=== PATIENT | female | born 1970 | race Two or more races ===

== ENCOUNTER 2019-01-16 17:25 | Emergency (ER) | payer MEDICAID ==
[~2019-01-16] VITALS: Ht 170.2 cm; Wt 108.9 kg
[2019-01-16 18:26] VITALS: BP 136/93
[2019-01-16 18:32] LABS: Basophils # (auto) 0 uL; Basophils % (auto) 0.5 % (0.0-2.0); Eosinophils # (auto) 0.1 uL; Eosinophils % (auto) 1.3 % (0.0-7.0); Hematocrit 36.7 % (36.0-46.0); Hemoglobin 12.2 g/dL (12.2-16.2); Lymphocytes # (auto) 1.7 uL; Lymphocytes % (auto) 19.8 % (10.0-50.0); Mean Corpuscular Hemoglobin 28.3 pg (28.0-32.0); Mean Corpuscular Hgb Conc. 33.3 g/dL (32.0-36.0); Mean Corpuscular Volume 85.1 fL (80.0-100.0); Monocytes # (auto) 0.5 uL; Monocytes % (auto) 5.9 % (0.0-12.0); Neutrophils # (auto) 6.2 uL; Neutrophils % (auto) 72.5 % (37.0-80.0); Platelet Count (auto) 271 10^3/uL (140-450); Red Blood Cells 4.32 10^6/uL (4.0-5.20); Red Cell Distribution Width 16.1 % (11.8-14.3); White Blood Cell 8.5 10^3/uL (4.4-10.8)
[2019-01-16 18:42] LABS: Albumin 2.9 g/dL (3.4-5.0); Calcium 8.4 mg/dL (8.5-10.1); Magnesium 1.7 mg/dL (1.6-2.6); Potassium 3.8 mmol/L (3.5-5.1)
[2019-01-16 18:44] LABS: BUN/Creatinine Ratio 17.4; INR 0.97 (0.9-1.15); Partial Thromboplastin Time 23.8 sec (23.78-33.04); Prothrombin Time 10.4 sec (9.27-12.13)
[2019-01-16 18:50] LABS: Bilirubin, Total 0.4 mg/dL (0.2-1.0); Total Protein 6.7 g/dL (6.4-8.2)
== END 2019-01-16 19:16 | disposition left against medical advice (07) ==
LOC: EDBD 17:25 → ER 17:32
DX: I11.0 Hypertensive heart disease with heart failure (principal); E11.65 Type 2 diabetes mellitus with hyperglycemia; I50.33 Acute on chronic diastolic (congestive) heart failure; I25.2 Old myocardial infarction; F17.210 Nicotine dependence, cigarettes, uncomplicated; J45.909 Unspecified asthma, uncomplicated; Z90.49 Acquired absence of other specified parts of digestive tract; Z88.6 Allergy status to analgesic agent
CPT/HCPCS: 36415; 71045; 80053; 83735; 83880; 84443; 84484; 85025; 85610; 85730; 93005; 94761

== ENCOUNTER 2025-03-26 10:04 | Inpatient (IN) | payer MEDICAID ==
[2025-03-26] VITALS (39 sets, daily range): BP systolic 71–119; BP diastolic 35–75; PULSE 93–113; RESP 11–31; TEMP 98–98.2; O2SAT 92–100
[~2025-03-26] VITALS: Ht 167.6 cm; Wt 143.0 kg
[2025-03-26] MEDS ORDERED: VANCOMYCIN PER PHARMACY 0 MG IV SCH ×2 (10:45→15:00)
--- NOTE | 2025-03-26 10:58 | ED.PDOC ---
History of Present Illness(SKN HPI Comments 54-year-old female brought in by family from [facility] in [place], for evaluation of wounds to her right lower leg x 1 month. Patient states she had been on antibiotics 3 weeks ago, but is not on any antibiotics currently. She notes malodorous yellow discharge from the wounds. Patient st ates that the leg has been like this for "a month now". Patient is supposed to be taken care of at [facility] in [place]. Patient denies fever or recent injury. She states the leg is painful, and has been for about the last 3 weeks. Chief Complaint: Wound Check Time Seen by MD: 10:39 Primary Care Provider: DENIES History of Present Illness: Medications, Allergies Allergies: Coded Allergies: Codeine (Verified Allergy, Unknown, 01/16/19) Penicillins (Verified Allergy, Unknown, 03/26/25) Information Source: Patient Mode of Arrival: Wheelchair Severity: Moderate Timing: Months Duration: Since onset Prehospital treatment: None Location: Leg (RIGHT LOWER LEG) Mechanism: Preceding Wound Developed: Generalized erythema Wound Type: Unknown Immunization Status of Animal: NA Tetanus: Unknown Past Medical History PAST MEDICAL HISTORY: Asthma, CHF, COPD, DM, ESRD, HTN, DE Surgical History: Cholecystectomy, 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 Family History Family History: Unknown Social History Smoker: Cigarettes, Less Than 1 Pack/Day Alcohol: Denies ETOH Use Drugs: Denies Drug Use Lives In: Assisted Care Constitutional: denies: chills, diaphoresis, fatigue, fever, malaise, sweats, weakness, others EENTM: denies: blurred vision, double vision, ear bleeding, ear discharge, ear drainage, ear pain, ear ringing, eye pain, eye redness, hearing loss, mouth pain, mouth swelling, nasal discharge, nose bleeding, nose congestion, nose pain, photophobia, tearing, throat pain, throat swelling, voice changes, others Respiratory: denies: cough, hemoptysis, orthopnea, SOB at rest, shortness of breath, SOB with excertion, stridor, wheezing, others Cardiovascular: denies: chest pain, dizzy spells, diaphoresis, Dyspnea on exertion, edema, irregular heart beat, left arm pain, lightheadedness, palpitations, PND, syncope, others Gastrointestinal: denies: abdomen distended, abdominal pain, blood streaked bowels, constipated, diarrhea, dysphagia, difficulty swallowing, hematemesis, melena, nausea, poor appetite, poor fluid intake, rectal bleeding, rectal pain, vomiting, others Genitourinary: denies: abnormal vagina bleeding, burning, dyspareunia, dysuria, flank pain, frequency, hematuria, incontinence, pain, , vagina discharge, urgency, others Neurological: denies: dizziness, fainting, headache, left sided numbness, left sided weakness, numbness, paresthesia, pre-existing deficit, right sided numbness, right sided weakness, seizure, speech problems, tingling, tremors, weakness, others Musculoskeletal: denies: back pain, gout, joint pain, joint swelling, muscle pain, muscle stiffness, neck pain, others Integumetry: reports: wounds; denies: bruises, change in color, change in hair/nails, dryness, laceration, lesions, lumps, rash, others Allergic/Immunocompromised: denies: Difficulty Healing, Frequent Infections, Hives, Itching, others Hematologic/Lymphatic: denies: anemia, blood clots, easy bleeding, easy bruising, swollen glands, others Endocrine: denies: excessive hunger, excessive sweating, excessive thirst, excessive urination, flushing, intolerance to cold, intolerance to heat, unexplained weight gain, unexplained weight loss, others Psychiatric: denies: anxiety, bipolar disorder, depression, hopeless, panic disorder, schizophrenia, sleepless, suicidal, others All Other Systems: Reviewed and Negative Physical Exam General Appearance: Obese HEENT: Other (Pupils and face symmetric. Moist mucous membranes.) Neck: Full Range of Motion, Normal Inspection Respiratory: Decreased Breath Sounds, No Accessory Muscle Use, No Respiratory Distress Cardiovascular: No JVD, Regular Rate/Rhythm Breast Exam: Deferred Gastrointestinal: Non Tender, Soft Genitalia: Deferred Pelvic: Deferred Rectal: Deferred Extremities: Leg edema, Pedal edema, Other (Right greater than left lower extremity edema. Right leg confidential/ confluent macerated ulcerative wounds involving the leg, ankle and foot. Malodorous purulent discharge. Maggots noted on the wounds) Musculoskeletal : Apperance: Normal Neurologic: Alert (Oriented x4), Normal Affect, Normal Mood, Other (Moves all extremities. ) Cerebellar Function: NOT DONE Reflexes: NOT DONE Skin: Dry, Warm, Wounds (Right lower extremity please see extremity exam for details) Lymphatic: NOT DONE Was a procedure done? 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 Local anesthesia was applied using 1% lidocaine. The left femoral vein was very dif ficult to localized using ultrasound due to the patient's large pannus and large amount of soft tissue in the proximal thigh and inguinal area, which required a 2nd person to hold aside in order for me to visualize the femoral vein. Two attempts were made to access the vein under ultrasound guidance, however these were unsuccessful and the patient expressed discomfort and asked me to discontinue the procedure. Direct pressure was applied to the attempted insertion site with achievement of hemostasis after a few sec. Differential Diagnosis (INTG) Differential Diagnosis: Cellulitis, Other (Sepsis, among others) Differential Diagnosis: Abscess, Gangrene, Osteomyelitis X-Ray, Labs, Meds, VS Vital Signs Date Time Temp Pulse Resp B/P (MAP) Pulse Ox O2 Delivery O2 Flow Rate FiO2 03/26/25 14:15 111 21 91/61 (71) 97 03/26/25 14:15 91/61 03/26/25 14:00 111 19 87/50 (62) 97 03/26/25 13:45 112 20 98/53 (68) 97 03/26/25 13:30 112 20 98/53 (68) 97 03/26/25 13:25 97/57 03/26/25 13:15 112 20 100/55 (70) 96 03/26/25 13:15 92/53 03/26/25 12:27 96 21 96/54 (68) 97 03/26/25 12:15 73/42 03/26/25 11:58 90 03/26/25 11:30 75/45 03/26/25 11:15 98.8 113 20 81/51 (61) 97 98.8 03/26/25 11:15 113 20 97 Nasal Cannula* 3 32 03/26/25 10:15 98.1 115 20 82/50 (61) 88 98.1 80/39 (53) Lab Test 03/26/25 14:27 03/26/25 13:34 03/26/25 10:25 Range/Units Troponin I High Sensitivity Pending 11 </=34 ng/L White Blood Count 10.7 4.4-10.8 10^3/uL Red Blood Count 2.87 L 4.0-5.20 10^6/uL Hemoglobin 9.7 L 12.2-16.2 g/dL Hematocrit 29.3 L 36.0-46.0 % Mean Corpuscular Volume 101.8 H 80.0-100.0 fL Mean Corpuscular Hemoglobin 33.7 H 28.0-32.0 pg Mean Corpuscular Hemoglobin Concent 33.1 32.0-36.0 g/dL Red Cell Distribution Width 16.8 H 11.8-14.3 % Platelet Count 283 140-450 10^3/uL Mean Platelet Volume 6.8 L 6.9-10.8 fL Neutrophils (%) (Auto) 75.0 37.0-80.0 % Lymphocytes (%) (Auto) 10.6 10.0-50.0 % Monocytes (%) (Auto) 10.4 0.0-12.0 % Eosinophils (%) (Auto) 3.0 0.0-7.0 % Basophils (%) (Auto) 1.0 0.0-2.0 % Neutrophils # (Auto) 8.0 1.6-8.6 10 ^3/uL Lymphocytes # (Auto) 1.1 0.4-5.4 10 ^3/uL Monocytes # (Auto) 1.1 0-1.3 10 ^3/uL Eosinophils # (Auto) 0.3 0-0.8 10 ^3/uL Basophils # (Auto) 0.1 0-0.2 10 ^3/uL Nucleated Red Blood Cells 0.0 % Prothrombin Time 11.7 9.3-11.8 sec Prothrombin Time INR 1.12 0.9-1.15 Activated Partial Thromboplast Time 36.5 H 24.5-34.5 SEC Sodium Level 136 136-145 mmol/L Potassium Level 5.2 H 3.5-5.1 mmol/L Chloride Level 102 98-107 mmol/L Carbon Dioxide Level 24 20-31 mmol/L Anion Gap 10 5-15 Blood Urea Nitrogen 36 H 9-23 mg/dL Creatinine 3.99 H 0.550-1.02 mg/dL Glomerular Filtration Rate Calc 13 >90 mL/min BUN/Creatinine Ratio 9.0 L 10.0-20.0 Serum Glucose 166 H 74-106 mg/dL Calcium Level 8.5 L 8.7-10.4 mg/dL B-Type Natriuretic Peptide 138.10 0-100 pg/mL POC Glucose 251 H 70-106 mg/dl Current Medications Medications (Trade) Dose Ordered Sig/Kiana Route Start Time Stop Time Status Last Admin Acetaminophen/ Hydrocodone Bitart ([place] 10/325MG Tab) 1 tab ONCE ONCE PO 03/26/25 10:45 03/26/25 10:46 DC 03/26/25 11:50 Cefepime HCl 50 ml @ 12.5 mls/hr ONCE ONCE IV 03/26/25 10:45 03/26/25 14:44 DC 03/26/25 11:20 Sodium Chloride 1,000 ml @ 1,000 mls/hr Q1H ONCE IV 03/26/25 11:00 03/26/25 11:59 DC 03/26/25 11:14 Norepinephrine Bitartrate 250 ml @ 3.75 mls/hr Q24H IV 03/26/25 11:30 03/26/25 11:30 PROCEDURE(s): CXRP - CHEST PORTABLE REASON: lower extremity edema ORDER NUMBER(s): [id number], ACCESSION NUMBER(s): [id number] EXAM: XY CHEST PORTABLE Indication: lower extremity edema Technique: Single frontal view of the chest was obtained Comparison: None FINDINGS: Lines and Tubes: None Lungs: Pulmonary edema. Pleura: Trace bilateral pleural effusions. No pneumothorax. Cardiomediastinal contours: Cardiomegaly. Bones: No acute osseous abnormality. IMPRESSION: Cardiomegaly with pulmonary edema. Trace bilateral pleural effusions. EDURE(s): RTBFB - R TIB FIB XRAY REASON: wound infection r/o osteo ORDER NUMBER(s): [id number], ACCESSION NUMBER(s): [id number] CLINICAL INDICATION: Pain wound infection r/o osteo TECHNIQUE: 2 radiographic views of the right tibia/ fibula were obtained. Comparison: None FINDINGS/IMPRESSION: There is no evidence of acute fracture or dislocation. Partially visualized osteoarthrosis right knee joint. No radiographic evidence of cortical destruction. EDURE(s): RANK2 - R ANKLE 2 VIEW XRAY REASON: wound infection r/o osteo ORDER NUMBER(s): [id number], ACCESSION NUMBER(s): [id number] CLINICAL INDICATION: Pain; wound infection r/o osteo TECHNIQUE: 2 radiographic views of the right ankle were obtained. Comparison: None FINDINGS/IMPRESSION: There is no evidence of acute fracture or dislocation. The visualized joint space is well maintained. The alignment is anatomical. There is no radiopaque foreign body. EDURE(s): RFOOT - R FOOT 3 VIEW XRAY REASON: wound infection r/o osteo ORDER NUMBER(s): [id number], ACCESSION NUMBER(s): [id number] CLINICAL INDICATION: wound infection r/o osteo TECHNIQUE: 3 radiographic views of the right foot were obtained. Comparison: None FINDINGS/IMPRESSION: There is no evidence of acute fracture or dislocation. Small plantar calcaneal enthesophyte. The visualized joint space is well maintained. Atherosclerotic vascular right foot. Diffuse soft tissue swelling about the right foot. No radiographic evidence destruction. The alignment is anatomical. There is no radiopaque foreign body. X-Ray, Labs, Meds, VS Comment 54-year-old female with a history of diabetes, hypertension, COPD on home O2, CHF, end-stage renal disease on dialysis presenting with right lower extremity painful wounds with purulent discharge and maggots noted on the wounds Vitals remarkable for heart rate 111, BP 87/50 Exam remarkable for right lower extremity wounds extending from the leg to the foot which are open and draining pus with maggots noted on the wounds Rhythm strip independently interpreted by me: Sinus tach, rate 111, no ectopy. Chest x-ray IMPRESSION: Cardiomegaly with pulmonary edema. Trace bilateral pleural effusions. Right tib-fib, ankle and foot x-rays unremarkable for acute fracture or dislocation. Per my preliminary interpretation, no periosteal elevation to suggest osteomyelitis. CBC unremarkable, metabolic panel remarkable for potassium 5.2, BUN 36, creatinine 3.99, BNP 138.1, troponin negative x2 Patient treated with the following in the ED: Cefepime 2 g IV, vancomycin 1 g IV, 1 L 0.9 normal saline IV bolus, Levophed infusion, [place] 10/325 mg p.o. On re-evaluation, pain has improved. Vitals were stable. Sepsis fluid bolus was not administered due to the patient's history of CHF and end-stage renal disease and the fact that she is due for dialysis tomorrow. Aggressive fluid administration could cause harm. I did attempt to place a central venous catheter. The left IJ was not well visualized on ultrasound and the patient appeared to have had a previous line inserted in that area due to a residual scar. I attempted to insert a left femoral central venous catheter, but due to the patient's body habitus, it was unsuccessful. Please see procedure note for details. Orders were placed for PICC insertion. Plan is to admit the patient for IV antibiotics and Nephrology/surgery evaluation. Time of 1ST Reevaluation: 11:09 Reevaluation 1ST: Unchanged Patient Education/Counseling: Diagnosis, Treatment Family Education/Counseling: No Family Present SEPSIS Sepsis Screen Physician Orders Urinalysis (03/26/25 10:41) Lactic Acid W/ Reflex Order (03/26/25 10:41) Blood Culture (03/26/25 10:41) Wound Culture W/ Gs (03/26/25 10:41) Vancomycin Per Pharmacy (03/26/25 10:45) Troponin-I Hs (03/26/25 11:41) Troponin-I Hs (03/26/25 13:41) R Tib Fib Xray (03/26/25 10:41) R Ankle 2 View Xray (03/26/25 10:41) R Foot 3 View Xray (03/26/25 10:41) Chest Portable (03/26/25 10:44) Accucheck (03/26/25 10:44) Notify Md If Map <65 Or Bp<90 (03/26/25 10:44) If Map<65 Start Vasopressor (03/26/25 10:44) Norepinephrine 8 Mg/250ml Kit (Levophed) (03/26/25 11:30) Complete Blood Count (03/27/25 04:00) Creatinine (03/27/25 04:00) Vancomycin,Random (03/27/25 04:00) * Picc Line Consult (03/26/25 13:45) PICC (03/26/25 13:45) Vital Signs Date Time Temp Pulse Resp B/P (MAP) Pulse Ox O2 Delivery O2 Flow Rate FiO2 03/26/25 14:15 111 21 91/61 (71) 97 03/26/25 14:15 91/61 03/26/25 14:00 111 19 87/50 (62) 97 03/26/25 13:45 112 20 98/53 (68) 97 03/26/25 13:30 112 20 98/53 (68) 97 03/26/25 13:25 97/57 03/26/25 13:15 112 20 100/55 (70) 96 03/26/25 13:15 92/53 03/26/25 12:27 96 21 96/54 (68) 97 03/26/25 12:15 73/42 03/26/25 11:58 90 03/26/25 11:30 75/45 03/26/25 11:15 98.8 113 20 81/51 (61) 97 98.8 03/26/25 11:15 113 20 97 Nasal Cannula* 3 32 03/26/25 10:15 98.1 115 20 82/50 (61) 88 98.1 80/39 (53) Laboratory Tests Test 03/26/25 13:34 White Blood Count 10.7 10^3/uL (4.4-10.8) Medications Medications Dose Ordered Sig/Kiana Route Start Time Stop Time Status Last Admin Dose Admin Acetaminophen/ Hydrocodone Bitart 1 tab ONCE ONCE PO 03/26/25 10:45 03/26/25 10:46 DC 03/26/25 11:50 Cefepime HCl 50 ml @ 12.5 mls/hr ONCE ONCE IV 03/26/25 10:45 03/26/25 14:44 DC 03/26/25 11:20 Norepinephrine Bitartrate 250 ml @ 3.75 mls/hr Q24H IV 03/26/25 11:30 03/26/25 11:30 Sodium Chloride 1,000 ml @ 1,000 mls/hr Q1H ONCE IV 03/26/25 11:00 03/26/25 11:59 DC 03/26/25 11:14 Departure 1 Departure Time of Disposition: 13:30 Impression: Primary Impression: Cellulitis of right lower extremity Additional Impressions: Sepsis Qualified Codes: A41.9 - Sepsis, unspecified organism Hyperkalemia Disposition: ADMITTED INPATIENT Admit to: ICU Condition: Serious Critical Care Note Critical Care Time?: Yes (55 min-critical care time only) Critical care comment: Critical care time including multiple bedside re-evaluations, review of lab and imaging studies, and discussion of the case with the admitting provider. Patient is high risk for metabolic and/or hemodynamic decompensation. Stability Stability form required: No Heart Score Heart Score: Heart Score Response (Comments) Value History N/A 0 EKG N/A 0 Age N/A 0 Risk Factors N/A 0 Troponin N/A 0 Total 0 I personally scribed for HUAN MURRAY MD ([email or web address]) on 03/26/25 at 10:58. Electronically submitted by Barrington Jones ([email or web address]). HUAN MURRAY MD Mar 26, 2025 10:58
[2025-03-26] MEDS: SODIUM CHLORIDE 0.9% 1,000 ML IV ONE (11:14)
[2025-03-26] MEDS: CEFEPIME 2GM/50ML NS 50 ML IV ONE (11:20)
[2025-03-26] MEDS: NOREPINEPHRINE 8 MG/250ML KIT 250 ML IV SCH (11:30)
[2025-03-26] MEDS: NOREPINEPHRINE 8 MG/250ML KIT 250 ML IV ONE (11:42)
[2025-03-26] MEDS: HYDROcodone-ACET 10/325MG TAB PO ONE (11:50)
[2025-03-26] MEDS: VANCOMYCIN 1GM/200ML PM 250 ML IV SCH (13:15)
--- NOTE | 2025-03-26 13:41 | DVH ---
EXAM: XY CHEST PORTABLE Indication: lower extremity edema Technique: Single frontal view of the chest was obtained Comparison: None FINDINGS: Lines and Tubes: None Lungs: Pulmonary edema. Pleura: Trace bilateral pleural effusions. No pneumothorax. Cardiomediastinal contours: Cardiomegaly. Bones: No acute osseous abnormality. IMPRESSION: Cardiomegaly with pulmonary edema. Trace bilateral pleural effusions.
--- NOTE | 2025-03-26 13:42 | DVH ---
CLINICAL INDICATION: Pain wound infection r/o osteo TECHNIQUE: 2 radiographic views of the right tibia/ fibula were obtained. Comparison: None FINDINGS/IMPRESSION: There is no evidence of acute fracture or dislocation. Partially visualized osteoarthrosis right knee joint. No radiographic evidence of cortical destructi on.
--- NOTE | 2025-03-26 13:43 | DVH ---
CLINICAL INDICATION: Pain; wound infection r/o osteo TECHNIQUE: 2 radiographic views of the right ankle were obtained. Comparison: None FINDINGS/IMPRESSION: There is no evidence of acute fracture or dislocation. The visualized joint space is well maintained. The alignment is anatomical. There is no radiopaque foreign body.
--- NOTE | 2025-03-26 13:43 | DVH ---
CLINICAL INDICATION: wound infection r/o osteo TECHNIQUE: 3 radiographic views of the right foot were obtained. Comparison: None FINDINGS/IMPRESSION: There is no evidence of acute fracture or dislocation. Small plantar calcaneal enthesophyte. The visualized joint space is well maintained. Atherosclerotic vascular right foot. Diffuse soft tis golden swelling about the right foot. No radiographic evidence destruction. The alignment is anatomical. There is no radiopaque foreign body.
[2025-03-26 13:47] LABS: Hematocrit 29.3 % (36.0-46.0); Hemoglobin 9.7 g/dL (12.2-16.2); Mean Corpuscular Hemoglobin 33.7 pg (28.0-32.0); Mean Corpuscular Volume 101.8 fL (80.0-100.0); Nucleated Red Blood Cells % 0.0 %
[2025-03-26 13:57] LABS: Chloride 102 mmol/L (98-107)
[2025-03-26 13:58] LABS: Anion Gap 10 (5-15); Carbon Dioxide 24 mmol/L (20-31)
[2025-03-26 14:00] LABS: Calcium 8.5 mg/dL (8.7-10.4); Potassium 5.2 mmol/L (3.5-5.1); Sodium 136 mmol/L (136-145)
[2025-03-26 14:02] LABS: INR 1.12 (0.9-1.15); Partial Thromboplastin Time 36.5 SEC (24.5-34.5); Prothrombin Time 11.7 sec (9.3-11.8)
[2025-03-26 14:03] LABS: BUN/Creatinine Ratio 9.0 (10.0-20.0)
[2025-03-26 14:05] LABS: Blood Urea Nitrogen 36 mg/dL (9-23); Glucose 166 mg/dL (74-106)
[2025-03-26] MEDS ORDERED: NITROGLYCERIN 0.4 MG SL TAB SL PRN (15:00)
[2025-03-26] MEDS ORDERED: ONDANSETRON HCL 4 MG/2 ML VIAL IV PRN (15:00)
[2025-03-26] MEDS ORDERED: DOCUSATE SOD 100 MG CAP PO PRN (15:00)
[2025-03-26] MEDS ORDERED: DEXTROSE (50%) 50ML SYRG IV PRN (15:00)
[2025-03-26] MEDS: SODIUM ZIRCONIUM CYCL 10 GM PAK PO ONE (17:02)
--- NOTE | 2025-03-26 17:59 | DVHHP2 ---
History of Present Illness Reason for Visit: Wound to right lower extremity History of Present Illness 54-year-old female past medical history asthma CHF diabetes hypertension [place] end- stage renal disease on dialysis state she goes to Dr. Whitney gallbladder surgery chief medical director complaint patient is here for evaluation for right foot/leg with a wound that she had been dealing with for a month. She has not been on antibiotics recently for this infection she states she lives at [facility] and [place] and usually they do wound care for her there unable to give much information from patient she has a poor historian when it comes to her wound care in her treatment but according to the ED nurse it appears she came in with some maggots to the wound was told to me and report but I reviewed ED records and does not mention any maggots but the wound is with severe odor and drainage. Patient currently has a dressing in his place declines take down on my exam. When evaluating patient's labs and imaging from ED vanco was given patient was hypertensive 71/34 shows she is currently on Levophed drip cefepime was provided [place] hemoglobin was 9.7 29.3 potassium was slightly elevated at 5.2 calcium 8.5 chest x-ray shows cardiomegaly with some edema but no shortness of the breath x-ray tib-fib shows a osteoarthrosis in the right knee joint with no infection no fracture no dislocation x-ray of the foot without fracture but it does show soft tissue swelling of the foot and x-ray of the ankle was unremarkable. With these findings patient will be admitted IV antibiotics we will also ask Podiatry for evaluation along with renal for pending HD. Since patient in his septic and on Levophed drip we will admit to ICU Past Medical History See HPI above Past Surgical History See HPI above Family History Reviewed, non-contributory to the management of this case. Past Social History The patient lives at home, denies smoking, alcohol or illicit drugs abuse. Review of Systems Constitutional: No: Fever, Chills, Sweats, Weakness, Malaise, Other Eyes: No: Pain, Vision change, Conjunctivae inflammation, Eyelid inflammation, Other, Redness ENT: No: Ear pain, Ear discharge, Nose pain, Nose discharge, Nose congestion, Mouth pain, Mouth swelling, Throat pain, Throat swelling, Other Respiratory: No: Cough, Dry, Shortness of breath, SOB with excertion, Wheezing, Hemoptysis, Pleuritic Pain, Sputum, Wheezing, Other Cardiovascular: No: Chest Pain, Palpitations, Orthopnea, Paroxysmal Noc. Dyspnea, Edema, Lt Headedness, Other Gastrointestinal: No: Nausea, Vomiting, Abdominal Pain, Diarrhea, Constipation, Melena, Hematochezia, Other Genitourinary: No Dysuria, No Frequency, No Incontinence, No Hematuria, No Retention, No Other Musculoskeletal: foot pain; No: other, neck pain, shoulder pain, arm pain, back pain, hand pain, leg pain Skin: No: Rash, Lesions, Jaundice, Bruising, Other Neurological: Weakness; No: Numbness, Incoordination, Change in speech, Confusion, Seizures, Other Allergies: Coded Allergies: Codeine (Verified Allergy, Unknown, 01/16/19) Penicillins (Verified Allergy, Unknown, 03/26/25) Medications Current Medications Medications Dose Ordered Sig/Kiana Route Start Time Stop Time Status Last Admin Dose Admin Vancomycin HCl 0 ml @ 0 mls/hr UD IV 03/26/25 10:45 Norepinephrine Bitartrate 250 ml @ 3.75 mls/hr Q24H IV 03/26/25 11:30 03/26/25 11:30 3.75 MLS/HR Acetaminophen 650 mg Q6HP PRN PO 03/26/25 15:00 Cefepime/Dextrose 50 ml @ 12.5 mls/hr Q8HR IV 03/26/25 22:00 UNV Ondansetron HCl 4 mg Q4HP PRN IV 03/26/25 15:00 Docusate Sodium 100 mg BIDPRN PRN PO 03/26/25 15:00 Enoxaparin Sodium 30 mg DAILY SC 03/27/25 10:00 Morphine Sulfate 2 mg Q4HPRN PRN IV 03/26/25 15:00 Diagnostic Test (Pha) 1 strip Q6HR 03/26/25 18:00 Insulin Human Regular Q6HR SC 03/26/25 18:00 Dextrose 50 ml UD PRN IV 03/26/25 15:00 Nitroglycerin 0.4 mg Q5MINP PRN SL 03/26/25 15:00 Cefepime HCl 50 ml @ 12.5 mls/hr DAILY IV 03/27/25 10:00 Exam Vital Signs Vital Signs Date Time Temp Pulse Resp B/P (MAP) Pulse Ox O2 Delivery O2 Flow Rate FiO2 03/26/25 15:25 110 22 97 Nasal Cannula* 3 32 03/26/25 15:25 98.0 93/39 (57) 98.0 General Appearance: Alert, Oriented X3, Cooperative, No acute distress HEENT: Atraumatic, PERRLA, EOMI, Mucous membr. moist/pink Respiratory: Clear to auscultation, Normal air movement Cardiovascular: Regular rate, Normal S1, Normal S2, No murmurs Abdominal: Normal bowel sounds, Soft, No tenderness, No hepatospenomegaly, Other (Obese abdomen) Extremities: Other (Right foot lower extremity dorsal and plantar surface limited exam due to dressing in place excoriated skin with odor and drainage toes is exposed decrease wiggle unable to assess pulse d/t wound will order us ) Neuro: Other (Neuro nonfocal) Psych/Mental Status: Mental status NL, Mood NL Labs/Xrays Chest x-ray shows cardiomegaly with edema trace pleural effusion X-ray tib-fib shows arthritis of the knee no dislocation, x-ray of the foot shows soft tissue swelling of the foot, x-ray of the foot unremarkable I reviewed labs, imaging CT scan abdomen pelvis, EKG and all diagnostic studies on this patient from ED records and the medical chart Labs Test 03/26/25 15:32 03/26/25 13:34 03/26/25 10:25 Range/Units Lactic Acid Level 1.2 0.4-2.0 mmol/L Troponin I High Sensitivity 8 </=34 ng/L White Blood Count 10.7 4.4-10.8 10^3/uL Red Blood Count 2.87 L 4.0-5.20 10^6/uL Hemoglobin 9.7 L 12.2-16.2 g/dL Hematocrit 29.3 L 36.0-46.0 % Mean Corpuscular Volume 101.8 H 80.0-100.0 fL Mean Corpuscular Hemoglobin 33.7 H 28.0-32.0 pg Mean Corpuscular Hemoglobin Concent 33.1 32.0-36.0 g/dL Red Cell Distribution Width 16.8 H 11.8-14.3 % Platelet Count 283 140-450 10^3/uL Mean Platelet Volume 6.8 L 6.9-10.8 fL Neutrophils (%) (Auto) 75.0 37.0-80.0 % Lymphocytes (%) (Auto) 10.6 10.0-50.0 % Monocytes (%) (Auto) 10.4 0.0-12.0 % Eosinophils (%) (Auto) 3.0 0.0-7.0 % Basophils (%) (Auto) 1.0 0.0-2.0 % Neutrophils # (Auto) 8.0 1.6-8.6 10 ^3/uL Lymphocytes # (Auto) 1.1 0.4-5.4 10 ^3/uL Monocytes # (Auto) 1.1 0-1.3 10 ^3/uL Eosinophils # (Auto) 0.3 0-0.8 10 ^3/uL Basophils # (Auto) 0.1 0-0.2 10 ^3/uL Nucleated Red Blood Cells 0.0 % Prothrombin Time 11.7 9.3-11.8 sec Prothrombin Time INR 1.12 0.9-1.15 Activated Partial Thromboplast Time 36.5 H 24.5-34.5 SEC Sodium Level 136 136-145 mmol/L Potassium Level 5.2 H 3.5-5.1 mmol/L Chloride Level 102 98-107 mmol/L Carbon Dioxide Level 24 20-31 mmol/L Anion Gap 10 5-15 Blood Urea Nitrogen 36 H 9-23 mg/dL Creatinine 3.99 H 0.550-1.02 mg/dL Glomerular Filtration Rate Calc 13 >90 mL/min BUN/Creatinine Ratio 9.0 L 10.0-20.0 Serum Glucose 166 H 74-106 mg/dL Calcium Level 8.5 L 8.7-10.4 mg/dL B-Type Natriuretic Peptide 138.10 0-100 pg/mL POC Glucose 251 H 70-106 mg/dl SEPSIS Sepsis Screen Date sepsis recognized/suspect: Mar 26, 2025 Time Sepsis recognized/suspect: 1133 Recent Procedure: No On Antibiotic Therapy: No Respiratory Rate >20: No Heart Rate >90: Yes Temp<36 C (96.8 F) or >38.3 C: No SBP <90 or MAP <65 mmHG: Yes New Acute Mental Status Change: No Is the patient on CPAP, BIPAP,: No Physician Orders Urinalysis (03/26/25 10:41) Blood Culture (03/26/25 10:41) Wound Culture W/ Gs (03/26/25 10:41) Vancomycin Per Pharmacy (03/26/25 10:45) R Tib Fib Xray (03/26/25 10:41) R Ankle 2 View Xray (03/26/25 10:41) R Foot 3 View Xray (03/26/25 10:41) Chest Portable (03/26/25 10:44) Accucheck (03/26/25 10:44) Notify Md If Map <65 Or Bp<90 (03/26/25 10:44) If Map<65 Start Vasopressor (03/26/25 10:44) Norepinephrine 8 Mg/250ml Kit (Levophed) (03/26/25 11:30) Complete Blood Count (03/27/25 04:00) Creatinine (03/27/25 04:00) Vancomycin,Random (03/27/25 04:00) * Picc Line Consult (03/26/25 13:45) PICC (03/26/25 13:45) Admit (03/26/25 14:29) *[facility] (03/26/25 14:29) Admit (03/26/25 14:52) Hourly Caregiver (03/26/25 14:52) Acetaminophen Tablet (Tylenol Tablet) (03/26/25 15:00) Diagnosis (03/26/25 14:52) Code Status (03/26/25 14:52) Sepsis (03/26/25 14:52) Notify If: (03/26/25 14:52) Goal: (03/26/25 14:52) Goal: (03/26/25 14:52) Goal: (03/26/25 14:52) Goal: (03/26/25 14:52) Goal: (03/26/25 14:52) Maintain Hob >30 QSHIFT (03/26/25 14:52) Sepsis Initial Assessment ONCE (03/26/25 14:52) Sepsis Reassessment After Flui (03/26/25 14:52) Lactic Acid W/ Reflex Order (04/01/25 14:52) Lactic Acid W/ Reflex Order (04/07/25 14:52) Lactic Acid W/ Reflex Order (04/13/25 14:52) Hourly Caregiver (03/26/25 14:52) Bedrest With Bathroom Privileg (03/26/25 14:52) Consistent Carb(Ccho)Diabetes (03/26/25 Dinner) Vs Q1hr And Prn (03/26/25 14:52) Oxygen Per Standardized Proced (03/26/25 14:52) Emergency Dysrhythmia Protocol (03/26/25 14:52) Admit (03/26/25 14:52) Allergies (03/26/25:52) Ondansetron Hcl (Zofran) (03/26/25 15:00) Docusate Sodium Capsule (Colace Capsule) (03/26/25 15:00) Comprehensive Metabolic Panel (03/27/25 04:00) Enoxaparin Sodium (Lovenox) (03/27/25 10:00) Morphine Sulfate Injection (03/26/25 15:00) Glucose Blood (Accu-Chek Comfort Curve T (03/26/25 18:00) Insulin R (Human) (Insulin R) (03/26/25 18:00) Dextrose 50% Syringe (03/26/25 15:00) Nitroglycerin Sublingual (Ntrostat Subli (03/26/25 15:00) Stat Ekg For Chest Pain (03/26/25 14:52) Notify Md Of Changes From Base (03/26/25 14:52) Smart Grid Engineer For 24 Hours (03/26/25 14:52) Emergency Dysrhythmia Protocol (03/26/25 14:52) Rhythm Strips Once Every Shift (03/26/25 14:52) Oxygen By Nasal Cannula (03/26/25 14:52) * Wound Consult (03/26/25 ) Rt Lower Dvt (03/26/25 14:52) *Podiatry Consult Musson(Dvmg) (03/26/25 14:52) Rt Low Ext Art Duplex (03/26/25 14:52) Cefepime 1gm/ 50ml (Maxipime 1gm/50ml) (03/27/25 10:00) Mrsa Screen (03/26/25 16:08) Vital Signs Date Time Temp Pulse Resp B/P (MAP) Pulse Ox O2 Delivery O2 Flow Rate FiO2 7/15/25 15:25 110 22 97 Nasal Cannula* 3 32 03/26/25 15:25 98.0 110 22 93/39 (57) 97 98.0 03/26/25 15:15 85/62 03/26/25 15:00 110 2 85/52 (63) 98 03/26/25 14:45 110 20 83/45 (58) 98 03/26/25 14:30 109 20 88/38 (55) 98 03/26/25 14:15 111 21 91/61 (71) 97 03/26/25 14:15 91/61 03/26/25 14:00 111 19 87/50 (62) 97 03/26/25 13:45 112 20 98/53 (68) 97 03/26/25 13:30 112 20 98/53 (68) 97 03/26/25 13:25 97/57 03/26/25 13:15 112 20 100/55 (70) 96 03/26/25 13:15 92/53 03/26/25 12:27 96 21 96/54 (68) 97 03/26/25 12:15 73/42 03/26/25 11:58 90 03/26/25 11:30 75/45 03/26/25 11:15 98.8 113 20 81/51 (61) 97 98.8 03/26/25 11:15 113 20 97 Nasal Cannula* 3 32 03/26/25 10:15 98.1 115 20 82/50 (61) 88 98.1 80/39 (53) Laboratory Tests Test 03/26/25 13:34 03/26/25 15:32 White Blood Count 10.7 10^3/uL (4.4-10.8) Lactic Acid Level 1.2 mmol/L (0.4-2.0) Medications Medications Dose Ordered Sig/Kiana Route Start Time Stop Time Status Last Admin Dose Admin Acetaminophen/ Hydrocodone Bitart 1 tab ONCE ONCE PO 03/26/25 10:45 03/26/25 10:46 DC 03/26/25 11:50 1 TAB Cefepime HCl 50 ml @ 12.5 mls/hr ONCE ONCE IV 03/26/25 10:45 03/26/25 14:44 DC 03/26/25 11:20 12.5 MLS/HR Norepinephrine Bitartrate 250 ml @ 3.75 mls/hr Q24H IV 03/26/25 11:30 03/26/25 11:30 3.75 MLS/HR Sodium Chloride 1,000 ml @ 1,000 mls/hr Q1H ONCE IV 03/26/25 11:00 03/26/25 11:59 DC 03/26/25 11:14 1,000 MLS/HR Vancomycin HCl 250 ml @ 250 mls/hr Q1H IV 03/26/25 13:15 03/26/25 15:15 DC 03/26/25 17:02 250 MLS/HR Zirconium Oxide 10 gm ONCE ONCE PO 03/26/25 15:15 03/26/25 15:16 DC 03/26/25 17:02 10 GM Assessment/Plan Assessment/Plan Acute sepsis source foot wound on right gentle bolus since pt has hx dialysis cont vanco and cefepime fu blood culture cont levophed keep SBP greater than 90 mmHg Map >65 ABG if with hypoxia ordered lactic sepsis protocol for now started in er Hold antidiabetic meds Initiate regular SS before meals and at bedtime acute on chronic diabetic foot wound right foot xray no fx or om seen ordered podiatry consult fu recs ordered vanco and cefepmie for now wound culture fu results ordered arterial study fu results ordered us to check for dvt fu results monitor for circulation compromise ordered morphine as needed for pain ordered esr and crp fu results Acute hypotension bp 74/46 Hold home blood pressure meds for now gentle hydration pt hx of ESRD on hd monitor for downtrend cont levophed acute on chronic anemia monitor acute hyperkalemia [facility] renal for HD acute cardiomegaly and pulmonary edema found on cxr will consult renal likely will need additional session of dialysis monitor for resp distress morbid obesity enc diet change chronic problems asthma chf dm ISS htn mi. ESRD on HS with [place] per pt consulted team fen/ppx diet hl lovenox for now plan admit to icu since pt with sepsis and hypotensive on levophed drip Plan discussed with: Patient, Other (ed records) My Orders Orders - SCOTT LEMUS DNP Procedure Category Date Status Time Admit ADMIT 03/26/25 Transmitted 14:29 Admit ADMIT 03/26/25 Transmitted 14:52 Hourly Caregiver JONATHAN 03/26/25 In Process 14:52 Acetaminophen Tablet PHA 03/26/25 In Process (Tylenol Tablet) 15:00 Diagnosis DIAGNOSIS 03/26/25 Transmitted 14:52 Code Status CODE 03/26/25 Transmitted 14:52 Sepsis ORDERS 03/26/25 Transmitted 14:52 Notify Md If: [facility] 03/26/25 In Process 14:52 Goal: JONATHAN 03/26/25 Transmitted 14:52 Goal: JONATHAN 03/26/25 Transmitted 14:52 Goal: JONATHAN 03/26/25 Transmitted 14:52 Goal: JONATHAN 03/26/25 Transmitted 14:52 Goal: JONATHAN 03/26/25 Transmitted 14:52 Maintain Hob >30 JONATHAN 03/26/25 In Process 14:52 Sepsis Initial JONATHAN 03/26/25 In Process Assessment 14:52 Sepsis Reassessment [facility] 03/26/25 In Process After Flui 14:52 Lactic Acid W/ Reflex LAB 04/01/25 Verified Order 14:52 Lactic Acid W/ Reflex LAB 04/07/25 Verified Order 14:52 Lactic Acid W/ Reflex LAB 04/13/25 Verified Order 14:52 Hourly Caregiver [facility] 03/26/25 In Process 14:52 Bedrest With Bathroom [facility] 03/26/25 In Process Privileg 14:52 Consistent DIET 03/26/25 Transmitted Carb(Ccho)Diabetes Dinner Vs Q1hr And Prn JONATHAN 03/26/25 In Process 14:52 Oxygen Per [facility] 03/26/25 In Process Standardized Proced 14:52 Emergency Dysrhythmia [facility] 03/26/25 In Process Protocol 14:52 Admit ADMIT 03/26/25 Transmitted 14:52 Allergies JONATHAN 03/26/25 In Process 14:52 Ondansetron Hcl PHA 03/26/25 In Process (Zofran) 15:00 Docusate Sodium PHA 03/26/25 In Process Capsule (Colace 15:00 Comprehensive LAB 03/27/25 Verified Metabolic Panel 04:00 Enoxaparin Sodium PHA 03/27/25 In Process (Lovenox) 10:00 Morphine Sulfate PHA 03/26/25 In Process Injection 15:00 Glucose Blood PHA 03/26/25 In Process (Accu-Chek Comfort 18:00 Insulin R (Human) PHA 03/26/25 In Process (Insulin R) 18:00 Dextrose 50% Syringe PHA 03/26/25 In Process 15:00 Nitroglycerin PHA 03/26/25 In Process Sublingual (Ntrostat 15:00 Stat Ekg For Chest [facility] 03/26/25 In Process Pain 14:52 Notify Md Of Changes [facility] 03/26/25 In Process From Base 14:52 Smart Grid Engineer For [facility] 03/26/25 In Process 24 Hours 14:52 Emergency Dysrhythmia [facility] 03/26/25 In Process Protocol 14:52 Rhythm Strips Once [facility] 03/26/25 In Process Every Shift 14:52 Oxygen By Nasal RT 03/26/25 Transmitted Cannula 14:52 * Wound Consult CONS 03/26/25 Transmitted Rt Lower Dvt US 03/26/25 Taken 14:52 *Podiatry Consult CONS 03/26/25 Transmitted [facility](Dvmg) 14:52 Rt Low Ext Art Duplex US 03/26/25 Taken 14:52 Cefepime 1gm/ 50ml PHA 03/27/25 In Process (Maxipime 1gm/50ml) 10:00 Mrsa Screen GUS 03/26/25 Logged 16:08 Date of Service: Mar 26, 2025 Billing Provider: SCOTT LEMUS DNP Common Visit Codes: [id number] INP/OBS CARE (HIGH), [id number] CARE 30- 74 MIN (Total critical care time: Approximately 45 minutes This critical care time included obtaining a history; examining the patient; pulse oximetry; ordering and review of studies; arranging urgent treatment with development of a management plan; evaluation of patient's response to treatment; frequent reassessment; and, discussions with other providers.) SCOTT LEMUS DNP Mar 26, 2025 17:59
[2025-03-26] MEDS: ACCU-CHEK COMFORT CURVE STRIP VI SCH (18:52)
[2025-03-26] MEDS: InsuLIN REG 1unit/0.01ml Soln (100units/ml) SC SCH (18:54)
[2025-03-26] MEDS: VANCOMYCIN 1GM/200ML PM 200 ML IV ONE (18:55)
--- NOTE | 2025-03-26 19:02 | DVH ---
RIGHT LOWER EXTREMITY VENOUS DUPLEX REASON FOR EXAMINATION: Right lower extremity pain and edema. COMPARISON: None TECHNIQUE: Using real-time freeze-frame technique with a high-frequency transducer, multiple longitu dinal and transverse sections were obtained. Simultaneous color flow and spectral Doppler imaging wa s performed. FINDINGS: There is no intraluminal filling defect identified in the visualized deep veins of the rig ht lower extremity. Normal venous compressibility is seen and there is flow augmentation. Color flow Doppler imaging is unremarkable. The posterior tibial vein in the right calf is not visualized due to overlying bandages. IMPRESSION: No evidence of DVT in the visualized deep veins of the right lower extremity. The posterior tibial ve in was not visualized due to overlying bandages.
--- NOTE | 2025-03-26 19:09 | DVH ---
RIGHT LOWER EXTREMITY ARTERIAL DUPLEX ULTRASOUND STUDY: REASON FOR EXAM: eval for vascular occlusion TECHNIQUE: The full lengths of the arterial segments were evaluated with color-flow Doppler ultrasoun d. Suspected abnormalities were evaluated with bonilla scale ultrasound. Trading Specialist spectral Doppler waveforms, with velocity measurements were obtained. Spectral waveforms with velocity measurements w ere obtained 2 to 4 cm central to any areas of significant stenosis. Common femoral, superficial femo ral, popliteal, posterior tibial and dorsal pedal arteries are evaluated. FINDINGS: There is diffuse atherosclerotic plaque throughout the right lower extremity. The common femoral emmanuel ry waveform is multiphasic with a brisk upstroke and low resistance. The superficial femoral and popl iteal arteries are patent with multiphasic low resistance waveforms. The posterior tibial and dorsali s pedis arteries are not evaluated due to overlying bandaging. IMPRESSION: No sonographic evidence of arterial occlusion. Multiphasic low resistance waveforms are seen throughout the visualized arteries. Low resistance in t he distal capillary bed can be caused by local infection. Correlate clinically.
[2025-03-26] MEDS ORDERED: CEFEPIME 2GM/50ML 50 ML IV SCH (22:00)
[2025-03-26] MEDS: ALBUTEROL SULF 2.5 MG/0.5ML(0.5%) NEB SOLN NEB PRN (22:13)
[2025-03-26] MEDS: NICOTINE 14 MG/24HR TOPICAL PATCH TD SCH (22:34)
[2025-03-26] MEDS: MORPHINE SULFATE INJ 2 MG/ml SYRG IV PRN (22:43)
[2025-03-27] VITALS (97 sets, daily range): BP systolic 81–153; BP diastolic 29–92; PULSE 93–121; RESP 11–31; TEMP 98.1–98.6; O2SAT 87–100
[2025-03-27] MEDS ORDERED: IPRATROPIUM BROM 0.5 MG/2.5ML INH SOL NEB PRN (00:15)
[2025-03-27] MEDS: FUROSEMIDE 40 MG/4 ML VIAL IV ONE (00:53)
[2025-03-27 04:06] LABS: Hematocrit 30.8 % (36.0-46.0); Hemoglobin 9.6 g/dL (12.2-16.2); Mean Corpuscular Hemoglobin 32.2 pg (28.0-32.0); Mean Corpuscular Volume 102.8 fL (80.0-100.0); Nucleated Red Blood Cells % 0.0 %
[2025-03-27 04:25] LABS: Alanine Aminotransferase 22 U/L (7-40); Albumin 3.8 g/dL (3.2-4.8); Anion Gap 13 (5-15); BUN/Creatinine Ratio 8.5 (10.0-20.0); Carbon Dioxide 20 mmol/L (20-31); Chloride 102 mmol/L (98-107); Total Protein 6.8 g/dL (5.7-8.2)
[2025-03-27 04:28] LABS: Alkaline Phosphatase 208 U/L (46-116); Bilirubin, Total 0.2 mg/dL (0.2-1.0); Blood Urea Nitrogen 42 mg/dL (9-23); Calcium 8.5 mg/dL (8.7-10.4); Glucose 168 mg/dL (74-106); Potassium 5.1 mmol/L (3.5-5.1); Sodium 135 mmol/L (136-145)
--- NOTE | 2025-03-27 05:11 | DVH ---
CHEST RADIOGRAPH Indication: sob Technique: Single frontal view of the chest was obtained Comparison: XY CHEST PORTABLE on DOS: 03/26/25 FINDINGS: Lines and Tubes: Right central venous catheter terminates in the right atrium. Lungs: Bilateral opacities similar to prior study. Pleura: Bilateral pleural effusions. No pneumothorax. Cardiomediastinal contours: Stable cardiomegaly. Bones: No acute osseous abnormality. IMPRESSION: 1. Pulmonary edema and bilateral pleural effusions. 2. Stable cardiomegaly. 3. No significant change in position of the right central venous catheter.
[2025-03-27] MEDS: FUROSEMIDE INJECTION 0 ML ONE (06:45)
[2025-03-27] MEDS ORDERED: HEPARIN 1,000 UNITS/ml 1ML VIAL IV ONE ×2 (08:15)
[2025-03-27] MEDS: ENOXAPARIN SOD 30 MG/0.3 ML SYRINGE SC SCH (09:46)
--- NOTE | 2025-03-27 10:10 | DVHPNRES ---
Progress Note Date Seen: Mar 27, 2025 Resident Creating Document: CANDIDA FRANCE RESIDENT Medical Necessity Reason Pt with a Central, PICC or Fol: Yes The following are medically ne: PICC Line Subjective Review of Systems Patient is a 52-year-old female with past medical history of CHF, ESRD on hemodialysis Tuesday, Tuesday, Tuesday, asthma, COPD, sleep apnea, type 2 diabetes, chronic respiratory failure on home oxygen 2 L, comes in due to right lower extremity pain a discharge. According to the patient, for the last 1 month she has been experiencing right lower extremity pain along with redness and a foul-smelling discharge, denies any trauma to the right lower extremity. Patient is a poor historian. On review of systems patient is denying chest pain, dyspnea, orthopnea, nausea, vomiting, palpitations. At baseline patient produces minimal urine every other day. Upon further probing, patient also disclosed she has history of atrial flutter Past surgical history: Cholecystectomy, section, appendectomy Social & Personal history: Patient resides at [facility] in [place]. Patient seen and examined at bedside. Patient is alert and oriented to time, place person and responding to some questions but not all. On review of systems, patient is denying any complaints, however, is complaining of severe pain to the right lower extremity. Objective vital signs Vital Sign Date Time Temp Pulse Resp B/P (MAP) Pulse Ox O2 Delivery O2 Flow Rate FiO2 03/27/25 09:00 100 Nasal Cannula 4.0 03/27/25 09:00 36 03/27/25 06:45 111 19 101/57 (72) 03/27/25 04:45 98.3 98.3 Total Intake and Output 03/26/25 03/26/25 03/27/25 15:00 23:00 07:00 Intake Total 1051.25 ml 780.00 ml 338.75 ml Output Total 0 ml Balance 1051.25 ml 780.00 ml 338.75 ml medications Current Medications Medications Dose Ordered Sig/Kiana Route Start Time Stop Time Status Last Admin Dose Admin Vancomycin HCl 0 ml @ 0 mls/hr UD IV 03/26/25 10:45 Norepinephrine Bitartrate 250 ml @ 3.75 mls/hr Q24H IV 03/26/25 11:30 03/26/25 22:40 18.75 MLS/HR Acetaminophen 650 mg Q6HP PRN PO 03/26/25 15:00 Cefepime/Dextrose 50 ml @ 12.5 mls/hr Q8HR IV 03/26/25 22:00 UNV Ondansetron HCl 4 mg Q4HP PRN IV 03/26/25 15:00 Docusate Sodium 100 mg BIDPRN PRN PO 03/26/25 15:00 Enoxaparin Sodium 30 mg DAILY SC 03/27/25 10:00 03/27/25 09:46 30 MG Morphine Sulfate 2 mg Q4HPRN PRN IV 03/26/25 15:00 03/27/25 04:32 2 MG Diagnostic Test (Pha) 1 strip Q6HR 03/26/25 18:00 03/27/25 05:58 1 STRIP Insulin Human Regular Q6HR SC 03/26/25 18:00 03/27/25 06:01 2 UNITS Dextrose 50 ml UD PRN IV 03/26/25 15:00 Nitroglycerin 0.4 mg Q5MINP PRN SL 03/26/25 15:00 Cefepime HCl 50 ml @ 12.5 mls/hr DAILY IV 03/27/25 10:00 Nicotine 1 patch DAILY TD 03/26/25 22:15 03/26/25 22:34 1 PATCH Albuterol 2.5 mg Q6HPRN PRN NEB 03/26/25 22:15 03/26/25 22:13 2.5 MG Ipratropium [place] 0.5 mg Q4HPRN PRN NEB 03/27/25 00:15 Examination General Appearance: Cooperative. Head Exam: Constricted, equal and reactive pupils Neck Exam: Normal inspection. Non-tender. Normal alignment Pulmonary/Respiratory: Chest non-tender. Inspiratory crackles, expiratory wheezes Cardiovascular/Chest: Tachycardic, in atrial flutter No murmurs. No JVD. Abdominal Exam: Normal bowel sounds. Soft. normal abdomen, no visible veins, Nontender. No hepatospenomegaly. No masses Lower extremities: Negative lower extremity edema, stasis dermatitis with pigmentation noted on bilateral lower extremities. Right lower extremity severe cellulitis, with thick cottage cheese like foul-smelling discharge laboratory and microbiology Laboratory Tests 03/27/25 03:29 Test 03/27/25 03:29 Range/Units Serum Glucose 168 H 74-106 mg/dL Microbiology Date/Time Source Procedure Growth Status 03/26/25 11:08 Leg Right Gram Stain Pending Resulted 03/26/25 11:08 Leg Right Wound Culture - Preliminary Resulted Labs and/or images reviewed: Labs reviewed by me, Image(s) reviewed by me Problem List/Assessment/Plan Problem List/Assessment/Plan Neurology # chronic pain syndrome - resumed home medication [place] 10q8 as needed Cardiovascular # congestive heart failure, acute systolic versus diastolic # Septic shock due to right lower extremity cellulitis # history of atrial flutter - on norepinephrine at 6 micrograms/minute - IV metronidazole IV cefepime - echocardiogram - Holding anticoagulation as patient anemic with elevated PTT Respiratory # acute on chronic hypoxic respiratory failure, on home oxygen 2 L, currently on O2 via NC 4 L with FiO2 36% # pulmonary edema # COPD exacerbation # sleep apnea, noncompliant with CPAP - ipratropium med neb, currently holding albuterol - CXR: Pulmonary edema and bilateral pleural effusions, stable cardiomegaly. GI # Peptic ulcer prophylaxis -Pantoprazole 40 mg IV daily Nephrology # ESRD on hemodialysis M, W, F # hyperkalemia - s/p hemodialysis today with 2 L removed - nephrology on board - [facility] once - retacrit 4000 units subcutaneous - sevelamer 1600 mg p.o. t.i.d. Infectious disease # right lower extremity cellulitis, preliminary cultures growing Gram-negative rods more than 2 colonies -podiatry on board - ordered right lower extremity MRI - IV metronidazole cefepime - right ankle x-ray: No evidence of acute fracture or dislocation, unremarkable - right foot x-ray: No evidence of acute fracture or dislocation, small plantar calcaneal enthesophyte. - right tibia fibula x-ray: No evidence of acute fracture or dislocation. - right lower extremity arterial Doppler: No sonographic evidence of arterial occlusion. Low resistance and distal capillary bed can be caused by local infection, correlate clinically. - right lower extremity venous Doppler: No evidence of DVT. Hem/onc # Macrocytic anemia - . Vitamin B12, folic acid - ordered serum TSH Endocrine # type 2 diabetes, uncontrolled and insulin dependent - sliding scale insulin Psychiatry # nicotine dependence - nicotine patch 14 g DVT prophylaxis Lovenox 30 mg subcutaneous Nutrition Consistent carb diet Lines Left PICC line placed on 03/27/2025 Right 20 gauge placed on 03/26/2025 Right 22 gauge placed on 03/26/2025 Right chest wall hemodialysis catheter approximately 7-month-old Critical care time 82 minutes excluding procedure. Code status discussed greater than 20 minutes: Full CODE STATUS. Plan discussed with Dr. Talavera Plan discussed with: Patient, Other (RN) My Orders My Orders Orders - CANDIDA FRANCE RESIDENT Procedure Category Date Status Time Vitamin B12 LAB 03/27/25 Logged 09:59 Folate (Folic Acid) LAB 03/27/25 Logged 09:59 Phosphorus LAB 03/27/25 In Process 09:59 Dietary Evaluation Review Comments: 1. Well-controlled DM is the most improtant factor in enhancing wound-healing 2. Encoauge PO feeding to meet 75% of her needs. 3. To avoid castabolism, offer Glucerna PO BID if pt eat <50% of her meals 4. F/U visit in 3-5 days Expected Outcomes/Goals: improved DM control, improved nurition status and grdual wt loss. Date of Service: Mar 27, 2025 Billing Provider: CHAN TALAVERA MD Common Visit Codes: 39903-BRJYUDFI CARE 30-74 MIN, 43852-CTIFATPG CARE-EACH +30MIN CANDIDA FRANCE Mar 27, 2025 10:10 CHAN TALAVERA MD Mar 28, 2025 11:21
[2025-03-27] MEDS: CEFEPIME 1GM/ 50ML 50 ML IV SCH (10:55)
[2025-03-27] MEDS: SODIUM CHL 0.9% 1000 ML BAG XX ONE (11:00)
[2025-03-27] MEDS ORDERED: BUSP15TA60 PO (11:08)
[2025-03-27] MEDS ORDERED: BUSP7.5T8 PO (11:08)
[2025-03-27] MEDS ORDERED: CARV25TA55 PO (11:09)
[2025-03-27] MEDS ORDERED: ATOR40TA52 PO (11:12)
[2025-03-27] MEDS ORDERED: APIX5TAB PO (11:12)
[2025-03-27] MEDS ORDERED: IPRIH IN (11:14)
[2025-03-27] MEDS ORDERED: DIPH25CA66 PO (11:15)
[2025-03-27] MEDS ORDERED: CALC750C98 PO (11:17)
[2025-03-27] MEDS ORDERED: FERR325T24 PO (11:18)
[2025-03-27] MEDS: HYDROcodone-ACET 10/325MG TAB PO PRN (11:20)
[2025-03-27] MEDS ORDERED: HYDR-4609 PO (11:29)
[2025-03-27] MEDS ORDERED: INSLISPI SC ×2 (11:29→11:44)
[2025-03-27] MEDS ORDERED: FURO1TAB32 PO (11:33)
[2025-03-27] MEDS ORDERED: IPRAAER6 IN (11:33)
[2025-03-27] MEDS ORDERED: ESCI20TA PO (11:35)
[2025-03-27] MEDS ORDERED: GUAI600T78 PO (11:36)
[2025-03-27] MEDS ORDERED: [UNRECOGNIZED DRUG - CODE] OR (11:38)
[2025-03-27] MEDS ORDERED: B-CO-5 OR (11:39)
[2025-03-27] MEDS ORDERED: SEVE800T20 PO (11:40)
[2025-03-27] MEDS ORDERED: IPRA0.00 IN (11:42)
[2025-03-27] MEDS ORDERED: POLY335015 PO (11:45)
[2025-03-27] MEDS ORDERED: ACET-6 PO (11:48)
[2025-03-27] MEDS: OPTISON 3ml Vial for INJ IV ONE (13:23)
--- NOTE | 2025-03-27 13:39 | DVHINCON2 ---
Date Seen: Mar 27, 2025 Reason for Consultation Right lower extremity wound and cellulitis History of Present Illness 54-year-old female past medical history asthma CHF diabetes hypertension [place] end- stage renal disease on dialysis state she goes to Dr. Whitney gallbladder surgery section hand helper complaint patient is here for evaluation for right foot/leg with a wound that she had been dealing with for a month. She has not been on antibiotics recently for this infection she states she lives at [facility] [place] and usually they do wound care for her there unable to give much information from patient she has a poor historian when it comes to her wound care in her treatment but according to the ED nurse it appears she came in with some maggots to the wound was told to me and report but I reviewed ED records and does not mention any maggots but the wound is with severe odor and drainage. Patient currently has a dressing in his place declines take down on my exam. When evaluating patient's labs and imaging from ED vanco was given patient was hypertensive 71/34 shows she is currently on Levophed drip cefepime was provided [place] hemoglobin was 9.7 29.3 potassium was slightly elevated at 5.2 calcium 8.5 chest x-ray shows cardiomegaly with some edema but no shortness of the breath x-ray tib-fib shows a osteoarthrosis in the right knee joint with no infection no fracture no dislocation x-ray of the foot without fracture but it does show soft tissue swelling of the foot and x-ray of the ankle was unremarkable. With these findings patient will be admitted IV antibiotics we will also ask Podiatry for evaluation along with renal for pending HD. Since patient in his septic and on Levophed drip we will admit to ICU Past Medical History See H&P Past Surgical History See H&P Family History: Cardiovascular disease G8 MOTHER, Onset:60 years & older Allergies: Coded Allergies: Codeine (Verified Allergy, Unknown, 01/16/19) Penicillins (Verified Allergy, Unknown, 03/26/25) Home Meds Reported Medications Acetaminophen (Acetaminophen Extra Stren) 500 Mg Tab, 500 MG PO 2 tabs Q6H for mild pain (1-4), TAB 03/27/25 Polyethylene Glycol 3350 (Miralax) 17 Gm Pow, 17 GM PO DAILY for constipation, POW 03/27/25 Insulin Lispro (Human) (Humalog) 100 Unit/Ml Inj, 100 UNIT SC, INJ 03/27/25 Ipratropium-Albuterol (Ipratropium [place]/Albut) 1 Marylou Marylou, 1 MARYLOU IN Q6HP PRN for SHORTNESS OF BREATH, ML 03/27/25 Sevelamer Hydrochloride (Sevelamer Hydrochloride) 800 Mg Tab, 800 MG PO 2 tab TID for hyperphospetemia r/t ESRD, TAB 03/27/25 B-Complex W/ C & Folic Acid (Maddie-Lalo) Tab, 1 OR DAILY for supplement, TAB 03/27/25 Nutritional Supplements (Nepro) Liq, 1 OR for ESRD, LIQ 03/27/25 Guaifenesin (Mucinex) 600 Mg Tab, 600 MG PO Q12HP PRN for FOR COUGH, TAB 03/27/25 Escitalopram Oxalate (Lexapro) 20 Mg Tab, 1 TAB PO DAILY for depression, #30 TAB 03/27/25 Furosemide (Lasix) 80 Mg Tab, 1 TAB PO DAILY, #30 TAB 5 Refills 03/27/25 Hydrocodone-Acetaminophen (Hydrocodone Bitartrate/AC 7.5-300 mg) 1 Tab Tab, 1 TAB PO Q8HP PRN for moderate-sevare pain (6-10), TAB 03/27/25 Ferrous Sulfate (Ferrous Sulfate) 325 Mg Tab, 325 MG PO DAILY for 30 Days, MG 03/27/25 Calcium Carbonate (Antacid) (Antacid) 750 Mg Chw, 750 MG PO Q8HP PRN for indigestion, TAB.CHEW 03/27/25 Diphenhydramine Hcl (Benadryl Allergy) 25 Mg Cap, 25 MG PO Q6HP PRN for FOR ITCHING, CAP 03/27/25 Ipratropium [place] Hfa (Atrovent Hfa) 17 Mcg Aer, 17 MCG IN 2 puffs Q4H PRN PRN for wheezing, AER 03/27/25 Atorvastatin Calcium (ATORVASTATIN CALCIUM) 40 Mg Tab, 1 TAB PO DAILY for hyperlipidemia, #30 TAB 5 Refills 03/27/25 Apixaban Base (ELIQUIS) 5 Mg Tab, 5 MG PO BID for DVT prophylaxis, TAB 03/27/25 Carvedilol (Carvedilol) 25 Mg Tab, 1 TAB PO BID for Hypertension, #180 TAB 1 Refill 03/27/25 Buspirone Hcl (Buspirone Hcl) 7.5 Mg Tab, 1 TAB PO BID PRN for ANXIETY, #60 TAB 3 Refills 03/27/25 Current Medications Current Medications Medications (Trade) Dose Ordered Sig/Kiana Route PRN Reason Start Time Stop Time Status Last Admin Acetaminophen (Tylenol Tablet) 650 mg Q6HP PRN PO MILD PAIN (1-3 PAIN SCALE) 03/26/25 15:00 Vancomycin HCl 0 ml @ 0 mls/hr UD IV 03/26/25 15:00 03/26/25 15:09 DC Cefepime/Dextrose 50 ml @ 12.5 mls/hr Q8HR IV 03/26/25 22:00 UNV Ondansetron HCl (Zofran) 4 mg Q4HP PRN IV NAUSEA / VOMITING 03/26/25 15:00 Docusate Sodium (Colace Capsule) 100 mg BIDPRN PRN PO FOR CONSTIPATION 03/26/25 15:00 Enoxaparin Sodium (Lovenox) 30 mg DAILY SC 03/27/25 10:00 03/27/25 09:46 Morphine Sulfate 2 mg Q4HPRN PRN IV SEVERE PAIN (7-10 PAIN SCALE) 03/26/25 15:00 03/27/25 13:10 DC 03/27/25 04:32 Diagnostic Test (Pha) (Accu-Chek Comfort Curve T) 1 strip Q6HR 03/26/25 18:00 03/27/25 05:58 Insulin Human Regular (InsuLIN R) Q6HR SC 03/26/25 18:00 03/27/25 06:01 Dextrose 50 ml UD PRN IV Blood Sugar LESS THAN 60 03/26/25 15:00 Nitroglycerin (Ntrostat Sublingual) 0.4 mg Q5MINP PRN SL FOR CHEST PAIN 03/26/25 15:00 Cefepime HCl 50 ml @ 12.5 mls/hr DAILY IV 03/27/25 10:00 03/27/25 10:55 Nicotine (Nicoderm 14MG/ 24HR) 1 patch DAILY TD 03/26/25 22:15 03/27/25 10:46 DC 03/26/25 22:34 Albuterol (Ventolin Medneb) 2.5 mg Q6HPRN PRN NEB SHORTNESS OF BREATH 03/26/25 22:15 03/26/25 22:13 Ipratropium [place] (Atrovent Medneb) 0.5 mg Q4HPRN PRN NEB SHORTNESS OF BREATH 03/27/25 00:15 Nicotine (Nicoderm 14MG/ 24HR) 1 patch HS TD 03/27/25 22:00 Acetaminophen/ Hydrocodone Bitart ([place] 10/325MG Tab) 1 tab Q8HP PRN PO MODERATE PAIN (4-6 PAIN SCALE) 03/27/25 11:00 03/27/25 11:20 Pantoprazole Sodium (Protonix) 40 mg DAILY IV 03/28/25 10:00 Metronidazole 100 ml @ 100 mls/hr Q8HR IV 03/27/25 14:00 Vital Signs Vital Signs Date Time Temp Pulse Resp B/P (MAP) Pulse Ox O2 Delivery O2 Flow Rate FiO2 03/27/25 09:00 100 Nasal Cannula 4.0 03/27/25 09:00 36 03/27/25 08:00 112 20 03/27/25 06:45 101/57 (72) 03/27/25 04:45 98.3 98.3 Physical Exam Dermatological: Skin is dry with mild erythema and some maceration around the wound site No gross deformities noted Mild non-pitting edema present bilaterally Multiple superficial ulcerations with significant erythema and malodor present Vascular: Dorsalis pedis and posterior tibial pulses are 1+ bilaterally Capillary refill is under 2 seconds Skin temperature is warm bilaterally Neurologic: Protective sensation is absent on the plantar forefoot bilaterally Monofilament testing reveals decreased sensation in multiple plantar sites Musculoskeletal: Range of motion at the ankle and MTP joints is within normal limits. Strength is 5/5 in all tested muscle groups. Gait is antalgic due to offloading of the affected limb. Labs/Diagnostic Data Labs Test 03/27/25 11:23 03/27/25 03:29 03/26/25 15:32 03/26/25 13:34 Range/Units POC Glucose 103 70-106 mg/dl White Blood Count 12.0 H 4.4-10.8 10^3/uL Red Blood Count 3.00 L 4.0-5.20 10^6/uL Hemoglobin 9.6 L 12.2-16.2 g/dL Hematocrit 30.8 L 36.0-46.0 % Mean Corpuscular Volume 102.8 H 80.0-100.0 fL Mean Corpuscular Hemoglobin 32.2 H 28.0-32.0 pg Mean Corpuscular Hemoglobin Concent 31.3 L 32.0-36.0 g/dL Red Cell Distribution Width 16.6 H 11.8-14.3 % Platelet Count 310 140-450 10^3/uL Mean Platelet Volume 7.0 6.9-10.8 fL Neutrophils (%) (Auto) 78.7 37.0-80.0 % Lymphocytes (%) (Auto) 8.4 L 10.0-50.0 % Monocytes (%) (Auto) 9.7 0.0-12.0 % Eosinophils (%) (Auto) 2.4 0.0-7.0 % Basophils (%) (Auto) 0.8 0.0-2.0 % Neutrophils # (Auto) 9.5 H 1.6-8.6 10 ^3/uL Lymphocytes # (Auto) 1.0 0.4-5.4 10 ^3/uL Monocytes # (Auto) 1.2 0-1.3 10 ^3/uL Eosinophils # (Auto) 0.3 0-0.8 10 ^3/uL Basophils # (Auto) 0.1 0-0.2 10 ^3/uL Nucleated Red Blood Cells 0.0 % Sodium Level 135 L 136-145 mmol/L Potassium Level 5.1 3.5-5.1 mmol/L Chloride Level 102 98-107 mmol/L Carbon Dioxide Level 20 20-31 mmol/L Anion Gap 13 5-15 Blood Urea Nitrogen 42 H 9-23 mg/dL Creatinine 4.97 H 0.550-1.02 mg/dL Glomerular Filtration Rate Calc 10 >90 mL/min BUN/Creatinine Ratio 8.5 L 10.0-20.0 Serum Glucose 168 H 74-106 mg/dL Calcium Level 8.5 L 8.7-10.4 mg/dL Phosphorus Level 7.7 H 2.4-5.1 mg/dL Total Bilirubin 0.2 0.2-1.0 mg/dL Aspartate Amino Transferase (AST) 20 13-40 U/L Alanine Aminotransferase (ALT) 22 7-40 U/L Alkaline Phosphatase 208 H 46-116 U/L Total Protein 6.8 5.7-8.2 g/dL Albumin 3.8 3.2-4.8 g/dL Random Vancomycin Level 30.8 H 5-10 ug/mL Lactic Acid Level 1.2 0.4-2.0 mmol/L Troponin I High Sensitivity 8 </=34 ng/L Prothrombin Time 11.7 9.3-11.8 sec Prothrombin Time INR 1.12 0.9-1.15 Activated Partial Thromboplast Time 36.5 H 24.5-34.5 SEC B-Type Natriuretic Peptide 138.10 0-100 pg/mL Microbiology Date/Time Source Procedure Growth Status 03/26/25 11:08 Leg Right Gram Stain Pending Resulted 03/26/25 11:08 Leg Right Wound Culture - Preliminary Resulted Problems(with codes): (1) Hyperkalemia (2) Sepsis (3) Cellulitis of right lower extremity Plan/Recommendation ASSESSMENT: Patient is a 54 year old seen on the floor for a worsening ulcer PLAN: - The patients chart was reviewed, clinical findings were discussed with the patient, the etiologies of the conditions were discussed in detail, and a treatment plan was agreed to at this time, with both oral and written instructions provided. - recommend that we get an MRI of the right lower extremity - less inclined for a deeper abscess or osteomyelitis - treat for cellulitis - non adherent dressing over the wounds to prevent any tearing of the skin - change dressings every other day - we will review MRI if surgical intervention indicated All questions were answered and concerns addressed to the patient's satisfaction. The patient was given the phone number to the clinic and was told how to make contact with the clinic should any concerns or questions arise. Pat ient understands that if any questions or concerns arise prior to the next appointment, we should be contacted immediately. FOLLOW-UP: Continue to follow while inpatient Plan discussed with: Patient Date of Service: Mar 27, 2025 Billing Provider: CARLA MONTEIRO DPM Common Visit Codes: CONSULT ONLY Consultation Codes: [id number] CONSULT <80MIN CARLA MONTEIRO DPM Mar 27, 2025 13:39
[2025-03-27] MEDS: LIDOCAINE 1% (LOCAL ANESTH.) PF 5ml SDV ID ONE (14:30)
--- NOTE | 2025-03-27 15:32 | DVHINCON2 ---
Date of service: Mar 27, 2025 Reason for Consultation End-stage renal disease History of Present Illness 54-year-old morbidly obese female past medical history of diabetes, end-stage renal disease, hypertension, recent lower extremity wound on antibiotics. The patient presents to the hospital complaining of weakness in the setting of worsening lower extremity wound. At presentation should into hypotensive and tachycardic. She was transferred to the ICU due to septic shock. Nephrology consulted due to hyperkalemia and end-stage renal disease. Allergies: Coded Allergies: Codeine (Verified Allergy, Unknown, 01/16/19) Penicillins (Verified Allergy, Unknown, 03/26/25) Home Meds Reported Medications Acetaminophen (Acetaminophen Extra Stren) 500 Mg Tab, 500 MG PO 2 tabs Q6H for mild pain (1-4), TAB 03/27/25 Polyethylene Glycol 3350 (Miralax) 17 Gm Pow, 17 GM PO DAILY for constipation, POW 03/27/25 Insulin Lispro (Human) (Humalog) 100 Unit/Ml Inj, 100 UNIT SC, INJ 03/27/25 Ipratropium-Albuterol (Ipratropium Adel/Albut) 1 Marylou Marylou, 1 MARYLOU IN Q6HP PRN for SHORTNESS OF BREATH, ML 03/27/25 Sevelamer Hydrochloride (Sevelamer Hydrochloride) 800 Mg Tab, 800 MG PO 2 tab TID for hyperphospetemia r/t ESRD, TAB 03/27/25 B-Complex W/ C & Folic Acid (Maddie-Lalo) Tab, 1 OR DAILY for supplement, TAB 03/27/25 Nutritional Supplements (Nepro) Liq, 1 OR for ESRD, LIQ 03/27/25 Guaifenesin (Mucinex) 600 Mg Tab, 600 MG PO Q12HP PRN for FOR COUGH, TAB 03/27/25 Escitalopram Oxalate (Lexapro) 20 Mg Tab, 1 TAB PO DAILY for depression, #30 TAB 03/27/25 Furosemide (Lasix) 80 Mg Tab, 1 TAB PO DAILY, #30 TAB 5 Refills 03/27/25 Hydrocodone-Acetaminophen (Hydrocodone Bitartrate/AC 7.5-300 mg) 1 Tab Tab, 1 TAB PO Q8HP PRN for moderate-sevare pain (6-10), TAB 03/27/25 Ferrous Sulfate (Ferrous Sulfate) 325 Mg Tab, 325 MG PO DAILY for 30 Days, MG 03/27/25 Calcium Carbonate (Antacid) (Antacid) 750 Mg Chw, 750 MG PO Q8HP PRN for indiges tion, TAB.CHEW 03/27/25 Diphenhydramine Hcl (Benadryl Allergy) 25 Mg Cap, 25 MG PO Q6HP PRN for FOR ITCHING, CAP 03/27/25 Ipratropium Adel Hfa (Atrovent Hfa) 17 Mcg Aer, 17 MCG IN 2 puffs Q4H PRN PRN for wheezing, AER 03/27/25 Atorvastatin Calcium (ATORVASTATIN CALCIUM) 40 Mg Tab, 1 TAB PO DAILY for hyperlipidemia, #30 TAB 5 Refills 03/27/25 Apixaban Base (ELIQUIS) 5 Mg Tab, 5 MG PO BID for DVT prophylaxis, TAB 03/27/25 Carvedilol (Carvedilol) 25 Mg Tab, 1 TAB PO BID for Hypertension, #180 TAB 1 Refill 03/27/25 Buspirone Hcl (Buspirone Hcl) 7.5 Mg Tab, 1 TAB PO BID PRN for ANXIETY, #60 TAB 3 Refills 03/27/25 Current Medications Current Medications Medications (Trade) Dose Ordered Sig/Kiana Route PRN Reason Start Time Stop Time Status Last Admin Cefepime/Dextrose 50 ml @ 12.5 mls/hr Q8HR IV 03/26/25 22:00 UNV Enoxaparin Sodium (Lovenox) 30 mg DAILY SC 03/27/25 10:00 03/27/25 09:46 Diagnostic Test (Pha) (Accu-Chek Comfort Curve T) 1 strip Q6HR 03/26/25 18:00 03/27/25 05:58 Insulin Human Regular (InsuLIN R) Q6HR SC 03/26/25 18:00 03/27/25 06:01 Cefepime HCl 50 ml @ 12.5 mls/hr DAILY IV 03/27/25 10:00 03/27/25 10:55 Nicotine (Nicoderm 14MG/ 24HR) 1 patch DAILY TD 03/26/25 22:15 03/27/25 10:46 DC 03/26/25 22:34 Albuterol (Ventolin Medneb) 2.5 mg Q6HPRN PRN NEB SHORTNESS OF BREATH 03/26/25 22:15 03/27/25 15:13 DC 03/26/25 22:13 Ipratropium Adel (Atrovent Medneb) 0.5 mg Q4HPRN PRN NEB SHORTNESS OF BREATH 03/27/25 00:15 Nicotine (Nicoderm 14MG/ 24HR) 1 patch HS TD 03/27/25 22:00 Acetaminophen/ Hydrocodone Bitart (Elizabeth 10/325MG Tab) 1 tab Q8HP PRN PO MODERATE PAIN (4-6 PAIN SCALE) 03/27/25 11:00 03/27/25 11:20 Pantoprazole Sodium (Protonix) 40 mg DAILY IV 03/28/25 10:00 Metronidazole 100 ml @ 100 mls/hr Q8HR IV 03/27/25 14:00 Family History: Cardiovascular disease G8 MOTHER, Onset:60 years & older Review of Systems Weakness H&P Exam Vital Signs/I&O Vital Sign Date Time Temp Pulse Resp B/P (MAP) Pulse Ox O2 Delivery O2 Flow Rate FiO2 03/27/25 10:45 96 15 98/55 (69) 99 03/27/25 10:00 Nasal Cannula 4.0 03/27/25 10:00 36 03/27/25 04:45 98.3 98.3 Intake and Output 03/26/25 03/27/25 19:00 07:00 Intake Total 1636.25 ml 533.75 ml Output Total 0 ml Balance 1636.25 ml 533.75 ml Intake Oral 240 ml 320 ml IV Total 1396.25 ml 213.75 ml Output Urine Total 0 ml Urine/Stool Mix 0 ml Physical Exam Morbidly obese female Tachycardic sinus tachycardia Abdomen is soft 1 to 2+ ankle edema Tunneled HD catheter Labs/Diagnostic Data Labs/Diagnostic Data Laboratory Tests Test 03/27/25 11:23 03/27/25 05:56 03/27/25 03:29 03/27/25 00:03 Range/Units POC Glucose 103 131 H 153 H 70-106 mg/dl White Blood Count 12.0 H 4.4-10.8 10^3/uL Red Blood Count 3.00 L 4.0-5.20 10^6/uL Hemoglobin 9.6 L 12.2-16.2 g/dL Hematocrit 30.8 L 36.0-46.0 % Mean Corpuscular Volume 102.8 H 80.0-100.0 fL Mean Corpuscular Hemoglobin 32.2 H 28.0-32.0 pg Mean Corpuscular Hemoglobin Concent 31.3 L 32.0-36.0 g/dL Red Cell Distribution Width 16.6 H 11.8-14.3 % Platelet Count 310 140-450 10^3/uL Mean Platelet Volume 7.0 6.9-10.8 fL Neutrophils (%) (Auto) 78.7 37.0-80.0 % Lymphocytes (%) (Auto) 8.4 L 10.0-50.0 % Monocytes (%) (Auto) 9.7 0.0-12.0 % Eosinophils (%) (Auto) 2.4 0.0-7.0 % Basophils (%) (Auto) 0.8 0.0-2.0 % Neutrophils # (Auto) 9.5 H 1.6-8.6 10 ^3/uL Lymphocytes # (Auto) 1.0 0.4-5.4 10 ^3/uL Monocytes # (Auto) 1.2 0-1.3 10 ^3/uL Eosinophils # (Auto) 0.3 0-0.8 10 ^3/uL Basophils # (Auto) 0.1 0-0.2 10 ^3/uL Nucleated Red Blood Cells 0.0 % Sodium Level 135 L 136-145 mmol/L Potassium Level 5.1 3.5-5.1 mmol/L Chloride Level 102 98-107 mmol/L Carbon Dioxide Level 20 20-31 mmol/L Anion Gap 13 5-15 Blood Urea Nitrogen 42 H 9-23 mg/dL Creatinine 4.97 H 0.550-1.02 mg/dL Glomerular Filtration Rate Calc 10 >90 mL/min BUN/Creatinine Ratio 8.5 L 10.0-20.0 Serum Glucose 168 H 74-106 mg/dL Calcium Level 8.5 L 8.7-10.4 mg/dL Phosphorus Level 7.7 H 2.4-5.1 mg/dL Total Bilirubin 0.2 0.2-1.0 mg/dL Aspartate Amino Transferase (AST) 20 13-40 U/L Alanine Aminotransferase (ALT) 22 7-40 U/L Alkaline Phosphatase 208 H 46-116 U/L Total Protein 6.8 5.7-8.2 g/dL Albumin 3.8 3.2-4.8 g/dL Random Vancomycin Level 30.8 H 5-10 ug/mL Test 03/26/25 18:50 03/26/25 15:32 03/26/25 14:27 03/26/25 13:34 Range/Units POC Glucose 164 H 70-106 mg/dl Lactic Acid Level 1.2 0.4-2.0 mmol/L Troponin I High Sensitivity 8 10 11 </=34 ng/L White Blood Count 10.7 4.4-10.8 10^3/uL Red Blood Count 2.87 L 4.0-5.20 10^6/uL Hemoglobin 9.7 L 12.2-16.2 g/dL Hematocrit 29.3 L 36.0-46.0 % Mean Corpuscular Volume 101.8 H 80.0-100.0 fL Mean Corpuscular Hemoglobin 33.7 H 28.0-32.0 pg Mean Corpuscular Hemoglobin Concent 33.1 32.0-36.0 g/dL Red Cell Distribution Width 16.8 H 11.8-14.3 % Platelet Count 283 140-450 10^3/uL Mean Platelet Volume 6.8 L 6.9-10.8 fL Neutrophils (%) (Auto) 75.0 37.0-80.0 % Lymphocytes (%) (Auto) 10.6 10.0-50.0 % Monocytes (%) (Auto) 10.4 0.0-12.0 % Eosinophils (%) (Auto) 3.0 0.0-7.0 % Basophils (%) (Auto) 1.0 0.0-2.0 % Neutrophils # (Auto) 8.0 1.6-8.6 10 ^3/uL Lymphocytes # (Auto) 1.1 0.4-5.4 10 ^3/uL Monocytes # (Auto) 1.1 0-1.3 10 ^3/uL Eosinophils # (Auto) 0.3 0-0.8 10 ^3/uL Basophils # (Auto) 0.1 0-0.2 10 ^3/uL Nucleated Red Blood Cells 0.0 % Prothrombin Time 11.7 9.3-11.8 sec Prothrombin Time INR 1.12 0.9-1.15 Activated Partial Thromboplast Time 36.5 H 24.5-34.5 SEC Sodium Level 136 136-145 mmol/L Potassium Level 5.2 H 3.5-5.1 mmol/L Chloride Level 102 98-107 mmol/L Carbon Dioxide Level 24 20-31 mmol/L Anion Gap 10 5-15 Blood Urea Nitrogen 36 H 9-23 mg/dL Creatinine 3.99 H 0.550-1.02 mg/dL Glomerular Filtration Rate Calc 13 >90 mL/min BUN/Creatinine Ratio 9.0 L 10.0-20.0 Serum Glucose 166 H 74-106 mg/dL Calcium Level 8.5 L 8.7-10.4 mg/dL B-Type Natriuretic Peptide 138.10 0-100 pg/mL Test 03/26/25 10:25 Range/Units POC Glucose 251 H 70-106 mg/dl Microbiology Date/Time Source Procedure Growth Status 03/27/25 06:20 Nose MRSA Screen - Final Complete Assessment End-stage renal disease on hemodialysis Shock likely septic shock Morbid obesity Fluid overload Hyperkalemia Diabetes Right lower extremity foot wound Anemia due to chronic kidney disease Hemodialysis treatments today for metabolic and volume control Pressors support to avoid hypotension Sepsis broad-spectrum antibiotics We will continue scheduled hemodialysis treatments subsequent ultrafiltration goals we based on clinical status and volume status. Epogen 3 times a week Renal diet when tolerating p.o. Glycemic control as per primary medical team critical care time 33mins Plan discussed with: Patient YANIQUE ROBLES MD Mar 27, 2025 15:32
--- NOTE | 2025-03-27 16:08 | ECG ---
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
--- NOTE | 2025-03-27 16:11 | DVH ---
CHEST RADIOGRAPH Indication: PICC LINE PLACEMENT Technique: Single frontal view of the chest was obtained COMPARISON: XY CHEST XRAY 1 VIEW on DOS: 03/27/25, XY CHEST PORTABLE on DOS: 03/26/25 FINDINGS: Lines and Tubes: Tunneled right central venous catheter and left PICC in satisfactory position Lungs: Congestion Pleura: No effusion. No pneumothorax. Cardiomediastinal contours: Cardiomegaly Bones: Unremarkable IMPRESSION: Left PICC in satisfactory position
[2025-03-27] MEDS: ACETAMINOPHEN 325 MG TAB PO PRN (16:34)
[2025-03-27] MEDS: SEVELAMER 800 MG TAB PO SCH (19:26)
[2025-03-27 20:56] LABS: Chloride 101 mmol/L (98-107); Potassium 4.2 mmol/L (3.5-5.1); Sodium 137 mmol/L (136-145)
[2025-03-27 20:57] LABS: Anion Gap 10 (5-15); Carbon Dioxide 26 mmol/L (20-31)
[2025-03-27 20:58] LABS: Calcium 9.0 mg/dL (8.7-10.4)
[2025-03-27 21:02] LABS: BUN/Creatinine Ratio 8.7 (10.0-20.0)
[2025-03-27 21:08] LABS: Blood Urea Nitrogen 35 mg/dL (9-23); Glucose 219 mg/dL (74-106)
[2025-03-27] MEDS: NICOTINE 14 MG/24HR TOPICAL PATCH TD SCH (21:43)
[2025-03-27] MEDS: SODIUM CHLOR 0.9% PF (SALINE LOCK) 10ML VIAL/SYR IV SCH (21:44)
[2025-03-28] VITALS (89 sets, daily range): BP systolic 57–136; BP diastolic 29–81; PULSE 99–119; RESP 13–34; TEMP 96–98.2; O2SAT 84–100
[2025-03-28 04:02] LABS: Hematocrit 28.4 % (36.0-46.0); Hemoglobin 9.0 g/dL (12.2-16.2); Mean Corpuscular Hemoglobin 32.0 pg (28.0-32.0); Mean Corpuscular Volume 100.8 fL (80.0-100.0); Nucleated Red Blood Cells % 0.1 %
[2025-03-28 04:17] LABS: Alanine Aminotransferase 19 U/L (7-40); Albumin 3.6 g/dL (3.2-4.8); Anion Gap 10 (5-15); BUN/Creatinine Ratio 8.4 (10.0-20.0); Calcium 9.1 mg/dL (8.7-10.4); Carbon Dioxide 25 mmol/L (20-31); Chloride 102 mmol/L (98-107); Magnesium 2.2 mg/dL (1.6-2.6); Potassium 4.2 mmol/L (3.5-5.1); Sodium 137 mmol/L (136-145); Total Protein 6.5 g/dL (5.7-8.2)
[2025-03-28 04:22] LABS: Iron 23.0 ug/dL (50-170); Total Iron Binding Capacity 224.0 ug/dL (250-425)
[2025-03-28 04:24] LABS: Alkaline Phosphatase 187 U/L (46-116); Bilirubin, Total 0.2 mg/dL (0.2-1.0); Blood Urea Nitrogen 37 mg/dL (9-23); Glucose 134 mg/dL (74-106)
[2025-03-28] MEDS: PANTOPRAZOLE 40 MG/10 ML VIAL INJ IV SCH (09:08)
[2025-03-28] MEDS: SODIUM CHL 0.9% 1000 ML BAG XX ONE (11:15)
--- NOTE | 2025-03-28 13:59 | DVHPNRES ---
Progress Note Date Seen: Mar 28, 2025 Resident Creating Document: CANDIDA FRANCE RESIDENT Medical Necessity Reason Pt with a Central, PICC or Fol: Yes The following are medically ne: PICC Line Subjective Review of Systems Patient is a 52-year-old female with past medical history of CHF, ESRD on hemodialysis Tuesday, Tuesday, Tuesday, asthma, COPD, sleep apnea, type 2 diabetes, chronic respiratory failure on home oxygen 2 L, comes in due to right lower extremity pain a discharge. According to the patient, for the last 1 month she has been experiencing right lower extremity pain along with redness and a foul-smelling discharge, denies any trauma to the right lower extremity. Patient is a poor historian. On review of systems patient is denying chest pain, dyspnea, orthopnea, nausea, vomiting, palpitations. At baseline patient produces minimal urine every other day. Upon further probing, patient also disclosed she has history of atrial flutter Past surgical history: Cholecystectomy, section, appendectomy Social & Personal history: Patient resides at [facility] in [place]. Patient seen and examined at bedside. Patient is alert and oriented to time, place person and responding to some questions but not all. On review of systems, patient is denying any complaints, however, is complaining of severe pain to the right lower extremity. 03/28/2025: Patient improved from yesterday, on minimal Levophed at 2 micrograms/hour. Complaining of itching all over, denying skin checks as well as bed baths. Objective vital signs Vital Sign Date Time Temp Pulse Resp B/P (MAP) Pulse Ox O2 Delivery O2 Flow Rate FiO2 03/28/25 12:00 96 Nasal Cannula* 2 28 03/28/25 12:00 111 03/28/25 11:15 19 112/65 (81) 03/28/25 04:00 97.9 97.9 Total Intake and Output 03/27/25 03/27/25 03/28/25 15:00 23:00 07:00 Intake Total 140.00 ml 760.00 ml 263.75 ml Output Total 0 ml 0 ml Balance 140.00 ml 760.00 ml 263.75 ml medications Current Medications Medications Dose Ordered Sig/Kiana Route Start Time Stop Time Status Last Admin Dose Admin Vancomycin HCl 0 ml @ 0 mls/hr UD IV 03/26/25 10:45 Norepinephrine Bitartrate 250 ml @ 3.75 mls/hr Q24H IV 03/26/25 11:30 03/27/25 19:49 11.25 MLS/HR Acetaminophen 650 mg Q6HP PRN PO 03/26/25 15:00 03/27/25 16:34 650 MG Cefepime/Dextrose 50 ml @ 12.5 mls/hr Q8HR IV 03/26/25 22:00 UNV Ondansetron HCl 4 mg Q4HP PRN IV 03/26/25 15:00 Docusate Sodium 100 mg BIDPRN PRN PO 03/26/25 15:00 Diagnostic Test (Pha) 1 strip Q6HR 03/26/25 18:00 03/28/25 12:00 1 STRIP Insulin Human Regular Q6HR SC 03/26/25 18:00 03/28/25 13:38 2 UNITS Dextrose 50 ml UD PRN IV 03/26/25 15:00 Nitroglycerin 0.4 mg Q5MINP PRN SL 03/26/25 15:00 Cefepime HCl 50 ml @ 12.5 mls/hr DAILY IV 03/27/25 10:00 03/28/25 09:09 12.5 MLS/HR Ipratropium [place] 0.5 mg Q4HPRN PRN NEB 03/27/25 00:15 Nicotine 1 patch HS TD 03/27/25 22:00 03/27/25 21:43 1 PATCH Acetaminophen/ Hydrocodone Bitart 1 tab Q8HP PRN PO 03/27/25 11:00 03/28/25 13:28 1 TAB Pantoprazole Sodium 40 mg DAILY IV 03/28/25 10:00 03/28/25 09:08 40 MG Metronidazole 100 ml @ 100 mls/hr Q8HR IV 03/27/25 14:00 03/28/25 13:13 100 MLS/HR Sevelamer HCl 1,600 mg TIDWM PO 03/27/25 18:00 03/28/25 13:11 1,600 MG Epoetin Dante-epbx 4,000 unit MWF SC 03/29/25 10:00 Sodium Chloride 10 ml QSHIFT@10,22 IV 03/27/25 22:00 03/28/25 09:09 10 ML Enoxaparin Sodium 140 mg DAILY SC 03/29/25 10:00 Patient Own Medication 1 tab BID PRN PO 03/28/25 13:15 Citalopram Hydrobromide 40 mg DAILY PO 03/29/25 10:00 Examination General Appearance: Cooperative. Head Exam: Constricted, equal and reactive pupils Neck Exam: Normal inspection. Non-tender. Normal alignment Pulmonary/Respiratory: Chest non-tender. Inspiratory crackles, expiratory wheezes Cardiovascular/Chest: Tachycardic, in atrial flutter No murmurs. No JVD. Abdominal Exam: Normal bowel sounds. Soft. normal abdomen, no visible veins, Nontender. No hepatospenomegaly. No masses Lower extremities: Negative lower extremity edema, stasis dermatitis with pigmentation noted on bilateral lower extremities. Right lower extremity severe cellulitis, with thick cottage cheese like foul-smelling discharge laboratory and microbiology Laboratory Tests 03/28/25 03:35 Test 03/28/25 03:35 Range/Units Serum Glucose 134 H 74-106 mg/dL Microbiology Date/Time Source Procedure Growth Status 03/27/25 06:20 Nose MRSA Screen - Final Complete 03/26/25 13:34 Blood Blood Culture - Preliminary NO GROWTH AFTER 48 HOURS OF INCUBATION. Resulted Labs and/or images reviewed: Labs reviewed by me, Image(s) reviewed by me Problem List/Assessment/Plan Problem List/Assessment/Plan Neurology # chronic pain syndrome - resumed home medication [place] 10q8 as needed Cardiovascular # congestive heart failure, systolic versus diastolic # Septic shock due to right lower extremity cellulitis # history of atrial flutter - on norepinephrine at 6 micrograms/minute - IV metronidazole IV cefepime - echocardiogram - therapeutic Lovenox Respiratory # acute on chronic hypoxic respiratory failure, on home oxygen 2 L, currently on O2 via NC 4 L with FiO2 36% # pulmonary edema # COPD exacerbation # sleep apnea, noncompliant with CPAP - ipratropium med neb, currently holding albuterol - CXR: Pulmonary edema and bilateral pleural effusions, stable cardiomegaly. GI # Peptic ulcer prophylaxis -Pantoprazole 40 mg IV daily Nephrology # ESRD on hemodialysis M, W, F # hyperkalemia - s/p hemodialysis today with 2 L removed - nephrology on board - [facility] - retacrit 4000 units subcutaneous - sevelamer 1600 mg p.o. t.i.d. Infectious disease # right lower extremity cellulitis, preliminary cultures growing Gram-negative rods more than 2 colonies -podiatry on board - ordered right lower extremity MRI - IV metronidazole cefepime - right ankle x-ray: No evidence of acute fracture or dislocation, unremarkable - right foot x-ray: No evidence of acute fracture or dislocation, small plantar calcaneal enthesophyte. - right tibia fibula x-ray: No evidence of acute fracture or dislocation. - right lower extremity arterial Doppler: No sonographic evidence of arterial occlusion. Low resistance and distal capillary bed can be caused by local infection, correlate clinically. - right lower extremity venous Doppler: No evidence of DVT. Hem/onc # Macrocytic anemia - . Vitamin B12, folic acid - ordered serum TSH Endocrine # type 2 diabetes, uncontrolled and insulin dependent - sliding scale insulin Psychiatry # nicotine dependence # depression, possibly MDD? - nicotine patch 14 g - resumed home medication buspirone, citalopram DVT prophylaxis Lovenox 30 mg subcutaneous Nutrition Consistent carb diet Lines Left PICC line placed on 03/27/2025 Right 20 gauge placed on 03/26/2025 Right 22 gauge placed on 03/26/2025 Right chest wall hemodialysis catheter approximately 7-month-old Critical care time 62 minutes excluding procedure. Code status discussed greater than 20 minutes: Full CODE STATUS. Plan discussed with Dr. Talavera Plan discussed with: Patient, Other (RN) My Orders My Orders Orders - CANDIDA FRANCE RESIDENT Procedure Category Date Status Time Mri R Foot Wo Contrast MRI 03/27/25 Logged 14:05 (Nf) Buspirone Hcl PHA 03/28/25 In Process 13:15 Citalopram Tablet PHA 03/29/25 In Process (Celexa Tablet) 10:00 Dietary Evaluation Review Comments: 1. Well-controlled DM is the most improtant factor in enhancing wound-healing 2. Encoauge PO feeding to meet 75% of her needs. 3. To avoid castabolism, offer Glucerna PO BID if pt eat <50% of her meals 4. F/U visit in 3-5 days Expected Outcomes/Goals: improved DM control, improved nurition status and grdual wt loss. Date of Service: Mar 28, 2025 Billing Provider: CHAN TALAVERA MD Common Visit Codes: 27805-[id number] CARE 30-74 MIN CANDIDA FRANCE RESIDENT Mar 28, 2025 13:59 CHAN TALAVERA MD Mar 30, 2025 10:57
[2025-03-28] MEDS: ENOXAPARIN SOD 120 MG/0.8 ML SYRINGE SC ONE (16:04)
--- NOTE | 2025-03-28 16:09 | DVHPN2 ---
Progress Note Date Seen: Mar 28, 2025 Medical Necessity Reason Pt with a Central, PICC or Fol: Yes The following are medically ne: PICC Line Subjective Patient reports: No new complaints Objective vital signs Vital Sign Date Time Temp Pulse Resp B/P (MAP) Pulse Ox O2 Delivery O2 Flow Rate FiO2 03/28/25 14:00 107 03/28/25 14:00 21 111/63 (79) 91 03/28/25 14:00 Nasal Cannula* 2 28 03/28/25 11:30 96.0 96.0 Total Intake and Output 03/27/25 03/27/25 03/28/25 15:00 23:00 07:00 Intake Total 140.00 ml 760.00 ml 271.25 ml Output Total 0 ml 0 ml Balance 140.00 ml 760.00 ml 271.25 ml medications Current Medications Medications Dose Ordered Sig/Kiana Route Start Time Stop Time Status Last Admin Dose Admin Vancomycin HCl 0 ml @ 0 mls/hr UD IV 03/26/25 10:45 Norepinephrine Bitartrate 250 ml @ 3.75 mls/hr Q24H IV 03/26/25 11:30 03/27/25 19:49 11.25 MLS/HR Acetaminophen 650 mg Q6HP PRN PO 03/26/25 15:00 03/27/25 16:34 650 MG Cefepime/Dextrose 50 ml @ 12.5 mls/hr Q8HR IV 03/26/25 22:00 UNV Ondansetron HCl 4 mg Q4HP PRN IV 03/26/25 15:00 Docusate Sodium 100 mg BIDPRN PRN PO 03/26/25 15:00 Diagnostic Test (Pha) 1 strip Q6HR 03/26/25 18:00 03/28/25 12:00 1 STRIP Insulin Human Regular Q6HR SC 03/26/25 18:00 03/28/25 13:38 2 UNITS Dextrose 50 ml UD PRN IV 03/26/25 15:00 Nitroglycerin 0.4 mg Q5MINP PRN SL 03/26/25 15:00 Cefepime HCl 50 ml @ 12.5 mls/hr DAILY IV 03/27/25 10:00 03/28/25 09:09 12.5 MLS/HR Ipratropium [place] 0.5 mg Q4HPRN PRN NEB 03/27/25 00:15 Nicotine 1 patch HS TD 03/27/25 22:00 03/27/25 21:43 1 PATCH Acetaminophen/ Hydrocodone Bitart 1 tab Q8HP PRN PO 03/27/25 11:00 03/28/25 13:28 1 TAB Pantoprazole Sodium 40 mg DAILY IV 03/28/25 10:00 03/28/25 09:08 40 MG Metronidazole 100 ml @ 100 mls/hr Q8HR IV 03/27/25 14:00 03/28/25 13:13 100 MLS/HR Sevelamer HCl 1,600 mg TIDWM PO 03/27/25 18:00 03/28/25 13:11 1,600 MG Epoetin Dante-epbx 4,000 unit MWF SC 03/29/25 10:00 Sodium Chloride 10 ml QSHIFT@10,22 IV 03/27/25 22:00 03/28/25 09:09 10 ML Enoxaparin Sodium 140 mg DAILY SC 03/29/25 10:00 Patient Own Medication 1 tab BID PRN PO 03/28/25 13:15 Citalopram Hydrobromide 40 mg DAILY PO 03/29/25 10:00 Examination: GENERAL:Abnormal, LUNGS:Abnormal, CVS:Abnormal laboratory and microbiology Laboratory Tests 03/28/25 03:35 Test 03/28/25 03:35 Range/Units Serum Glucose 134 H 74-106 mg/dL Microbiology Date/Time Source Procedure Growth Status 03/27/25 06:20 Nose MRSA Screen - Final Complete 03/26/25 13:34 Blood Blood Culture - Preliminary NO GROWTH AFTER 48 HOURS OF INCUBATION. Resulted Problem List/Assessment/Plan Problem List/Assessment/Plan End-stage renal disease on hemodialysis Shock likely septic shock Morbid obesity Fluid overload Hyperkalemia Diabetes Right lower extremity foot wound gram negative wound infection Anemia due to chronic kidney disease Hemodialysis treatments today for metabolic and volume control no HD tomorrow unless condition change Pressors support to avoid hypotension Sepsis IV antibiotics Epogen 3 times a week Renal diet when tolerating p.o. Glycemic control as per primary medical team Plan discussed with: Patient My Orders My Orders Orders - YANIQUE ROBLES MD Procedure Category Date Status Time Hepatitis B Surface LAB 03/28/25 In Process Antigen 08:47 Hemodialysis Orders ORDERS 7/17/25 Transmitted 11:14 Dialysis Nursing JONATHAN 03/28/25 In Process Message 11:14 Document Fluid Input [facility] 03/28/25 In Process And Outpu 11:14 Dietary Evaluation Review Comments: 1. Well-controlled DM is the most improtant factor in enhancing wound-healing 2. Encoauge PO feeding to meet 75% of her needs. 3. To avoid castabolism, offer Glucerna PO BID if pt eat <50% of her meals 4. F/U visit in 3-5 days Expected Outcomes/Goals: improved DM control, improved nurition status and grdual wt loss. Critical Care Time (mins): 33 YANIQUE ROBLES MD Mar 28, 2025 16:09
--- NOTE | 2025-03-28 18:10 | DVHSR ---
APPROVED REPORT EXAM: LIMITED Two-dimensional and M-mode echocardiogram with Doppler, color Doppler and contrast. and bubble study Blood Pressure: 101/57 mmHg INDICATION Dyspnea pulm edema Contrast Details Indication: Endocardial border delineation Amount Used: 1mL RISK FACTORS Obesity: Height: 5'3, Weight: 313 DIMENSIONS EF (%) 55.0 (55-70%)Rt. Atrium (1.9-4.0cm)Asc. Aorta cm Mitral Valve MitralMitral Stenosis E/A ratio0.02D MVAcm2 Other Information Quality : Technically LimitedRhythm : Technically limited study due to body habitus.patient position. PT unable to turn or lay Conclusion Technically difficult study with very poor cardiac visualization LV and RV not well visualized, likely grossly normal. LVEF>50% Valves not well visualized
--- NOTE | 2025-03-28 19:07 | DVH ---
EXAM: MRI MRI R FOOT WO CONTRAST INDICATION: RLE cellulitis TECHNIQUE: Multiplanar and multisequence MR imaging of the right ankle was performed in the absence o f gadolinium contrast. COMPARISON: None FINDINGS: Motion artifact limits fine detail evaluation. There is no evidence of marrow edema. There is no fracture or subluxation. No significant joint effus ion. The flexor and extensor tendons are within normal limits. There is subcutaneous edema scattered throughout the foot. No abscess or fluid collection. Mild interphalangeal joint and metatarsophalangeal joint degenerative changes. IMPRESSION: 1. No evidence of osteomyelitis 2. No joint effusion or abscess 3. Mild subcutaneous edema within the foot
[2025-03-28] MEDS: CARVEDILOL 3.125 MG TAB PO SCH (21:55)
[2025-03-28] MEDS: IPRATROPIUM BROM 0.5 MG/2.5ML INH SOL NEB SCH (22:00)
[2025-03-29] VITALS (106 sets, daily range): BP systolic 81–127; BP diastolic 39–87; PULSE 93–119; RESP 5–27; TEMP 97.8–98.4; O2SAT 84–100
[2025-03-29 03:31] LABS: Hematocrit 28.6 % (36.0-46.0); Hemoglobin 9.0 g/dL (12.2-16.2); Mean Corpuscular Hemoglobin 32.0 pg (28.0-32.0); Mean Corpuscular Volume 101.3 fL (80.0-100.0); Nucleated Red Blood Cells % 0.0 %
[2025-03-29 03:38] LABS: Alanine Aminotransferase 16 U/L (7-40); Albumin 3.7 g/dL (3.2-4.8); Anion Gap 10 (5-15); BUN/Creatinine Ratio 6.7 (10.0-20.0); Calcium 8.7 mg/dL (8.7-10.4); Carbon Dioxide 27 mmol/L (20-31); Chloride 100 mmol/L (98-107); Glucose 105 mg/dL (74-106); Potassium 4.1 mmol/L (3.5-5.1); Sodium 137 mmol/L (136-145); Total Protein 6.8 g/dL (5.7-8.2)
[2025-03-29 04:10] LABS: Alkaline Phosphatase 176 U/L (46-116); Bilirubin, Total 0.2 mg/dL (0.2-1.0); Blood Urea Nitrogen 25 mg/dL (9-23)
[2025-03-29] MEDS: CITALOPRAM HYDROBR 20 MG TAB PO SCH (08:31)
[2025-03-29] MEDS: ENOXAPARIN SOD 150 MG/1 ML SYRINGE SC SCH (08:35)
[2025-03-29] MEDS: EPOETIN ALFA-EPBX 4,000 UNIT/ML VIAL SC SCH (08:37)
--- NOTE | 2025-03-29 11:36 | DVHPNRES ---
Progress Note Date Seen: Mar 29, 2025 Resident Creating Document: CANDIDA FRANCE RESIDENT Medical Necessity Reason Pt with a Central, PICC or Fol: Yes The following are medically ne: PICC Line Subjective Review of Systems Patient is a 52-year-old female with past medical history of CHF, ESRD on hemodialysis Tuesday, Tuesday, Tuesday, asthma, COPD, sleep apnea, type 2 diabetes, chronic respiratory failure on home oxygen 2 L, comes in due to right lower extremity pain a discharge. According to the patient, for the last 1 month she has been experiencing right lower extremity pain along with redness and a foul-smelling discharge, denies any trauma to the right lower extremity. Patient is a poor historian. On review of systems patient is denying chest pain, dyspnea, orthopnea, nausea, vomiting, palpitations. At baseline patient produces minimal urine every other day. Upon further probing, patient also disclosed she has history of atrial flutter Past surgical history: Cholecystectomy, section, appendectomy Social & Personal history: Patient resides at [facility] in [place]. Patient seen and examined at bedside. Patient is alert and oriented to time, place person and responding to some questions but not all. On review of systems, patient is denying any complaints, however, is complaining of severe pain to the right lower extremity. 03/28/2025: Patient improved from yesterday, on minimal Levophed at 2 micrograms/hour. Complaining of itching all over, denying skin checks as well as bed baths. 03/29/2025: Patient on Levophed 2 micrograms/minute, wound culture growing Pseudomonas, Serratia, GBS, Serratia and Pseudomonas sensitive to cefepime, we will continue. MRI showed no osteomyelitis, however, noted to have cyanotic toes on the right lower extremity, ordered bilateral arterial Doppler which showed [id number] peripheral arterial disease, consulted vascular surgery. Objective vital signs Vital Sign Date Time Temp Pulse Resp B/P (MAP) Pulse Ox O2 Delivery O2 Flow Rate FiO2 03/29/25 10:30 109 16 105/68 (80) 95 03/29/25 10:00 Nasal Cannula* 3 32 03/29/25 08:00 98.4 98.4 Total Intake and Output 03/28/25 03/28/25 03/29/25 14:59 22:59 06:59 Intake Total 342.50 ml 1070 ml 556 ml Output Total 0 ml 0 ml Balance 342.50 ml 1070 ml 556 ml medications Current Medications Medications Dose Ordered Sig/Kiana Route Start Time Stop Time Status Last Admin Dose Admin Vancomycin HCl 0 ml @ 0 mls/hr UD IV 03/26/25 10:45 Norepinephrine Bitartrate 250 ml @ 3.75 mls/hr Q24H IV 03/26/25 11:30 03/27/25 19:49 11.25 MLS/HR Acetaminophen 650 mg Q6HP PRN PO 03/26/25 15:00 03/29/25 10:18 650 MG Cefepime/Dextrose 50 ml @ 12.5 mls/hr Q8HR IV 03/26/25 22:00 UNV Ondansetron HCl 4 mg Q4HP PRN IV 03/26/25 15:00 Docusate Sodium 100 mg BIDPRN PRN PO 03/26/25 15:00 Diagnostic Test (Pha) 1 strip Q6HR 03/26/25 18:00 03/29/25 05:59 1 STRIP Insulin Human Regular Q6HR SC 03/26/25 18:00 03/29/25 00:09 2 UNITS Dextrose 50 ml UD PRN IV 03/26/25 15:00 Nitroglycerin 0.4 mg Q5MINP PRN SL 03/26/25 15:00 Cefepime HCl 50 ml @ 12.5 mls/hr DAILY IV 03/27/25 10:00 03/29/25 08:35 12.5 MLS/HR Nicotine 1 patch HS TD 03/27/25 22:00 03/28/25 21:56 1 PATCH Acetaminophen/ Hydrocodone Bitart 1 tab Q8HP PRN PO 03/27/25 11:00 03/29/25 04:10 1 TAB Pantoprazole Sodium 40 mg DAILY IV 03/28/25 10:00 03/29/25 08:37 40 MG Metronidazole 100 ml @ 100 mls/hr Q8HR IV 03/27/25 14:00 03/29/25 05:55 100 MLS/HR Sevelamer HCl 1,600 mg TIDWM PO 03/27/25 18:00 03/29/25 08:30 1,600 MG Epoetin Dante-epbx 4,000 unit MWF SC 03/29/25 10:00 03/29/25 08:37 4,000 UNIT Sodium Chloride 10 ml QSHIFT@10,22 IV 03/27/25 22:00 03/29/25 08:38 10 ML Enoxaparin Sodium 140 mg DAILY SC 03/29/25 10:00 03/29/25 08:35 140 MG Patient Own Medication 1 tab BID PRN PO 03/28/25 13:15 Citalopram Hydrobromide 40 mg DAILY PO 03/29/25 10:00 03/29/25 08:31 40 MG Ipratropium [place] 0.5 mg Q4HR NEB 03/28/25 18:00 03/29/25 09:45 0.5 MG Carvedilol 3.125 mg Q12HR PO 03/28/25 22:00 Hold 03/28/25 21:55 3.125 MG Examination General Appearance: Cooperative. Head Exam: Constricted, equal and reactive pupils Neck Exam: Normal inspection. Non-tender. Normal alignment Pulmonary/Respiratory: Chest non-tender. Inspiratory crackles, expiratory wheezes Cardiovascular/Chest: Tachycardic, in atrial flutter No murmurs. No JVD. Abdominal Exam: Normal bowel sounds. Soft. normal abdomen, no visible veins, Nontender. No hepatospenomegaly. No masses Lower extremities: Negative lower extremity edema, stasis dermatitis with pigmentation noted on bilateral lower extremities. Right lower extremity severe cellulitis, with thick cottage cheese like foul-smelling discharge laboratory and microbiology Laboratory Tests 03/29/25 02:52 Test 03/29/25 02:52 Range/Units Serum Glucose 105 74-106 mg/dL Microbiology Date/Time Source Procedure Growth Status 03/27/25 06:20 Nose MRSA Screen - Final Complete 03/26/25 13:34 Blood Blood Culture - Preliminary NO GROWTH AFTER 48 HOURS OF INCUBATION. Resulted Labs and/or images reviewed: Labs reviewed by me, Image(s) reviewed by me Problem List/Assessment/Plan Problem List/Assessment/Plan Neurology # chronic pain syndrome - resumed home medication [place] 10q8 as needed Cardiovascular # congestive heart failure, systolic versus diastolic # Septic shock due to right lower extremity cellulitis; cultures growing Pseudomonas, Serratia marcescens, GBS # history of atrial flutter # [id number] peripheral arterial disease - on norepinephrine at 6 micrograms/minute - IV metronidazole IV cefepime - echocardiogram: Technically difficult study due to body habitus, patient position and patient unable to terminally flight. LV and RV not well visualized, likely grossly normal. LVEF greater than 50%. Valves are well visualized. - Lovenox 140 mg subcutaneous daily, modified dosing due to elevated PTT and low hemoglobin. - cardiology consulted - vascular surgery consulted Respiratory # acute on chronic hypoxic respiratory failure, on home oxygen 2 L, currently on O2 via NC 4 L with FiO2 36% # pulmonary edema # COPD exacerbation # sleep apnea, noncompliant with CPAP - ipratropium med neb, currently holding albuterol - CXR: Pulmonary edema and bilateral pleural effusions, stable cardiomegaly. GI # Peptic ulcer prophylaxis -Pantoprazole 40 mg IV daily Nephrology # ESRD on hemodialysis M, W, F # hyperkalemia - s/p hemodialysis today with 2 L removed - nephrology on board - [facility] once - retacrit 4000 units subcutaneous - sevelamer 1600 mg p.o. t.i.d. Infectious disease # right lower extremity cellulitis, cultures growing Pseudomonas, Serratia marcescens, GBS -podiatry on board - ordered right lower extremity MRI - IV metronidazole cefepime - right ankle x-ray: No evidence of acute fracture or dislocation, unremarkable - right foot x-ray: No evidence of acute fracture or dislocation, small plantar calcaneal enthesophyte. - right tibia fibula x-ray: No evidence of acute fracture or dislocation. - right lower extremity arterial Doppler: No sonographic evidence of arterial occlusion. Low resistance and distal capillary bed can be caused by local infection, correlate clinically. - right lower extremity venous Doppler: No evidence of DVT. - repeat bilateral lower extremity arterial Doppler 03/29/2025: Findings consistent with [id number] peripheral arterial disease with diffuse monophasic waveforms which could suggest aortoiliac inflow disease. Hem/onc # Macrocytic anemia - . Vitamin B12, folic acid - ordered serum TSH Endocrine # type 2 diabetes, uncontrolled and insulin dependent - sliding scale insulin Psychiatry # nicotine dependence # depression, possibly MDD? - nicotine patch 14 g - resumed home medication buspirone, citalopram DVT prophylaxis Patient already on Lovenox 140 mg subcutaneous daily, modified dosing due to elevated PTT and low hemoglobin. Nutrition Consistent carb diet Lines Left PICC line placed on 03/27/2025 Right 20 gauge placed on 03/26/2025 Right 22 gauge placed on 03/26/2025 Right chest wall hemodialysis catheter approximately 7-month-old Critical care time 85 minutes excluding procedure. Code status discussed greater than 20 minutes: Full CODE STATUS. Plan discussed with Dr. Edwards; cardiology taken on board for the management of atrial flutter, encouraged patient to comply with CPAP. Plan discussed with: Patient, Other (RN) My Orders My Orders Orders - CANDIDA FRANCE RESIDENT Procedure Category Date Status Time (Nf) Buspirone Hcl PHA 03/28/25 In Process 13:15 Citalopram Tablet PHA 03/29/25 In Process (Celexa Tablet) 10:00 Ipratropium Medneb PHA 03/28/25 In Process (Atrovent Medneb) 18:00 Carvedilol Tablet PHA 03/28/25 In Process (Coreg Tablet) 22:00 Bilat Low Ext Art US 03/29/25 Logged Duplex 11:10 Dietary Evaluation Review Comments: 1. Well-controlled DM is the most improtant factor in enhancing wound-healing 2. Encoauge PO feeding to meet 75% of her needs. 3. To avoid castabolism, offer Glucerna PO BID if pt eat <50% of her meals 4. F/U visit in 3-5 days Expected Outcomes/Goals: improved DM control, improved nurition status and grdual wt loss. CANDIDA FRANCE RESIDENT Mar 29, 2025 11:36
--- NOTE | 2025-03-29 11:36 | DVHPN2 ---
Progress Note Date Seen: Mar 29, 2025 Medical Necessity Reason Pt with a Central, PICC or Fol: Yes The following are medically ne: PICC Line Subjective Patient reports: Feels better Objective vital signs Vital Sign Date Time Temp Pulse Resp B/P (MAP) Pulse Ox O2 Delivery O2 Flow Rate FiO2 03/29/25 10:30 109 16 105/68 (80) 95 03/29/25 10:00 Nasal Cannula* 3 32 03/29/25 08:00 98.4 98.4 Total Intake and Output 03/28/25 03/28/25 03/29/25 15:00 23:00 07:00 Intake Total 485.00 ml 920 ml 560 ml Output Total 0 ml 0 ml Balance 485.00 ml 920 ml 560 ml medications Current Medications Medications Dose Ordered Sig/Kiana Route Start Time Stop Time Status Last Admin Dose Admin Vancomycin HCl 0 ml @ 0 mls/hr UD IV 03/26/25 10:45 Norepinephrine Bitartrate 250 ml @ 3.75 mls/hr Q24H IV 03/26/25 11:30 03/27/25 19:49 11.25 MLS/HR Acetaminophen 650 mg Q6HP PRN PO 03/26/25 15:00 03/29/25 10:18 650 MG Cefepime/Dextrose 50 ml @ 12.5 mls/hr Q8HR IV 03/26/25 22:00 UNV Ondansetron HCl 4 mg Q4HP PRN IV 03/26/25 15:00 Docusate Sodium 100 mg BIDPRN PRN PO 03/26/25 15:00 Diagnostic Test (Pha) 1 strip Q6HR 03/26/25 18:00 03/29/25 05:59 1 STRIP Insulin Human Regular Q6HR SC 03/26/25 18:00 03/29/25 00:09 2 UNITS Dextrose 50 ml UD PRN IV 03/26/25 15:00 Nitroglycerin 0.4 mg Q5MINP PRN SL 03/26/25 15:00 Cefepime HCl 50 ml @ 12.5 mls/hr DAILY IV 03/27/25 10:00 03/29/25 08:35 12.5 MLS/HR Nicotine 1 patch HS TD 03/27/25 22:00 03/28/25 21:56 1 PATCH Acetaminophen/ Hydrocodone Bitart 1 tab Q8HP PRN PO 03/27/25 11:00 03/29/25 04:10 1 TAB Pantoprazole Sodium 40 mg DAILY IV 03/28/25 10:00 03/29/25 08:37 40 MG Metronidazole 100 ml @ 100 mls/hr Q8HR IV 03/27/25 14:00 03/29/25 05:55 100 MLS/HR Sevelamer HCl 1,600 mg TIDWM PO 03/27/25 18:00 03/29/25 08:30 1,600 MG Epoetin Dante-epbx 4,000 unit MWF SC 03/29/25 10:00 03/29/25 08:37 4,000 UNIT Sodium Chloride 10 ml QSHIFT@10,22 IV 03/27/25 22:00 03/29/25 08:38 10 ML Enoxaparin Sodium 140 mg DAILY SC 03/29/25 10:00 03/29/25 08:35 140 MG Patient Own Medication 1 tab BID PRN PO 03/28/25 13:15 Citalopram Hydrobromide 40 mg DAILY PO 03/29/25 10:00 03/29/25 08:31 40 MG Ipratropium [place] 0.5 mg Q4HR NEB 03/28/25 18:00 03/29/25 09:45 0.5 MG Carvedilol 3.125 mg Q12HR PO 03/28/25 22:00 Hold 03/28/25 21:55 3.125 MG Examination: GENERAL:Abnormal, CVS:Normal, SKIN:Abnormal laboratory and microbiology Laboratory Tests 03/29/25 02:52 Test 03/29/25 02:52 Range/Units Serum Glucose 105 74-106 mg/dL Microbiology Date/Time Source Procedure Growth Status 03/27/25 06:20 Nose MRSA Screen - Final Complete 03/26/25 13:34 Blood Blood Culture - Preliminary NO GROWTH AFTER 48 HOURS OF INCUBATION. Resulted Problem List/Assessment/Plan Problem List/Assessment/Plan End-stage renal disease on hemodialysis Shock likely septic shock Morbid obesity Fluid overload Hyperkalemia Diabetes Right lower extremity foot wound gram negative wound infection Anemia due to chronic kidney disease Hemodialysis treatments Tuesday Pressors support to avoid hypotension Sepsis IV antibiotics Epogen 3 times a week Renal diet when tolerating p.o. Glycemic control as per primary medical team Plan discussed with: Patient Dietary Evaluation Review Comments: 1. Well-controlled DM is the most improtant factor in enhancing wound-healing 2. Encoauge PO feeding to meet 75% of her needs. 3. To avoid castabolism, offer Glucerna PO BID if pt eat <50% of her meals 4. F/U visit in 3-5 days Expected Outcomes/Goals: improved DM control, improved nurition status and grdual wt loss. Critical Care Time (mins): 32 YANIQUE ROBLES MD Mar 29, 2025 11:36
--- NOTE | 2025-03-29 12:37 | DVH ---
Indication: weak pedal pulses. Technique: Real- time ultrasound images of the lower extremity with grayscale, color, and spectral wave Doppler. Comparison: US RT LOW EXT ART DUPLEX on DOS: 03/26/25 Findings: Are monophasic waveforms in the right [employer]IMAL BIOLOGIST, SFA, popliteal artery. Monophasic waveform in the left CF A, SFA, popliteal, dorsalis pedis, posterior tibial arteries. Peak systolic velocities are as follows (in cm/s): Right: Common femoral artery: 92 Profunda femoris: 85 Proximal superficial femoral: 76 Mid superficial femoral artery: 19 Distal superficial femoral artery: Nonvisualized Popliteal artery: 26 Posterior tibial artery: 0 Dorsalis pedis artery: Nonvisualized Left: Common femoral artery: 121 Profunda femoris: 145 Proximal superficial femoral: 108 Mid superficial femoral artery: 187 Distal superficial femoral artery: 81 Popliteal artery: 140 Posterior tibial artery: 38 Dorsalis pedis artery: 68 Impression: Findings consistent with moderate to severe peripheral arterial disease with diffuse monophasic wavef orms which could suggest aortoiliac inflow disease. Severely decreased velocity in the mid right SFA consistent with high-grade stenosis. Increased velocity in the mid left SFA consistent with moderate to high-grade stenosis. Recommend CT angiogram of the lower extremities to further evaluate. Nonvisualization of the distal right SFA and dorsalis pedis arteries.
[2025-03-29] MEDS: VANCOMYCIN 500mg/100mL 100 ML IV ONE (19:38)
[2025-03-30] VITALS (51 sets, daily range): BP systolic 83–120; BP diastolic 40–81; PULSE 87–115; RESP 14–27; TEMP 97.2–98.7; O2SAT 88–100
[2025-03-30 03:37] LABS: Hematocrit 27.6 % (36.0-46.0); Hemoglobin 8.8 g/dL (12.2-16.2); Mean Corpuscular Hemoglobin 32.1 pg (28.0-32.0); Mean Corpuscular Volume 100.2 fL (80.0-100.0); Nucleated Red Blood Cells % 0.0 %
[2025-03-30 03:45] LABS: Alanine Aminotransferase 17 U/L (7-40); Anion Gap 12 (5-15); BUN/Creatinine Ratio 7.8 (10.0-20.0); Calcium 9.2 mg/dL (8.7-10.4); Carbon Dioxide 26 mmol/L (20-31); Chloride 100 mmol/L (98-107); Glucose 100 mg/dL (74-106); Potassium 4.2 mmol/L (3.5-5.1); Sodium 138 mmol/L (136-145); Total Protein 6.4 g/dL (5.7-8.2)
[2025-03-30 03:46] LABS: Albumin 3.5 g/dL (3.2-4.8)
[2025-03-30 03:53] LABS: Blood Urea Nitrogen 38 mg/dL (9-23)
[2025-03-30 03:54] LABS: Alkaline Phosphatase 176 U/L (46-116); Bilirubin, Total 0.2 mg/dL (0.2-1.0)
[2025-03-30] MEDS: SODIUM CHL 0.9% 1000 ML BAG XX ONE (09:15)
--- NOTE | 2025-03-30 12:01 | DVHPN2 ---
Progress Note Date Seen: Mar 30, 2025 Medical Necessity Reason Pt with a Central, PICC or Fol: Yes The following are medically ne: PICC Line Subjective Patient reports: Feels better Objective vital signs Vital Sign Date Time Temp Pulse Resp B/P (MAP) Pulse Ox O2 Delivery O2 Flow Rate FiO2 03/30/25 10:40 96 20 100 03/30/25 10:14 97.4 104/77 (86) 97.4 03/30/25 10:00 Nasal Cannula* 2 28 Total Intake and Output 03/29/25 03/29/25 03/30/25 15:00 23:00 07:00 Intake Total 395.00 ml 740 ml 460 ml Output Total 0 ml Balance 395.00 ml 740 ml 460 ml medications Current Medications Medications Dose Ordered Sig/Kiana Route Start Time Stop Time Status Last Admin Dose Admin Vancomycin HCl 0 ml @ 0 mls/hr UD IV 03/26/25 10:45 Norepinephrine Bitartrate 250 ml @ 3.75 mls/hr Q24H IV 03/26/25 11:30 Hold 03/27/25 19:49 11.25 MLS/HR Acetaminophen 650 mg Q6HP PRN PO 03/26/25 15:00 03/29/25 10:18 650 MG Cefepime/Dextrose 50 ml @ 12.5 mls/hr Q8HR IV 03/26/25 22:00 UNV Ondansetron HCl 4 mg Q4HP PRN IV 03/26/25 15:00 Docusate Sodium 100 mg BIDPRN PRN PO 03/26/25 15:00 Diagnostic Test (Pha) 1 strip Q6HR 03/26/25 18:00 03/30/25 11:52 1 STRIP Insulin Human Regular Q6HR SC 03/26/25 18:00 03/30/25 00:15 3 UNITS Dextrose 50 ml UD PRN IV 03/26/25 15:00 Nitroglycerin 0.4 mg Q5MINP PRN SL 03/26/25 15:00 Cefepime HCl 50 ml @ 12.5 mls/hr DAILY IV 03/27/25 10:00 03/30/25 08:43 12.5 MLS/HR Nicotine 1 patch HS TD 03/27/25 22:00 03/29/25 22:13 1 PATCH Acetaminophen/ Hydrocodone Bitart 1 tab Q8HP PRN PO 03/27/25 11:00 03/30/25 06:29 1 TAB Pantoprazole Sodium 40 mg DAILY IV 03/28/25 10:00 03/30/25 08:42 40 MG Metronidazole 100 ml @ 100 mls/hr Q8HR IV 03/27/25 14:00 03/30/25 06:08 100 MLS/HR Sevelamer HCl 1,600 mg TIDWM PO 03/27/25 18:00 03/30/25 11:52 1,600 MG Epoetin Dante-epbx 4,000 unit MWF SC 03/29/25 10:00 03/29/25 08:37 4,000 UNIT Sodium Chloride 10 ml QSHIFT@10,22 IV 03/27/25 22:00 03/30/25 08:43 10 ML Enoxaparin Sodium 140 mg DAILY SC 03/29/25 10:00 03/30/25 08:43 140 MG Patient Own Medication 1 tab BID PRN PO 03/28/25 13:15 Citalopram Hydrobromide 40 mg DAILY PO 03/29/25 10:00 03/30/25 08:42 40 MG Ipratropium [place] 0.5 mg Q4HR NEB 03/28/25 18:00 03/30/25 07:25 0.5 MG Carvedilol 3.125 mg Q12HR PO 03/28/25 22:00 Hold 03/28/25 21:55 3.125 MG Examination: GENERAL:Abnormal, CVS:Normal, ABDOMEN:Normal, SKIN:Normal laboratory and microbiology Laboratory Tests 03/30/25 03:00 Test 03/30/25 03:00 Range/Units Serum Glucose 100 74-106 mg/dL Microbiology Date/Time Source Procedure Growth Status 03/27/25 06:20 Nose MRSA Screen - Final Complete 03/26/25 13:34 Blood Blood Culture - Preliminary NO GROWTH AFTER 72 HOURS OF INCUBATION. Resulted Problem List/Assessment/Plan Problem List/Assessment/Plan End-stage renal disease on hemodialysis Shock likely septic shock Morbid obesity Fluid overload Hyperkalemia Diabetes Right lower extremity foot wound gram negative wound infection Anemia due to chronic kidney disease Hemodialysis today Sepsis IV antibiotics Epogen 3 times a week Renal diet when tolerating p.o. Glycemic control as per primary medical team Plan discussed with: Patient My Orders My Orders Orders - YANIQUE ROBLES MD Procedure Category Date Status Time Hemodialysis Orders ORDERS 03/30/25 Transmitted 09:05 Dialysis Nursing JNOATHAN 03/30/25 In Process Message 09:05 Document Fluid Input JONATHAN 03/30/25 In Process And Outpu 09:05 Dietary Evaluation Review Comments: 1. Well-controlled DM is the most improtant factor in enhancing wound-healing 2. Encoauge PO feeding to meet 75% of her needs. 3. To avoid castabolism, offer Glucerna PO BID if pt eat <50% of her meals 4. F/U visit in 3-5 days Expected Outcomes/Goals: improved DM control, improved nurition status and grdual wt loss. Total Time (mins): 27 YANIQUE ROBLES MD Mar 30, 2025 12:01
--- NOTE | 2025-03-30 13:49 | DVHPN2 ---
Progress Note - Dictate Date Seen: Mar 30, 2025 Medical Necessity Reason Pt with a Central, PICC or Fol: Yes The following are medically ne: PICC Line vital signs Vital Sign Date Time Temp Pulse Resp B/P (MAP) Pulse Ox O2 Delivery O2 Flow Rate FiO2 03/30/25 10:40 96 20 100 03/30/25 10:14 97.4 104/77 (86) 97.4 03/30/25 10:00 Nasal Cannula* 2 28 Total Intake and Output 03/29/25 03/29/25 03/30/25 15:00 23:00 07:00 Intake Total 395.00 ml 740 ml 460 ml Output Total 0 ml Balance 395.00 ml 740 ml 460 ml medications Current Medications Medications Dose Ordered Sig/Kiana Route Start Time Stop Time Status Last Admin Dose Admin Vancomycin HCl 0 ml @ 0 mls/hr UD IV 03/26/25 10:45 Norepinephrine Bitartrate 250 ml @ 3.75 mls/hr Q24H IV 03/26/25 11:30 Hold 03/27/25 19:49 11.25 MLS/HR Acetaminophen 650 mg Q6HP PRN PO 03/26/25 15:00 03/30/25 12:19 650 MG Cefepime/Dextrose 50 ml @ 12.5 mls/hr Q8HR IV 03/26/25 22:00 UNV Ondansetron HCl 4 mg Q4HP PRN IV 03/26/25 15:00 Docusate Sodium 100 mg BIDPRN PRN PO 03/26/25 15:00 Diagnostic Test (Pha) 1 strip Q6HR 03/26/25 18:00 03/30/25 11:52 1 STRIP Insulin Human Regular Q6HR SC 03/26/25 18:00 03/30/25 00:15 3 UNITS Dextrose 50 ml UD PRN IV 03/26/25 15:00 Nitroglycerin 0.4 mg Q5MINP PRN SL 03/26/25 15:00 Cefepime HCl 50 ml @ 12.5 mls/hr DAILY IV 03/27/25 10:00 03/30/25 08:43 12.5 MLS/HR Nicotine 1 patch HS TD 03/27/25 22:00 03/29/25 22:13 1 PATCH Acetaminophen/ Hydrocodone Bitart 1 tab Q8HP PRN PO 03/27/25 11:00 03/30/25 06:29 1 TAB Pantoprazole Sodium 40 mg DAILY IV 03/28/25 10:00 03/30/25 08:42 40 MG Metronidazole 100 ml @ 100 mls/hr Q8HR IV 03/27/25 14:00 03/30/25 06:08 100 MLS/HR Sevelamer HCl 1,600 mg TIDWM PO 03/27/25 18:00 03/30/25 11:52 1,600 MG Epoetin Dante-epbx 4,000 unit MWF SC 03/29/25 10:00 03/29/25 08:37 4,000 UNIT Sodium Chloride 10 ml QSHIFT@10,22 IV 03/27/25 22:00 03/30/25 08:43 10 ML Enoxaparin Sodium 140 mg DAILY SC 03/29/25 10:00 03/30/25 08:43 140 MG Patient Own Medication 1 tab BID PRN PO 03/28/25 13:15 Citalopram Hydrobromide 40 mg DAILY PO 03/29/25 10:00 03/30/25 08:42 40 MG Ipratropium [place] 0.5 mg Q4HR NEB 03/28/25 18:00 03/30/25 07:25 0.5 MG Carvedilol 3.125 mg Q12HR PO 03/28/25 22:00 Hold 03/28/25 21:55 3.125 MG laboratory and microbiology Laboratory Tests 03/30/25 03:00 Test 03/30/25 03:00 Range/Units Serum Glucose 100 74-106 mg/dL Assessment/Plan Asked to see patient for possible downgrade Impression Morbid obesity Septic shock Sepsis COPD Patient seen and examined in [facility] Low oxygen requirements On 2 liters nasal cannula Hemodynamics improving, off pressors Labs and imaging reviewed Management Supplemental oxygen Titrate to maintain sats 90% or above Incentive spirometry Continue antibiotics F/u culture Bronchodilators Monitor renal function HD as per nephrology Management deferred Monitor electrolytes Supplement as needed Wound care Okay to downgrade from pulmonary standpoint DVT prophylaxis Critical care time 35 minutes Dietary Evaluation Review Comments: 1. Well-controlled DM is the most improtant factor in enhancing wound-healing 2. Encoauge PO feeding to meet 75% of her needs. 3. To avoid castabolism, offer Glucerna PO BID if pt eat <50% of her meals 4. F/U visit in 3-5 days Expected Outcomes/Goals: improved DM control, improved nurition status and grdual wt loss. Plan discussed with: Patient RENUKA OG MD Mar 30, 2025 13:49
[2025-03-30 17:36] LABS: Triglycerides 82 mg/dL (< 150)
--- NOTE | 2025-03-30 17:37 | DVHINCON2 ---
Date of service: Mar 30, 2025 Reason for Consultation Atrial Fibrillation History of Present Illness This is a 54-year old female resident of [facility]) known outside to our practice who initially presented with non-healing wound involving the right lower extremity for approximately one month for which patient herself reports no improvement despite outpatient based antibiotic/wound care. Upon arrival imaging of the right ankle was found non-revealing. Right foot imaging had revealed evidence for soft tissue swelling. Subsequent right tib/fib x-ray had been found unremarkable. Patient later underwent MRI of the right foot which had revealed no evidence for osteomyelitis, effusion, or abscess however did reveal mild subcutaneous edema which subsequent RLE venous duplex was performed revealing no evidence for deep vein thrombosis. RLE arterial duplex had revealed moderate to severe peripheral arterial disease with diffuse monophasic waveforms with severely decreased velocity involving the mid right SFA consistent with high-grade stenosis as well as increased velocity in the mid left SFA consistent with moderate to high-grade stenosis. Upon arrival, patient was noted to be hypotensive subsequently initiated on Levophed infusion for hemodynamic support and later admitted to the ICU for close obs ervation/management. While undergoing management within the ICU, patient had been placed on IV antibiotic therapy as managed by primary team and weaned from Levophed infusion as hemodynamics had later improved. Initial 12-lead electrocardiogram had revealed atrial flutter (variable AV block) with a ventricular rate of 114bpm, no evidence for acute ischemic changes. Serial HS troponin trend had been found unremarkable (11, 10, 8). TSH level was found normal at 2.42. BNP level had been found minimally elevated at 138 which subsequent chest imaging had revealed cardiomegaly with evidence for pulmonary vascular congestion and trace bilateral pleural effusions which fluid volume is managed via hemodialysis (M/W/F) as the patient is known to have underlying ESRD. Subsequent Echocardiogram (03/27/2025) had revealed an LVEF > 50%. Of note, patient does have known history of permanent atrial fibrillation on chronic anti-coagulation (Eliquis) on an outpatient basis and as patient presented and was found to have atrial flutter with variable AV block arrhythmia itself is considered new-onset for the patient. As the patient presented and was found to be in atrial flutter with variable AV block, Cardiology services were involved by primary team request for cardiac aspects of care. Past medical history includes permanent atrial fibrillation on chronic anticoagulation (Eliquis), ESRD on hemodialysis (M/W/F), diabetes mellitus II, hyperlipidemia, COPD on home oxygen therapy, obstructive sleep apnea on CPAP therapy, bipolar disorder, anxiety disorder, morbid obesity, status post previous section, appendectomy, and cholecystectomy. Patient is an active cigarette smoker. Echocardiogram: (Office 11/28/2024) revealed TDS, mild concentric left ventricul ar hypertrophy, LVEF of 55-60%, trace mitral regurgitation, trace tricuspid regurgitation, right ventricular systolic pressure of < 35mmHg Echocardiogram: ([facility] 03/27/2025) revealed technically difficult study with very poor cardiac visualization. LV and RV not well visualized, likely grossly normal. LVEF>50%. Valves not well visualized Past Medical History As per HPI Past Surgical History As per HPI Family History: Cardiovascular disease G8 MOTHER, Onset:60 years & older Allergies: Coded Allergies: Codeine (Verified Allergy, Unknown, 01/16/19) Penicillins (Verified Allergy, Unknown, 03/26/25) Home Meds Reported Medications Acetaminophen (Acetaminophen Extra Stren) 500 Mg Tab, 500 MG PO 2 tabs Q6H for mild pain (1-4), TAB 03/27/25 Polyethylene Glycol 3350 (Miralax) 17 Gm Pow, 17 GM PO DAILY for constipation, POW 03/27/25 Insulin Lispro (Human) (Humalog) 100 Unit/Ml Inj, 100 UNIT SC, INJ 03/27/25 Ipratropium-Albuterol (Ipratropium Monroe/Albut) 1 Marylou Marylou, 1 MARYLOU IN Q6HP PRN for SHORTNESS OF BREATH, ML 03/27/25 Sevelamer Hydrochloride (Sevelamer Hydrochloride) 800 Mg Tab, 800 MG PO 2 tab TID for hyperphospetemia r/t ESRD, TAB 03/27/25 B-Complex W/ C & Folic Acid (Maddie-Lalo) Tab, 1 OR DAILY for supplement, TAB 03/27/25 Nutritional Supplements (Nepro) Liq, 1 OR for ESRD, LIQ 03/27/25 Guaifenesin (Mucinex) 600 Mg Tab, 600 MG PO Q12HP PRN for FOR COUGH, TAB 03/27/25 Escitalopram Oxalate (Lexapro) 20 Mg Tab, 1 TAB PO DAILY for depression, #30 TAB 03/27/25 Furosemide (Lasix) 80 Mg Tab, 1 TAB PO DAILY, #30 TAB 5 Refills 03/27/25 Hydrocodone-Acetaminophen (Hydrocodone Bitartrate/AC 7.5-300 mg) 1 Tab Tab, 1 TAB PO Q8HP PRN for moderate-sevare pain (6-10), TAB 03/27/25 Ferrous Sulfate (Ferrous Sulfate) 325 Mg Tab, 325 MG PO DAILY for 30 Days, MG 03/27/25 Calcium Carbonate (Antacid) (Antacid) 750 Mg Chw, 750 MG PO Q8HP PRN for indigestion, TAB.CHEW 03/27/25 Diphenhydramine Hcl (Benadryl Allergy) 25 Mg Cap, 25 MG PO Q6HP PRN for FOR ITCHING, CAP 03/27/25 Ipratropium Monroe Hfa (Atrovent Hfa) 17 Mcg Aer, 17 MCG IN 2 puffs Q4H PRN PRN for wheezing, AER 03/27/25 Atorvastatin Calcium (ATORVASTATIN CALCIUM) 40 Mg Tab, 1 TAB PO DAILY for hyperlipidemia, #30 TAB 5 Refills 03/27/25 Apixaban Base (ELIQUIS) 5 Mg Tab, 5 MG PO BID for DVT prophylaxis, TAB 03/27/25 Carvedilol (Carvedilol) 25 Mg Tab, 1 TAB PO BID for Hypertension, #180 TAB 1 Refill 03/27/25 Buspirone Hcl (Buspirone Hcl) 7.5 Mg Tab, 1 TAB PO BID PRN for ANXIETY, #60 TAB 3 Refills 03/27/25 Review of Systems A 14-point review of systems is negative unless otherwise noted above Vital Signs Vital Signs Date Time Temp Pulse Resp B/P (MAP) Pulse Ox O2 Delivery O2 Flow Rate FiO2 03/30/25 13:00 98.2 109 16 112/65 (81) 94 98.2 03/30/25 10:00 Nasal Cannula* 2 28 Physical Exam Heart: S1 and S2 regular. Irregular Lungs: Scattered rhonchi. Abdomen: Benign. Extremities: Distal pulses palpable, 2+. Peripheral edema present Labs/Diagnostic Data Labs Test 03/30/25 11:54 03/30/25 03:00 03/28/25 03:35 03/27/25 03:29 Range/Units POC Glucose 95 70-106 mg/dl White Blood Count 7.8 4.4-10.8 10^3/uL Red Blood Count 2.75 L 4.0-5.20 10^6/uL Hemoglobin 8.8 L 12.2-16.2 g/dL Hematocrit 27.6 L 36.0-46.0 % Mean Corpuscular Volume 100.2 H 80.0-100.0 fL Mean Corpuscular Hemoglobin 32.1 H 28.0-32.0 pg Mean Corpuscular Hemoglobin Concent 32.1 32.0-36.0 g/dL Red Cell Distribution Width 15.8 H 11.8-14.3 % Platelet Count 272 140-450 10^3/uL Mean Platelet Volume 6.8 L 6.9-10.8 fL Neutrophils (%) (Auto) 70.6 37.0-80.0 % Lymphocytes (%) (Auto) 12.8 10.0-50.0 % Monocytes (%) (Auto) 11.2 0.0-12.0 % Eosinophils (%) (Auto) 4.6 0.0-7.0 % Basophils (%) (Auto) 0.8 0.0-2.0 % Neutrophils # (Auto) 5.5 1.6-8.6 10 ^3/uL Lymphocytes # (Auto) 1.0 0.4-5.4 10 ^3/uL Monocytes # (Auto) 0.9 0-1.3 10 ^3/uL Eosinophils # (Auto) 0.4 0-0.8 10 ^3/uL Basophils # (Auto) 0.1 0-0.2 10 ^3/uL Nucleated Red Blood Cells 0.0 % Sodium Level 138 136-145 mmol/L Potassium Level 4.2 3.5-5.1 mmol/L Chloride Level 100 98-107 mmol/L Carbon Dioxide Level 26 20-31 mmol/L Anion Gap 12 5-15 Blood Urea Nitrogen 38 #H 9-23 mg/dL Creatinine 4.90 #H 0.550-1.02 mg/dL Glomerular Filtration Rate Calc 10 >90 mL/min BUN/Creatinine Ratio 7.8 L 10.0-20.0 Serum Glucose 100 74-106 mg/dL Calcium Level 9.2 8.7-10.4 mg/dL Total Bilirubin 0.2 0.2-1.0 mg/dL Aspartate Amino Transferase (AST) 15 13-40 U/L Alanine Aminotransferase (ALT) 17 7-40 U/L Alkaline Phosphatase 176 H 46-116 U/L Total Protein 6.4 5.7-8.2 g/dL Albumin 3.5 3.2-4.8 g/dL Random Vancomycin Level 23.6 H 5-10 ug/mL Magnesium Level 2.2 1.6-2.6 mg/dL Iron Level 23 L 50-170 ug/dL Total Iron Binding Capacity 224 L 250-425 ug/dL Percent Iron Saturation 10.3 L 15-50 % Ferritin 250.3 10-291 ng/mL Vitamin B12 Level 1028 H 211-911 pg/mL Folic Acid 20.22 >5.38 ng/mL Thyroid Stimulating Hormone (TSH) 2.42 0.55-4.78 uIU/mL Hepatitis B Surface Antigen Negative Negative Phosphorus Level 7.7 H 2.4-5.1 mg/dL Test 03/26/25 15:32 03/26/25 13:34 Range/Units Lactic Acid Level 1.2 0.4-2.0 mmol/L Troponin I High Sensitivity 8 </=34 ng/L Prothrombin Time 11.7 9.3-11.8 sec Prothrombin Time INR 1.12 0.9-1.15 Activated Partial Thromboplast Time 36.5 H 24.5-34.5 SEC B-Type Natriuretic Peptide 138.10 0-100 pg/mL Microbiology Date/Time Source Procedure Growth Status 03/27/25 06:20 Nose MRSA Screen - Final Complete 03/26/25 13:34 Blood Blood Culture - Preliminary NO GROWTH AFTER 72 HOURS OF INCUBATION. Resulted Plan/Recommendation ASSESSMENT: This is a 54-year old female resident of [facility]) known outside to our practice who initially presented with non-healing wound involving the right lower extremity for approximately one month for which patient herself reports no improvement despite outpatient based antibiotic/wound care. Upon arrival imaging of the right ankle was found non-revealing. Right foot imaging had revealed evidence for soft tissue swelling. Subsequent right tib/fib x-ray had been found unremarkable. Patient later underwent MRI of the right foot which had revealed no evidence for osteomyelitis, effusion, or abscess however did reveal mild subcutaneous edema which subsequent RLE venous duplex was performed revealing no evidence for deep vein thrombosis. RLE arterial duplex had revealed moderate to severe peripheral arterial disease with diffuse monophasic waveforms with severely decreased velocity involving the mid right SFA consistent with high-grade stenosis as well as increased velocity in the mid left SFA consistent with moderate to high-grade stenosis. Upon arrival, patient was noted to be hypotensive subsequently initiated on Levophed infusion for hemodynamic support and later admitted to the ICU for close observation/management. While undergoing management within the ICU, patient had been placed on IV antibiotic therapy as managed by primary team and weaned from Levophed infusion as hemodynamics had later improved. Initial 12-lead electrocardiogram had revealed atrial flutter (variable AV block) with a ventricular rate of 114bpm, no evidence for acute ischemic changes. Serial HS troponin trend had been found unremarkable (11, 10, 8). TSH level was found normal at 2.42. BNP level had been found minimally elevated at 138 which subsequent chest imaging had revealed cardiomegaly with evidence for pulmonary vascular congestion and trace bilateral pleural effusions which fluid volume is managed via hemodialysis (M/W/F) as the patient is known to have underlying ESRD. Subsequent Echocardiogram (03/27/2025) had revealed an LVEF > 50%. Of note, patient does have known history of permanent atrial fibrillation on chronic anti-coagulation (Eliquis) on an outpatient basis and as patient presented and was found to have atrial flutter with variable AV block arrhythmia itself is considered new-onset for the patient. Of note, patient had been initiated on Lovenox by primary team prior to cardiac consultation (which is acceptable as for now). As the patient presented and was found to be in atrial flutter with variable AV block, Cardiology services were involved by primary team request for cardiac aspects of care. Past medical history includes permanent atrial fibrillation on chronic anticoagulation (Eliquis), ESRD on hemodialysis (M/W/F), diabetes mellitus II, hyperlipidemia, COPD on home oxygen therapy, obstructive sleep apnea on CPAP therapy, bipolar disorder, anxiety disorder, morbid obesity, status post previous section, appendectomy, and cholecystectomy. Patient is an active cigarette smoker. Echocardiogram: (Office 11/28/2024) revealed TDS, mild concentric left ventricular hypertrophy, LVEF of 55-60%, trace mitral regurgitation, trace tricuspid regurgitation, right ventricular systolic pressure of < 35mmHg Echocardiogram: ([facility] 03/27/2025) revealed technically difficult study with very poor cardiac visualization. LV and RV not well visualized, likely grossly normal. LVEF>50%. Valves not well visualized Non-healing wound involving RLE Septic shock (resolved), secondary to the above Permanent atrial fibrillation, on chronic anticoagulation Atrial flutter with variable atrioventricular block, new onset Fluid overload, in the setting of ESRD on hemodialysis ESRD on hemodialysis (M/W/F) Peripheral arterial disease Diabetes mellitus II Hyperlipidemia CARDIAC SUGGESTIONS FOR MANAGEMENT: Recognizing chronicity of underling atrial fibrillation/flutter, to proceed with rate control strategy Recognizing labile blood pressures/previous history of COPD, discontinue current Carvedilol and trial Metoprolol Tartrate 50mg twice daily (for now) To proceed with close rate and rhythm surveillance during the interim and titrate/modify therapy accordingly Continuation of full-dose long-term anticoagulation is advised (as concurrent conditions permit) Was initiated on Lovenox (renal dosed) prior to consultation, which is acceptable for now If no plan of surgical intervention, recommend transitioning to DOAC (Eliquis) Fluid volume management as per Nephrology via hemodialysis Proceed with close observation for overt signs of fluid overload Proceed with strict intakes, outputs, and daily weights On IV antibiotic therapy as managed by primary team Atorvastatin 40mg q hs Proceed with close rate and rhythm surveillance Proceed with close hemodynamic surveillance Proceed with optimized blood pressure control Transfuse to sustain HGB level above 7.0 Sustain Magnesium level greater than 2.0 Sustain Potassium level greater than 4.0 Follow up renal function and electrolytes Consider Vascular Surgery consultation for underlying peripheral arterial disease Management of ongoing concurrent medical conditions as per primary team Management of right lower extremity wound as per primary team Management of ESRD on hemodialysis as per nephrology Management within the ICU Follow up content management consultant recommendations Will proceed to follow from a cardiac perspective Further recommendations per clinical progression All available diagnostic labs, EKG's, and images were personally reviewed Patient's status, findings, and plan of care was reviewed and discussed with supervising physician Dr. Luna, who is in agreement with current plan of care. Plan of care discussed with and agreed upon by patient / primary RN Prognosis: Guarded Thank you for allowing me to participate in the care of this patient. Further recommendations based on patients clinical course and progression, primary attending, and other consultants. Will continue to follow with primary attending. If you have any questions or concerns, please do not hesitate to contact me. A total of 75 minutes was spent reviewing the patient record, examining the patient, making a diagnostic and therapeutic plan, discussing this plan with medical personnel, following up on diagnostic studies and following the patient for clinical stability excluding any and all procedures. At least 50% of this time was spent in direct, [id number] contact. Plan discussed with: Patient (patient and primary rn ) JEREMIAH CHAVIRA [facility] Mar 30, 2025 17:37
[2025-03-30 17:39] LABS: Cholesterol 102 mg/dL (< 200)
[2025-03-30 18:03] LABS: HDL Cholesterol 35 mg/dL (40-59)
--- NOTE | 2025-03-30 19:19 | DVHPN2 ---
Reviewed: Care Plan, H&P, Labs, Medications, Previous Orders, Radiology Changes from previous H/P or p: No Changes General: Per HPI Eyes: No Pain, No Vision change, No Conjunctivae inflammation, No Eyelid inflammation, No Other, No Redness ENT: No Ear pain, No Ear discharge, No Nose pain, No Nose discharge, No Nose congestion, No Mouth pain, No Mouth swelling, No Throat pain, No Throat swelling, No Other Cardiovascular: No Chest Pain, No Palpitations, No Orthopnea, No Paroxysmal Noc. Dyspnea, No Edema, No Lt Headedness, No Other Respiratory: No Cough, No Dry, No Shortness of breath, No SOB with excertion, No Wheezing, No Hemoptysis, No Pleuritic Pain, No Sputum, No Other Gastrointestinal: No Nausea, No Vomiting, No Abdominal Pain, No Diarrhea, No Constipation, No Melena, No Hematochezia, No Other Genitourinary: No Dysuria, No Frequency, No Incontinence, No Hematuria, No Retention, No Other Musculoskeletal: No other, No neck pain, No shoulder pain, No arm pain, No back pain, No hand pain, No leg pain; foot pain Skin: No Rash, No Lesions, No Jaundice, No Bruising, No Other Objective Vitals Vital Signs Date Time Temp Pulse Resp B/P (MAP) Pulse Ox O2 Delivery O2 Flow Rate FiO2 03/30/25 18:05 107 20 100 03/30/25 18:00 Nasal Cannula 3.0 03/30/25 18:00 32 03/30/25 17:00 97.6 114/57 (76) 97.6 Intake/Output Intake and Output 03/30/25 07:00 Intake Total 1595.00 ml Output Total 0 ml Balance 1595.00 ml Intake Oral 1100 ml IV Total 495.00 ml Output Urine Total 0 ml Stool Total 0 ml General Appearance: Alert, Oriented X3 Cardiovascular: Regular rate, Normal S1, Normal S2 Neuro: Normal speech Medications Current Medications Medications Dose Ordered Sig/Kiana Route Start Time Stop Time Status Last Admin Dose Admin Vancomycin HCl 0 ml @ 0 mls/hr UD IV 03/26/25 10:45 Acetaminophen 650 mg Q6HP PRN PO 03/26/25 15:00 03/30/25 12:19 650 MG Cefepime/Dextrose 50 ml @ 12.5 mls/hr Q8HR IV 03/26/25 22:00 UNV Ondansetron HCl 4 mg Q4HP PRN IV 03/26/25 15:00 Docusate Sodium 100 mg BIDPRN PRN PO 03/26/25 15:00 Diagnostic Test (Pha) 1 strip Q6HR 03/26/25 18:00 03/30/25 17:09 1 STRIP Insulin Human Regular Q6HR SC 03/26/25 18:00 03/30/25 00:15 3 UNITS Dextrose 50 ml UD PRN IV 03/26/25 15:00 Nitroglycerin 0.4 mg Q5MINP PRN SL 03/26/25 15:00 Cefepime HCl 50 ml @ 12.5 mls/hr DAILY IV 03/27/25 10:00 03/30/25 08:43 12.5 MLS/HR Nicotine 1 patch HS TD 03/27/25 22:00 03/29/25 22:13 1 PATCH Acetaminophen/ Hydrocodone Bitart 1 tab Q8HP PRN PO 03/27/25 11:00 03/30/25 16:55 1 TAB Pantoprazole Sodium 40 mg DAILY IV 03/28/25 10:00 03/30/25 08:42 40 MG Metronidazole 100 ml @ 100 mls/hr Q8HR IV 03/27/25 14:00 03/30/25 06:08 100 MLS/HR Sevelamer HCl 1,600 mg TIDWM PO 03/27/25 18:00 03/30/25 17:04 1,600 MG Epoetin Dante-epbx 4,000 unit MWF SC 03/29/25 10:00 03/29/25 08:37 4,000 UNIT Sodium Chloride 10 ml QSHIFT@10,22 IV 03/27/25 22:00 03/30/25 08:43 10 ML Enoxaparin Sodium 140 mg DAILY SC 03/29/25 10:00 03/30/25 08:43 140 MG Patient Own Medication 1 tab BID PRN PO 03/28/25 13:15 Citalopram Hydrobromide 40 mg DAILY PO 03/29/25 10:00 03/30/25 08:42 40 MG Ipratropium Matteson 0.5 mg Q4HR NEB 03/28/25 18:00 03/30/25 18:00 0.5 MG Metoprolol Tartrate 50 mg BID PO 03/30/25 22:00 Atorvastatin Calcium 40 mg HS PO 03/30/25 22:00 Laboratory Results Laboratory Tests 03/30/25 03:00 Chemistry Test 03/30/25 03:00 Albumin 3.5 g/dL (3.2-4.8) Calcium Level 9.2 mg/dL (8.7-10.4) Total Protein 6.4 g/dL (5.7-8.2) Lipid panel Test 03/30/25 03:00 Cholesterol Level 102 mg/dL (< 200) HDL Cholesterol 35 mg/dL (40-59) L Triglycerides Level 82 mg/dL (< 150) LFT Test 03/30/25 03:00 Alanine Aminotransferase (ALT) 17 U/L (7-40) Alkaline Phosphatase 176 U/L (46-116) H Aspartate Amino Transferase (AST) 15 U/L (13-40) Total Bilirubin 0.2 mg/dL (0.2-1.0) HgA1c, TSH Test 03/30/25 03:00 Hemoglobin A1c 7.5 % A1C (<5.7) H Microbiology Microbiology Date/Time Source Procedure Growth Status 03/27/25 06:20 Nose MRSA Screen - Final Complete 03/26/25 13:34 Blood Blood Culture - Preliminary NO GROWTH AFTER 72 HOURS OF INCUBATION. Resulted Labs and/or images reviewed: Labs reviewed by me, Image(s) reviewed by me Assessment/Plan Assessment/Plan # chronic pain syndrome # congestive heart failure, systolic versus diastolic # Septic shock due to right lower extremity cellulitis; cultures growing Pseudomonas, Serratia marcescens, GBS # history of atrial flutter # [id number] peripheral arterial disease # acute on chronic hypoxic respiratory failure, on home oxygen 2 L, currently on O2 via NC 4 L with FiO2 36% # pulmonary edema # COPD exacerbation # sleep apnea, noncompliant with CPAP # Peptic ulcer prophylaxis # ESRD on hemodialysis M, W, F # hyperkalemia # right lower extremity cellulitis, cultures growing Pseudomonas, Serratia marcescens, GBS # Macrocytic anemia # type 2 diabetes, uncontrolled and insulin dependent # nicotine dependence # depression, possibly MDD? 03/30/2025 downgraded to Telemetry pt was on dialysis during my round right leg ulcer seen on exam monitor for 24 hours, if stable, PT/OT to evaluate Plan discussed with: Patient Date of Service: Mar 30, 2025 Billing Provider: ANGIE SWANN DO Common Visit Codes: [id number] INP/OBS CARE(HIGH) ANGIE SWANN DO Mar 30, 2025 19:19
[2025-03-30] MEDS: VANCOMYCIN 500mg/100mL 100 ML IV ONE (21:19)
[2025-03-30] MEDS: ATORVASTATIN 20 MG TAB PO SCH (21:22)
[2025-03-30] MEDS: METOPROLOL TARTRATE 50 MG TAB PO SCH (21:24)
[2025-03-31] VITALS (16 sets, daily range): BP systolic 95–109; BP diastolic 55–73; PULSE 72–115; RESP 16–22; TEMP 97.4–98.3; O2SAT 90–100
[2025-03-31 07:04] LABS: Hematocrit 28.0 % (36.0-46.0); Hemoglobin 8.9 g/dL (12.2-16.2); Mean Corpuscular Hemoglobin 32.6 pg (28.0-32.0); Mean Corpuscular Volume 102.6 fL (80.0-100.0); Nucleated Red Blood Cells % 0.0 %
[2025-03-31 07:17] LABS: Anion Gap 9 (5-15); Carbon Dioxide 29 mmol/L (20-31); Chloride 101 mmol/L (98-107); Potassium 4.1 mmol/L (3.5-5.1); Sodium 139 mmol/L (136-145)
[2025-03-31 07:18] LABS: Calcium 9.1 mg/dL (8.7-10.4)
[2025-03-31 07:23] LABS: BUN/Creatinine Ratio 6.9 (10.0-20.0); Glucose 100 mg/dL (74-106)
[2025-03-31 07:34] LABS: Blood Urea Nitrogen 27 mg/dL (9-23)
[2025-03-31] MEDS: ALBUMIN 25% 100 ML IV ONE (08:46)
--- NOTE | 2025-03-31 09:19 | DVHPN2 ---
Progress Note Date Seen: Mar 31, 2025 Medical Necessity Reason Pt with a Central, PICC or Fol: Yes The following are medically ne: PICC Line Subjective Patient reports: Feels better Changes from previous H/P or p: No Changes Objective vital signs Vital Sign Date Time Temp Pulse Resp B/P (MAP) Pulse Ox O2 Delivery O2 Flow Rate FiO2 03/31/25 08:47 104/62 03/31/25 06:12 102 16 100 03/31/25 06:06 Nasal Cannula 3.0 03/31/25 06:06 32 03/31/25 05:00 98.1 98.1 Total Intake and Output 03/30/25 03/30/25 03/31/25 15:00 23:00 07:00 Intake Total 290 ml 304 ml 320 ml Balance 290 ml 304 ml 320 ml medications Current Medications Medications Dose Ordered Sig/Kiana Route Start Time Stop Time Status Last Admin Dose Admin Vancomycin HCl 0 ml @ 0 mls/hr UD IV 03/26/25 10:45 Acetaminophen 650 mg Q6HP PRN PO 03/26/25 15:00 03/30/25 12:19 650 MG Cefepime/Dextrose 50 ml @ 12.5 mls/hr Q8HR IV 03/26/25 22:00 UNV Ondansetron HCl 4 mg Q4HP PRN IV 03/26/25 15:00 Docusate Sodium 100 mg BIDPRN PRN PO 03/26/25 15:00 Diagnostic Test (Pha) 1 strip Q6HR 03/26/25 18:00 03/31/25 05:14 1 STRIP Insulin Human Regular Q6HR SC 03/26/25 18:00 03/30/25 23:27 2 UNITS Dextrose 50 ml UD PRN IV 03/26/25 15:00 Nitroglycerin 0.4 mg Q5MINP PRN SL 03/26/25 15:00 Cefepime HCl 50 ml @ 12.5 mls/hr DAILY IV 03/27/25 10:00 03/31/25 08:47 12.5 MLS/HR Nicotine 1 patch HS TD 03/27/25 22:00 03/30/25 21:33 1 PATCH Acetaminophen/ Hydrocodone Bitart 1 tab Q8HP PRN PO 03/27/25 11:00 03/31/25 02:03 1 TAB Pantoprazole Sodium 40 mg DAILY IV 03/28/25 10:00 03/31/25 08:47 40 MG Metronidazole 100 ml @ 100 mls/hr Q8HR IV 03/27/25 14:00 03/31/25 05:10 100 MLS/HR Sevelamer HCl 1,600 mg TIDWM PO 03/27/25 18:00 03/31/25 08:46 1,600 MG Epoetin Dante-epbx 4,000 unit MWF SC 03/29/25 10:00 03/29/25 08:37 4,000 UNIT Sodium Chloride 10 ml QSHIFT@10,22 IV 03/27/25 22:00 03/31/25 08:47 10 ML Enoxaparin Sodium 140 mg DAILY SC 03/29/25 10:00 03/31/25 08:48 140 MG Patient Own Medication 1 tab BID PRN PO 03/28/25 13:15 Citalopram Hydrobromide 40 mg DAILY PO 03/29/25 10:00 03/31/25 08:47 40 MG Ipratropium Spray 0.5 mg Q4HR NEB 03/28/25 18:00 03/31/25 06:06 0.5 MG Metoprolol Tartrate 50 mg BID PO 03/30/25 22:00 03/30/25 21:24 50 MG Atorvastatin Calcium 40 mg HS PO 03/30/25 22:00 03/30/25 21:22 40 MG Examination: GENERAL:Normal, CVS:Normal, ABDOMEN:Normal, SKIN:Abnormal laboratory and microbiology Laboratory Tests 03/31/25 04:52 Test 03/31/25 04:52 Range/Units Serum Glucose 100 74-106 mg/dL Microbiology Date/Time Source Procedure Growth Status 03/27/25 06:20 Nose MRSA Screen - Final Complete 03/26/25 13:34 Blood Blood Culture - Preliminary NO GROWTH AFTER 72 HOURS OF INCUBATION. Resulted Problem List/Assessment/Plan Problem List/Assessment/Plan End-stage renal disease on hemodialysis Shock likely septic shock Morbid obesity Fluid overload Hyperkalemia Diabetes Right lower extremity foot wound gram negative wound infection Anemia due to chronic kidney disease Hemodialysis tuesday Sepsis IV antibiotics Epogen 3 times a week Renal diet when tolerating p.o. Glycemic control as per primary medical team Plan discussed with: Patient Dietary Evaluation Review Comments: 1. Well-controlled DM is the most improtant factor in enhancing wound-healing 2. Encoauge PO feeding to meet 75% of her needs. 3. To avoid castabolism, offer Glucerna PO BID if pt eat <50% of her meals 4. F/U visit in 3-5 days Expected Outcomes/Goals: improved DM control, improved nurition status and grdual wt loss. Total Time (mins): 33 YANIQUE ROBLES MD Mar 31, 2025 09:19
[2025-03-31] MEDS: METOPROLOL TARTRATE 1MG/1ML-5ML VIAL IV ONE (10:16)
--- NOTE | 2025-03-31 16:22 | DVHPN2 ---
Progress Note - Dictate Date Seen: Mar 31, 2025 Medical Necessity Reason Pt with a Central, PICC or Fol: Yes The following are medically ne: PICC Line vital signs Vital Sign Date Time Temp Pulse Resp B/P (MAP) Pulse Ox O2 Delivery O2 Flow Rate FiO2 03/31/25 14:03 109 16 100 03/31/25 13:58 Nasal Cannula* 3 32 03/31/25 13:00 97.4 109/73 (85) 97.4 Total Intake and Output 03/30/25 03/30/25 03/31/25 15:00 23:00 07:00 Intake Total 290 ml 304 ml 320 ml Balance 290 ml 304 ml 320 ml medications Current Medications Medications Dose Ordered Sig/Kiana Route Start Time Stop Time Status Last Admin Dose Admin Vancomycin HCl 0 ml @ 0 mls/hr UD IV 03/26/25 10:45 Acetaminophen 650 mg Q6HP PRN PO 03/26/25 15:00 03/30/25 12:19 650 MG Cefepime/Dextrose 50 ml @ 12.5 mls/hr Q8HR IV 03/26/25 22:00 UNV Ondansetron HCl 4 mg Q4HP PRN IV 03/26/25 15:00 Docusate Sodium 100 mg BIDPRN PRN PO 03/26/25 15:00 Diagnostic Test (Pha) 1 strip Q6HR 03/26/25 18:00 03/31/25 11:49 1 STRIP Insulin Human Regular Q6HR SC 03/26/25 18:00 03/30/25 23:27 2 UNITS Dextrose 50 ml UD PRN IV 03/26/25 15:00 Nitroglycerin 0.4 mg Q5MINP PRN SL 03/26/25 15:00 Cefepime HCl 50 ml @ 12.5 mls/hr DAILY IV 03/27/25 10:00 03/31/25 08:47 12.5 MLS/HR Nicotine 1 patch HS TD 03/27/25 22:00 03/30/25 21:33 1 PATCH Acetaminophen/ Hydrocodone Bitart 1 tab Q8HP PRN PO 03/27/25 11:00 03/31/25 11:49 1 TAB Pantoprazole Sodium 40 mg DAILY IV 03/28/25 10:00 03/31/25 08:47 40 MG Metronidazole 100 ml @ 100 mls/hr Q8HR IV 03/27/25 14:00 03/31/25 15:29 100 MLS/HR Sevelamer HCl 1,600 mg TIDWM PO 03/27/25 18:00 03/31/25 11:49 1,600 MG Epoetin Dante-epbx 4,000 unit MWF SC 03/29/25 10:00 03/29/25 08:37 4,000 UNIT Sodium Chloride 10 ml QSHIFT@10,22 IV 03/27/25 22:00 03/31/25 08:47 10 ML Enoxaparin Sodium 140 mg DAILY SC 03/29/25 10:00 03/31/25 08:48 140 MG Patient Own Medication 1 tab BID PRN PO 03/28/25 13:15 Citalopram Hydrobromide 40 mg DAILY PO 03/29/25 10:00 03/31/25 08:47 40 MG Ipratropium [place] 0.5 mg Q4HR NEB 03/28/25 18:00 03/31/25 13:58 0.5 MG Metoprolol Tartrate 50 mg BID PO 03/30/25 22:00 03/30/25 21:24 50 MG Atorvastatin Calcium 40 mg HS PO 03/30/25 22:00 03/30/25 21:22 40 MG Diltiazem HCl 30 mg Q8HR PO 03/31/25 22:00 UNV laboratory and microbiology Laboratory Tests 03/31/25 04:52 Test 03/31/25 04:52 Range/Units Serum Glucose 100 74-106 mg/dL Assessment/Plan Plan/Recommendation ASSESSMENT: This is a 54-year old female resident of [facility]) known outside to our practice who initially presented with non-healing wound involving the right lower extremity for approximately one month for which patient herself reports no improvement despite outpatient based antibiotic/wound care. Upon arrival imaging of the right ankle was found non-revealing. Right foot imaging had revealed evidence for soft tissue swelling. Subsequent right tib/fib x-ray had been found unremarkable. Patient later underwent MRI of the right foot which had revealed no evidence for osteomyelitis, effusion, or abscess however did reveal mild subcutaneous edema which subsequent RLE venous duplex was performed revealing no evidence for deep vein thrombosis. RLE arterial duplex had revealed moderate to severe peripheral arterial disease with diffuse monophasic waveforms with severely decreased velocity involving the mid right SFA consistent with high-grade stenosis as well as increased velocity in the mid left SFA consistent with moderate to high-grade stenosis. Upon arrival, patient was noted to be hypotensive subsequently initiated on Levophed infusion for hemodynamic support and later admitted to the ICU for close observation/management. While undergoing management within the ICU, patient had been placed on IV antibiotic therapy as managed by primary team and weaned from Levophed infusion as hemodynamics had later improved. Initial 12-lead electrocardiogram had revealed atrial flutter (variable AV block) with a ventricular rate of 114bpm, no evidence for acute ischemic changes. Serial HS troponin trend had been found unremarkable (11, 10, 8). TSH level was found normal at 2.42. BNP level had been found minimally elevated at 138 which subsequent chest imaging had revealed cardiomegaly with evidence for pulmonary vascular congestion and trace bilateral pleural effusions which fluid volume is managed via hemodialysis (M/W/F) as the patient is known to have underlying ESRD. Subsequent Echocardiogram (03/27/2025) had revealed an LVEF > 50%. Of note, patient does have known history of permanent atrial fibrillation on chronic anti-coagulation (Eliquis) on an outpatient basis and as patient presented and was found to have atrial flutter with variable AV block arrhythmia itself is considered new-onset for the patient. Of note, patient had been initiated on Lovenox by primary team prior to cardiac consultation (which is acceptable as for now). As the patient presented and was found to be in atrial flutter with variable AV block, Cardiology services were involved by primary team request for cardiac aspects of care. Past medical history includes permanent atrial fibrillation on chronic anticoagulation (Eliquis), ESRD on hemodialysis (M/W/F), diabetes mellitus II, hyperlipidemia, COPD on home oxygen therapy, obstructive sleep apnea on CPAP therapy, bipolar disorder, anxiety disorder, morbid obesity, status post previous section, appendectomy, and cholecystectomy. Patient is an active cigarette smoker. Echocardiogram: (Office 11/28/2024) revealed TDS, mild concentric left ventricular hypertrophy, LVEF of 55-60%, trace mitral regurgitation, trace tricuspid regurgitation, right ventricular systolic pressure of < 35mmHg Echocardiogram: ([facility] 03/27/2025) revealed technically difficult study with very poor cardiac visualization. LV and RV not well visualized, likely grossly normal. LVEF>50%. Valves not well visualized Non-healing wound involving RLE Septic shock (resolved), secondary to the above Permanent atrial fibrillation, on chronic anticoagulation Atrial flutter with variable atrioventricular block, new onset Fluid overload, in the setting of ESRD on hemodialysis ESRD on hemodialysis (M/W/F) Peripheral arterial disease Nicotine dependence Diabetes mellitus II Hyperlipidemia CARDIAC SUGGESTIONS FOR MANAGEMENT: Recognizing chronicity of underling atrial fibrillation/flutter, to proceed with rate control strategy Metoprolol Tartrate 50mg twice daily, and trial low-dose Diltiazem 30mg three times daily for further rate control To proceed with close rate and rhythm surveillance during the interim and titrate/modify therapy accordingly Continuation of full-dose long-term anticoagulation is advised (as concurrent conditions permit) Was initiated on Lovenox (renal dosed) prior to consultation, which is acceptable for now If no plan of surgical intervention, recommend transitioning to DOAC (Eliquis) Fluid volume management as per Nephrology via hemodialysis Proceed with close observation for overt signs of fluid overload Proceed with strict intakes, outputs, and daily weights On IV antibiotic therapy as managed by primary team IV Lopressor as needed for added rate control Atorvastatin 40mg q hs Counseled on importance on tobacco cessation Proceed with close rate and rhythm surveillance Proceed with close hemodynamic surveillance Proceed with optimized blood pressure control Transfuse to sustain HGB level above 7.0 Sustain Magnesium level greater than 2.0 Sustain Potassium level greater than 4.0 Follow up renal function and electrolytes Consider Vascular Surgery consultation for underlying peripheral arterial disease Management of ongoing concurrent medical conditions as per primary team Management of right lower extremity wound as per primary team Management of ESRD on hemodialysis as per nephrology Management within the ICU Follow up art consultant recommendations Will proceed to follow from a cardiac perspective Further recommendations per clinical progression All available diagnostic labs, EKG's, and images were personally reviewed Patient's status, findings, and plan of care was reviewed and discussed with supervising physician Dr. Luna, who is in agreement with current plan of care. Plan of care discussed with and agreed upon by patient / primary RN Prognosis: Guarded Thank you for allowing me to participate in the care of this patient. Further recommendations based on patients clinical course and progression, primary attending, and other consultants. Will continue to follow with primary attending. If you have any questions or concerns, please do not hesitate to contact me. A total of 75 minutes was spent reviewing the patient record, examining the patient, making a diagnostic and therapeutic plan, discussing this plan with medical personnel, following up on diagnostic studies and following the patient for clinical stability excluding any and all procedures. At least 50% of this time was spent in direct, [id number] contact. Plan discussed with: Patient (patient and primary rn ) Dietary Evaluation Review Comments: 1. Well-controlled DM is the most improtant factor in enhancing wound-healing 2. Encoauge PO feeding to meet 75% of her needs. 3. To avoid castabolism, offer Glucerna PO BID if pt eat <50% of her meals 4. F/U visit in 3-5 days Expected Outcomes/Goals: improved DM control, improved nurition status and grdual wt loss. Plan discussed with: Patient (patient and primary rn ) JEREMIAH CHAVIRA Mar 31, 2025 16:22
[2025-04-01] VITALS (20 sets, daily range): BP systolic 86–127; BP diastolic 59–86; PULSE 98–116; RESP 16–20; TEMP 97.7–98.5; O2SAT 2–100
[2025-04-01 06:48] LABS: Anion Gap 10 (5-15); Carbon Dioxide 29 mmol/L (20-31); Chloride 100 mmol/L (98-107); Potassium 4.3 mmol/L (3.5-5.1); Sodium 139 mmol/L (136-145)
[2025-04-01 06:50] LABS: Calcium 8.0 mg/dL (8.7-10.4)
[2025-04-01 06:51] LABS: Hematocrit 26.5 % (36.0-46.0); Hemoglobin 8.7 g/dL (12.2-16.2); Mean Corpuscular Hemoglobin 33.1 pg (28.0-32.0); Mean Corpuscular Volume 100.9 fL (80.0-100.0); Nucleated Red Blood Cells % 0.1 %
[2025-04-01 06:54] LABS: BUN/Creatinine Ratio 7.1 (10.0-20.0)
[2025-04-01 06:56] LABS: Blood Urea Nitrogen 36 mg/dL (9-23); Glucose 132 mg/dL (74-106)
--- NOTE | 2025-04-01 08:28 | DVHPN2 ---
Progress Note - Dictate Date Seen: Apr 01, 2025 Medical Necessity Reason Pt with a Central, PICC or Fol: Yes The following are medically ne: PICC Line vital signs Vital Sign Date Time Temp Pulse Resp B/P (MAP) Pulse Ox O2 Delivery O2 Flow Rate FiO2 04/01/25 07:28 100 Nasal Cannula* 3 32 04/01/25 07:28 113 16 04/01/25 05:00 97.7 125/86 (99) 97.7 Total Intake and Output 03/31/25 03/31/25 04/01/25 15:00 23:00 07:00 Intake Total 290 ml 940 ml 800 ml Balance 290 ml 940 ml 800 ml medications Current Medications Medications Dose Ordered Sig/Kiana Route Start Time Stop Time Status Last Admin Dose Admin Vancomycin HCl 0 ml @ 0 mls/hr UD IV 03/26/25 10:45 Acetaminophen 650 mg Q6HP PRN PO 03/26/25 15:00 03/30/25 12:19 650 MG Cefepime/Dextrose 50 ml @ 12.5 mls/hr Q8HR IV 03/26/25 22:00 UNV Ondansetron HCl 4 mg Q4HP PRN IV 03/26/25 15:00 Docusate Sodium 100 mg BIDPRN PRN PO 03/26/25 15:00 Diagnostic Test (Pha) 1 strip Q6HR 03/26/25 18:00 04/01/25 04:59 1 STRIP Insulin Human Regular Q6HR SC 03/26/25 18:00 03/30/25 23:27 2 UNITS Dextrose 50 ml UD PRN IV 03/26/25 15:00 Nitroglycerin 0.4 mg Q5MINP PRN SL 03/26/25 15:00 Cefepime HCl 50 ml @ 12.5 mls/hr DAILY IV 03/27/25 10:00 03/31/25 08:47 12.5 MLS/HR Nicotine 1 patch HS TD 03/27/25 22:00 03/31/25 22:04 1 PATCH Acetaminophen/ Hydrocodone Bitart 1 tab Q8HP PRN PO 03/27/25 11:00 03/31/25 22:05 1 TAB Pantoprazole Sodium 40 mg DAILY IV 03/28/25 10:00 03/31/25 08:47 40 MG Metronidazole 100 ml @ 100 mls/hr Q8HR IV 03/27/25 14:00 04/01/25 05:00 100 MLS/HR Sevelamer HCl 1,600 mg TIDWM PO 03/27/25 18:00 03/31/25 17:22 1,600 MG Sodium Chloride 10 ml QSHIFT@10,22 IV 03/27/25 22:00 03/31/25 22:01 10 ML Enoxaparin Sodium 140 mg DAILY SC 03/29/25 10:00 03/31/25 08:48 140 MG Patient Own Medication 1 tab BID PRN PO 03/28/25 13:15 Citalopram Hydrobromide 40 mg DAILY PO 03/29/25 10:00 03/31/25 08:47 40 MG Ipratropium [place] 0.5 mg Q4HR NEB 03/28/25 18:00 04/01/25 07:28 0.5 MG Metoprolol Tartrate 50 mg BID PO 03/30/25 22:00 03/30/25 21:24 50 MG Atorvastatin Calcium 40 mg HS PO 03/30/25 22:00 03/31/25 22:02 40 MG Diltiazem HCl 30 mg Q8HR PO 03/31/25 22:00 Epoetin Dante-epbx 4,000 unit MWF@1800 SC 04/01/25 18:00 laboratory and microbiology Laboratory Tests 04/01/25 05:14 Test 04/01/25 05:14 Range/Units Serum Glucose 132 H 74-106 mg/dL Assessment/Plan This is a 54-year old female resident of [facility]) known outside to our practice who initially presented with non-healing wound involving the right lower extremity for approximately one month for which patient herself reports no improvement despite outpatient based antibiotic/wound care. Upon arrival imaging of the right ankle was found non-revealing. Right foot imaging had revealed evidence for soft tissue swelling. Subsequent right tib/fib x-ray had been found unremarkable. Patient later underwent MRI of the right foot which had revealed no evidence for osteomyelitis, effusion, or abscess however did reveal mild subcutaneous edema which subsequent RLE venous duplex was performed revealing no evidence for deep vein thrombosis. RLE arterial duplex had revealed moderate to severe peripheral arterial disease with diffuse monophasic waveforms with severely decreased velocity involving the mid right SFA consistent with high-grade stenosis as well as increased velocity in the mid left SFA consistent with moderate to high-grade stenosis. Upon arrival, patient was noted to be hypotensive subsequently initiated on Levophed infusion for hemodynamic support and later admitted to the ICU for close observation/management. While undergoing management within the ICU, patient had been placed on IV antibiotic therapy as managed by primary team and weaned from Levophed infusion as hemodynamics had later improved. Initial 12-lead electrocardiogram had revealed atrial flutter (variable AV block) with a ventricular rate of 114bpm, no evidence for acute ischemic changes. Serial HS troponin trend had been found unremarkable (11, 10, 8). TSH level was found normal at 2.42. BNP level had been found minimally elevated at 138 which subsequent chest imaging had revealed cardiomegaly with evidence for pulmonary vascular congestion and trace bilateral pleural effusions which fluid volume is managed via hemodialysis (M/W/F) as the patient is known to have underlying ESRD. Subsequent Echocardiogram (03/27/2025) had revealed an LVEF > 50%. Of note, patient does have known history of permanent atrial fibrillation on chronic anti-coagulation (Eliquis) on an outpatient basis and as patient presented and was found to have atrial flutter with variable AV block arrhythmia itself is considered new-onset for the patient. Of note, patient had been initiated on Lovenox by primary team prior to cardiac consultation (which is acceptable as for now). As the patient presented and was found to be in atrial flutter with variable AV block, Cardiology services were involved by primary team request for cardiac aspects of care. Past medical history includes permanent atrial fibrillation on chronic anticoagulation (Eliquis), ESRD on hemodialysis (M/W/F), diabetes mellitus II, hyperlipidemia, COPD on home oxygen therapy, obstructive sleep apnea on CPAP therapy, bipolar disorder, anxiety disorder, morbid obesity, status post previous section, appendectomy, and cholecystectomy. Patient is an active cigarette smoker. Echocardiogram: (Office 11/28/2024) revealed TDS, mild concentric left ventricular hypertrophy, LVEF of 55-60%, trace mitral regurgitation, trace tricuspid regurgitation, right ventricular systolic pressure of < 35mmHg Echocardiogram: ([facility] 03/27/2025) revealed technically difficult study with very poor cardiac visualization. LV and RV not well visualized, likely grossly normal. LVEF>50%. Valves not well visualized Non-healing wound involving RLE Septic shock (resolved), secondary to the above Permanent atrial fibrillation, on chronic anticoagulation Atrial flutter with variable atrioventricular block, new onset Fluid overload, in the setting of ESRD on hemodialysis ESRD on hemodialysis (M/W/F) Peripheral arterial disease Nicotine dependence Diabetes mellitus II Hyperlipidemia CARDIAC SUGGESTIONS FOR MANAGEMENT: Recognizing chronicity of underling atrial fibrillation/flutter, to proceed with rate control strategy Metoprolol Tartrate 50mg twice daily, Titer up Diltiazem (to 60 mg [id number]) To proceed with close rate and rhythm surveillance during the interim and titrate/modify therapy accordingly Continuation of full-dose long-term anticoagulation is advised (as concurrent conditions permit) Was initiated on Lovenox (renal dosed), If no plan of surgical intervention, recommend transitioning to DOAC (Eliquis) Fluid volume management as per Nephrology via hemodialysis Proceed with close observation for overt signs of fluid overload Proceed with strict intakes, outputs, and daily weights On IV antibiotic therapy as managed by primary team IV Lopressor as needed for added rate control Atorvastatin 40mg q hs Counseled on importance on tobacco cessation Proceed with close rate and rhythm surveillance Proceed with close hemodynamic surveillance Proceed with optimized blood pressure control Transfuse to sustain HGB level above 7.0 Sustain Magnesium level greater than 2.0 Sustain Potassium level greater than 4.0 Follow up renal function and electrolytes Consider Vascular Surgery consultation for underlying peripheral arterial disease Management of ongoing concurrent medical conditions as per primary team Management of right lower extremity wound as per primary team Management of ESRD on hemodialysis as per nephrology Management on tele Follow up foreign law consultant recommendations Will proceed to follow from a cardiac perspective Further recommendations per clinical progression All available diagnostic labs, EKG's, and images were personally reviewed Plan of care discussed with and agreed upon by patient / primary RN Prognosis: Guarded Thank you for allowing me to participate in the care of this patient. Further recommendations based on patients clinical course and progression, primary attending, and other consultants. Will continue to follow with primary attending. If you have any questions or concerns, please do not hesitate to contact me. A total of 55 minutes was spent reviewing the patient record, examining the patient, making a diagnostic and therapeutic plan, discussing this plan with medical personnel, following up on diagnostic studies and following the patient for clinical stability excluding any and all procedures. At least 50% of this time was spent in direct, [id number] contact. Dietary Evaluation Review Comments: 1. Well-controlled DM is the most improtant factor in enhancing wound-healing 2. Encoauge PO feeding to meet 75% of her needs. 3. To avoid castabolism, offer Glucerna PO BID if pt eat <50% of her meals 4. F/U visit in 3-5 days Expected Outcomes/Goals: improved DM control, improved nurition status and grdual wt loss. Plan discussed with: Patient, Other (nurse) TREVA FONTANEZ MD Apr 01, 2025 08:28
--- NOTE | 2025-04-01 11:11 | DVHPN2 ---
Progress Note Date Seen: Apr 01, 2025 Medical Necessity Reason Pt with a Central, PICC or Fol: Yes The following are medically ne: PICC Line Subjective Changes from previous H/P or p: No Changes Objective vital signs Vital Sign Date Time Temp Pulse Resp B/P (MAP) Pulse Ox O2 Delivery O2 Flow Rate FiO2 04/01/25 10:50 116 20 100 04/01/25 10:42 Nasal Cannula* 2 28 04/01/25 10:20 120/77 04/01/25 09:00 97.7 97.7 Total Intake and Output 03/31/25 03/31/25 04/01/25 15:00 23:00 07:00 Intake Total 290 ml 940 ml 800 ml Balance 290 ml 940 ml 800 ml medications Current Medications Medications Dose Ordered Sig/Kiana Route Start Time Stop Time Status Last Admin Dose Admin Vancomycin HCl 0 ml @ 0 mls/hr UD IV 03/26/25 10:45 Acetaminophen 650 mg Q6HP PRN PO 03/26/25 15:00 03/30/25 12:19 650 MG Cefepime/Dextrose 50 ml @ 12.5 mls/hr Q8HR IV 03/26/25 22:00 UNV Ondansetron HCl 4 mg Q4HP PRN IV 03/26/25 15:00 Docusate Sodium 100 mg BIDPRN PRN PO 03/26/25 15:00 Diagnostic Test (Pha) 1 strip Q6HR 03/26/25 18:00 04/01/25 04:59 1 STRIP Insulin Human Regular Q6HR SC 03/26/25 18:00 03/30/25 23:27 2 UNITS Dextrose 50 ml UD PRN IV 03/26/25 15:00 Nitroglycerin 0.4 mg Q5MINP PRN SL 03/26/25 15:00 Cefepime HCl 50 ml @ 12.5 mls/hr DAILY IV 03/27/25 10:00 04/01/25 10:21 12.5 MLS/HR Nicotine 1 patch HS TD 03/27/25 22:00 03/31/25 22:04 1 PATCH Acetaminophen/ Hydrocodone Bitart 1 tab Q8HP PRN PO 03/27/25 11:00 04/01/25 08:38 1 TAB Pantoprazole Sodium 40 mg DAILY IV 03/28/25 10:00 04/01/25 10:20 40 MG Metronidazole 100 ml @ 100 mls/hr Q8HR IV 03/27/25 14:00 04/01/25 05:00 100 MLS/HR Sevelamer HCl 1,600 mg TIDWM PO 03/27/25 18:00 04/01/25 10:20 1,600 MG Sodium Chloride 10 ml QSHIFT@10,22 IV 03/27/25 22:00 03/31/25 22:01 10 ML Enoxaparin Sodium 140 mg DAILY SC 03/29/25 10:00 04/01/25 10:21 140 MG Patient Own Medication 1 tab BID PRN PO 03/28/25 13:15 Citalopram Hydrobromide 40 mg DAILY PO 03/29/25 10:00 03/31/25 08:47 40 MG Ipratropium [place] 0.5 mg Q4HR NEB 03/28/25 18:00 04/01/25 10:42 0.5 MG Metoprolol Tartrate 50 mg BID PO 03/30/25 22:00 04/01/25 10:20 50 MG Atorvastatin Calcium 40 mg HS PO 03/30/25 22:00 03/31/25 22:02 40 MG Epoetin Dante-epbx 4,000 unit MWF@1800 SC 04/01/25 18:00 Diltiazem HCl 60 mg Q6HR PO 04/01/25 12:00 Examination: GENERAL:Normal, NECK:Normal, CVS:Normal, SKIN:Abnormal laboratory and microbiology Laboratory Tests 04/01/25 05:14 Test 04/01/25 05:14 Range/Units Serum Glucose 132 H 74-106 mg/dL Microbiology Date/Time Source Procedure Growth Status 03/27/25 06:20 Nose MRSA Screen - Final Complete 03/26/25 13:34 Blood Blood Culture - Final NO GROWTH AFTER 5 DAYS OF INCUBATION. Complete Problem List/Assessment/Plan Problem List/Assessment/Plan End-stage renal disease on hemodialysis Shock likely septic shock Morbid obesity Fluid overload Hyperkalemia Diabetes Right lower extremity foot wound gram negative wound infection Anemia due to chronic kidney disease Hemodialysis tuesday Sepsis IV antibiotics Epogen 3 times a week Renal diet when tolerating p.o. Glycemic control as per primary medical team Plan discussed with: Patient My Orders My Orders Orders - YANIQUE ROBLES MD Procedure Category Date Status Time Epoetin Dante-Epbx PHA 04/01/25 In Process (Retacrit) 18:00 Basic Metabolic Panel LAB 04/02/25 Verified 04:00 Dietary Evaluation Review Comments: 1. Well-controlled DM is the most improtant factor in enhancing wound-healing 2. Encoauge PO feeding to meet 75% of her needs. 3. To avoid castabolism, offer Glucerna PO BID if pt eat <50% of her meals 4. F/U visit in 3-5 days Expected Outcomes/Goals: improved DM control, improved nurition status and grdual wt loss. Total Time (mins): 33 YANIQUE ROBLES MD Apr 01, 2025 11:11
[2025-04-01] MEDS: EPOETIN ALFA-EPBX 4,000 UNIT/ML VIAL SC SCH (17:54)
--- NOTE | 2025-04-01 21:24 | DVHPNRES ---
Progress Note Date Seen: Apr 01, 2025 Resident Creating Document: CANDIDA FRANCE RESIDENT Medical Necessity Reason Pt with a Central, PICC or Fol: Yes The following are medically ne: PICC Line Subjective Review of Systems Patient is a 52-year-old female with past medical history of CHF, ESRD on hemodialysis Tuesday, Tuesday, Tuesday, asthma, COPD, sleep apnea, type 2 diabetes, chronic respiratory failure on home oxygen 2 L, comes in due to right lower extremity pain a discharge. According to the patient, for the last 1 month she has been experiencing right lower extremity pain along with redness and a foul-smelling discharge, denies any trauma to the right lower extremity. Patient is a poor historian. On review of systems patient is denying chest pain, dyspnea, orthopnea, nausea, vomiting, palpitations. At baseline patient produces minimal urine every other day. Upon further probing, patient also disclosed she has history of atrial flutter Past surgical history: Cholecystectomy, section, appendectomy Social & Personal history: Patient resides at [facility] in [place]. Patient seen and examined at bedside. Patient is alert and oriented to time, place person and responding to some questions but not all. On review of systems, patient is denying any complaints, however, is complaining of severe pain to the right lower extremity. 03/28/2025: Patient improved from yesterday, on minimal Levophed at 2 micrograms/hour. Complaining of itching all over, denying skin checks as well as bed baths. 03/29/2025: Patient on Levophed 2 micrograms/minute, wound culture growing Pseudomonas, Serratia, GBS, Serratia and Pseudomonas sensitive to cefepime, we will continue. MRI showed no osteomyelitis, however, noted to have cyanotic toes on the right lower extremity, ordered bilateral arterial Doppler which showed [id number] peripheral arterial disease, consulted vascular surgery. 04/01/25: reports feeling better than before. started on IV meropenem, dc'ed vanc, cefepime and metronidazole Objective vital signs Vital Sign Date Time Temp Pulse Resp B/P (MAP) Pulse Ox O2 Delivery O2 Flow Rate FiO2 04/01/25 17:40 101 102/68 04/01/25 17:00 98.5 19 96 98.5 04/01/25 14:24 Nasal Cannula* 2 28 Total Intake and Output 03/31/25 03/31/25 04/01/25 15:00 23:00 07:00 Intake Total 290 ml 940 ml 800 ml Balance 290 ml 940 ml 800 ml medications Current Medications Medications Dose Ordered Sig/Kiana Route Start Time Stop Time Status Last Admin Dose Admin Acetaminophen 650 mg Q6HP PRN PO 03/26/25 15:00 04/01/25 11:22 650 MG Cefepime/Dextrose 50 ml @ 12.5 mls/hr Q8HR IV 03/26/25 22:00 UNV Ondansetron HCl 4 mg Q4HP PRN IV 03/26/25 15:00 Docusate Sodium 100 mg BIDPRN PRN PO 03/26/25 15:00 Diagnostic Test (Pha) 1 strip Q6HR 03/26/25 18:00 04/01/25 17:08 1 STRIP Insulin Human Regular Q6HR SC 03/26/25 18:00 04/01/25 17:55 3 UNITS Dextrose 50 ml UD PRN IV 03/26/25 15:00 Nitroglycerin 0.4 mg Q5MINP PRN SL 03/26/25 15:00 Nicotine 1 patch HS TD 03/27/25 22:00 03/31/25 22:04 1 PATCH Acetaminophen/ Hydrocodone Bitart 1 tab Q8HP PRN PO 03/27/25 11:00 04/01/25 08:38 1 TAB Pantoprazole Sodium 40 mg DAILY IV 03/28/25 10:00 04/01/25 10:20 40 MG Sevelamer HCl 1,600 mg TIDWM PO 03/27/25 18:00 04/01/25 17:53 1,600 MG Sodium Chloride 10 ml QSHIFT@10,22 IV 03/27/25 22:00 04/01/25 10:00 10 ML Enoxaparin Sodium 140 mg DAILY SC 03/29/25 10:00 04/01/25 10:21 140 MG Patient Own Medication 1 tab BID PRN PO 03/28/25 13:15 Citalopram Hydrobromide 40 mg DAILY PO 03/29/25 10:00 04/01/25 11:59 40 MG Ipratropium [place] 0.5 mg Q4HR NEB 03/28/25 18:00 04/01/25 18:38 0.5 MG Metoprolol Tartrate 50 mg BID PO 03/30/25 22:00 04/01/25 10:20 50 MG Atorvastatin Calcium 40 mg HS PO 03/30/25 22:00 03/31/25 22:02 40 MG Epoetin Dante-epbx 4,000 unit MWF@1800 SC 04/01/25 18:00 04/01/25 17:54 4,000 UNIT Diltiazem HCl 60 mg Q6HR PO 04/01/25 12:00 Meropenem 50 ml @ 17 mls/hr DAILY IV 04/02/25 10:00 Examination General Appearance: Cooperative. Head Exam: Constricted, equal and reactive pupils Neck Exam: Normal inspection. Non-tender. Normal alignment Pulmonary/Respiratory: Chest non-tender. Inspiratory crackles, expiratory wheezes Cardiovascular/Chest: Tachycardic, in atrial flutter No murmurs. No JVD. Abdominal Exam: Normal bowel sounds. Soft. normal abdomen, no visible veins, Nontender. No hepatospenomegaly. No masses Lower extremities: Negative lower extremity edema, stasis dermatitis with pigmentation noted on bilateral lower extremities. Right lower extremity severe cellulitis, with thick cottage cheese like foul-smelling discharge laboratory and microbiology Laboratory Tests 04/01/25 05:14 Test 04/01/25 05:14 Range/Units Serum Glucose 132 H 74-106 mg/dL Microbiology Date/Time Source Procedure Growth Status 03/27/25 06:20 Nose MRSA Screen - Final Complete 03/26/25 13:34 Blood Blood Culture - Final NO GROWTH AFTER 5 DAYS OF INCUBATION. Complete Problem List/Assessment/Plan Problem List/Assessment/Plan Neurology # chronic pain syndrome - resumed home medication Novi 10q8 as needed Cardiovascular # congestive heart failure, systolic versus diastolic # Septic shock due to right lower extremity cellulitis; cultures growing Pseudomonas, Serratia marcescens, GBS # history of atrial flutter # [id number] peripheral arterial disease - on norepinephrine at 6 micrograms/minute - IV metronidazole IV cefepime - echocardiogram: Technically difficult study due to body habitus, patient position and patient unable to terminally flight. LV and RV not well visualized, likely grossly normal. LVEF greater than 50%. Valves are well visualized. - Lovenox 140 mg subcutaneous daily, modified dosing due to elevated PTT and low hemoglobin. - cardiology consulted - vascular surgery consulted Respiratory # acute on chronic hypoxic respiratory failure, on home oxygen 2 L, currently on O2 via NC 4 L with FiO2 36% # pulmonary edema # COPD exacerbation # sleep apnea, noncompliant with CPAP - ipratropium med neb, currently holding albuterol - CXR: Pulmonary edema and bilateral pleural effusions, stable cardiomegaly. GI # Peptic ulcer prophylaxis -Pantoprazole 40 mg IV daily Nephrology # ESRD on hemodialysis M, W, F # hyperkalemia - s/p hemodialysis today with 2 L removed - nephrology on board - [facility] once - retacrit 4000 units subcutaneous - sevelamer 1600 mg p.o. t.i.d. Infectious disease # right lower extremity cellulitis, cultures growing Pseudomonas, Serratia marcescens, GBS -podiatry on board - ordered right lower extremity MRI - IV metronidazole cefepime discontinued on 04/01/2025 - started IV meropenem on 04/01/2025 - right ankle x-ray: No evidence of acute fracture or dislocation, unremarkable - right foot x-ray: No evidence of acute fracture or dislocation, small plantar calcaneal enthesophyte. - right tibia fibula x-ray: No evidence of acute fracture or dislocation. - right lower extremity arterial Doppler: No sonographic evidence of arterial occlusion. Low resistance and distal capillary bed can be caused by local infection, correlate clinically. - right lower extremity venous Doppler: No evidence of DVT. - repeat bilateral lower extremity arterial Doppler 03/29/2025: Findings consistent with [id number] peripheral arterial disease with diffuse monophasic waveforms which could suggest aortoiliac inflow disease. Hem/onc # Macrocytic anemia - . Vitamin B12, folic acid - ordered serum TSH Endocrine # type 2 diabetes, uncontrolled and insulin dependent - sliding scale insulin Psychiatry # nicotine dependence # depression, possibly MDD? - nicotine patch 14 g - resumed home medication buspirone, citalopram DVT prophylaxis Patient already on Lovenox 140 mg subcutaneous daily, modified dosing due to elevated PTT and low hemoglobin. Nutrition Consistent carb diet Lines Left PICC line placed on 03/27/2025 Right 20 gauge placed on 03/26/2025 Right 22 gauge placed on 03/26/2025 Right chest wall hemodialysis catheter approximately 7-month-old Critical care time 46minutes excluding procedure. Code status discussed greater than 20 minutes: Full CODE STATUS. Plan discussed with Dr. Talavera Plan discussed with: Patient, Spouse, Other (RN) My Orders My Orders Orders - CANDIDA FRANCE RESIDENT Procedure Category Date Status Time * Assistant Clinical Nurse Manager CONS 04/01/25 Transmitted Consult Meropenem 500mg Ivpb PHA 04/02/25 In Process (Merrem 500mg/Ns) 10:00 Dietary Evaluation Review Comments: 1. Well-controlled DM is the most improtant factor in enhancing wound-healing 2. Encoauge PO feeding to meet 75% of her needs. 3. To avoid castabolism, offer Glucerna PO BID if pt eat <50% of her meals 4. F/U visit in 3-5 days Expected Outcomes/Goals: improved DM control, improved nurition status and grdual wt loss. Date of Service: Apr 01, 2025 Billing Provider: CHAN TALAVERA MD Common Visit Codes: [id number] INP/OBS CARE(HIGH) CANDIDA FRANCE RESIDENT Apr 01, 2025 21:24 CHAN TALAVERA MD Apr 02, 2025 16:54
[2025-04-02] VITALS (21 sets, daily range): BP systolic 86–114; BP diastolic 51–76; PULSE 93–113; RESP 14–20; TEMP 97–98.5; O2SAT 82–100
--- NOTE | 2025-04-02 06:41 | DVHPN2 ---
Progress Note - Dictate Date Seen: Apr 02, 2025 Medical Necessity Reason Pt with a Central, PICC or Fol: Yes The following are medically ne: PICC Line vital signs Vital Sign Date Time Temp Pulse Resp B/P (MAP) Pulse Ox O2 Delivery O2 Flow Rate FiO2 04/02/25 06:17 111 113/70 04/02/25 06:13 16 100 04/02/25 06:07 Nasal Cannula* 3 32 04/02/25 05:00 97.7 97.7 Total Intake and Output 04/01/25 04/01/25 04/02/25 15:00 23:00 07:00 Intake Total 687 ml 940 ml Balance 687 ml 940 ml medications Current Medications Medications Dose Ordered Sig/Kiana Route Start Time Stop Time Status Last Admin Dose Admin Acetaminophen 650 mg Q6HP PRN PO 03/26/25 15:00 04/01/25 11:22 650 MG Cefepime/Dextrose 50 ml @ 12.5 mls/hr Q8HR IV 03/26/25 22:00 UNV Ondansetron HCl 4 mg Q4HP PRN IV 03/26/25 15:00 Docusate Sodium 100 mg BIDPRN PRN PO 03/26/25 15:00 Diagnostic Test (Pha) 1 strip Q6HR 03/26/25 18:00 04/02/25 06:22 1 STRIP Insulin Human Regular Q6HR SC 03/26/25 18:00 04/01/25 23:51 2 UNITS Dextrose 50 ml UD PRN IV 03/26/25 15:00 Nitroglycerin 0.4 mg Q5MINP PRN SL 03/26/25 15:00 Nicotine 1 patch HS TD 03/27/25 22:00 04/01/25 21:59 1 PATCH Acetaminophen/ Hydrocodone Bitart 1 tab Q8HP PRN PO 03/27/25 11:00 04/02/25 04:02 1 TAB Pantoprazole Sodium 40 mg DAILY IV 03/28/25 10:00 04/01/25 10:20 40 MG Sevelamer HCl 1,600 mg TIDWM PO 03/27/25 18:00 04/01/25 17:53 1,600 MG Sodium Chloride 10 ml QSHIFT@ IV 03/27/25 22:00 04/01/25 22:01 10 ML Enoxaparin Sodium 140 mg DAILY SC 03/29/25 10:00 04/01/25 10:21 140 MG Patient Own Medication 1 tab BID PRN PO 03/28/25 13:15 Citalopram Hydrobromide 40 mg DAILY PO 03/29/25 10:00 04/01/25 11:59 40 MG Ipratropium [place] 0.5 mg Q4HR NEB 03/28/25 18:00 04/02/25 06:05 0.5 MG Metoprolol Tartrate 50 mg BID PO 03/30/25 22:00 04/01/25 21:29 50 MG Atorvastatin Calcium 40 mg HS PO 03/30/25 22:00 04/01/25 21:28 40 MG Epoetin Dante-epbx 4,000 unit MWF@1800 SC 04/01/25 18:00 04/01/25 17:54 4,000 UNIT Diltiazem HCl 60 mg Q6HR PO 04/01/25 12:00 04/02/25 06:17 60 MG Meropenem 50 ml @ 17 mls/hr DAILY IV 04/02/25 10:00 laboratory and microbiology Laboratory Tests 04/01/25 05:14 Test 04/01/25 05:14 Range/Units Serum Glucose 132 H 74-106 mg/dL Assessment/Plan This is a 54-year old female resident of [facility]) known outside to our practice who initially presented with non-healing wound involving the right lower extremity for approximately one month for which patient herself reports no improvement despite outpatient based antibiotic/wound care. Upon arrival imaging of the right ankle was found non-revealing. Right foot imaging had revealed evidence for soft tissue swelling. Subsequent right tib/fib x-ray had been found unremarkable. Patient later underwent MRI of the right foot which had revealed no evidence for osteomyelitis, effusion, or abscess however did reveal mild subcutaneous edema which subsequent RLE venous duplex was performed revealing no evidence for deep vein thrombosis. RLE arterial duplex had revealed moderate to severe peripheral arterial disease with diffuse monophasic waveforms with severely decreased velocity involving the mid right SFA consistent with high-grade stenosis as well as increased velocity in the mid left SFA consistent with moderate to high-grade stenosis. Upon arrival, patient was noted to be hypotensive subsequently initiated on Levophed infusion for hemodynamic support and later admitted to the ICU for close observation/management. While undergoing management within the ICU, patient had been placed on IV antibiotic therapy as managed by primary team and weaned from Levophed infusion as hemodynamics had later improved. Initial 12-lead electrocardiogram had revealed atrial flutter (variable AV block) with a ventricular rate of 114bpm, no evidence for acute ischemic changes. Serial HS troponin trend had been found unremarkable (11, 10, 8). TSH level was found normal at 2.42. BNP level had been found minimally elevated at 138 which subsequent chest imaging had revealed cardiomegaly with evidence for pulmonary vascular congestion and trace bilateral pleural effusions which fluid volume is managed via hemodialysis (M/W/F) as the patient is known to have underlying ESRD. Subsequent Echocardiogram (03/27/2025) had revealed an LVEF > 50%. Of note, patient does have known history of permanent atrial fibrillation on chronic anti-coagulation (Eliquis) on an outpatient basis and as patient presented and was found to have atrial flutter with variable AV block arrhythmia itself is considered new-onset for the patient. Of note, patient had been initiated on Lovenox by primary team prior to cardiac consultation (which is acceptable as for now). As the patient presented and was found to be in atrial flutter with variable AV block, Cardiology services were involved by primary team request for cardiac aspects of care. Past medical history includes permanent atrial fibrillation on chronic anticoagulation (Eliquis), ESRD on hemodialysis (M/W/F), diabetes mellitus II, hyperlipidemia, COPD on home oxygen therapy, obstructive sleep apnea on CPAP therapy, bipolar disorder, anxiety disorder, morbid obesity, status post previous section, appendectomy, and cholecystectomy. Patient is an active cigarette smoker. Echocardiogram: (Office 11/28/2024) revealed TDS, mild concentric left ventricular hypertrophy, LVEF of 55-60%, trace mitral regurgitation, trace tricuspid regurgitation, right ventricular systolic pressure of < 35mmHg Echocardiogram: ([facility] 03/27/2025) revealed technically difficult study with very poor cardiac visualization. LV and RV not well visualized, likely grossly normal. LVEF>50%. Valves not well visualized Non-healing wound involving RLE Septic shock (resolved), secondary to the above Permanent atrial fibrillation, on chronic anticoagulation Atrial flutter with variable atrioventricular block, new onset Fluid overload, in the setting of ESRD on hemodialysis ESRD on hemodialysis (M/W/F) Peripheral arterial disease Nicotine dependence Diabetes mellitus II Hyperlipidemia CARDIAC SUGGESTIONS FOR MANAGEMENT: Recognizing chronicity of underling atrial fibrillation/flutter, to proceed with rate control strategy Metoprolol Tartrate 50mg twice daily, Titer up Diltiazem (to 60 mg [id number]) To proceed with close rate and rhythm surveillance during the interim and titrate/modify therapy accordingly Continuation of full-dose long-term anticoagulation is advised (as concurrent conditions permit) Was initiated on Lovenox (renal dosed), If no plan of surgical intervention, recommend transitioning to DOAC (Eliquis) Fluid volume management as per Nephrology via hemodialysis Proceed with close observation for overt signs of fluid overload Proceed with strict intakes, outputs, and daily weights On IV antibiotic therapy as managed by primary team IV Lopressor as needed for added rate control Atorvastatin 40mg q hs Start Amiodarone drip Counseled on importance on tobacco cessation Proceed with close rate and rhythm surveillance Proceed with close hemodynamic surveillance Proceed with optimized blood pressure control Transfuse to sustain HGB level above 7.0 Sustain Magnesium level greater than 2.0 Sustain Potassium level greater than 4.0 Follow up renal function and electrolytes Consider Vascular Surgery consultation for underlying peripheral arterial disease Management of ongoing concurrent medical conditions as per primary team Management of right lower extremity wound as per primary team Management of ESRD on hemodialysis as per nephrology Management on tele Follow up health and safety consultant recommendations Will proceed to follow from a cardiac perspective Further recommendations per clinical progression All available diagnostic labs, EKG's, and images were personally reviewed Plan of care discussed with and agreed upon by patient / primary RN Prognosis: Guarded Thank you for allowing me to participate in the care of this patient. Further recommendations based on patients clinical course and progression, primary attending, and other consultants. Will continue to follow with primary attending. If you have any questions or concerns, please do not hesitate to contact me. A total of 55 minutes was spent reviewing the patient record, examining the patient, making a diagnostic and therapeutic plan, discussing this plan with medical personnel, following up on diagnostic studies and following the patient for clinical stability excluding any and all procedures. At least 50% of this time was spent in direct, [id number] contact. Dietary Evaluation Review Comments: 1. Well-controlled DM is the most improtant factor in enhancing wound-healing 2. Encoauge PO feeding to meet 75% of her needs. 3. To avoid castabolism, offer Glucerna PO BID if pt eat <50% of her meals 4. F/U visit in 3-5 days Expected Outcomes/Goals: improved DM control, improved nurition status and grdual wt loss. Plan discussed with: Patient, Other (nurse) TREVA FONTANEZ MD Apr 02, 2025 06:41
[2025-04-02] MEDS ORDERED: SODIUM CHL 0.9% 1000 ML BAG XX ONE (07:00)
[2025-04-02 07:21] LABS: Hematocrit 26.8 % (36.0-46.0); Hemoglobin 8.7 g/dL (12.2-16.2); Mean Corpuscular Hemoglobin 32.6 pg (28.0-32.0); Mean Corpuscular Volume 100.6 fL (80.0-100.0); Nucleated Red Blood Cells % 0.1 %
[2025-04-02 07:28] LABS: Anion Gap 12 (5-15); Carbon Dioxide 27 mmol/L (20-31); Potassium 4.4 mmol/L (3.5-5.1); Sodium 137 mmol/L (136-145)
[2025-04-02 07:29] LABS: Calcium 9.2 mg/dL (8.7-10.4)
[2025-04-02 07:34] LABS: BUN/Creatinine Ratio 7.4 (10.0-20.0); Glucose 99 mg/dL (74-106)
[2025-04-02 07:35] LABS: Blood Urea Nitrogen 43 mg/dL (9-23); Chloride 98 mmol/L (98-107)
[2025-04-02] MEDS: MEROPENEM 500MG IVPB 50 ML IV SCH (10:02)
--- NOTE | 2025-04-02 11:22 | DVHPN2 ---
Progress Note Date Seen: Apr 02, 2025 Medical Necessity Reason Pt with a Central, PICC or Fol: Yes The following are medically ne: PICC Line Subjective Patient reports: No new complaints Objective vital signs Vital Sign Date Time Temp Pulse Resp B/P (MAP) Pulse Ox O2 Delivery O2 Flow Rate FiO2 04/02/25 10:07 103 16 100 04/02/25 09:32 114/76 04/02/25 08:54 97.2 97.2 04/02/25 08:00 Nasal Cannula* 2 28 Total Intake and Output 04/01/25 04/01/25 04/02/25 15:00 23:00 07:00 Intake Total 687 ml 940 ml Balance 687 ml 940 ml medications Current Medications Medications Dose Ordered Sig/Kiana Route Start Time Stop Time Status Last Admin Dose Admin Acetaminophen 650 mg Q6HP PRN PO 03/26/25 15:00 04/01/25 11:22 650 MG Cefepime/Dextrose 50 ml @ 12.5 mls/hr Q8HR IV 03/26/25 22:00 UNV Ondansetron HCl 4 mg Q4HP PRN IV 03/26/25 15:00 Docusate Sodium 100 mg BIDPRN PRN PO 03/26/25 15:00 Diagnostic Test (Pha) 1 strip Q6HR 03/26/25 18:00 04/02/25 06:22 1 STRIP Insulin Human Regular Q6HR SC 03/26/25 18:00 04/01/25 23:51 2 UNITS Dextrose 50 ml UD PRN IV 03/26/25 15:00 Nitroglycerin 0.4 mg Q5MINP PRN SL 03/26/25 15:00 Nicotine 1 patch HS TD 03/27/25 22:00 04/01/25 21:59 1 PATCH Acetaminophen/ Hydrocodone Bitart 1 tab Q8HP PRN PO 03/27/25 11:00 04/02/25 04:02 1 TAB Pantoprazole Sodium 40 mg DAILY IV 03/28/25 10:00 04/02/25 09:31 40 MG Sevelamer HCl 1,600 mg TIDWM PO 03/27/25 18:00 04/02/25 09:32 1,600 MG Sodium Chloride 10 ml QSHIFT@ IV 03/27/25 22:00 04/02/25 10:02 10 ML Enoxaparin Sodium 140 mg DAILY SC 03/29/25 10:00 04/02/25 09:33 140 MG Patient Own Medication 1 tab BID PRN PO 03/28/25 13:15 Citalopram Hydrobromide 40 mg DAILY PO 03/29/25 10:00 04/02/25 10:00 40 MG Ipratropium [place] 0.5 mg Q4HR NEB 03/28/25 18:00 04/02/25 09:58 0.5 MG Metoprolol Tartrate 50 mg BID PO 03/30/25 22:00 04/02/25 09:32 50 MG Atorvastatin Calcium 40 mg HS PO 03/30/25 22:00 04/01/25 21:28 40 MG Epoetin Dante-epbx 4,000 unit MWF@1800 SC 04/01/25 18:00 04/01/25 17:54 4,000 UNIT Diltiazem HCl 60 mg Q6HR PO 04/01/25 12:00 04/02/25 06:17 60 MG Meropenem 50 ml @ 17 mls/hr DAILY IV 04/02/25 10:00 04/02/25 10:02 17 MLS/HR Examination: GENERAL:Normal, CVS:Normal laboratory and microbiology Laboratory Tests 04/02/25 05:20 Test 04/02/25 05:20 Range/Units Serum Glucose 99 74-106 mg/dL Microbiology Date/Time Source Procedure Growth Status 03/27/25 06:20 Nose MRSA Screen - Final Complete 03/26/25 13:34 Blood Blood Culture - Final NO GROWTH AFTER 5 DAYS OF INCUBATION. Complete Problem List/Assessment/Plan Problem List/Assessment/Plan End-stage renal disease on hemodialysis Shock likely septic shock Morbid obesity Fluid overload Hyperkalemia Diabetes Right lower extremity foot wound gram negative wound infection Anemia due to chronic kidney disease Hemodialysis today Sepsis IV antibiotics Epogen 3 times a week Renal diet when tolerating p.o. Glycemic control as per primary medical team Plan discussed with: Patient My Orders My Orders Orders - YANIQUE ROBLES MD Procedure Category Date Status Time Hemodialysis Orders ORDERS 04/02/25 Transmitted 07:00 Dialysis Nursing JONATHAN 04/02/25 In Process Message 07:00 Document Fluid Input JONATHAN 04/02/25 In Process And Outpu 07:00 Dietary Evaluation Review Comments: 1. Well-controlled DM is the most improtant factor in enhancing wound-healing 2. Encoauge PO feeding to meet 75% of her needs. 3. To avoid castabolism, offer Glucerna PO BID if pt eat <50% of her meals 4. F/U visit in 3-5 days Expected Outcomes/Goals: improved DM control, improved nurition status and grdual wt loss. YANIQUE ROBLES MD Apr 02, 2025 11:22
[2025-04-02] MEDS: AMIODARONE 360mg/200mL PREMIX 200 ML IV ONE (16:25)
[2025-04-02] MEDS ORDERED: MET50T PO (17:47)
[2025-04-02] MEDS ORDERED: DILT60TA2 PO (17:47)
--- NOTE | 2025-04-02 17:47 | DVHDSRES ---
Discharge Summary Date of Admission Resident Creating Document: CANDIDA FRANCE RESIDENT Mar 26, 2025 at 14:29 Date of Discharge: Apr 02, 2025 Admitting Diagnosis Sepsis Labs/Diagnostic Data: Laboratory Results Test 04/02/25 06:20 04/02/25 05:20 04/01/25 15:04 04/01/25 05:14 POC Glucose 113 mg/dl (70-106) White Blood Count 7.3 10^3/uL (4.4-10.8) Red Blood Count 2.66 10^6/uL (4.0-5.20) Hemoglobin 8.7 g/dL (12.2-16.2) Hematocrit 26.8 % (36.0-46.0) Mean Corpuscular Volume 100.6 fL (80.0-100.0) Mean Corpuscular Hemoglobin 32.6 pg (28.0-32.0) Mean Corpuscular Hemoglobin Concent 32.4 g/dL (32.0-36.0) Red Cell Distribution Width 15.6 % (11.8-14.3) Platelet Count 252 10^3/uL (140-450) Mean Platelet Volume 7.0 fL (6.9-10.8) Neutrophils (%) (Auto) 71.5 % (37.0-80.0) Lymphocytes (%) (Auto) 12.3 % (10.0-50.0) Monocytes (%) (Auto) 11.7 % (0.0-12.0) Eosinophils (%) (Auto) 3.6 % (0.0-7.0) Basophils (%) (Auto) 0.9 % (0.0-2.0) Neutrophils # (Auto) 5.2 10 ^3/uL (1.6-8.6) Lymphocytes # (Auto) 0.9 10 ^3/uL (0.4-5.4) Monocytes # (Auto) 0.9 10 ^3/uL (0-1.3) Eosinophils # (Auto) 0.3 10 ^3/uL (0-0.8) Basophils # (Auto) 0.1 10 ^3/uL (0-0.2) Nucleated Red Blood Cells 0.1 % Sodium Level 137 mmol/L (136-145) Potassium Level 4.4 mmol/L (3.5-5.1) Chloride Level 98 mmol/L (98-107) Carbon Dioxide Level 27 mmol/L (20-31) Anion Gap 12 (5-15) Blood Urea Nitrogen 43 mg/dL (9-23) Creatinine 5.84 mg/dL (0.550-1.02) Glomerular Filtration Rate Calc 8 mL/min (>90) BUN/Creatinine Ratio 7.4 (10.0-20.0) Serum Glucose 99 mg/dL (74-106) Calcium Level 9.2 mg/dL (8.7-10.4) Lactic Acid Level 1.0 mmol/L (0.4-2.0) Random Vancomycin Level 21.1 ug/mL (5-10) Test 03/30/25 03:00 03/28/25 03:35 03/27/25 03:29 03/26/25 15:32 Hemoglobin A1c 7.5 % A1C (<5.7) Total Bilirubin 0.2 mg/dL (0.2-1.0) Aspartate Amino Transferase (AST) 15 U/L (13-40) Alanine Aminotransferase (ALT) 17 U/L (7-40) Alkaline Phosphatase 176 U/L (46-116) Total Protein 6.4 g/dL (5.7-8.2) Albumin 3.5 g/dL (3.2-4.8) Triglycerides Level 82 mg/dL (< 150) Cholesterol Level 102 mg/dL (< 200) LDL Cholesterol 42 mg/dL (< 100) HDL Cholesterol 35 mg/dL (40-59) Magnesium Level 2.2 mg/dL (1.6-2.6) Iron Level 23 ug/dL (50-170) Total Iron Binding Capacity 224 ug/dL (250-425) Percent Iron Saturation 10.3 % (15-50) Ferritin 250.3 ng/mL (10-291) Vitamin B12 Level 1028 pg/mL (211-911) Folic Acid 20.22 ng/mL (>5.38) Thyroid Stimulating Hormone (TSH) 2.42 uIU/mL (0.55-4.78) Hepatitis B Surface Antigen Negative (Negative) Phosphorus Level 7.7 mg/dL (2.4-5.1) Troponin I High Sensitivity 8 ng/L (</=34) Test 03/26/25 13:34 Prothrombin Time 11.7 sec (9.3-11.8) Prothrombin Time INR 1.12 (0.9-1.15) Activated Partial Thromboplast Time 36.5 SEC (24.5-34.5) B-Type Natriuretic Peptide 138.10 pg/mL (0-100) Other Laboratory Tests 04/02/25 05:20 Brief Hx & Hospital Course: The patient is a 52-year-old female with a complex medical history including congestive heart failure (CHF)?, end-stage renal disease (ESRD) on hemodialysis (M/W/F), asthma, COPD, obstructive sleep apnea, type 2 diabetes mellitus, chronic respiratory failure on home oxygen, and atrial flutter. She presented with a one-month history of right lower extremity pain, redness, and foul- smelling discharge. She denied trauma and systemic symptoms. The patient is a poor historian and resides [facility] a [facility] facility. Hospital Course: The patient was admitted for evaluation and management of right lower extremity cellulitis. Wound cultures grew Pseudomonas aeruginosa, Serratia marcescens, and Group B Streptococcus. Initial antibiotic therapy included vancomycin, cefepime, and metronidazole, which were later discontinued and replaced with IV meropenem on 04/01/2025. Imaging ruled out osteomyelitis. Vascular studies revealed [id number] peripheral arterial disease. Podiatry and vascular surgery were consulted. She developed septic shock requiring norepinephrine support. Echocardiogram was technically limited but suggested preserved ejection fraction. Cardiology was consulted. Anticoagulation was adjusted due to elevated PTT and anemia. The patient experienced an acute exacerbation of chronic respiratory failure and required increased oxygen support. Chest imaging showed pulmonary edema and bilateral pleural effusions. She was managed with bronchodilators and diuretics. She continued regular hemodialysis with fluid removal and was treated for hyperkalemia and anemia. Diabetes was managed with sliding scale insulin. Chronic pain was addressed with continuation of home [place]. Psychiatric medications were resumed, and nicotine replacement therapy was provided. Discharge Medications: IV Meropenem renal adjusted 500mg ([facility]) resumed home eliquis added amiodarone 200mg bid DISCONTINUED DILTIAZEM CONTINUE METOPROLOL Sliding scale insulin Sevelamer 1600 mg TID Retacrit 4000 units SQ Pantoprazole 40 mg IV daily Buspirone, Citalopram Nicotine patch (full medication reconciliation paperwork filled and prepared for SNF transfer) Follow-Up Recommendations: Continue hemodialysis M/W/F Follow-up with vascular surgery and podiatry Cardiology and nephrology outpatient follow-up Wound care and infectious disease follow-up Monitor for signs of worsening infection or PAD DISCHARGE PLANNING TIME 42 MINUTES Condition at Discharge: Fair Final Diagnosis/Problems List # chronic pain syndrome # congestive heart failure, systolic versus diastolic # Septic shock due to right lower extremity cellulitis; cultures growing Pseudomonas, Serratia marcescens, GBS # atrial flutter # [id number] peripheral arterial disease # acute on chronic hypoxic respiratory failure, on home oxygen 2 L, currently on O2 via [place] 4 L with FiO2 36% # pulmonary edema # COPD exacerbation # sleep apnea, noncompliant with CPAP # ESRD on hemodialysis M, W, F # hyperkalemia # right lower extremity cellulitis, cultures growing Pseudomonas, Serratia marcescens, GBS # Macrocytic anemia # nicotine dependence # depression, possibly MDD? # OBESITY CLASS 3 Discharge Disposition: Alf Facility Discharge Instruct/Medications Diet: Consistent carbohydrate Activity: No Restrictions, As Tolerated Follow Up/Referral: pls follow up with pcp in 1-2 weeks pls follow up with still cleaner pls follow up with vascular surgery at your earliest convenience pls follow up with nephrology Medications: IV meropenem for 2 weeks Continue home medication apixaban 5 mg b.i.d. Scheduled Acetaminophen (Acetaminophen Extra Stren), 500 MG PO 2 tabs Q6H, (Reported) Apixaban Base (Eliquis), 5 MG PO BID, (Reported) Atorvastatin Calcium (Atorvastatin Calcium), 1 TAB PO DAILY, (Reported) B-Complex W/ C & Folic Acid (Maddie-Lalo), 1 OR DAILY, (Reported) Escitalopram Oxalate (Lexapro), 1 TAB PO DAILY, (Reported) Ferrous Sulfate (Ferrous Sulfate), 325 MG PO DAILY, (Reported) Furosemide (Lasix), 1 TAB PO DAILY, (Reported) Metoprolol Tartrate (Lopressor Tablet), 50 MG PO BID Polyethylene Glycol 3350 (Miralax), 17 GM PO DAILY, (Reported) Sevelamer Hydrochloride (Sevelamer Hydrochloride), 800 MG PO 2 tab TID, (Reported) Scheduled PRN Buspirone Hcl (Buspirone Hcl), 1 TAB PO BID PRN for ANXIETY, (Reported) Calcium Carbonate (Antacid) (Antacid), 750 MG PO Q8HP PRN for indigestion, (Reported) Diphenhydramine Hcl (Benadryl Allergy), 25 MG PO Q6HP PRN for FOR ITCHING, (Reported) Guaifenesin (Mucinex), 600 MG PO Q12HP PRN for FOR COUGH, (Reported) Hydrocodone-Acetaminophen (Hydrocodone Bitartrate/AC 7.5-300 mg), 1 TAB PO Q8HP PRN for moderate-sevare pain (6-10), (Reported) Ipratropium [place] Hfa (Atrovent Hfa), 17 MCG IN 2 puffs Q4H PRN PRN for wheezing, (Reported) Ipratropium-Albuterol (Ipratropium [place]/Albut), 1 MARYLOU IN Q6HP PRN for SHORTNESS OF BREATH, (Reported) Miscellaneous Medications Insulin Lispro (Human) (Humalog), 100 UNIT SC, (Reported) Nutritional Supplements (Nepro), 1 OR, (Reported) Discontinued Medications Carvedilol (Carvedilol), 1 TAB PO BID, (Reported) Discharge Statement: "Patient was advised to return to the ER or call 911 if any headaches, dizziness, shortness of breath, chest pain, abdominal pain, bleeding, fevers, or worsening of medical condition. Patient was counseled about treatment plan, medications, possible side effects, patientverbalized understanding. All questions were answered to the best of my ability. This discharge took greater then 30 minutes in planning, reviewing documentation, counseling the patient, and discussing with other team members." ASSESSMENT ASSESSMENT Assessment # chronic pain syndrome # congestive heart failure, systolic versus diastolic # Septic shock due to right lower extremity cellulitis; cultures growing Pseudomonas, Serratia marcescens, GBS # history of atrial flutter # [id number] peripheral arterial disease # acute on chronic hypoxic respiratory failure, on home oxygen 2 L, currently on O2 via [place] 4 L with FiO2 36% # pulmonary edema # COPD exacerbation # sleep apnea, noncompliant with CPAP # ESRD on hemodialysis M, W, F # hyperkalemia # right lower extremity cellulitis, cultures growing Pseudomonas, Serratia marcescens, GBS # Macrocytic anemia # nicotine dependence # depression, possibly MDD? # OBESITY CLASS 3 Date of Service: Apr 02, 2025 Billing Provider: CHAN TALAVERA MD Common Visit Codes: 05377-HWI/OBS DISCH DAY >30min CANDIDA FRANCE RESIDENT Apr 02, 2025 17:47 CHAN TALAVERA MD Apr 03, 2025 13:51
--- NOTE | 2025-04-02 18:07 | DVHPNRES ---
Progress Note Medical Necessity Reason Pt with a Central, PICC or Fol: Yes The following are medically ne: PICC Line Objective vital signs Vital Sign Date Time Temp Pulse Resp B/P (MAP) Pulse Ox O2 Delivery O2 Flow Rate FiO2 04/02/25 17:01 97.6 104 16 95/65 (75) 99 97.6 04/02/25 08:00 Nasal Cannula* 2 28 Total Intake and Output 04/01/25 04/01/25 04/02/25 15:00 23:00 07:00 Intake Total 687 ml 940 ml Balance 687 ml 940 ml medications Current Medications Medications Dose Ordered Sig/Kiana Route Start Time Stop Time Status Last Admin Dose Admin Acetaminophen 650 mg Q6HP PRN PO 03/26/25 15:00 04/01/25 11:22 650 MG Cefepime/Dextrose 50 ml @ 12.5 mls/hr Q8HR IV 03/26/25 22:00 UNV Ondansetron HCl 4 mg Q4HP PRN IV 03/26/25 15:00 Docusate Sodium 100 mg BIDPRN PRN PO 03/26/25 15:00 Diagnostic Test (Pha) 1 strip Q6HR 03/26/25 18:00 04/02/25 12:00 1 STRIP Insulin Human Regular Q6HR SC 03/26/25 18:00 04/01/25 23:51 2 UNITS Dextrose 50 ml UD PRN IV 03/26/25 15:00 Nitroglycerin 0.4 mg Q5MINP PRN SL 03/26/25 15:00 Nicotine 1 patch HS TD 03/27/25 22:00 04/01/25 21:59 1 PATCH Acetaminophen/ Hydrocodone Bitart 1 tab Q8HP PRN PO 03/27/25 11:00 04/02/25 04:02 1 TAB Pantoprazole Sodium 40 mg DAILY IV 03/28/25 10:00 04/02/25 09:31 40 MG Sevelamer HCl 1,600 mg TIDWM PO 03/27/25 18:00 04/02/25 12:00 1,600 MG Sodium Chloride 10 ml QSHIFT@10,22 IV 03/27/25 22:00 04/02/25 10:02 10 ML Enoxaparin Sodium 140 mg DAILY SC 03/29/25 10:00 04/02/25 09:33 140 MG Patient Own Medication 1 tab BID PRN PO 03/28/25 13:15 Citalopram Hydrobromide 40 mg DAILY PO 03/29/25 10:00 04/02/25 10:00 40 MG Ipratropium [place] 0.5 mg Q4HR NEB 03/28/25 18:00 04/02/25 09:58 0.5 MG Metoprolol Tartrate 50 mg BID PO 03/30/25 22:00 04/02/25 09:32 50 MG Atorvastatin Calcium 40 mg HS PO 03/30/25 22:00 04/01/25 21:28 40 MG Epoetin Dante-epbx 4,000 unit MWF@1800 SC 04/01/25 18:00 04/01/25 17:54 4,000 UNIT Diltiazem HCl 60 mg Q6HR PO 04/01/25 12:00 04/02/25 06:17 60 MG Meropenem 50 ml @ 17 mls/hr DAILY IV 04/02/25 10:00 04/02/25 10:02 17 MLS/HR laboratory and microbiology Laboratory Tests 04/02/25 05:20 Test 04/02/25 05:20 Range/Units Serum Glucose 99 74-106 mg/dL Microbiology Date/Time Source Procedure Growth Status 03/27/25 06:20 Nose MRSA Screen - Final Complete 03/26/25 13:34 Blood Blood Culture - Final NO GROWTH AFTER 5 DAYS OF INCUBATION. Complete Problem List/Assessment/Plan Problem List/Assessment/Plan Neurology # chronic pain syndrome - resumed home medication [place] 10q8 as needed Cardiovascular # congestive heart failure, systolic versus diastolic # Septic shock due to right lower extremity cellulitis; cultures growing Pseudomonas, Serratia marcescens, GBS # history of atrial flutter # [id number] peripheral arterial disease - on norepinephrine at 6 micrograms/minute - IV metronidazole IV cefepime - echocardiogram: Technically difficult study due to body habitus, patient position and patient unable to terminally flight. LV and RV not well visualized, likely grossly normal. LVEF greater than 50%. Valves are well visualized. - Lovenox 140 mg subcutaneous daily, modified dosing due to elevated PTT and low hemoglobin. - cardiology consulted - vascular surgery consulted Respiratory # acute on chronic hypoxic respiratory failure, on home oxygen 2 L, currently on O2 via [place] 4 L with FiO2 36% # pulmonary edema # COPD exacerbation # sleep apnea, noncompliant with CPAP - ipratropium med neb, currently holding albuterol - CXR: Pulmonary edema and bilateral pleural effusions, stable cardiomegaly. GI # Peptic ulcer prophylaxis -Pantoprazole 40 mg IV daily Nephrology # ESRD on hemodialysis M, W, F # hyperkalemia - s/p hemodialysis today with 2 L removed - nephrology on board - [facility] once - retacrit 4000 units subcutaneous - sevelamer 1600 mg p.o. t.i.d. Infectious disease # right lower extremity cellulitis, cultures growing Pseudomonas, Serratia marcescens, GBS -podiatry on board - ordered right lower extremity MRI - IV metronidazole cefepime discontinued on 04/01/2025 - started IV meropenem on 04/01/2025 - right ankle x-ray: No evidence of acute fracture or dislocation, unremarkable - right foot x-ray: No evidence of acute fracture or dislocation, small plantar calcaneal enthesophyte. - right tibia fibula x-ray: No evidence of acute fracture or dislocation. - right lower extremity arterial Doppler: No sonographic evidence of arterial occlusion. Low resistance and distal capillary bed can be caused by local infection, correlate clinically. - right lower extremity venous Doppler: No evidence of DVT. - repeat bilateral lower extremity arterial Doppler 03/29/2025: Findings consistent with [id number]-fv-[id number] peripheral arterial disease with diffuse monophasic waveforms which could suggest aortoiliac inflow disease. Hem/onc # Macrocytic anemia - . Vitamin B12, folic acid - ordered serum TSH Endocrine # type 2 diabetes, uncontrolled and insulin dependent - sliding scale insulin Psychiatry # nicotine dependence # depression, possibly MDD? - nicotine patch 14 g - resumed home medication buspirone, citalopram DVT prophylaxis Patient already on Lovenox 140 mg subcutaneous daily, modified dosing due to elevated PTT and low hemoglobin. Nutrition Consistent carb diet Lines Left PICC line placed on 03/27/2025 Right 20 gauge placed on 03/26/2025 Right 22 gauge placed on 03/26/2025 Right chest wall hemodialysis catheter approximately 7-month-old Critical care time 85 minutes excluding procedure. Code status discussed greater than 20 minutes: Full CODE STATUS. Plan discussed with Dr. Thomas My Orders My Orders Orders - CANDIDA FRANCE Procedure Category Date Status Time Discharge DISCHARGE 04/02/25 Transmitted 16:39 BIPAP RT 04/02/25 Logged 17:06 Dietary Evaluation Review Comments: 1. Well-controlled DM is the most improtant factor in enhancing wound-healing 2. [place] PO feeding to meet 75% of her needs. 3. To avoid castabolism, offer Glucerna PO BID if pt eat <50% of her meals 4. F/U visit in 3-5 days Expected Outcomes/Goals: improved DM control, improved nurition status and grdual wt loss. CANDIDA FRANCE RESIDENT Apr 02, 2025 18:07
[2025-04-03] VITALS (11 sets, daily range): BP systolic 89–117; BP diastolic 47–86; PULSE 73–111; RESP 16–20; TEMP 97.3–97.9; O2SAT 91–100
[2025-04-03] MEDS: AMIODARONE 360mg/200mL PREMIX 200 ML IV SCH (03:34)
--- NOTE | 2025-04-03 06:46 | DVHPN2 ---
Progress Note - Dictate Date Seen: Apr 03, 2025 Medical Necessity Reason Pt with a Central, PICC or Fol: Yes The following are medically ne: PICC Line vital signs Vital Sign Date Time Temp Pulse Resp B/P (MAP) Pulse Ox O2 Delivery O2 Flow Rate FiO2 04/03/25 06:19 107 18 99 04/03/25 06:13 Nasal Cannula* 3 32 04/03/25 05:16 117/86 04/03/25 05:00 97.3 97.3 Total Intake and Output 04/02/25 04/02/25 04/03/25 15:00 23:00 07:00 Intake Total 600 ml 700 ml 80 ml Balance 600 ml 700 ml 80 ml medications Current Medications Medications Dose Ordered Sig/Kiana Route Start Time Stop Time Status Last Admin Dose Admin Acetaminophen 650 mg Q6HP PRN PO 03/26/25 15:00 04/01/25 11:22 650 MG Cefepime/Dextrose 50 ml @ 12.5 mls/hr Q8HR IV 03/26/25 22:00 UNV Ondansetron HCl 4 mg Q4HP PRN IV 03/26/25 15:00 Docusate Sodium 100 mg BIDPRN PRN PO 03/26/25 15:00 Diagnostic Test (Pha) 1 strip Q6HR 03/26/25 18:00 04/03/25 06:26 1 STRIP Insulin Human Regular Q6HR SC 03/26/25 18:00 04/03/25 00:00 2 UNITS Dextrose 50 ml UD PRN IV 03/26/25 15:00 Nitroglycerin 0.4 mg Q5MINP PRN SL 03/26/25 15:00 Nicotine 1 patch HS TD 03/27/25 22:00 04/02/25 22:11 1 PATCH Acetaminophen/ Hydrocodone Bitart 1 tab Q8HP PRN PO 03/27/25 11:00 04/02/25 22:12 1 TAB Pantoprazole Sodium 40 mg DAILY IV 03/28/25 10:00 04/02/25 09:31 40 MG Sevelamer HCl 1,600 mg TIDWM PO 03/27/25 18:00 04/02/25 18:00 1,600 MG Sodium Chloride 10 ml QSHIFT@ IV 03/27/25 22:00 04/02/25 22:12 10 ML Enoxaparin Sodium 140 mg DAILY SC 03/29/25 10:00 04/02/25 09:33 140 MG Patient Own Medication 1 tab BID PRN PO 03/28/25 13:15 Citalopram Hydrobromide 40 mg DAILY PO 03/29/25 10:00 04/02/25 10:00 40 MG Ipratropium [place] 0.5 mg Q4HR NEB 03/28/25 18:00 04/03/25 06:13 0.5 MG Metoprolol Tartrate 50 mg BID PO 03/30/25 22:00 04/02/25 09:32 50 MG Atorvastatin Calcium 40 mg HS PO 03/30/25 22:00 04/02/25 22:11 40 MG Epoetin Dante-epbx 4,000 unit MWF@1800 SC 04/01/25 18:00 04/01/25 17:54 4,000 UNIT Diltiazem HCl 60 mg Q6HR PO 04/01/25 12:00 04/03/25 05:16 60 MG Meropenem 50 ml @ 17 mls/hr DAILY IV 04/02/25 10:00 04/02/25 10:02 17 MLS/HR laboratory and microbiology Laboratory Tests 04/02/25 05:20 Test 04/02/25 05:20 Range/Units Serum Glucose 99 74-106 mg/dL Assessment/Plan This is a 54-year old female resident of [facility] known outside to our practice who initially presented with non-healing wound involving the right lower extremity for approximately one month for which patient herself reports no improvement despite outpatient based antibiotic/wound care. Upon arrival imaging of the right ankle was found non-revealing. Right foot imaging had revealed evidence for soft tissue swelling. Subsequent right tib/fib x-ray had been found unremarkable. Patient later underwent MRI of the right foot which had revealed no evidence for osteomyelitis, effusion, or abscess however did reveal mild subcutaneous edema which subsequent RLE venous duplex was performed revealing no evidence for deep vein thrombosis. RLE arterial duplex had revealed moderate to severe peripheral arterial disease with diffuse monophasic waveforms with severely decreased velocity involving the mid right SFA consistent with high-grade stenosis as well as increased velocity in the mid left SFA consistent with moderate to high-grade stenosis. Upon arrival, patient was noted to be hypotensive subsequently initiated on Levophed infusion for hemodynamic support and later admitted to the ICU for close observation/management. While undergoing management within the ICU, patient had been placed on IV antibiotic therapy as managed by primary team and weaned from Levophed infusion as hemodynamics had later improved. Initial 12-lead electrocardiogram had revealed atrial flutter (variable AV block) with a ventricular rate of 114bpm, no evidence for acute ischemic changes. Serial HS troponin trend had been found unremarkable (11, 10, 8). TSH level was found normal at 2.42. BNP level had been found minimally elevated at 138 which subsequent chest imaging had revealed cardiomegaly with evidence for pulmonary vascular congestion and trace bilateral pleural effusions which fluid volume is managed via hemodialysis (M/W/F) as the patient is known to have underlying ESRD. Subsequent Echocardiogram (03/27/2025) had revealed an LVEF > 50%. Of note, patient does have known history of permanent atrial fibrillation on chronic anti-coagulation (Eliquis) on an outpatient basis and as patient presented and was found to have atrial flutter with variable AV block arrhythmia itself is considered new-onset for the patient. Of note, patient had been initiated on Lovenox by primary team prior to cardiac consultation (which is acceptable as for now). As the patient presented and was found to be in atrial flutter with variable AV block, Cardiology services were involved by primary team request for cardiac aspects of care. Past medical history includes permanent atrial fibrillation on chronic anticoagulation (Eliquis), ESRD on hemodialysis (M/W/F), diabetes mellitus II, hyperlipidemia, COPD on home oxygen therapy, obstructive sleep apnea on CPAP therapy, bipolar disorder, anxiety disorder, morbid obesity, status post previous section, appendectomy, and cholecystectomy. Patient is an active cigarette smoker. Echocardiogram: (Office 11/28/2024) revealed TDS, mild concentric left ventricular hypertrophy, LVEF of 55-60%, trace mitral regurgitation, trace tricuspid regurgitation, right ventricular systolic pressure of < 35mmHg Echocardiogram: ([facility] 03/27/2025) revealed technically difficult study with very poor cardiac visualization. LV and RV not well visualized, likely grossly normal. LVEF>50%. Valves not well visualized Non-healing wound involving RLE Septic shock (resolved), secondary to the above Permanent atrial fibrillation, on chronic anticoagulation Atrial flutter with variable atrioventricular block, new onset Fluid overload, in the setting of ESRD on hemodialysis ESRD on hemodialysis (M/W/F) Peripheral arterial disease Nicotine dependence Diabetes mellitus II Hyperlipidemia CARDIAC SUGGESTIONS FOR MANAGEMENT: Recognizing chronicity of underling atrial fibrillation/flutter, to proceed with rate control strategy Metoprolol Tartrate 50mg twice daily, Titer up Diltiazem (to 60 mg [id number]) To proceed with close rate and rhythm surveillance during the interim and titrate/modify therapy accordingly Continuation of full-dose long-term anticoagulation is advised (as concurrent conditions permit) Was initiated on Lovenox (renal dosed), If no plan of surgical intervention, recommend transitioning to DOAC (Eliquis) Fluid volume management as per Nephrology via hemodialysis Proceed with close observation for overt signs of fluid overload Proceed with strict intakes, outputs, and daily weights On IV antibiotic therapy as managed by primary team IV Lopressor as needed for added rate control Atorvastatin 40mg q hs Amiodarone Counseled on importance on tobacco cessation Proceed with close rate and rhythm surveillance Proceed with close hemodynamic surveillance Proceed with optimized blood pressure control Transfuse to sustain HGB level above 7.0 Sustain Magnesium level greater than 2.0 Sustain Potassium level greater than 4.0 Follow up renal function and electrolytes Consider Vascular Surgery consultation for underlying peripheral arterial disease Management of ongoing concurrent medical conditions as per primary team Management of right lower extremity wound as per primary team Management of ESRD on hemodialysis as per nephrology Management on tele Follow up php consultant recommendations Will proceed to follow from a cardiac perspective Further recommendations per clinical progression All available diagnostic labs, EKG's, and images were personally reviewed Plan of care discussed with and agreed upon by patient / primary RN Prognosis: Guarded Thank you for allowing me to participate in the care of this patient. Further recommendations based on patients clinical course and progression, primary attending, and other consultants. Will continue to follow with primary attending. If you have any questions or concerns, please do not hesitate to contact me. A total of 55 minutes was spent reviewing the patient record, examining the patient, making a diagnostic and therapeutic plan, discussing this plan with medical personnel, following up on diagnostic studies and following the patient for clinical stability excluding any and all procedures. At least 50% of this time was spent in direct, [id number] contact. Dietary Evaluation Review Comments: 1. Well-controlled DM is the most improtant factor in enhancing wound-healing 2. Encoauge PO feeding to meet 75% of her needs. 3. To avoid castabolism, offer Glucerna PO BID if pt eat <50% of her meals 4. F/U visit in 3-5 days Expected Outcomes/Goals: improved DM control, improved nurition status and grdual wt loss. Plan discussed with: Patient, Other (nurse) TREVA FONTANEZ MD Apr 03, 2025 06:45
[2025-04-03] MEDS ORDERED: AMIODARONE 360mg/200mL PREMIX 200 ML IV ONE (07:30)
[2025-04-03] MEDS: AMIODARONE HCL 200 MG TAB PO ONE (08:35)
--- NOTE | 2025-04-03 15:18 | DVHPN2 ---
Progress Note Date Seen: Apr 03, 2025 Medical Necessity Reason Pt with a Central, PICC or Fol: Yes The following are medically ne: PICC Line Subjective Changes from previous H/P or p: No Changes Objective vital signs Vital Sign Date Time Temp Pulse Resp B/P (MAP) Pulse Ox O2 Delivery O2 Flow Rate FiO2 04/03/25 14:20 73 18 100 04/03/25 14:14 Nasal Cannula 3.0 04/03/25 14:14 32 04/03/25 12:00 110/68 04/03/25 09:00 97.9 97.9 Total Intake and Output 04/02/25 04/02/25 04/03/25 15:00 23:00 07:00 Intake Total 600 ml 700 ml 80 ml Balance 600 ml 700 ml 80 ml medications Current Medications Medications Dose Ordered Sig/Kiana Route Start Time Stop Time Status Last Admin Dose Admin Acetaminophen 650 mg Q6HP PRN PO 03/26/25 15:00 04/01/25 11:22 650 MG Cefepime/Dextrose 50 ml @ 12.5 mls/hr Q8HR IV 03/26/25 22:00 UNV Ondansetron HCl 4 mg Q4HP PRN IV 03/26/25 15:00 Docusate Sodium 100 mg BIDPRN PRN PO 03/26/25 15:00 Diagnostic Test (Pha) 1 strip Q6HR 03/26/25 18:00 04/03/25 12:03 1 STRIP Insulin Human Regular Q6HR SC 03/26/25 18:00 04/03/25 12:03 3 UNITS Dextrose 50 ml UD PRN IV 03/26/25 15:00 Nitroglycerin 0.4 mg Q5MINP PRN SL 03/26/25 15:00 Nicotine 1 patch HS TD 03/27/25 22:00 04/02/25 22:11 1 PATCH Acetaminophen/ Hydrocodone Bitart 1 tab Q8HP PRN PO 03/27/25 11:00 04/03/25 08:39 1 TAB Pantoprazole Sodium 40 mg DAILY IV 03/28/25 10:00 04/03/25 08:33 40 MG Sevelamer HCl 1,600 mg TIDWM PO 03/27/25 18:00 04/03/25 12:03 1,600 MG Sodium Chloride 10 ml QSHIFT@10,22 IV 03/27/25 22:00 04/03/25 08:35 10 ML Enoxaparin Sodium 140 mg DAILY SC 03/29/25 10:00 04/03/25 08:34 140 MG Patient Own Medication 1 tab BID PRN PO 03/28/25 13:15 Citalopram Hydrobromide 40 mg DAILY PO 03/29/25 10:00 04/03/25 08:34 40 MG Ipratropium [place] 0.5 mg Q4HR NEB 03/28/25 18:00 04/03/25 14:14 0.5 MG Metoprolol Tartrate 50 mg BID PO 03/30/25 22:00 04/03/25 08:34 50 MG Atorvastatin Calcium 40 mg HS PO 03/30/25 22:00 04/02/25 22:11 40 MG Epoetin Dante-epbx 4,000 unit MWF@1800 SC 04/01/25 18:00 04/01/25 17:54 4,000 UNIT Diltiazem HCl 60 mg Q6HR PO 04/01/25 12:00 04/03/25 05:16 60 MG Meropenem 50 ml @ 17 mls/hr DAILY IV 04/02/25 10:00 04/03/25 08:35 17 MLS/HR Examination: GENERAL:Normal, CVS:Normal, SKIN:Normal laboratory and microbiology Laboratory Tests 04/02/25 05:20 Test 04/02/25 05:20 Range/Units Serum Glucose 99 74-106 mg/dL Microbiology Date/Time Source Procedure Growth Status 03/27/25 06:20 Nose MRSA Screen - Final Complete 03/26/25 13:34 Blood Blood Culture - Final NO GROWTH AFTER 5 DAYS OF INCUBATION. Complete Problem List/Assessment/Plan Problem List/Assessment/Plan End-stage renal disease on hemodialysis Shock likely septic shock Morbid obesity Fluid overload Hyperkalemia Diabetes Right lower extremity foot wound gram negative wound infection Anemia due to chronic kidney disease Hemodialysis Sepsis IV antibiotics Epogen 3 times a week Renal diet when tolerating p.o. Glycemic control as per primary medical team Plan discussed with: Patient Dietary Evaluation Review Comments: 1. Well-controlled DM is the most improtant factor in enhancing wound-healing 2. Encoauge PO feeding to meet 75% of her needs. 3. To avoid castabolism, offer Glucerna PO BID if pt eat <50% of her meals 4. F/U visit in 3-5 days Expected Outcomes/Goals: improved DM control, improved nurition status and grdual wt loss. Total Time (mins): 33 YANIQUE ROBLES MD Apr 03, 2025 15:18
--- NOTE | 2025-04-03 16:08 | DVHPNRES ---
Progress Note Date Seen: Apr 03, 2025 Resident Creating Document: CANDIDA FRANCE RESIDENT Medical Necessity Reason Pt with a Central, PICC or Fol: Yes The following are medically ne: PICC Line Subjective Review of Systems Patient is a 52-year-old female with past medical history of CHF, ESRD on hemodialysis Tuesday, Tuesday, Tuesday, asthma, COPD, sleep apnea, type 2 diabetes, chronic respiratory failure on home oxygen 2 L, comes in due to right lower extremity pain a discharge. According to the patient, for the last 1 month she has been experiencing right lower extremity pain along with redness and a foul-smelling discharge, denies any trauma to the right lower extremity. Patient is a poor historian. On review of systems patient is denying chest pain, dyspnea, orthopnea, nausea, vomiting, palpitations. At baseline patient produces minimal urine every other day. Upon further probing, patient also disclosed she has history of atrial flutter Past surgical history: Cholecystectomy, section, appendectomy Social & Personal history: Patient resides at [facility] in [place]. Patient seen and examined at bedside. Patient is alert and oriented to time, place person and responding to some questions but not all. On review of systems, patient is denying any complaints, however, is complaining of severe pain to the right lower extremity. 03/28/2025: Patient improved from yesterday, on minimal Levophed at 2 micrograms/hour. Complaining of itching all over, denying skin checks as well as bed baths. 03/29/2025: Patient on Levophed 2 micrograms/minute, wound culture growing Pseudomonas, Serratia, GBS, Serratia and Pseudomonas sensitive to cefepime, we will continue. MRI showed no osteomyelitis, however, noted to have cyanotic toes on the right lower extremity, ordered bilateral arterial Doppler which showed [id number] peripheral arterial disease, consulted vascular surgery. 04/01/25: reports feeling better than before. started on IV meropenem, dc'ed vanc, cefepime and metronidazole 04/03/2025: Patient discharged on 04/02/2025, however, due to miscommunication about IV amiodarone between RN and sr. social media & mobile manager discharge was delayed to 04/03/2025. IV amiodarone was transitioned to p.o. amiodarone on 04/02/2025 around 5:45 p.m. and was communicated to RIYA Hyde at the time. Patient seen and examined at bedside today, denies any new complaints. Last bowel movement was yesterday. Stable on 2 L O2 via NC. Scheduled for [facility] and IV meropenem 500 for 14 days., pending pickup by [facility]. Objective vital signs Vital Sign Date Time Temp Pulse Resp B/P (MAP) Pulse Ox O2 Delivery O2 Flow Rate FiO2 04/03/25 14:20 73 18 100 04/03/25 14:14 Nasal Cannula 3.0 04/03/25 14:14 32 04/03/25 12:00 110/68 04/03/25 09:00 97.9 97.9 Total Intake and Output 04/02/25 04/02/25 04/03/25 15:00 23:00 07:00 Intake Total 600 ml 700 ml 80 ml Balance 600 ml 700 ml 80 ml medications Current Medications Medications Dose Ordered Sig/Kiana Route Start Time Stop Time Status Last Admin Dose Admin Acetaminophen 650 mg Q6HP PRN PO 03/26/25 15:00 04/01/25 11:22 650 MG Cefepime/Dextrose 50 ml @ 12.5 mls/hr Q8HR IV 03/26/25 22:00 UNV Ondansetron HCl 4 mg Q4HP PRN IV 03/26/25 15:00 Docusate Sodium 100 mg BIDPRN PRN PO 03/26/25 15:00 Diagnostic Test (Pha) 1 strip Q6HR 03/26/25 18:00 04/03/25 12:03 1 STRIP Insulin Human Regular Q6HR SC 03/26/25 18:00 04/03/25 12:03 3 UNITS Dextrose 50 ml UD PRN IV 03/26/25 15:00 Nitroglycerin 0.4 mg Q5MINP PRN SL 03/26/25 15:00 Nicotine 1 patch HS TD 03/27/25 22:00 04/02/25 22:11 1 PATCH Acetaminophen/ Hydrocodone Bitart 1 tab Q8HP PRN PO 03/27/25 11:00 04/03/25 08:39 1 TAB Pantoprazole Sodium 40 mg DAILY IV 03/28/25 10:00 04/03/25 08:33 40 MG Sevelamer HCl 1,600 mg TIDWM PO 03/27/25 18:00 04/03/25 12:03 1,600 MG Sodium Chloride 10 ml QSHIFT@10,22 IV 03/27/25 22:00 04/03/25 08:35 10 ML Enoxaparin Sodium 140 mg DAILY SC 03/29/25 10:00 04/03/25 08:34 140 MG Patient Own Medication 1 tab BID PRN PO 03/28/25 13:15 Citalopram Hydrobromide 40 mg DAILY PO 03/29/25 10:00 04/03/25 08:34 40 MG Ipratropium [place] 0.5 mg Q4HR NEB 03/28/25 18:00 04/03/25 14:14 0.5 MG Metoprolol Tartrate 50 mg BID PO 03/30/25 22:00 04/03/25 08:34 50 MG Atorvastatin Calcium 40 mg HS PO 03/30/25 22:00 04/02/25 22:11 40 MG Epoetin Dante-epbx 4,000 unit MWF@1800 SC 04/01/25 18:00 04/01/25 17:54 4,000 UNIT Diltiazem HCl 60 mg Q6HR PO 04/01/25 12:00 04/03/25 05:16 60 MG Meropenem 50 ml @ 17 mls/hr DAILY IV 04/02/25 10:00 04/03/25 08:35 17 MLS/HR Examination General Appearance: Cooperative. Head Exam: Constricted, equal and reactive pupils Neck Exam: Normal inspection. Non-tender. Normal alignment Pulmonary/Respiratory: Chest non-tender. Inspiratory crackles, expiratory wheezes Cardiovascular/Chest: Tachycardic, in atrial flutter No murmurs. No JVD. Abdominal Exam: Normal bowel sounds. Soft. normal abdomen, no visible veins, Nontender. No hepatospenomegaly. No masses Lower extremities: Negative lower extremity edema, stasis dermatitis with pigmentation noted on bilateral lower extremities. Right lower extremity severe cellulitis, with thick cottage cheese like foul-smelling discharge laboratory and microbiology Laboratory Tests 04/02/25 05:20 Test 04/02/25 05:20 Range/Units Serum Glucose 99 74-106 mg/dL Microbiology Date/Time Source Procedure Growth Status 03/27/25 06:20 Nose MRSA Screen - Final Complete 03/26/25 13:34 Blood Blood Culture - Final NO GROWTH AFTER 5 DAYS OF INCUBATION. Complete Labs and/or images reviewed: Labs reviewed by me, Image(s) reviewed by me Problem List/Assessment/Plan Problem List/Assessment/Plan Neurology # chronic pain syndrome - resumed home medication [place] 10q8 as needed Cardiovascular # congestive heart failure, systolic versus diastolic # Septic shock due to right lower extremity cellulitis; cultures growing Pseudomonas, Serratia marcescens, GBS # history of atrial flutter # [id number] peripheral arterial disease - on norepinephrine at 6 micrograms/minute - IV metronidazole IV cefepime - echocardiogram: Technically difficult study due to body habitus, patient position and patient unable to terminally flight. LV and RV not well visualized, likely grossly normal. LVEF greater than 50%. Valves are well visualized. - Lovenox 140 mg subcutaneous daily, modified dosing due to elevated PTT and low hemoglobin. - cardiology consulted - vascular surgery consulted Respiratory # acute on chronic hypoxic respiratory failure, on home oxygen 2 L, currently on O2 via NC 4 L with FiO2 36% # pulmonary edema # COPD exacerbation # sleep apnea, noncompliant with CPAP - ipratropium med neb, currently holding albuterol - CXR: Pulmonary edema and bilateral pleural effusions, stable cardiomegaly. GI # Peptic ulcer prophylaxis -Pantoprazole 40 mg IV daily Nephrology # ESRD on hemodialysis M, W, F # hyperkalemia - s/p hemodialysis today with 2 L removed - nephrology on board - [facility] once - retacrit 4000 units subcutaneous - sevelamer 1600 mg p.o. t.i.d. Infectious disease # right lower extremity cellulitis, cultures growing Pseudomonas, Serratia marcescens, GBS -podiatry on board - ordered right lower extremity MRI - IV metronidazole cefepime discontinued on 04/01/2025 - started IV meropenem on 04/01/2025 - right ankle x-ray: No evidence of acute fracture or dislocation, unremarkable - right foot x-ray: No evidence of acute fracture or dislocation, small plantar calcaneal enthesophyte. - right tibia fibula x-ray: No evidence of acute fracture or dislocation. - right lower extremity arterial Doppler: No sonographic evidence of arterial occlusion. Low resistance and distal capillary bed can be caused by local infection, correlate clinically. - right lower extremity venous Doppler: No evidence of DVT. - repeat bilateral lower extremity arterial Doppler 03/29/2025: Findings consistent with [id number] peripheral arterial disease with diffuse monophasic waveforms which could suggest aortoiliac inflow disease. Hem/onc # Macrocytic anemia - . Vitamin B12, folic acid - ordered serum TSH Endocrine # type 2 diabetes, uncontrolled and insulin dependent - sliding scale insulin Psychiatry # nicotine dependence # depression, possibly MDD? - nicotine patch 14 g - resumed home medication buspirone, citalopram DVT prophylaxis Patient already on Lovenox 140 mg subcutaneous daily, modified dosing due to elevated PTT and low hemoglobin. Nutrition Consistent carb diet Lines Left PICC line placed on 03/27/2025 Right chest wall hemodialysis catheter approximately 7-month-old Code status discussed greater than 20 minutes: Full CODE STATUS. Plan discussed with Dr. Talavera Plan discussed with: Patient, Other (RN) My Orders My Orders Orders - CANDIDA FRANCE RESIDENT Procedure Category Date Status Time Discharge DISCHARGE 04/02/25 Transmitted 16:39 BIPAP RT 04/02/25 Logged 17:06 Dietary Evaluation Review Comments: 1. Well-controlled DM is the most improtant factor in enhancing wound-healing 2. Encoauge PO feeding to meet 75% of her needs. 3. To avoid castabolism, offer Glucerna PO BID if pt eat <50% of her meals 4. F/U visit in 3-5 days Expected Outcomes/Goals: improved DM control, improved nurition status and grdual wt loss. Date of Service: Apr 03, 2025 Billing Provider: CHAN TALAVERA MD Common Visit Codes: 49214-[id number] INP/OBS CARE(HIGH) Secondary Visit Codes: 49615-[id number] CARE PLAN 30 MINUTES CANDIDA FRANCE Apr 03, 2025 16:08 CHAN TALAVERA MD Apr 06, 2025 12:40
== END 2025-04-03 16:40 | DRG 720 ==
LOC: ER 10:04 → OVERFLOW 14:29 → ICU WEST 15:25 → TELE-CENTR 03-30 10:11
PROVIDERS: ADMIT Internal Medicine; ATTEND Emergency Medicine
PROC: 02H633Z Insertion of Infusion Device into Right Atrium, Percutaneous Approach (ICD-10-PCS; 2025-03-27)
PROC: B548ZZA Ultrasonography of Superior Vena Cava, Guidance (ICD-10-PCS; 2025-03-27)
PROC: 5A1D70Z Performance of Urinary Filtration, Intermittent, Less than 6 Hours Per Day (ICD-10-PCS; 2025-03-27)
PROC: 5A1D70Z Performance of Urinary Filtration, Intermittent, Less than 6 Hours Per Day (ICD-10-PCS; 2025-03-28)
PROC: 5A1D70Z Performance of Urinary Filtration, Intermittent, Less than 6 Hours Per Day (ICD-10-PCS; 2025-03-30)
PROC: 5A09357 Assistance with Respiratory Ventilation, Less than 24 Consecutive Hours, Continuous Positive Airway Pressure (ICD-10-PCS; principal; 2025-03-31)
PROC: 5A09357 Assistance with Respiratory Ventilation, Less than 24 Consecutive Hours, Continuous Positive Airway Pressure (ICD-10-PCS; 2025-04-01)
PROC: 5A09357 Assistance with Respiratory Ventilation, Less than 24 Consecutive Hours, Continuous Positive Airway Pressure (ICD-10-PCS; 2025-04-02)
PROC: 5A1D70Z Performance of Urinary Filtration, Intermittent, Less than 6 Hours Per Day (ICD-10-PCS; 2025-04-02)
PROC: 5A09357 Assistance with Respiratory Ventilation, Less than 24 Consecutive Hours, Continuous Positive Airway Pressure (ICD-10-PCS; 2025-04-03)
DX: A41.52 Sepsis due to Pseudomonas (principal); J96.21 Acute and chronic respiratory failure with hypoxia; R65.21 Severe sepsis with septic shock; I50.31 Acute diastolic (congestive) heart failure; D63.1 Anemia in chronic kidney disease; I48.92 Unspecified atrial flutter; J44.1 Chronic obstructive pulmonary disease with (acute) exacerbation; L97.818 Non-pressure chronic ulcer of other part of right lower leg with other specified severity; I13.2 Hypertensive heart and chronic kidney disease with heart failure and with stage 5 chronic kidney disease, or end stage renal disease; N18.6 End stage renal disease; E11.22 Type 2 diabetes mellitus with diabetic chronic kidney disease; Z99.81 Dependence on supplemental oxygen; E11.51 Type 2 diabetes mellitus with diabetic peripheral angiopathy without gangrene; D53.9 Nutritional anemia, unspecified; E66.813 Obesity, class 3; F31.9 Bipolar disorder, unspecified; Z99.2 Dependence on renal dialysis; E87.5 Hyperkalemia; L03.115 Cellulitis of right lower limb; G47.30 Sleep apnea, unspecified; I44.30 Unspecified atrioventricular block; F17.210 Nicotine dependence, cigarettes, uncomplicated; E78.5 Hyperlipidemia, unspecified; F41.9 Anxiety disorder, unspecified; G89.4 Chronic pain syndrome; I48.91 Unspecified atrial fibrillation; I25.2 Old myocardial infarction; Z68.1 Body mass index [BMI] 19.9 or less, adult; Z91.199 Patient's noncompliance with other medical treatment and regimen due to unspecified reason; Z90.49 Acquired absence of other specified parts of digestive tract; Z98.891 History of uterine scar from previous surgery; Z88.5 Allergy status to narcotic agent; Z88.0 Allergy status to penicillin; Z82.49 Family history of ischemic heart disease and other diseases of the circulatory system; Z79.4 Long term (current) use of insulin; Z79.01 Long term (current) use of anticoagulants
CPT/HCPCS: 36415; 36556; 36569; 71045; 73590; 73600; 73630; 73718; 80048; 80053; 80061; 80202; 82607; 82728; 82746; 82962; 83036; 83540; 83550; 83605; 83735; 83880; 84100; 84443; 84484; 85025; 85610; 85730; 87040; 87077; 87081; 87186; 87205; 87340; 90935; 93005; 93306; 93925; 93926; 93971; 94640; 94660; 96365; 97110; 97163; 97530; 99291; G0378; J0692; J1642; J1815; J2185; J2470; J3490; P9047; Q9956

== ENCOUNTER 2025-05-11 16:22 | Inpatient (IN) | payer MEDICAID ==
[~2025-05-11] VITALS: Ht 167.6 cm; Wt 136.6 kg
[~2025-05-11 16:22] MED LIST: ACET-6 PO; AMIO200T13 PO; APIX5TAB PO; ATOR40TA52 PO; B-CO-5 OR; BUSP5TAB51 PO; BUSP7.5T8 PO; CALC750C98 PO; DILT60TA PO; DIPH25CA66 PO; ESCI1TAB36 PO; ESCI20TA PO; FERR325T24 PO; FURO1TAB32 PO; GUAI600T78 PO; HYDR-4609 PO; INSLISPI SC; IPRA0.00 IN; IPRIH IN; MET50T PO; PANT40T PO; POLY335015 PO; SEVE800T20 PO; [UNRECOGNIZED DRUG - CODE] OR
--- NOTE | 2025-05-11 18:43 | ED.PDOC ---
Musculoskeletal HPI Comments 54-year-old female who came to ER for nonhealing wound on right foot. Patient was discharged here last April 03, diagnosed with # chronic pain syndrome # congestive heart failure, systolic versus diastolic# Septic shock due to right lower extremity cellulitis; cultures growing Pseudomonas, Serratia marcescens, GBS# history of atrial flutter# [id number] peripheral arterial disease# acute on chronic hypoxic respiratory failure, on home oxygen 2 L, currently on O2 via [place] 4 L with FiO2 36% # pulmonary edema # COPD exacerbation # sleep apnea, noncompliant with CPAP# ESRD on hemodialysis M, W, F # hyperkalemia# right lower extremity cellulitis, cultures growing Pseudomonas, Serratia marcescens, GBS# Macrocytic anemia# nicotine dependence # depression, possibly MDD?# OBESITY CLASS 3. Complaining of a foul-smelling, nonhealing wound on her right foot( 2nd digit), was seen by wound doctor earlier and was advised to go to the ER for evaluation and management Chief Complaint: Lower Extremity Time Seen by MD: 18:41 Primary Care Provider: NONE Reviewed Notes: Nurses Notes Allergies: Coded Allergies: Codeine (Verified Allergy, Unknown, 01/16/19) Penicillins (Verified Allergy, Unknown, 03/26/25) Home Meds Active Scripts Metoprolol Tartrate (LOPRESSOR TABLET) 50 Mg Tb, 50 MG PO BID for 30 Days, #60 TAB Prov:CANDIDA [place] RESIDENT 04/02/25 Reported Medications Acetaminophen (Acetaminophen Extra Stren) 500 Mg Tab, 500 MG PO 2 tabs Q6H for mild pain (1-4), TAB 03/27/25 Polyethylene Glycol 3350 (Miralax) 17 Gm Pow, 17 GM PO DAILY for constipation, POW 03/27/25 Insulin Lispro (Human) (Humalog) 100 Unit/Ml Inj, 100 UNIT SC, INJ 03/27/25 Ipratropium-Albuterol (Ipratropium Strawberry/Albut) 1 Marylou Marylou, 1 MARYLOU IN Q6HP PRN for SHORTNESS OF BREATH, ML 03/27/25 Sevelamer Hydrochloride (Sevelamer Hydrochloride) 800 Mg Tab, 800 MG PO 2 tab TID for hyperphospetemia r/t ESRD, TAB 03/27/25 B-Complex W/ C & Folic Acid (Maddie-Lalo) Tab, 1 OR DAILY for supplement, TAB 03/27/25 Nutritional Supplements (Nepro) Liq, 1 OR for ESRD, LIQ 03/27/25 Guaifenesin (Mucinex) 600 Mg Tab, 600 MG PO Q12HP PRN for FOR COUGH, TAB 03/27/25 Escitalopram Oxalate (Lexapro) 20 Mg Tab, 1 TAB PO DAILY for depression, #30 TAB 03/27/25 Furosemide (Lasix) 80 Mg Tab, 1 TAB PO DAILY, #30 TAB 5 Refills 03/27/25 Hydrocodone-Acetaminophen (Hydrocodone Bitartrate/AC 7.5-300 mg) 1 Tab Tab, 1 T AB PO Q8HP PRN for moderate-sevare pain (6-10), TAB 03/27/25 Ferrous Sulfate (Ferrous Sulfate) 325 Mg Tab, 325 MG PO DAILY for 30 Days, MG 03/27/25 Calcium Carbonate (Antacid) (Antacid) 750 Mg Chw, 750 MG PO Q8HP PRN for indigestion, TAB.CHEW 03/27/25 Diphenhydramine Hcl (Benadryl Allergy) 25 Mg Cap, 25 MG PO Q6HP PRN for FOR ITCHING, CAP 03/27/25 Ipratropium Strawberry Hfa (Atrovent Hfa) 17 Mcg Aer, 17 MCG IN 2 puffs Q4H PRN PRN for wheezing, AER 03/27/25 Atorvastatin Calcium (ATORVASTATIN CALCIUM) 40 Mg Tab, 1 TAB PO DAILY for hyp erlipidemia, #30 TAB 5 Refills 03/27/25 Apixaban Base (ELIQUIS) 5 Mg Tab, 5 MG PO BID for DVT prophylaxis, TAB 03/27/25 Buspirone Hcl (Buspirone Hcl) 7.5 Mg Tab, 1 TAB PO BID PRN for ANXIETY, #60 TAB 3 Refills 03/27/25 Information Source: Patient Mode of Arrival: Ambulatory Location: Right Extremity Location: Foot, Toe 2 Timing: Weeks Severity: Moderate Able to Move Extremity: Yes Bear Weight: Limited Pain: Moderate Hand Dominance: Right Mechanism: Spontaneous Circumstances: Other (Diabetes) Onset of Symptoms: Spontaneous Past Medical History PAST MEDICAL HISTORY: Asthma, CHF, COPD, DM, ESRD, HTN, [place] Surgical History: Cholecystectomy, DIRECTOR [employer]IV[employer] History: No Pertinent DIRECTOR [employer]ITI[employer]IVES History Family History Family History: Unknown Social History Smoker: Cigarettes, Less Than 1 Pack/Day Alcohol: Denies ETOH Use Drugs: Denies Drug Use Lives In: Assisted Care Constitutional: denies: chills, diaphoresis, fatigue, fever, malaise, sweats, weakness, others EENTM: denies: blurred vision, double vision, ear bleeding, ear discharge, ear drainage, ear pain, ear ringing, eye pain, eye redness, hearing loss, mouth pain, mouth swelling, nasal discharge, nose bleeding, nose congestion, nose pain, photophobia, tearing, throat pain, throat swelling, voice changes, others Respiratory: denies: cough, hemoptysis, orthopnea, SOB at rest, shortness of breath, SOB with excertion, stridor, wheezing, others Cardiovascular: denies: chest pain, dizzy spells, diaphoresis, Dyspnea on exertion, edema, irregular heart beat, left arm pain, lightheadedness, palpita tions, PND, syncope, others Gastrointestinal: denies: abdomen distended, abdominal pain, blood streaked preethi wels, constipated, diarrhea, dysphagia, difficulty swallowing, hematemesis, melena, nausea, poor appetite, poor fluid intake, rectal bleeding, rectal pain, vomiting, others Genitourinary: denies: abnormal vagina bleeding, burning, dyspareunia, dysuria, flank pain, frequency, hematuria, incontinence, pain, , vagina discharge, urgency, others Neurological: denies: dizziness, fainting, headache, left sided numbness, left sided weakness, numbness, paresthesia, pre-existing deficit, right sided numbness, right sided weakness, seizure, speech problems, tingling, tremors, weakness, others Musculoskeletal: denies: back pain, gout, joint pain, joint swelling, muscle pain, muscle stiffness, neck pain, others Integumetry: reports: wounds (Right 2nd digit right foot); denies: bruises, change in color, change in hair/nails, dryness, laceration, lesions, lumps, rash, others Allergic/Immunocompromised: denies: Difficulty Healing, Frequent Infections, Hives, Itching, others Hematologic/Lymphatic: denies: anemia, blood clots, easy bleeding, easy bruising, swollen glands, others Endocrine: denies: excessive hunger, excessive sweating, excessive thirst, excessive urination, flushing, intolerance to cold, intolerance to heat, unexplained weight gain, unexplained weight loss, others Psychiatric: denies: anxiety, bipolar disorder, depression, hopeless, panic disorder, schizophrenia, sleepless, suicidal, others Physical Exam General Appearance: No Apparent Distress, Normal HEENT: Normal ENT Inspection, Pharynx Normal, TMs Normal Neck: Full Range of Motion, Non-Tender, Normal, Normal Inspection Respiratory: Chest Non-Tender, Lungs Clear, No Accessory Muscle Use, No Respiratory Distress, Normal Breath Sounds Cardiovascular: No Edema, No JVD, No Murmur, No Gallop, Normal Peripheral Pulses, Regular Rate/Rhythm Breast Exam: Deferred Gastrointestinal: No Organomegaly, Non Tender, No Pulsatile Mass, Normal Bowel Sounds, Soft Genitalia: Deferred Pelvic: Deferred Rectal: Deferred Extremities: No calf tenderness, Normal capillary refill, Normal inspection, Normal range of motion, Non-tender, No pedal edema Musculoskeletal : Apperance: Normal Neurologic: Alert, library supervisor II-XII nml as Tested, No Motor Deficits, Normal Affect, Normal Mood, No Sensory Deficits Cerebellar Function: Normal Reflexes: Normal Skin: Dry, Normal Color, Warm Lymphatic: No Adenopathy Was a procedure done? Was a procedure done?: No Differential Diagnosis EXT Differential Diagnosis: Cellulitis, CHF, Septic X-Ray, Labs, Meds, VS Vital Signs Date Time Temp Pulse Resp B/P (MAP) Pulse Ox O2 Delivery O2 Flow Rate FiO2 05/11/25 19:55 72 16 133/77 05/11/25 19:43 110 17 05/11/25 19:25 93 18 147/93 05/11/25 18:36 98.1 112 20 120/60 (80) 93 98.1 05/11/25 16:23 98.0 89 18 135/61 98 98.0 Lab Test 05/11/25 18:41 Range/Units White Blood Count 10.0 4.4-10.8 10^3/uL Red Blood Count 3.09 L 4.0-5.20 10^6/uL Hemoglobin 9.6 L 12.2-16.2 g/dL Hematocrit 30.0 L 36.0-46.0 % Mean Corpuscular Volume 97.0 80.0-100.0 fL Mean Corpuscular Hemoglobin 31.0 28.0-32.0 pg Mean Corpuscular Hemoglobin Concent 32.0 32.0-36.0 g/dL Red Cell Distribution Width 17.3 H 11.8-14.3 % Platelet Count 379 140-450 10^3/uL Mean Platelet Volume 7.0 6.9-10.8 fL Neutrophils (%) (Auto) 78.0 37.0-80.0 % Lymphocytes (%) (Auto) 9.8 L 10.0-50.0 % Monocytes (%) (Auto) 8.8 0.0-12.0 % Eosinophils (%) (Auto) 2.8 0.0-7.0 % Basophils (%) (Auto) 0.6 0.0-2.0 % Neutrophils # (Auto) 7.8 1.6-8.6 10 ^3/uL Lymphocytes # (Auto) 1.0 0.4-5.4 10 ^3/uL Monocytes # (Auto) 0.9 0-1.3 10 ^3/uL Eosinophils # (Auto) 0.3 0-0.8 10 ^3/uL Basophils # (Auto) 0.1 0-0.2 10 ^3/uL Nucleated Red Blood Cells 0.1 % Sodium Level 138 136-145 mmol/L Potassium Level 4.3 3.5-5.1 mmol/L Chloride Level 100 98-107 mmol/L Carbon Dioxide Level 26 20-31 mmol/L Anion Gap 12 5-15 Blood Urea Nitrogen 25 H 9-23 mg/dL Creatinine 3.28 H 0.550-1.02 mg/dL Glomerular Filtration Rate Calc 16 >90 mL/min BUN/Creatinine Ratio 7.6 L 10.0-20.0 Serum Glucose 154 H 74-106 mg/dL Lactic Acid Level 1.0 0.4-2.0 mmol/L Calcium Level 8.6 L 8.7-10.4 mg/dL Total Bilirubin 0.2 0.2-1.0 mg/dL Aspartate Amino Transferase (AST) 33 13-40 U/L Alanine Aminotransferase (ALT) 44 H 7-40 U/L Alkaline Phosphatase 464 H 46-116 U/L Total Protein 7.7 5.7-8.2 g/dL Albumin 4.0 3.2-4.8 g/dL Current Medications Medications (Trade) Dose Ordered Sig/Kiana Route Start Time Stop Time Status Last Admin Ciprofloxacin 200 ml @ 200 mls/hr ONCE ONCE IV 05/11/25 18:45 8/30/25 19:44 DC 05/11/25 19:01 Piperacillin Sod/ Tazobactam Sod 100 ml @ 100 mls/hr ONCE ONCE IV 05/11/25 18:45 05/11/25 19:44 DC 05/11/25 19:03 Morphine Sulfate 4 mg ONCE ONCE IV 05/11/25 19:30 05/11/25 19:31 DC 05/11/25 19:25 Ondansetron HCl (Zofran) 4 mg ONCE ONCE IV 05/11/25 19:30 05/11/25 19:31 DC 05/11/25 19:26 EXAM: XY R FOOT 3 VIEW XRAY REASON FOR EXAM: wound infection TECHNIQUE: AP, lateral, and oblique views of the right foot are submitted for review. COMPARISON: MRI MRI R FOOT WO CONTRAST on DOS: 03/28/25, XY R FOOT 3 VIEW XRAY on DOS: 03/26/25, XY R TIB FIB XRAY on DOS: 03/26/25, XY R ANKLE 2 VIEW XRAY on DOS: 03/26/25 FINDINGS: There is severe demineralization of the bones. There is pes planus. There are ventral and dorsal calcaneal spurs. No acute fracture or dislocation is identified within the limitations of the study. Soft tissue and bony details are obscured by overlying bandaging. No definite osseous erosion is identified. There is moderate diffuse soft tissue swelling. IMPRESSION: Evaluation is degraded by severe demineralization of the bones and overlying bandage material. Within the limitations of the study, no definite osseous erosion is identified. MRI would be more sensitive for detecting potential osteomyelitis. : XY CHEST XRAY 1 VIEW HISTORY: SOB TECHNIQUE: 1 view of the chest COMPARISON: XY CHEST PORTABLE on DOS: 03/27/25 FINDINGS/IMPRESSION: LUNGS: Central pulmonary vascular congestion. Peripheral interstitial edema. Low lung volumes, which cause crowding of the bronchovascular markings. MEDIASTINUM: Admp-dj-[id number] cardiomegaly BONES: No acute osseous abnormality OTHER: Right-sided dual-lumen dialysis catheter Time of 1ST Reevaluation: 18:43 Reevaluation 1ST: Unchanged Patient Education/Counseling: Diagnosis, Treatment Family Education/Counseling: No Family Present Sepsis Sepsis Reasesment Focused Exam Orders: Laboratory Tests 05/11/25 18:41: Lactic Acid Level 1.0 Departure 1 Departure Time of Disposition: 21:44 Impression: Primary Impression: Cellulitis of right lower extremity Additional Impressions: Gangrene of right foot Acute renal injury Disposition: ADMITTED INPATIENT Condition: Guarded Discharged With: Self Comments Patient with ongoing diabetic wounds to her right foot now with worsening gangrene and some redness and to the right foot and toes. Patient apparently has a history of Pseudomonas infection to the foot. We gave IV Cipro and Zosyn antibiotics. Patient will need to be admitted for supportive care and further workup. Lab review shows some anemia with H&H of 9.6 and 30. There is acute renal injury with BUN creatinine elevated at 25 and 3.28. Initial lactic is normal at 1.0. Critical Care Note Critical Care Time?: Yes (35 min-critical care time only) Critical care comment: Total critical care time: Approximately 36 minutes Due to a high probability of clinically significant, life threatening deterioration, the patient required my highest level of preparedness to intervene emergently and I personally spent this critical care time directly and personally managing the patient. This critical care time included obtaining a history; examining the patient; pulse oximetry; ordering and review of studies; arranging urgent treatment with development of a management plan; evaluation of patient's response to treatment; frequent reassessment; and, discussions with other providers. This critical care time was performed to assess and manage the high probability of imminent, life-threatening deterioration that could result in multi-organ failure. It was exclusive of separately billable procedures and treating other patients. Stability Stability form required: No Heart Score Heart Score: Heart Score Response (Comments) Value History N/A 0 EKG N/A 0 Age N/A 0 Risk Factors N/A 0 Troponin N/A 0 Total 0 I personally scribed for SHARON MORAN MD ([email or web address]) on 05/11/25 at 18:43. Electronically submitted by Kolby Locke ([email or web address]). I personally scribed for SHARON MORAN MD ([email or web address]) on 05/11/25 at 19:14. Electronically submitted by Kolby Locke ([email or web address]). SHARON MORAN MD May 11, 2025 18:43
--- NOTE | 2025-05-11 18:47 | DVH ---
EXAM: XY CHEST XRAY 1 VIEW HISTORY: SOB TECHNIQUE: 1 view of the chest COMPARISON: XY CHEST PORTABLE on DOS: 03/27/25 FINDINGS/IMPRESSION: LUNGS: Central pulmonary vascular congestion. Peripheral interstitial edema. Low lung volumes, which cause crowding of the bronchovascular markings. MEDIASTINUM: [id number] cardiomegaly BONES: No acute osseous abnormality OTHER: Right-sided dual-lumen dialysis catheter
--- NOTE | 2025-05-11 18:54 | DVH ---
EXAM: XY R FOOT 3 VIEW XRAY REASON FOR EXAM: wound infection TECHNIQUE: AP, lateral, and oblique views of the right foot are submitted for review. COMPARISON: MRI MRI R FOOT WO CONTRAST on DOS: 03/28/25, XY R FOOT 3 VIEW XRAY on DOS: 03/26/25, XY R T IB FIB XRAY on DOS: 03/26/25, XY R ANKLE 2 VIEW XRAY on DOS: 03/26/25 FINDINGS: There is severe demineralization of the bones. There is pes planus. There are ventral and dorsal calcaneal spurs. No acute fracture or dislocation is identified within the limitations of the study. Soft tissue and bony details are obscured by overlying bandaging. No definite osseous erosion is identified. There is moderate diffuse soft tissue swelling. IMPRESSION: Evaluation is degraded by severe demineralization of the bones and overlying bandage material. Within the limitations of the study, no definite osseous erosion is identified. MRI would be more sensitive for detecting potential osteomyelitis.
[2025-05-11] MEDS: CIPROFLOXACIN 400MG/200ML 200 ML IV ONE (19:01)
[2025-05-11] MEDS: PIPERACILLIN-TAZOB 3.375GM 100 ML IV ONE (19:03)
[2025-05-11 19:08] LABS: Hematocrit 30.0 % (36.0-46.0); Hemoglobin 9.6 g/dL (12.2-16.2); Mean Corpuscular Hemoglobin 31.0 pg (28.0-32.0); Mean Corpuscular Volume 97.0 fL (80.0-100.0); Nucleated Red Blood Cells % 0.1 %
[2025-05-11] MEDS: MORPHINE SULFATE 4 MG/ML SYR/VIAL IV ONE (19:25)
[2025-05-11 19:26] LABS: Albumin 4.0 g/dL (3.2-4.8); Anion Gap 12 (5-15); BUN/Creatinine Ratio 7.6 (10.0-20.0); Carbon Dioxide 26 mmol/L (20-31); Chloride 100 mmol/L (98-107); Potassium 4.3 mmol/L (3.5-5.1); Sodium 138 mmol/L (136-145); Total Protein 7.7 g/dL (5.7-8.2)
[2025-05-11] MEDS: ONDANSETRON HCL 4 MG/2 ML VIAL IV ONE (19:26)
[2025-05-11 19:30] LABS: Alanine Aminotransferase 44 U/L (7-40); Alkaline Phosphatase 464 U/L (46-116); Bilirubin, Total 0.2 mg/dL (0.2-1.0); Blood Urea Nitrogen 25 mg/dL (9-23); Calcium 8.6 mg/dL (8.7-10.4); Glucose 154 mg/dL (74-106)
[2025-05-11] MEDS ORDERED: DEXTROSE (50%) 50ML SYRG IV PRN (23:15)
[2025-05-11] MEDS ORDERED: DOCUSATE SOD 100 MG CAP PO PRN (23:15)
[2025-05-11] MEDS ORDERED: NITROGLYCERIN 0.4 MG SL TAB SL PRN (23:15)
[2025-05-11] MEDS ORDERED: MORPHINE SULFATE INJ 2 MG/ml SYRG IV PRN (23:15)
[2025-05-11] MEDS ORDERED: VANCOMYCIN PER PHARMACY 0 MG IV SCH (23:15)
--- NOTE | 2025-05-11 23:21 | DVHHP2 ---
History of Present Illness Reason for Visit: End-stage renal disease on hemodialysis History of Present Illness The patient is a 54-year-old female morbidly obese with past medical history of CHF, COPD, asthma, end-stage renal disease on hemodialysis --, PR, hypertension, and congestive heart failure who presented to [facility] ED with complaint of right foot nonhealing wound. Patient reports a foul-smelling non-healing wound on her right foot 2nd digit, was seen by wound care provider and was advised to come to the ER for further evaluation. Patient was seen and evaluated in the ED, laboratory data shows WBC 10.0, hemoglobin 9.6, hematocrit 30.0, platelets 379, sodium 138, potassium 4.3, BUN 25, creatinine 3.28, glucose 154, calcium 8.6, AST 33, ALT 44, alkaline phos 464, total bilirubin 0.2, blood pressure 133/77, heart rate 72, temperature 98.1 F, O2 saturation 93% on oxygen. Right foot x-ray revealing severe demineralization of the bones and overlying bandage material, no definite osseous erosion is identified. Patient was started on IV antibiotic regimen vancomycin, please see medication orders section in the computer. On my assessment, patient denied chest pain, no headache, no dizziness, no diaphoresis, currently on oxygen, no nausea, no vomiting, no fever, no chills. Patient was admitted for further evaluation and medical management. Past Medical History Asthma, CHF, COPD, DM, ESRD, HTN, PR Past Surgical History Cholecystectomy, Family History Reviewed, noncontributory to the management of this case. Past Social History The patient lives at home, denies smoking, alcohol or illicit drugs abuse. Review of Systems Constitutional: Yes: Weakness; No: Fever, Chills, Sweats, Malaise, Other Eyes: No: Pain, Vision change, Conjunctivae inflammation, Eyelid inflammation, Other, Redness ENT: No: Ear pain, Ear discharge, Nose pain, Nose discharge, Nose congestion, Mouth pain, Mouth swelling, Throat pain, Throat swelling, Other Respiratory: Shortness of breath, Other (SOB at rest); No: Cough, Dry, SOB with excertion, Wheezing, Hemoptysis, Pleuritic Pain, Sputum, Wheezing Cardiovascular: No: Chest Pain, Palpitations, Orthopnea, Paroxysmal Noc. Dyspnea, Edema, Lt Headedness, Other Gastrointestinal: No: Nausea, Vomiting, Abdominal Pain, Diarrhea, Constipation, Melena, Hematochezia, Other Genitourinary: No Dysuria, No Frequency, No Incontinence, No Hematuria, No Retention, No Other Musculoskeletal: other (Right 2nd digit right foot); No: neck pain, shoulder pain, arm pain, back pain, hand pain, leg pain, foot pain Skin: Other (Right 2nd digit right foot wound); No: Rash, Lesions, Jaundice, Br uising Neurological: No: Weakness, Numbness, Incoordination, Change in speech, Confusion, Seizures, Other Allergies: Coded Allergies: Codeine (Verified Allergy, Unknown, 01/16/19) Penicillins (Verified Allergy, Unknown, 03/26/25) Medications Current Medications Medications Dose Ordered Sig/Kiana Route Start Time Stop Time Status Last Admin Dose Admin Vancomycin HCl 0 ml @ 0 mls/hr UD IV 05/11/25 23:15 UNV Sevelamer HCl 800 mg TIDWM PO 05/12/25 08:00 UNV Multivit/Ca Carb/ B Cmplx/FA/Prenat 1 tab DAILY PO 05/12/25 10:00 UNV Atorvastatin Calcium 10 mg HS PO 05/12/25 22:00 UNV Diagnostic Test (Pha) 1 strip ACHS 05/12/25 07:00 UNV Insulin Human Regular HS SC 05/12/25 22:00 UNV Insulin Human Regular AC SC 05/12/25 07:00 UNV Dextrose 50 ml UD PRN IV 05/11/25 23:15 UNV Apixaban 5 mg BID PO 05/12/25 10:00 UNV Sodium Chloride 10 ml Q8HR IV 05/12/25 06:00 UNV Ondansetron HCl 4 mg Q4HP PRN IV 05/11/25 23:15 UNV Docusate Sodium 100 mg BIDPRN PRN PO 05/11/25 23:15 UNV Acetaminophen 650 mg Q6HP PRN PO 05/11/25 23:15 UNV Nitroglycerin 0.4 mg Q5MINP PRN SL 05/11/25 23:15 UNV Morphine Sulfate 2 mg Q30M PRN IV 05/11/25 23:15 UNV Exam Vital Signs Vital Signs Date Time Temp Pulse Resp B/P (MAP) Pulse Ox O2 Delivery O2 Flow Rate FiO2 05/11/25 23:03 98.0 105 20 110/64 (79) 99 98.0 General Appearance: Alert, Oriented X3, Cooperative, No acute distress HEENT: Atraumatic, PERRLA, EOMI, Mucous membr. moist/pink Respiratory: Normal air movement Cardiovascular: Regular rate, Normal S1, Normal S2, No murmurs Abdominal: Normal bowel sounds, Soft, No tenderness, No hepatospenomegaly, No masses Extremities: No clubbing, No cyanosis, No edema, Normal pulses, No tende rness/swelling Skin: No rashes, No significant lesion Neuro: Normal speech, Normal tone, Sensation intact, Cranial nerves 3-12 NL, Reflexes 2+, Other (Generalized weakness) Psych/Mental Status: Mental status NL, Mood NL Labs/Xrays Labs Test 05/11/25 18:41 Range/Units White Blood Count 10.0 4.4-10.8 10^3/uL Red Blood Count 3.09 L 4.0-5.20 10^6/uL Hemoglobin 9.6 L 12.2-16.2 g/dL Hematocrit 30.0 L 36.0-46.0 % Mean Corpuscular Volume 97.0 80.0-100.0 fL Mean Corpuscular Hemoglobin 31.0 28.0-32.0 pg Mean Corpuscular Hemoglobin Concent 32.0 32.0-36.0 g/dL Red Cell Distribution Width 17.3 H 11.8-14.3 % Platelet Count 379 140-450 10^3/uL Mean Platelet Volume 7.0 6.9-10.8 fL Neutrophils (%) (Auto) 78.0 37.0-80.0 % Lymphocytes (%) (Auto) 9.8 L 10.0-50.0 % Monocytes (%) (Auto) 8.8 0.0-12.0 % Eosinophils (%) (Auto) 2.8 0.0-7.0 % Basophils (%) (Auto) 0.6 0.0-2.0 % Neutrophils # (Auto) 7.8 1.6-8.6 10 ^3/uL Lymphocytes # (Auto) 1.0 0.4-5.4 10 ^3/uL Monocytes # (Auto) 0.9 0-1.3 10 ^3/uL Eosinophils # (Auto) 0.3 0-0.8 10 ^3/uL Basophils # (Auto) 0.1 0-0.2 10 ^3/uL Nucleated Red Blood Cells 0.1 % Sodium Level 138 136-145 mmol/L Potassium Level 4.3 3.5-5.1 mmol/L Chloride Level 100 98-107 mmol/L Carbon Dioxide Level 26 20-31 mmol/L Anion Gap 12 5-15 Blood Urea Nitrogen 25 H 9-23 mg/dL Creatinine 3.28 H 0.550-1.02 mg/dL Glomerular Filtration Rate Calc 16 >90 mL/min BUN/Creatinine Ratio 7.6 L 10.0-20.0 Serum Glucose 154 H 74-106 mg/dL Lactic Acid Level 1.0 0.4-2.0 mmol/L Calcium Level 8.6 L 8.7-10.4 mg/dL Total Bilirubin 0.2 0.2-1.0 mg/dL Aspartate Amino Transferase (AST) 33 13-40 U/L Alanine Aminotransferase (ALT) 44 H 7-40 U/L Alkaline Phosphatase 464 H 46-116 U/L Total Protein 7.7 5.7-8.2 g/dL Albumin 4.0 3.2-4.8 g/dL PATIENT: ISABELLE ZEPEDA ACCT: [id number] UNIT: [id number] : 1970 LOC: ER ROOM / BED: / AGE / SEX: 54 / F ADM STATUS: REG ER SERVICE 1804 ORDERING PHYSICIAN: SHARON MORAN MD PROCEDURE(s): RFOOT - R FOOT 3 VIEW XRAY REASON: wound infection ORDER NUMBER(s): [id number], ACCESSION NUMBER(s): [id number] EXAM: XY R FOOT 3 VIEW XRAY REASON FOR EXAM: wound infection TECHNIQUE: AP, lateral, and oblique views of the right foot are submitted for review. COMPARISON: MRI MRI R FOOT WO CONTRAST on DOS: 03/28/25, XY R FOOT 3 VIEW XRAY on DOS: 03/26/25, XY R TIB FIB XRAY on DOS: 03/26/25, XY R ANKLE 2 VIEW XRAY on DOS: 03/26/25 FINDINGS: There is severe demineralization of the bones. There is pes planus. There are ventral and dorsal calcaneal spurs. No acute fracture or dislocation is identified within the limitations of the study. Soft tissue and bony details are obscured by overlying bandaging. No definite osseous erosion is identified. There is moderate diffuse soft tissue swelling. IMPRESSION: Evaluation is degraded by severe demineralization of the bones and overlying bandage material. Within the limitations of the study, no definite osseous erosion is identified. MRI would be more sensitive for detecting potential osteomyelitis. ORDERING PHYSICIAN: SHARON MORAN MD PROCEDURE(s): CXR1 - CHEST XRAY 1 VIEW REASON: SOB ORDER NUMBER(s): [id number], ACCESSION NUMBER(s): [id number] EXAM: XY CHEST XRAY 1 VIEW HISTORY: SOB TECHNIQUE: 1 view of the chest COMPARISON: XY CHEST PORTABLE on DOS: 03/27/25 FINDINGS/IMPRESSION: LUNGS: Central pulmonary vascular congestion. Peripheral interstitial edema. Low lung volumes, which cause crowding of the bronchovascular markings. MEDIASTINUM: [id number] cardiomegaly BONES: No acute osseous abnormality OTHER: Right-sided dual-lumen dialysis catheter SEPSIS Sepsis Screen Date sepsis recognized/suspect: May 11, 2025 Time Sepsis recognized/suspect: 1625 Recent Procedure: No On Antibiotic Therapy: No Respiratory Rate >20: No Heart Rate >90: No Temp<36 C (96.8 F) or >38.3 C: No SBP <90 or MAP <65 mmHG: No New Acute Mental Status Change: No Is the patient on CPAP, BIPAP,: No Physician Orders R Foot 3 View Xray (05/11/25 18:04) Blood Culture (05/11/25 18:04) Electrocardigram (05/11/25 18:04) Chest Xray 1 View (05/11/25 18:04) Vancomycin Per Pharmacy (05/11/25 23:15) Sevelamer (Renagel) (05/12/25 08:00) B-Complex W/ C & Folic Tablet (Nephro-Vi (05/12/25 10:00) Consistent Carb(Ccho)Diabetes (05/12/25 Breakfast) Atorvastatin (Lipitor) (05/12/25 22:00) *Dr. Cassandra Byrne -Da [place] (05/11/25 23:09) Glucose Blood (Accu-Chek Comfort Curve T (05/12/25 07:00) Insulin R (Human) (Insulin R) (05/12/25 22:00) Insulin R (Human) (Insulin R) (05/12/25 07:00) Dextrose 50% Syringe (05/11/25 23:15) Apixaban (Eliquis) (05/12/25 10:00) Admit (05/11/25 23:09) Allergies (05/11/25 23:09) Code Status (05/11/25 23:09) Renal Standard(2gna,3gk,Lopho) (05/12/25 Breakfast) Sodium Chloride Lock (Saline Lock Ns) (05/12/25 06:00) Oxygen Per Hour (05/11/25 23:09) Ondansetron Hcl (Zofran) (05/11/25 23:15) Docusate Sodium Capsule (Colace Capsule) (05/11/25 23:15) Complete Blood Count (05/12/25 04:00) Comprehensive Metabolic Panel (05/12/25 04:00) Condition: Serious (05/11/25 23:09) Acetaminophen Tablet (Tylenol Tablet) (05/11/25 23:15) Bedrest With Bathroom Privileg (05/11/25 23:09) Sequential Compression Device (05/11/25 ) Nitroglycerin Sublingual (Ntrostat Subli (05/11/25 23:15) Morphine Sulfate Injection (05/11/25 23:15) Stat Ekg For Chest Pain (05/11/25 23:09) Notify Of Changes From Base (05/11/25 23:09) Pipelines Manager For 24 Hours (05/11/25 23:09) Emergency Dysrhythmia Protocol (05/11/25 23:09) Rhythm Strips Once Every Shift (05/11/25 23:09) Oxygen By Nasal Cannula (05/11/25 23:09) B-Type Natriuretic Peptide (05/11/25 23:18) Calcium Acetate Capsule (Phoslo Capsule) (05/12/25 08:00) Type And Screen (05/11/25 23:19) Vital Signs Date Time Temp Pulse Resp B/P (MAP) Pulse Ox O2 Delivery O2 Flow Rate FiO2 05/11/25 23:03 98.0 105 20 110/64 (79) 99 98.0 05/11/25 19:55 72 16 133/77 05/11/25 19:43 110 17 05/11/25 19:25 93 18 147/93 05/11/25 18:36 98.1 112 20 120/60 (80) 93 98.1 05/11/25 16:23 98.0 89 18 135/61 98 98.0 Laboratory Tests Test 05/11/25 18:41 Lactic Acid Level 1.0 mmol/L (0.4-2.0) White Blood Count 10.0 10^3/uL (4.4-10.8) Medications Medications Dose Ordered Sig/Kiana Route Start Time Stop Time Status Last Admin Dose Admin Ciprofloxacin 200 ml @ 200 mls/hr ONCE ONCE IV 05/11/25 18:45 05/11/25 19:44 DC 05/11/25 19:01 200 MLS/HR Morphine Sulfate 4 mg ONCE ONCE IV 05/11/25 19:30 05/11/25 19:31 DC 05/11/25 19:25 4 MG Ondansetron HCl 4 mg ONCE ONCE IV 05/11/25 19:30 05/11/25 19:31 DC 05/11/25 19:26 4 MG Piperacillin Sod/ Tazobactam Sod 100 ml @ 100 mls/hr ONCE ONCE IV 05/11/25 18:45 05/11/25 19:44 DC 05/11/25 19:03 100 MLS/HR Assessment/Plan Assessment/Plan End-stage renal disease on hemodialysis Morbid obesity Cellulitis of right lower extremity Gangrene of right foot Generalized weakness Plan 1. Admit to telemetry unit 2. Breathing treatment 3. Pain control management 4. IV antibiotic management 5. Management of fluids and electrolytes 6. Consultation for Nephrology/wound care 7. Diagnostic test right foot x-ray 8. DVT prophylaxis-on aspirin 9. Repeat labs CBC, CMP in a.m. 10. Home medication reviewed and reconciled 11. Continue with current medical management 12. Treatment plan discussed with patient and RN. Patient verbalized understanding. Plan discussed with: Patient, Other (RN) My Orders Orders - KIMBERLY ALEXANDER DNP Procedure Category Date Status Time Vancomycin Per PHA 05/11/25 Logged Pharmacy 23:15 Sevelamer (Renagel) PHA 05/12/25 Logged 08:00 B-Complex W/ C & PHA 05/12/25 Logged Folic Tablet 10:00 Consistent DIET 05/12/25 Transmitted Carb(Ccho)Diabetes Breakfast Atorvastatin (Lipitor) PHA 05/12/25 Logged 22:00 *Dr. Cassandra Fernández CONS 05/11/25 Transmitted [place] 23:09 Glucose Blood PHA 05/12/25 Logged (Accu-Chek Comfort 07:00 Insulin R (Human) PHA 05/12/25 Logged (Insulin R) 22:00 Insulin R (Human) PHA 05/12/25 Logged (Insulin R) 07:00 Dextrose 50% Syringe PHA 05/11/25 Logged 23:15 Apixaban (Eliquis) PHA 05/12/25 Logged 10:00 Admit ADMIT 05/11/25 Transmitted 23:09 Allergies JONATHAN 05/11/25 In Process 23:09 Code Status CODE 05/11/25 Transmitted 23:09 Renal DIET 05/12/25 Transmitted Standard(2gna,3gk,Lopho) Breakfast Sodium Chloride Lock PHA 05/12/25 Logged (Saline Lock Ns) 06:00 Oxygen Per Hour RT 05/11/25 Transmitted 23:09 Ondansetron Hcl PHA 05/11/25 Logged (Zofran) 23:15 Docusate Sodium PHA 05/11/25 Logged Capsule (Colace 23:15 Complete Blood Count LAB 05/12/25 Verified 04:00 Comprehensive LAB 05/12/25 Verified Metabolic Panel 04:00 Condition: Serious JONATHAN 05/11/25 In Process 23:09 Acetaminophen Tablet [facility] 05/11/25 Logged (Tylenol Tablet) 23:15 Bedrest With Bathroom JONATHAN 05/11/25 In Process Privileg 23:09 Sequential JONATHAN 05/11/25 In Process Compression Device Nitroglycerin [facility] 05/11/25 Logged Sublingual (Ntrostat 23:15 Morphine Sulfate PHA 05/11/25 Logged Injection 23:15 Stat Ekg For Chest JONATHAN 05/11/25 In Process Pain 23:09 Notify Of Changes JONATHAN 05/11/25 In Process From Base 23:09 Pipelines Manager For [facility] 05/11/25 In Process 24 Hours 23:09 Emergency Dysrhythmia JONATHAN 05/11/25 In Process Protocol 23:09 Rhythm Strips Once JONATHAN 05/11/25 In Process Every Shift 23:09 Oxygen By Nasal RT 05/11/25 Transmitted Cannula 23:09 B-Type Natriuretic LAB 05/11/25 Logged Peptide 23:18 Calcium Acetate PHA 05/12/25 Transmitted Capsule (Phoslo 08:00 Type And Screen BBK 05/11/25 Transmitted 23:19 Problem List: (1) End-stage renal disease on hemodialysis (2) Morbid obesity (3) Cellulitis of right lower extremity (4) Gangrene of right foot (5) Generalized weakness Date of Service: May 11, 2025 Billing Provider: KIMBERLY ALEXANDER DNP Common Visit Codes: [id number] INP/OBS CARE (HIGH) KIMBERLY ALEXANDER DNP May 11, 2025 23:20
[2025-05-12] MEDS: VANCOMYCIN 1GM/250ML KIT 250 ML IV SCH (01:42)
[2025-05-12] MEDS: ACETAMINOPHEN 325 MG TAB PO PRN (04:12)
[2025-05-12] MEDS: SODIUM CHLOR 0.9% PF (SALINE LOCK) 10ML VIAL/SYR IV SCH (06:00)
[2025-05-12] MEDS: ACCU-CHEK COMFORT CURVE STRIP VI SCH (06:40)
[2025-05-12] MEDS: InsuLIN REG 1unit/0.01ml Soln (100units/ml) SC SCH ×2 (06:41→21:06)
[2025-05-12 08:00] VITALS: PULSE 102; RESP 22; O2SAT 97
[2025-05-12] MEDS: SEVELAMER 800 MG TAB PO SCH (10:12)
[2025-05-12] MEDS: CALCIUM ACETATE 667 MG CAP PO SCH (10:12)
[2025-05-12] MEDS: CARVEDILOL 3.125 MG TAB PO SCH (10:13)
[2025-05-12] MEDS: B-COMPLEX W/ C & FOLIC ACID(NEPHROVITE TAB) PO SCH (10:13)
[2025-05-12] MEDS: APIXABAN 5 MG TAB PO SCH (10:13)
[2025-05-12 11:07] LABS: Hematocrit 27.1 % (36.0-46.0); Hemoglobin 8.8 g/dL (12.2-16.2); Mean Corpuscular Hemoglobin 31.5 pg (28.0-32.0); Mean Corpuscular Volume 97.3 fL (80.0-100.0); Nucleated Red Blood Cells % 0.1 %
[2025-05-12 11:26] LABS: Albumin 3.6 g/dL (3.2-4.8); Anion Gap 11 (5-15); BUN/Creatinine Ratio 7.4 (10.0-20.0); Carbon Dioxide 25 mmol/L (20-31); Chloride 101 mmol/L (98-107); Potassium 4.8 mmol/L (3.5-5.1); Sodium 137 mmol/L (136-145); Total Protein 7.1 g/dL (5.7-8.2)
[2025-05-12 11:27] LABS: Alanine Aminotransferase 70 U/L (7-40); Alkaline Phosphatase 487 U/L (46-116); Bilirubin, Total 0.3 mg/dL (0.2-1.0); Blood Urea Nitrogen 30 mg/dL (9-23); Calcium 8.5 mg/dL (8.7-10.4); Glucose 128 mg/dL (74-106)
--- NOTE | 2025-05-12 12:55 | DVHPN2 ---
Reviewed: Care Plan, H&P, Labs, Medications, Previous Orders, Radiology Changes from previous H/P or p: No Changes Eyes: No Pain, No Vision change, No Conjunctivae inflammation, No Eyelid inflammation, No Other, No Redness ENT: No Ear pain, No Ear discharge, No Nose pain, No Nose discharge, No Nose congestion, No Mouth pain, No Mouth swelling, No Throat pain, No Throat swelling, No Other Cardiovascular: No Chest Pain, No Palpitations, No Orthopnea, No Paroxysmal Noc. Dyspnea, No Edema, No Lt Headedness, No Other Respiratory: No Cough, No Dry; Shortness of breath; No SOB with excertion, No Wheezing, No Hemoptysis, No Pleuritic Pain, No Sputum; Other (SOB at rest) Gastrointestinal: No Nausea, No Vomiting, No Abdominal Pain, No Diarrhea, No Constipation, No Melena, No Hematochezia, No Other Genitourinary: No Dysuria, No Frequency, No Incontinence, No Hematuria, No Retention, No Other Musculoskeletal: other (Right 2nd digit right foot); No neck pain, No shoulder pain, No arm pain, No back pain, No hand pain, No leg pain, No foot pain Skin: No Rash, No Lesions, No Jaundice, No Bruising; Other (Right 2nd digit right foot wound) Objective Vitals Vital Signs Date Time Temp Pulse Resp B/P (MAP) Pulse Ox O2 Delivery O2 Flow Rate FiO2 05/12/25 12:00 111 05/12/25 12:00 109/65 05/12/25 12:00 98.0 20 96 98.0 05/12/25 08:00 Nasal Cannula* 2 28 Intake/Output Intake and Output 05/12/25 07:00 Intake Total 300 ml Balance 300 ml Intake IV Total 300 ml Medications Current Medications Medications Dose Ordered Sig/Kiana Route Start Time Stop Time Status Last Admin Dose Admin Vancomycin HCl 0 ml @ 0 mls/hr UD IV 05/11/25 23:15 Sevelamer HCl 800 mg TIDWM PO 05/12/25 08:00 05/12/25 12:11 800 MG Multivit/Ca Carb/ B Cmplx/FA/Prenat 1 tab DAILY PO 05/12/25 10:00 05/12/25 10:13 1 TAB Atorvastatin Calcium 10 mg HS PO 05/12/25 22:00 Diagnostic Test (Pha) 1 strip ACHS 05/12/25 07:00 05/12/25 12:09 1 STRIP Insulin Human Regular HS SC 05/12/25 22:00 Insulin Human Regular AC SC 05/12/25 07:00 05/12/25 06:41 3 UNITS Dextrose 50 ml UD PRN IV 05/11/25 23:15 Apixaban 5 mg BID PO 05/12/25 10:00 05/12/25 10:13 5 MG Sodium Chloride 10 ml Q8HR IV 05/12/25 06:00 05/12/25 06:00 10 ML Ondansetron HCl 4 mg Q4HP PRN IV 05/11/25 23:15 Docusate Sodium 100 mg BIDPRN PRN PO 05/11/25 23:15 Acetaminophen 650 mg Q6HP PRN PO 05/11/25 23:15 05/12/25 04:12 650 MG Nitroglycerin 0.4 mg Q5MINP PRN SL 05/11/25 23:15 Morphine Sulfate 2 mg Q30M PRN IV 05/11/25 23:15 Calcium Acetate 667 mg TIDWMEALS PO 05/12/25 08:00 05/12/25 12:11 667 MG Carvedilol 6.25 mg Q12HR PO 05/12/25 10:00 05/12/25 10:13 6.25 MG Laboratory Results Laboratory Tests 05/12/25 10:23 Chemistry Test 05/11/25 18:41 05/12/25 10:23 Albumin 4.0 g/dL (3.2-4.8) 3.6 g/dL (3.2-4.8) Calcium Level 8.6 mg/dL (8.7-10.4) L 8.5 mg/dL (8.7-10.4) L Total Protein 7.7 g/dL (5.7-8.2) 7.1 g/dL (5.7-8.2) Cardiac Markers Test 05/11/25 18:41 B-Type Natriuretic Peptide 147.71 pg/mL (0-100) LFT Test 05/11/25 18:41 05/12/25 10:23 Alanine Aminotransferase (ALT) 44 U/L (7-40) H 70 U/L (7-40) H Alkaline Phosphatase 464 U/L (46-116) H 487 U/L (46-116) H Aspartate Amino Transferase (AST) 33 U/L (13-40) 89 U/L (13-40) H Total Bilirubin 0.2 mg/dL (0.2-1.0) 0.3 mg/dL (0.2-1.0) Labs and/or images reviewed: Labs reviewed by me, Image(s) reviewed by me Assessment/Plan Assessment/Plan Nonhealing right foot wound: MRI right foot vancomycin consult for hot kettle tender Dr. Herrera ESRD on hemodialysis consult for Dr. Trujillo Morbid obesity Acute generalized weakness Acute on chronic CHF exacerbation Acute COPD exacerbation Diabetes Hypertension History of GA Time spent 66 minutes Advanced care planning time 20 minutes Patient is full code Plan discussed with: Patient My Orders Orders - RENETTA VALENCIA MD Procedure Category Date Status Time Mri R Foot Wo Contrast MRI 05/12/25 Logged 12:50 Vasc Arterial Niru US 05/12/25 Logged Complete 12:51 *Podiatry Consult CONS 05/12/25 Verified Sharon(Dv) 12:51 Date of Service: May 12, 2025 Billing Provider: RENETTA VALENCIA MD Common Visit Codes: [id number] CARE 30-74 MIN RENETTA VALENCIA MD May 12, 2025 12:55
--- NOTE | 2025-05-12 13:49 | DVH ---
EXAM: US BILAT LOW EXT ART DUPLEX INDICATION: <507:Reason For Study> TECHNIQUE: Grayscale and color Doppler sonographic imaging evaluation of the right and left lower ext remity arterial system was performed COMPARISON: None available at the time of dictation. FINDINGS: RIGHT LOWER EXTREMITY ARTERIES: Proximal femoral artery: 97 cm/s, monophasic Mid femoral artery: 104 cm/s, triphasic Distal femoral artery: 55 cm/s, triphasic Popliteal artery: 0 cm/s, triphasic Posterior tibial artery: 0 cm/s, triphasic Dorsalis pedis artery: 9 cm/s, triphasic LEFT LOWER EXTREMITY ARTERIES: Proximal femoral artery: 73 cm/s, monophasic Mid femoral artery: 104 cm/s, monophasic Distal femoral artery: 55 cm/s, monophasic Popliteal artery: Nonvisualized Posterior tibial artery: Nonvisualized Dorsalis pedis artery: 7 cm/s, monophasic REFERENCE VALUES: Normal velocity ranges (in cm/sec) are as follows: [employer]UMENT [employer]IC 95-140, SFA 75-105, popliteal 54-84, tibial 41-81 cm/sec. Stenosis categories: 1.5-2.0 x normal velocity = 30-49%, 2.0-4.0 x normal velocity = 50-75%, >4.0 x normal velocity = >75%. IMPRESSION: 1. Severely limited evaluation secondary to body habitus and edema. 2. No flow seen on the right lower extremity popliteal artery and posterior tibial arteries. 3. Multiple arteries nonvisualized.
--- NOTE | 2025-05-12 14:45 | DVH ---
EXAM: MRI MRI R FOOT WO CONTRAST INDICATION: Right foot nfection rule out osteomyelitis TECHNIQUE: Multiplanar, multisequence imaging of the right foot without contrast COMPARISON: XY R FOOT 3 VIEW XRAY on DOS: 05/11/25 FINDINGS: BONES: Significantly limited evaluation secondary to patient motion and large fwgtc-ye-ueal. Posterio r calcaneal tuberosity spurring. MUSCLES: Normal signal intensity and morphology. TENDONS: Intact. normal Achilles tendon thickening. LIGAMENTS: Thickening of the central cord of the plantar fascia correlate for sequelae of plantar fas ciitis. JOINT SPACES: No joint effusion. NEUROVASCULAR: Normal. OTHER: None. IMPRESSION: 1. No definitive MR evidence of osteomyelitis. 2. Significant surrounding presumed plantar soft tissue ulceration primarily at the level of the fore foot without definitive drainable fluid collection. 3. No visualized joint effusion.
[2025-05-12] MEDS: ATORVASTATIN 20 MG TAB PO SCH (21:06)
[2025-05-12] MEDS: HYDROcodone-ACET 5/325MG TAB PO PRN (21:09)
[2025-05-13] VITALS (9 sets, daily range): BP systolic 91–130; BP diastolic 52–95; PULSE 84–111; RESP 16–18; TEMP 97.8–98.5; O2SAT 3–100
--- NOTE | 2025-05-13 08:48 | DVHPN2 ---
Reviewed: Care Plan, H&P, Labs, Medications, Previous Orders, Radiology Changes from previous H/P or p: No Changes Eyes: No Pain, No Vision change, No Conjunctivae inflammation, No Eyelid inflammation, No Other, No Redness ENT: No Ear pain, No Ear discharge, No Nose pain, No Nose discharge, No Nose congestion, No Mouth pain, No Mouth swelling, No Throat pain, No Throat swelling, No Other Cardiovascular: No Chest Pain, No Palpitations, No Orthopnea, No Paroxysmal Noc. Dyspnea, No Edema, No Lt Headedness, No Other Respiratory: No Cough, No Dry; Shortness of breath; No SOB with excertion, No Wheezing, No Hemoptysis, No Pleuritic Pain, No Sputum; Other (SOB at rest) Gastrointestinal: No Nausea, No Vomiting, No Abdominal Pain, No Diarrhea, No Constipation, No Melena, No Hematochezia, No Other Genitourinary: No Dysuria, No Frequency, No Incontinence, No Hematuria, No Retention, No Other Musculoskeletal: other (Right 2nd digit right foot); No neck pain, No shoulder pain, No arm pain, No back pain, No hand pain, No leg pain, No foot pain Skin: No Rash, No Lesions, No Jaundice, No Bruising; Other (Right 2nd digit right foot wound) Objective Vitals Vital Signs Date Time Temp Pulse Resp B/P (MAP) Pulse Ox O2 Delivery O2 Flow Rate FiO2 05/13/25 05:00 98.1 91 17 98/59 (72) 99 98.1 05/13/25 00:42 Nasal Cannula* 3 32 Intake/Output Intake and Output 05/13/25 07:00 Intake Total 250 ml Balance 250 ml Intake Oral 250 ml Medications Current Medications Medications Dose Ordered Sig/Kiana Route Start Time Stop Time Status Last Admin Dose Admin Vancomycin HCl 0 ml @ 0 mls/hr UD IV 05/11/25 23:15 Sevelamer HCl 800 mg TIDWM PO 05/12/25 08:00 05/13/25 08:23 800 MG Multivit/Ca Carb/ B Cmplx/FA/Prenat 1 tab DAILY PO 05/12/25 10:00 05/12/25 10:13 1 TAB Atorvastatin Calcium 10 mg HS PO 05/12/25 22:00 05/12/25 21:06 10 MG Diagnostic Test (Pha) 1 strip ACHS 05/12/25 07:00 05/13/25 06:47 1 STRIP Insulin Human Regular HS SC 05/12/25 22:00 Insulin Human Regular AC SC 05/12/25 07:00 05/12/25 06:41 3 UNITS Dextrose 50 ml UD PRN IV 05/11/25 23:15 Apixaban 5 mg BID PO 05/12/25 10:00 05/12/25 21:06 5 MG Sodium Chloride 10 ml Q8HR IV 05/12/25 06:00 05/13/25 06:13 10 ML Ondansetron HCl 4 mg Q4HP PRN IV 05/11/25 23:15 Docusate Sodium 100 mg BIDPRN PRN PO 05/11/25 23:15 Acetaminophen 650 mg Q6HP PRN PO 05/11/25 23:15 05/13/25 00:22 650 MG Nitroglycerin 0.4 mg Q5MINP PRN SL 05/11/25 23:15 Morphine Sulfate 2 mg Q30M PRN IV 05/11/25 23:15 Calcium Acetate 667 mg TIDWMEALS PO 05/12/25 08:00 05/13/25 08:23 667 MG Carvedilol 6.25 mg Q12HR PO 05/12/25 10:00 05/12/25 21:06 6.25 MG Acetaminophen/ Hydrocodone Bitart 1 tab Q8HPRN PRN PO 05/12/25 20:30 05/13/25 06:39 1 TAB Laboratory Results Laboratory Tests 05/12/25 10:23 Chemistry Test 05/12/25 10:23 Albumin 3.6 g/dL (3.2-4.8) Calcium Level 8.5 mg/dL (8.7-10.4) L Total Protein 7.1 g/dL (5.7-8.2) LFT Test 05/12/25 10:23 Alanine Aminotransferase (ALT) 70 U/L (7-40) H Alkaline Phosphatase 487 U/L (46-116) H Aspartate Amino Transferase (AST) 89 U/L (13-40) H Total Bilirubin 0.3 mg/dL (0.2-1.0) Microbiology Microbiology Date/Time Source Procedure Growth Status 05/11/25 18:41 Blood Blood Culture - Preliminary NO GROWTH AFTER 24 HOURS OF INCUBATION. Resulted Labs and/or images reviewed: Labs reviewed by me, Image(s) reviewed by me Assessment/Plan Assessment/Plan Nonhealing right foot wound: MRI right foot no osteomyelitis, continue vancomycin consult for butcher fish Dr. Herrera ESRD on hemodialysis consult for Morbid obesity Acute generalized weakness Acute on chronic CHF exacerbation Acute COPD exacerbation Diabetes Hypertension History of ND Peripheral arterial disease right lower extremity consult for Dr. Restrepo Time spent 66 minutes Advanced care planning time 20 minutes Patient is full code Plan discussed with: Patient My Orders Orders - RENETTA VALENCIA MD Procedure Category Date Status Time Mri R Foot Wo Contrast MRI 05/12/25 Resulted 12:50 *Podiatry Consult CONS 05/12/25 Transmitted [facility]) 12:51 Bilat Low Ext Art US 05/12/25 Resulted Duplex 12:51 Date of Service: May 13, 2025 Billing Provider: RENETTA VALENCIA MD Common Visit Codes: [id number] INP/OBS CARE(HIGH) RENETTA VALENCIA MD May 13, 2025 08:48
--- NOTE | 2025-05-13 09:23 | DVHCONRES ---
Date Seen: May 13, 2025 Resident Creating Document: HELADIO BURGOS RESIDENT History of Present Illness 54-year-old female with past medical history of questionable CHF, end-stage renal disease on dialysis, Tuesday, asthma, COPD, obstructive sleep apnea, type 2 diabetes mellitus, chronic respiratory failure on home oxygen and atrial flutter presented with complaints of right foot nonhealing wound on the 2nd digit with foul-smell. Nephrology was consulted as patient has end-stage renal disease on hemodialysis Patient goes on dialysis on Tuesday Past medical history questionable CHF, end-stage renal disease on dialysis, Tuesday, asthma, COPD, obstructive sleep apnea, type 2 diabetes mellitus, chronic respiratory failure on home oxygen and atrial flutter Past surgical history No recent surgery Medication history Acetaminophen Eliquis Atorvastatin Buspirone Calcium carbonate Diphenhydramine Escitalopram iron sulfate Lasix 80 mg daily [place] Insulin Ipratropium Metoprolol Sevelamer Family History Family History: Unknown Social History Smoker: Cigarettes, Less Than 1 Pack/Day Alcohol: Denies ETOH Use Drugs: Denies Drug Use Lives In: Assisted Care Past Medical History As described in the HPI Past Surgical History As described in the HPI Family History: Cardiovascular disease G8 MOTHER, Onset:60 years & older Allergies: Coded Allergies: Codeine (Verified Allergy, Unknown, 01/16/19) Penicillins (Verified Allergy, Unknown, 03/26/25) Home Meds Active Scripts Metoprolol Tartrate (LOPRESSOR TABLET) 50 Mg Tb, 50 MG PO BID for 30 Days, #60 TAB Prov:CANDIDA [place] RESIDENT 04/02/25 Reported Medications Acetaminophen (Acetaminophen Extra Stren) 500 Mg Tab, 500 MG PO 2 tabs Q6H for mild pain (1-4), TAB 03/27/25 Polyethylene Glycol 3350 (Miralax) 17 Gm Pow, 17 GM PO DAILY for constipation, POW 03/27/25 Insulin Lispro (Human) (Humalog) 100 Unit/Ml Inj, 100 UNIT SC, INJ 03/27/25 Ipratropium-Albuterol (Ipratropium [place]/Albut) 1 Marylou Marylou, 1 MARYLOU IN Q6HP PRN for SHORTNESS OF BREATH, ML 03/27/25 Sevelamer Hydrochloride (Sevelamer Hydrochloride) 800 Mg Tab, 800 MG PO 2 tab TID for hyperphospetemia r/t ESRD, TAB 03/27/25 B-Complex W/ C & Folic Acid (Maddie-Lalo) Tab, 1 OR DAILY for supplement, TAB 03/27/25 Nutritional Supplements (Nepro) Liq, 1 OR for ESRD, LIQ 03/27/25 Guaifenesin (Mucinex) 600 Mg Tab, 600 MG PO Q12HP PRN for FOR COUGH, TAB 03/27/25 Escitalopram Oxalate (Lexapro) 20 Mg Tab, 1 TAB PO DAILY for depression, #30 TAB 03/27/25 Furosemide (Lasix) 80 Mg Tab, 1 TAB PO DAILY, #30 TAB 5 Refills 03/27/25 Hydrocodone-Acetaminophen (Hydrocodone Bitartrate/AC 7.5-300 mg) 1 Tab Tab, 1 TAB PO Q8HP PRN for moderate-sevare pain (6-10), TAB 03/27/25 Ferrous Sulfate (Ferrous Sulfate) 325 Mg Tab, 325 MG PO DAILY for 30 Days, MG 03/27/25 Calcium Carbonate (Antacid) (Antacid) 750 Mg Chw, 750 MG PO Q8HP PRN for indigestion, TAB.CHEW 03/27/25 Diphenhydramine Hcl (Benadryl Allergy) 25 Mg Cap, 25 MG PO Q6HP PRN for FOR ITCHING, CAP 03/27/25 Ipratropium [place] Hfa (Atrovent Hfa) 17 Mcg Aer, 17 MCG IN 2 puffs Q4H PRN PRN for wheezing, AER 03/27/25 Atorvastatin Calcium (ATORVASTATIN CALCIUM) 40 Mg Tab, 1 TAB PO DAILY for hyperlipidemia, #30 TAB 5 Refills 03/27/25 Apixaban Base (ELIQUIS) 5 Mg Tab, 5 MG PO BID for DVT prophylaxis, TAB 03/27/25 Buspirone Hcl (Buspirone Hcl) 7.5 Mg Tab, 1 TAB PO BID PRN for ANXIETY, #60 TAB 3 Refills 03/27/25 Current Medications Current Medications Medications (Trade) Dose Ordered Sig/Kiana Route PRN Reason Start Time Stop Time Status Last Admin Multivit/Ca Carb/ B Cmplx/FA/Prenat (Nephro-Llao Tablet) 1 tab DAILY PO 05/12/25 10:00 05/12/25 10:13 Atorvastatin Calcium (Lipitor) 10 mg HS PO 05/12/25 22:00 05/12/25 21:06 Insulin Human Regular (InsuLIN R) HS SC 05/12/25 22:00 Apixaban (Eliquis) 5 mg BID PO 05/12/25 10:00 05/12/25 21:06 Carvedilol (Coreg Tablet) 6.25 mg Q12HR PO 05/12/25 10:00 05/12/25 21:06 Acetaminophen/ Hydrocodone Bitart ([place] 5/325MG Tab) 1 tab Q8HPRN PRN PO MODERATE PAIN (4-6 PAIN SCALE) 05/12/25 20:30 05/13/25 06:39 Review of Systems As described in the HPI Vital Signs Vital Signs Date Time Temp Pulse Resp B/P (MAP) Pulse Ox O2 Delivery O2 Flow Rate FiO2 05/13/25 09:00 97.8 84 16 111/55 (73) 99 97.8 05/13/25 00:42 Nasal Cannula* 3 32 Physical Exam Examination General Appearance: Alert, Oriented X3, Cooperative, No acute distress, on home oxygen 2 L HEENT: EOMI Respiratory: Clear to auscultation, Normal air movement Cardiovascular: Regular rate, Normal S1, Normal S2 Abdominal: Normal bowel sounds Extremities: Wound dressing over right foot No cyanosis, No edema, Normal pulses, No tenderness/swelling Skin: No rashes, No breakdown Neuro: Normal speech and tone Labs/Diagnostic Data Labs Test 05/13/25 06:28 05/13/25 05:19 05/12/25 10:23 05/11/25 18:41 Range/Units POC Glucose 87 70-106 mg/dl Random Vancomycin Level 26.1 H 5-10 ug/mL White Blood Count 9.6 4.4-10.8 10^3/uL Red Blood Count 2.78 L 4.0-5.20 10^6/uL Hemoglobin 8.8 L 12.2-16.2 g/dL Hematocrit 27.1 L 36.0-46.0 % Mean Corpuscular Volume 97.3 80.0-100.0 fL Mean Corpuscular Hemoglobin 31.5 28.0-32.0 pg Mean Corpuscular Hemoglobin Concent 32.4 32.0-36.0 g/dL Red Cell Distribution Width 17.0 H 11.8-14.3 % Platelet Count 353 140-450 10^3/uL Mean Platelet Volume 7.0 6.9-10.8 fL Neutrophils (%) (Auto) 84.7 H 37.0-80.0 % Lymphocytes (%) (Auto) 5.5 L 10.0-50.0 % Monocytes (%) (Auto) 7.3 0.0-12.0 % Eosinophils (%) (Auto) 2.2 0.0-7.0 % Basophils (%) (Auto) 0.3 0.0-2.0 % Neutrophils # (Auto) 8.1 1.6-8.6 10 ^3/uL Lymphocytes # (Auto) 0.5 0.4-5.4 10 ^3/uL Monocytes # (Auto) 0.7 0-1.3 10 ^3/uL Eosinophils # (Auto) 0.2 0-0.8 10 ^3/uL Basophils # (Auto) 0 0-0.2 10 ^3/uL Nucleated Red Blood Cells 0.1 % Sodium Level 137 136-145 mmol/L Potassium Level 4.8 3.5-5.1 mmol/L Chloride Level 101 98-107 mmol/L Carbon Dioxide Level 25 20-31 mmol/L Anion Gap 11 5-15 Blood Urea Nitrogen 30 H 9-23 mg/dL Creatinine 4.04 H 0.550-1.02 mg/dL Glomerular Filtration Rate Calc 12 >90 mL/min BUN/Creatinine Ratio 7.4 L 10.0-20.0 Serum Glucose 128 H 74-106 mg/dL Calcium Level 8.5 L 8.7-10.4 mg/dL Total Bilirubin 0.3 0.2-1.0 mg/dL Aspartate Amino Transferase (AST) 89 H 13-40 U/L Alanine Aminotransferase (ALT) 70 H 7-40 U/L Alkaline Phosphatase 487 H 46-116 U/L Total Protein 7.1 5.7-8.2 g/dL Albumin 3.6 3.2-4.8 g/dL Lactic Acid Level 1.0 0.4-2.0 mmol/L B-Type Natriuretic Peptide 147.71 0-100 pg/mL Microbiology Date/Time Source Procedure Growth Status 05/11/25 18:41 Blood Blood Culture - Preliminary NO GROWTH AFTER 24 HOURS OF INCUBATION. Resulted Assessment Assessment # End-stage renal disease on dialysis, Mondays , Wednesdays and Tuesday Patient mentioned she makes 25-50 cc of urine , getting dialysis for last two years Has tunneled catheter in the right side # Cellulitis right 2nd digit # questionable CHF, # asthma # COPD # obstructive sleep apnea # type 2 diabetes mellitus # chronic respiratory failure on home oxygen # atrial flutter Plan/Recommendation Plan Strict input output Renal diet Monitor kidney function and electrolytes Continue home medication including calcium acetate tablets, sevelamer We will schedule the dialysis today We will arrange next dialysis on Tuesday if patient stays in the hospital Continue outpatient follow up with Nephrology after discharge Case discussion with Dr. Easton Addendum Patient seen and examined, plan discussed with resident. Agree with above, we will follow closely seen on HD Plan discussed with: Patient, Other HELADIO BURGOS May 13, 2025 09:23 MANGO EASTON MD May 13, 2025 15:50
[2025-05-13 11:25] LABS: Hepatitis B Surface Antigen Negative (Negative)
[2025-05-13 12:33] LABS: Hepatitis C Antibody Negative (Negative)
[2025-05-13] MEDS: SODIUM CHL 0.9% 1000 ML BAG XX ONE (13:20)
[2025-05-13] MEDS: EPOETIN ALFA-EPBX 4,000 UNIT/ML VIAL SC ONE (20:24)
[2025-05-14] VITALS (8 sets, daily range): BP systolic 88–134; BP diastolic 47–88; PULSE 90–105; RESP 17–19; TEMP 96.7–98.2; O2SAT 97–100
[2025-05-14] MEDS: NICOTINE 14 MG/24HR TOPICAL PATCH TD ONE (00:09)
[2025-05-14 06:43] LABS: Hematocrit 26.5 % (36.0-46.0); Hemoglobin 8.5 g/dL (12.2-16.2); Mean Corpuscular Hemoglobin 31.1 pg (28.0-32.0); Mean Corpuscular Volume 96.3 fL (80.0-100.0); Nucleated Red Blood Cells % 0.1 %
[2025-05-14 06:58] LABS: Anion Gap 11 (5-15); Carbon Dioxide 28 mmol/L (20-31); Glucose 75 mg/dL (74-106); Magnesium 2.1 mg/dL (1.6-2.6); Sodium 137 mmol/L (136-145); Total Protein 6.4 g/dL (5.7-8.2)
[2025-05-14 06:59] LABS: Albumin 3.4 g/dL (3.2-4.8); BUN/Creatinine Ratio 7.8 (10.0-20.0)
[2025-05-14 07:00] LABS: Alanine Aminotransferase 47 U/L (7-40); Alkaline Phosphatase 404 U/L (46-116); Bilirubin, Total 0.3 mg/dL (0.2-1.0); Blood Urea Nitrogen 30 mg/dL (9-23); Calcium 8.2 mg/dL (8.7-10.4); Chloride 98 mmol/L (98-107); Potassium 5.2 mmol/L (3.5-5.1)
--- NOTE | 2025-05-14 08:46 | DVHPN2 ---
Reviewed: Care Plan, H&P, Labs, Medications, Previous Orders, Radiology Changes from previous H/P or p: No Changes Eyes: No Pain, No Vision change, No Conjunctivae inflammation, No Eyelid inflammation, No Other, No Redness ENT: No Ear pain, No Ear discharge, No Nose pain, No Nose discharge, No Nose congestion, No Mouth pain, No Mouth swelling, No Throat pain, No Throat swelling, No Other Cardiovascular: No Chest Pain, No Palpitations, No Orthopnea, No Paroxysmal Noc. Dyspnea, No Edema, No Lt Headedness, No Other Respiratory: No Cough, No Dry; Shortness of breath; No SOB with excertion, No Wheezing, No Hemoptysis, No Pleuritic Pain, No Sputum; Other (SOB at rest) Gastrointestinal: No Nausea, No Vomiting, No Abdominal Pain, No Diarrhea, No Constipation, No Melena, No Hematochezia, No Other Genitourinary: No Dysuria, No Frequency, No Incontinence, No Hematuria, No Retention, No Other Musculoskeletal: other (Right 2nd digit right foot); No neck pain, No shoulder pain, No arm pain, No back pain, No hand pain, No leg pain, No foot pain Skin: No Rash, No Lesions, No Jaundice, No Bruising; Other (Right 2nd digit right foot wound) Objective Vitals Vital Signs Date Time Temp Pulse Resp B/P (MAP) Pulse Ox O2 Delivery O2 Flow Rate FiO2 05/14/25 04:53 98.0 90 18 92/58 (69) 99 98.0 05/13/25 20:00 Nasal Cannula* 3 32 Intake/Output Intake and Output 05/14/25 07:00 Intake Total 900 ml Balance 900 ml Intake Oral 900 ml # Voids 2 Medications Current Medications Medications Dose Ordered Sig/Kiana Route Start Time Stop Time Status Last Admin Dose Admin Vancomycin HCl 0 ml @ 0 mls/hr UD IV 05/11/25 23:15 Sevelamer HCl 800 mg TIDWM PO 05/12/25 08:00 05/13/25 18:10 800 MG Multivit/Ca Carb/ B Cmplx/FA/Prenat 1 tab DAILY PO 05/12/25 10:00 05/13/25 10:15 1 TAB Atorvastatin Calcium 10 mg HS PO 05/12/25 22:00 05/13/25 20:51 10 MG Diagnostic Test (Pha) 1 strip ACHS 05/12/25 07:00 05/14/25 05:53 1 STRIP Insulin Human Regular HS SC 05/12/25 22:00 Insulin Human Regular AC SC 05/12/25 07:00 05/13/25 12:26 2 UNITS Dextrose 50 ml UD PRN IV 05/11/25 23:15 Apixaban 5 mg BID PO 05/12/25 10:00 05/13/25 20:51 5 MG Sodium Chloride 10 ml Q8HR IV 05/12/25 06:00 05/14/25 04:46 10 ML Ondansetron HCl 4 mg Q4HP PRN IV 05/11/25 23:15 Docusate Sodium 100 mg BIDPRN PRN PO 05/11/25 23:15 Acetaminophen 650 mg Q6HP PRN PO 05/11/25 23:15 05/13/25 20:23 650 MG Nitroglycerin 0.4 mg Q5MINP PRN SL 05/11/25 23:15 Morphine Sulfate 2 mg Q30M PRN IV 05/11/25 23:15 Calcium Acetate 667 mg TIDWMEALS PO 05/12/25 08:00 05/13/25 18:10 667 MG Carvedilol 6.25 mg Q12HR PO 05/12/25 10:00 05/13/25 20:51 6.25 MG Acetaminophen/ Hydrocodone Bitart 1 tab Q8HPRN PRN PO 05/12/25 20:30 05/14/25 04:45 1 TAB Laboratory Results Laboratory Tests 05/14/25 05:34 Chemistry Test 05/14/25 05:34 Albumin 3.4 g/dL (3.2-4.8) Calcium Level 8.2 mg/dL (8.7-10.4) L Magnesium Level 2.1 mg/dL (1.6-2.6) Total Protein 6.4 g/dL (5.7-8.2) LFT Test 05/14/25 05:34 Alanine Aminotransferase (ALT) 47 U/L (7-40) H Alkaline Phosphatase 404 U/L (46-116) H Aspartate Amino Transferase (AST) 25 U/L (13-40) Total Bilirubin 0.3 mg/dL (0.2-1.0) Microbiology Microbiology Date/Time Source Procedure Growth Status 05/13/25 06:39 Nose MRSA Screen - Final Complete 05/11/25 18:41 Blood Blood Culture - Preliminary NO GROWTH AFTER 48 HOURS OF INCUBATION. 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 Herrera ESRD on hemodialysis consult for appreciated Morbid obesity Acute generalized weakness Acute on chronic respiratory failure Acute on chronic CHF exacerbation Acute COPD exacerbation Diabetes Hypertension History of MD Diabetes type 2 Atrial flutter Obstructive sleep apnea Peripheral arterial disease right lower extremity consult for Dr. Restrepo Time spent 65 minutes Advanced care planning time 20 minutes Patient is full code Plan discussed with: Patient My Orders Orders - RENETTA VALENCIA MD Procedure Category Date Status Time * Cardiology Consult CONS 05/13/25 Transmitted 08:48 * Refrigerator Room Clerk CONS 05/13/25 Transmitted Consult Cleanse Wound With JONATHAN 05/13/25 In Process Wound Clean 09:45 Cover Wound With Foam JONATHAN 05/13/25 In Process Dressing 09:45 * Dietary Consult CONS 05/13/25 Transmitted 13:16 Complete Blood Count LAB 05/15/25 Verified 04:00 Comprehensive LAB 05/15/25 Verified Metabolic Panel 04:00 Comprehensive LAB 05/16/25 Verified Metabolic Panel 04:00 Complete Blood Count LAB 05/16/25 Verified 04:00 Comprehensive LAB 05/17/25 Verified Metabolic Panel 04:00 Complete Blood Count LAB 05/17/25 Verified 04:00 Comprehensive LAB 05/18/25 Verified Metabolic Panel 04:00 Complete Blood Count LAB 05/18/25 Verified 04:00 Date of Service: May 14, 2025 Billing Provider: RENETTA VALENCIA MD Common Visit Codes: [id number] CARE 30-74 MIN RENETTA VALENCIA MD May 14, 2025 08:46
[2025-05-14] MEDS: SODIUM ZIRCONIUM CYCL 10 GM PAK PO ONE (10:46)
[2025-05-14] MEDS: HYDROcodone-ACET 5/325MG TAB PO PRN (10:46)
--- NOTE | 2025-05-14 12:41 | DVHINCON2 ---
Consultation - Surgical Date Seen: May 14, 2025 Referring Physician Referring Physician er Reason for Consultation pad History of Present Illness History of Present Illness 54-year-old female morbidly obese with past medical history of CHF, COPD, asthma, end-stage renal disease on hemodialysis M--, MD, hypertension, and congestive heart failure who presented to [facility] ED with complaint of right foot nonhealing wound. Patient reports a foul-smelling non- healing wound on her right foot 2nd digit, was seen by wound care provider and was advised to come to the ER for further evaluation. Patient was seen and evaluated in the ED, laboratory data shows WBC 10.0, hemoglobin 9.6, hematocrit 30.0, platelets 379, sodium 138, potassium 4.3, BUN 25, creatinine 3.28, glucose 154, calcium 8.6, AST 33, ALT 44, alkaline phos 464, total bilirubin 0.2, blood pressure 133/77, heart rate 72, temperature 98.1 F, O2 saturation 93% on oxygen. Right foot x-ray revealing severe demineralization of the bones and overlying bandage material, no definite osseous erosion is identified. P Past Medical/Surgical History Past Medical/Surgical History CHF COPD end-stage renal disease PUD Family and Social History Family and Social History Nonsmoker and nondrinker Allergies and medications Allergies: Coded Allergies: Codeine (Verified Allergy, Unknown, 01/16/19) Penicillins (Verified Allergy, Unknown, 03/26/25) Home Meds Active Scripts Metoprolol Tartrate (LOPRESSOR TABLET) 50 Mg Tb, 50 MG PO BID for 30 Days, #60 TAB Prov:CANDIDA [place] RESIDENT 04/02/25 Reported Medications Acetaminophen (Acetaminophen Extra Stren) 500 Mg Tab, 500 MG PO 2 tabs Q6H for mild pain (1-4), TAB 03/27/25 Polyethylene Glycol 3350 (Miralax) 17 Gm Pow, 17 GM PO DAILY for constipation, POW 03/27/25 Insulin Lispro (Human) (Humalog) 100 Unit/Ml Inj, 100 UNIT SC, INJ 03/27/25 Ipratropium-Albuterol (Ipratropium [place]/Albut) 1 Marylou Marylou, 1 MARYLOU IN Q6HP PRN for SHORTNESS OF BREATH, ML 03/27/25 Sevelamer Hydrochloride (Sevelamer Hydrochloride) 800 Mg Tab, 800 MG PO 2 tab TID for hyperphospetemia r/t ESRD, TAB 03/27/25 B-Complex W/ C & Folic Acid (Maddie-Lalo) Tab, 1 OR DAILY for supplement, TAB 03/27/25 Nutritional Supplements (Nepro) Liq, 1 OR for ESRD, LIQ 03/27/25 Guaifenesin (Mucinex) 600 Mg Tab, 600 MG PO Q12HP PRN for FOR COUGH, TAB 03/27/25 Escitalopram Oxalate (Lexapro) 20 Mg Tab, 1 TAB PO DAILY for depression, #30 TAB 03/27/25 Furosemide (Lasix) 80 Mg Tab, 1 TAB PO DAILY, #30 TAB 5 Refills 03/27/25 Hydrocodone-Acetaminophen (Hydrocodone Bitartrate/AC 7.5-300 mg) 1 Tab Tab, 1 T AB PO Q8HP PRN for moderate-sevare pain (6-10), TAB 03/27/25 Ferrous Sulfate (Ferrous Sulfate) 325 Mg Tab, 325 MG PO DAILY for 30 Days, MG 03/27/25 Calcium Carbonate (Antacid) (Antacid) 750 Mg Chw, 750 MG PO Q8HP PRN for indigestion, TAB.CHEW 03/27/25 Diphenhydramine Hcl (Benadryl Allergy) 25 Mg Cap, 25 MG PO Q6HP PRN for FOR ITCHING, CAP 03/27/25 Ipratropium [place] Hfa (Atrovent Hfa) 17 Mcg Aer, 17 MCG IN 2 puffs Q4H PRN PRN for wheezing, AER 03/27/25 Atorvastatin Calcium (ATORVASTATIN CALCIUM) 40 Mg Tab, 1 TAB PO DAILY for hyp erlipidemia, #30 TAB 5 Refills 03/27/25 Apixaban Base (ELIQUIS) 5 Mg Tab, 5 MG PO BID for DVT prophylaxis, TAB 03/27/25 Buspirone Hcl (Buspirone Hcl) 7.5 Mg Tab, 1 TAB PO BID PRN for ANXIETY, #60 TAB 3 Refills 03/27/25 Review of systems Review of Systems: HEENT:Normal, CVS:Normal, RESPIRATORY:Normal, GI:Normal, :Normal, MSK:Abnormal, NEURO:Normal Examination Vital signs Vital Signs Date Time Temp Pulse Resp B/P (MAP) Pulse Ox O2 Delivery O2 Flow Rate FiO2 05/14/25 09:10 95 88/47 05/14/25 09:00 97.6 18 98 97.6 05/14/25 08:00 Nasal Cannula* 3 32 Medications Current Medications Medications (Trade) Dose Ordered Sig/Kiana Route PRN Reason Start Time Stop Time Status Last Admin Acetaminophen/ Hydrocodone Bitart ([place] 5/325MG Tab) 1 tab Q6HPRN PRN PO MODERATE PAIN (4-6 PAIN SCALE) 05/14/25 09:00 05/14/25 10:46 Sevelamer HCl (Renagel) 2,400 mg TIDWM PO 05/14/25 12:00 Epoetin Dante-epbx (Retacrit) 10,000 unit MWF@2100 SC 05/15/25 21:00 Laboratory Labs Test 05/14/25 11:35 05/14/25 05:34 05/13/25 05:19 05/11/25 18:41 Range/Units POC Glucose 82 70-106 mg/dl White Blood Count 8.9 4.4-10.8 10^3/uL Red Blood Count 2.75 L 4.0-5.20 10^6/uL Hemoglobin 8.5 L 12.2-16.2 g/dL Hematocrit 26.5 L 36.0-46.0 % Mean Corpuscular Volume 96.3 80.0-100.0 fL Mean Corpuscular Hemoglobin 31.1 28.0-32.0 pg Mean Corpuscular Hemoglobin Concent 32.3 32.0-36.0 g/dL Red Cell Distribution Width 17.1 H 11.8-14.3 % Platelet Count 373 140-450 10^3/uL Mean Platelet Volume 6.9 6.9-10.8 fL Neutrophils (%) (Auto) 76.7 37.0-80.0 % Lymphocytes (%) (Auto) 10.0 10.0-50.0 % Monocytes (%) (Auto) 9.6 0.0-12.0 % Eosinophils (%) (Auto) 3.0 0.0-7.0 % Basophils (%) (Auto) 0.7 0.0-2.0 % Neutrophils # (Auto) 6.8 1.6-8.6 10 ^3/uL Lymphocytes # (Auto) 0.9 0.4-5.4 10 ^3/uL Monocytes # (Auto) 0.8 0-1.3 10 ^3/uL Eosinophils # (Auto) 0.3 0-0.8 10 ^3/uL Basophils # (Auto) 0.1 0-0.2 10 ^3/uL Nucleated Red Blood Cells 0.1 % Sodium Level 137 136-145 mmol/L Potassium Level 5.2 H 3.5-5.1 mmol/L Chloride Level 98 98-107 mmol/L Carbon Dioxide Level 28 20-31 mmol/L Anion Gap 11 5-15 Blood Urea Nitrogen 30 H 9-23 mg/dL Creatinine 3.86 H 0.550-1.02 mg/dL Glomerular Filtration Rate Calc 13 >90 mL/min BUN/Creatinine Ratio 7.8 L 10.0-20.0 Serum Glucose 75 74-106 mg/dL Calcium Level 8.2 L 8.7-10.4 mg/dL Phosphorus Level 4.4 2.4-5.1 mg/dL Magnesium Level 2.1 1.6-2.6 mg/dL Total Bilirubin 0.3 0.2-1.0 mg/dL Aspartate Amino Transferase (AST) 25 13-40 U/L Alanine Aminotransferase (ALT) 47 H 7-40 U/L Alkaline Phosphatase 404 H 46-116 U/L Total Protein 6.4 5.7-8.2 g/dL Albumin 3.4 3.2-4.8 g/dL Random Vancomycin Level 26.1 H 5-10 ug/mL Hepatitis B Surface Antigen Negative Negative Hepatitis C Antibody Negative Negative Lactic Acid Level 1.0 0.4-2.0 mmol/L B-Type Natriuretic Peptide 147.71 0-100 pg/mL Microbiology Date/Time Source Procedure Growth Status 05/13/25 06:39 Nose MRSA Screen - Final Complete 05/11/25 18:41 Blood Blood Culture - Preliminary NO GROWTH AFTER 48 HOURS OF INCUBATION. Resulted Examination: GENERAL:Normal, HEENT:Normal, NECK:Normal, CVS:Normal, ABDOMEN:Normal, MSK:Abnormal (Right 2nd 3rd toe dry gangrene.) Problem List/Assessment/Plan Problems: (1) Gangrene of right foot Assessment and Plan Right 2nd 3rd toe gangrene. Arterial duplex was unreliable secondary to body habitus. Recommend CTA with IV contrast of the abdomen and pelvis and bilateral lower extremity runoff. Podiatry evaluation Plan discussed with Plan discussed with: Patient Visit Coding Surgery Date of Service if different f: May 14, 2025 Billing Provider: CHARITY HERNANDEZ Jr., MD Surgery Visit Codes: 14712 - INP CONSULT <80 MIN CHARITY HERNANDEZ Jr., MD May 14, 2025 12:41
[2025-05-14] MEDS: SEVELAMER 800 MG TAB PO SCH (13:44)
--- NOTE | 2025-05-14 19:33 | DVHPN2 ---
Progress Note Date Seen: May 14, 2025 Resident Creating Document: HELADIO BURGOS RESIDENT Medical Necessity Reason Pt with a Central, PICC or Fol: No Subjective Review of Systems History of Present Illness 54-year-old female with past medical history of questionable CHF, end-stage renal disease on dialysis, Tuesday, asthma, COPD, obstructive sleep apnea, type 2 diabetes mellitus, chronic respiratory failure on home oxygen and atrial flutter presented with complaints of right foot nonhealing wound on the 2nd digit with foul-smell. Nephrology was consulted as patient has end-stage renal disease on hemodialysis Patient goes on dialysis on Tuesday Past medical history questionable CHF, end-stage renal disease on dialysis, Tuesday, asthma, COPD, obstructive sleep apnea, type 2 diabetes mellitus, chronic respiratory failure on home oxygen and atrial flutter Past surgical history No recent surgery Medication history Acetaminophen Eliquis Atorvastatin Buspirone Calcium carbonate Diphenhydramine Escitalopram iron sulfate Lasix 80 mg daily [place] Insulin Ipratropium Metoprolol Sevelamer Family History Family History: Unknown Social History Smoker: Cigarettes, Less Than 1 Pack/Day Alcohol: Denies ETOH Use Drugs: Denies Drug Use Lives In: Assisted Care 05/14/25 Pt seen and examined at bedside mentions mild pain in the right foot had HD yesterday currently on o2 at 2l NC mentions generalized itching Objective vital signs Vital Sign Date Time Temp Pulse Resp B/P (MAP) Pulse Ox O2 Delivery O2 Flow Rate FiO2 05/14/25 17:00 98.2 104 19 117/69 (85) 97 98.2 05/14/25 08:00 Nasal Cannula* 3 32 Total Intake and Output 05/13/25 05/13/25 05/14/25 15:00 23:00 07:00 Intake Total 600 ml 300 ml Balance 600 ml 300 ml medications Current Medications Medications Dose Ordered Sig/Kiana Route Start Time Stop Time Status Last Admin Dose Admin Vancomycin HCl 0 ml @ 0 mls/hr UD IV 05/11/25 23:15 Multivit/Ca Carb/ B Cmplx/FA/Prenat 1 tab DAILY PO 05/12/25 10:00 05/14/25 09:07 1 TAB Atorvastatin Calcium 10 mg HS PO 05/12/25 22:00 05/13/25 20:51 10 MG Diagnostic Test (Pha) 1 strip ACHS 05/12/25 07:00 05/14/25 17:21 1 STRIP Insulin Human Regular HS SC 05/12/25 22:00 Insulin Human Regular AC SC 05/12/25 07:00 05/13/25 12:26 2 UNITS Dextrose 50 ml UD PRN IV 05/11/25 23:15 Apixaban 5 mg BID PO 05/12/25 10:00 05/14/25 09:07 5 MG Sodium Chloride 10 ml Q8HR IV 05/12/25 06:00 05/14/25 14:00 10 ML Ondansetron HCl 4 mg Q4HP PRN IV 05/11/25 23:15 Docusate Sodium 100 mg BIDPRN PRN PO 05/11/25 23:15 Acetaminophen 650 mg Q6HP PRN PO 05/11/25 23:15 05/13/25 20:23 650 MG Nitroglycerin 0.4 mg Q5MINP PRN SL 05/11/25 23:15 Morphine Sulfate 2 mg Q30M PRN IV 05/11/25 23:15 Calcium Acetate 667 mg TIDWMEALS PO 05/12/25 08:00 05/14/25 17:22 667 MG Carvedilol 6.25 mg Q12HR PO 05/12/25 10:00 05/13/25 20:51 6.25 MG Acetaminophen/ Hydrocodone Bitart 1 tab Q6HPRN PRN PO 05/14/25 09:00 05/14/25 17:22 1 TAB Sevelamer HCl 2,400 mg TIDWM PO 05/14/25 12:00 05/14/25 17:22 2,400 MG Epoetin Dante-epbx 10,000 unit MWF@2100 [place] 05/15/25 21:00 Examination Examination General Appearance: Alert, Oriented X3, Cooperative, No acute distress, on home oxygen 2 L HEENT: EOMI Respiratory: Clear to auscultation, Normal air movement Cardiovascular: Regular rate, Normal S1, Normal S2 Abdominal: Normal bowel sounds Extremities: Wound dressing over right foot No cyanosis, No edema, Normal pulses, No tenderness/swelling Skin: No rashes, No breakdown Neuro: Normal speech and tone laboratory and microbiology Laboratory Tests 05/14/25 05:34 Test 05/14/25 05:34 Range/Units Serum Glucose 75 74-106 mg/dL Microbiology Date/Time Source Procedure Growth Status 05/13/25 06:39 Nose MRSA Screen - Final Complete 05/11/25 18:41 Blood Blood Culture - Preliminary NO GROWTH AFTER 72 HOURS OF INCUBATION. Resulted Labs and/or images reviewed: Labs reviewed by me, Image(s) reviewed by me Problem List/Assessment/Plan Problem List/Assessment/Plan Assessment and Plan. # End-stage renal disease on dialysis, Tuesday, Wednesdays and Tuesday Patient mentioned she makes 25-50 cc of urine, getting dialysis for last two years Has tunneled catheter in the right subclavian # Hyperkalemia # Secondary Hyperparathyroidism due to ESRD # Cellulitis right 2nd digit # questionable CHF # asthma # COPD # obstructive sleep apnea # type 2 diabetes mellitus # chronic respiratory failure on home oxygen # atrial flutter Plan Strict input output Renal diet Monitor kidney function and electrolytes Continue home medication including calcium acetate tablets, sevelamer We will arrange next dialysis tomorrow if patient stays in the hospital will order labs including Hemoglobin, Hct, Iron panel, Transferrin, Ferritin, phosphate levels and PTH levels will increase Sevelamer to 2400mg TID. ordered lokelma 10mg once for hyperkalemia (levels 5.2) recommend low potassium diet Continue outpatient follow up with Nephrology after discharge Case discussion with Dr. Stubbs Plan discussed with: Patient, Other Dietary Evaluation Review Comments: 1. CCHO-60, 110 protein 2 g NA Diet (high protein for promoting wound healing) 2. lessened wt bearing on feet and lower extremities-Wt management Expected Outcomes/Goals: gradually healed wounds with gradual wt loss, HELADIO BURGOS RESIDENT May 14, 2025 19:33
[2025-05-15] VITALS (8 sets, daily range): BP systolic 100–126; BP diastolic 59–81; PULSE 85–103; RESP 18–19; TEMP 97.6–98.1; O2SAT 95–100
[2025-05-15 05:36] LABS: Hematocrit 26.2 % (36.0-46.0); Hemoglobin 8.6 g/dL (12.2-16.2); Mean Corpuscular Hemoglobin 31.3 pg (28.0-32.0); Mean Corpuscular Volume 95.8 fL (80.0-100.0); Nucleated Red Blood Cells % 0.1 %
[2025-05-15 05:59] LABS: Alanine Aminotransferase 35 U/L (7-40); Albumin 3.7 g/dL (3.2-4.8); Anion Gap 10 (5-15); BUN/Creatinine Ratio 7.5 (10.0-20.0); Carbon Dioxide 29 mmol/L (20-31); Glucose 80 mg/dL (74-106); Iron 31.0 ug/dL (50-170); Magnesium 2.2 mg/dL (1.6-2.6); Potassium 4.2 mmol/L (3.5-5.1); Sodium 136 mmol/L (136-145); Total Iron Binding Capacity 227.0 ug/dL (250-425); Total Protein 7.2 g/dL (5.7-8.2)
[2025-05-15 06:00] LABS: Alkaline Phosphatase 387 U/L (46-116); Bilirubin, Total 0.2 mg/dL (0.2-1.0); Blood Urea Nitrogen 30 mg/dL (9-23); Calcium 8.5 mg/dL (8.7-10.4); Chloride 97 mmol/L (98-107)
--- NOTE | 2025-05-15 09:42 | DVHPN2 ---
Reviewed: Care Plan, H&P, Labs, Medications, Previous Orders, Radiology Changes from previous H/P or p: No Changes Eyes: No Pain, No Vision change, No Conjunctivae inflammation, No Eyelid inflammation, No Other, No Redness ENT: No Ear pain, No Ear discharge, No Nose pain, No Nose discharge, No Nose congestion, No Mouth pain, No Mouth swelling, No Throat pain, No Throat swelling, No Other Cardiovascular: No Chest Pain, No Palpitations, No Orthopnea, No Paroxysmal Noc. Dyspnea, No Edema, No Lt Headedness, No Other Respiratory: No Cough, No Dry; Shortness of breath; No SOB with excertion, No Wheezing, No Hemoptysis, No Pleuritic Pain, No Sputum; Other (SOB at rest) Gastrointestinal: No Nausea, No Vomiting, No Abdominal Pain, No Diarrhea, No Constipation, No Melena, No Hematochezia, No Other Genitourinary: No Dysuria, No Frequency, No Incontinence, No Hematuria, No Retention, No Other Musculoskeletal: other (Right 2nd digit right foot); No neck pain, No shoulder pain, No arm pain, No back pain, No hand pain, No leg pain, No foot pain Skin: No Rash, No Lesions, No Jaundice, No Bruising; Other (Right 2nd digit right foot wound) Objective Vitals Vital Signs Date Time Temp Pulse Resp B/P (MAP) Pulse Ox O2 Delivery O2 Flow Rate FiO2 05/15/25 08:46 93 122/63 05/15/25 07:27 97.9 18 95 97.9 05/14/25 20:00 Nasal Cannula* 3 32 Intake/Output Intake and Output 05/15/25 07:00 Intake Total 600 ml Balance 600 ml Intake Oral 600 ml # Voids 2 Medications Current Medications Medications Dose Ordered Sig/Kiana Route Start Time Stop Time Status Last Admin Dose Admin Vancomycin HCl 0 ml @ 0 mls/hr UD IV 05/11/25 23:15 Multivit/Ca Carb/ B Cmplx/FA/Prenat 1 tab DAILY PO 05/12/25 10:00 05/15/25 08:44 1 TAB Atorvastatin Calcium 10 mg HS PO 05/12/25 22:00 05/14/25 21:48 10 MG Diagnostic Test (Pha) 1 strip ACHS 05/12/25 07:00 05/15/25 05:27 1 STRIP Insulin Human Regular HS SC 05/12/25 22:00 Insulin Human Regular AC SC 05/12/25 07:00 05/13/25 12:26 2 UNITS Dextrose 50 ml UD PRN IV 05/11/25 23:15 Apixaban 5 mg BID PO 05/12/25 10:00 05/15/25 08:46 5 MG Sodium Chloride 10 ml Q8HR IV 05/12/25 06:00 05/15/25 05:27 10 ML Ondansetron HCl 4 mg Q4HP PRN IV 05/11/25 23:15 Docusate Sodium 100 mg BIDPRN PRN PO 05/11/25 23:15 Acetaminophen 650 mg Q6HP PRN PO 05/11/25 23:15 05/13/25 20:23 650 MG Nitroglycerin 0.4 mg Q5MINP PRN SL 05/11/25 23:15 Morphine Sulfate 2 mg Q30M PRN IV 05/11/25 23:15 Calcium Acetate 667 mg TIDWMEALS PO 05/12/25 08:00 05/15/25 08:44 667 MG Carvedilol 6.25 mg Q12HR PO 05/12/25 10:00 05/15/25 08:46 6.25 MG Acetaminophen/ Hydrocodone Bitart 1 tab Q6HPRN PRN PO 05/14/25 09:00 05/15/25 08:43 1 TAB Sevelamer HCl 2,400 mg TIDWM PO 05/14/25 12:00 05/15/25 08:44 2,400 MG Epoetin Dante-epbx 10,000 unit MWF@2100 [place] 05/15/25 21:00 Laboratory Results Laboratory Tests 05/15/25 04:54 Chemistry Test 05/15/25 04:54 Albumin 3.7 g/dL (3.2-4.8) Calcium Level 8.5 mg/dL (8.7-10.4) L Magnesium Level 2.2 mg/dL (1.6-2.6) Total Protein 7.2 g/dL (5.7-8.2) LFT Test 05/15/25 04:54 Alanine Aminotransferase (ALT) 35 U/L (7-40) Alkaline Phosphatase 387 U/L (46-116) H Aspartate Amino Transferase (AST) 19 U/L (13-40) Total Bilirubin 0.2 mg/dL (0.2-1.0) Microbiology Microbiology Date/Time Source Procedure Growth Status 05/13/25 06:39 Nose MRSA Screen - Final Complete 05/11/25 18:41 Blood Blood Culture - Preliminary NO GROWTH AFTER 72 HOURS OF INCUBATION. Resulted Labs and/or images reviewed: Labs reviewed by me, Image(s) reviewed by me Assessment/Plan Assessment/Plan Nonhealing right foot wound with gangrene of the right 2nd and 3rd toe: MRI right foot shows no osteomyelitis, continue vancomycin consult for abstract writer Dr. Herrera ESRD on hemodialysis consult for appreciated Morbid obesity Acute generalized weakness Acute on chronic respiratory failure Acute on chronic CHF exacerbation Acute COPD exacerbation Diabetes Hypertension History of [place] Diabetes type 2 Atrial flutter Obstructive sleep apnea Peripheral arterial disease right lower extremity consult for Dr. Restrepo appreciated, advised CT angiogram with contrast of the abdomen with the aorta runoff which was ordered Time spent 65 minutes Advanced care planning time 20 minutes Patient is full code Plan discussed with: Patient My Orders Orders - RENETTA VALENCIA MD Procedure Category Date Status Time Ct Angio Abd Aorta W CT 05/15/25 Verified Run Off 09:37 Date of Service: May 15, 2025 Billing Provider: RENETTA VALENCIA MD Common Visit Codes: [id number] INP/OBS CARE(HIGH) RENETTA VALENCIA MD May 15, 2025 09:42
--- NOTE | 2025-05-15 09:56 | DVHPN2 ---
Progress Note Date Seen: May 15, 2025 Resident Creating Document: HELADIO BURGOS RESIDENT Medical Necessity Reason Pt with a Central, PICC or Fol: No Subjective Review of Systems 54-year-old female with past medical history of questionable CHF, end-stage renal disease on dialysis, Tuesday, asthma, COPD, obstructive sleep apnea, type 2 diabetes mellitus, chronic respiratory failure on home oxygen and atrial flutter presented with complaints of right foot nonhealing wound on the 2nd digit with foul-smell. Nephrology was consulted as patient has end-stage renal disease on hemodialysis Patient goes on dialysis on Tuesday Past medical history questionable CHF, end-stage renal disease on dialysis, Tuesday, asthma, COPD, obstructive sleep apnea, type 2 diabetes mellitus, chronic respiratory failure on home oxygen and atrial flutter Past surgical history No recent surgery Medication history Acetaminophen Eliquis Atorvastatin Buspirone Calcium carbonate Diphenhydramine Escitalopram iron sulfate Lasix 80 mg daily [place] Insulin Ipratropium Metoprolol Sevelamer Family History Family History: Unknown Social History Smoker: Cigarettes, Less Than 1 Pack/Day Alcohol: Denies ETOH Use Drugs: Denies Drug Use Lives In: Assisted Care 05/14/25 Pt seen and examined at bedside mentions mild pain in the right foot had HD yesterday currently on o2 at 2l NC mentions generalized itching 05/15/25 pt seen and examined at bedside mentions mild pain in the right foot had HD today in the morning on O2 at 2L NC Objective vital signs Vital Sign Date Time Temp Pulse Resp B/P (MAP) Pulse Ox O2 Delivery O2 Flow Rate FiO2 05/15/25 08:46 93 122/63 05/15/25 07:27 97.9 18 95 97.9 05/14/25 20:00 Nasal Cannula* 3 32 Total Intake and Output 05/14/25 05/14/25 05/15/25 15:00 23:00 07:00 Intake Total 300 ml 300 ml Balance 300 ml 300 ml medications Current Medications Medications Dose Ordered Sig/Kiana Route Start Time Stop Time Status Last Admin Dose Admin Vancomycin HCl 0 ml @ 0 mls/hr UD IV 05/11/25 23:15 Multivit/Ca Carb/ B Cmplx/FA/Prenat 1 tab DAILY PO 05/12/25 10:00 05/15/25 08:44 1 TAB Atorvastatin Calcium 10 mg HS PO 05/12/25 22:00 05/14/25 21:48 10 MG Diagnostic Test (Pha) 1 strip ACHS 05/12/25 07:00 05/15/25 05:27 1 STRIP Insulin Human Regular HS SC 05/12/25 22:00 Insulin Human Regular AC SC 05/12/25 07:00 05/13/25 12:26 2 UNITS Dextrose 50 ml UD PRN IV 05/11/25 23:15 Apixaban 5 mg BID PO 05/12/25 10:00 05/15/25 08:46 5 MG Sodium Chloride 10 ml Q8HR IV 05/12/25 06:00 05/15/25 05:27 10 ML Ondansetron HCl 4 mg Q4HP PRN IV 05/11/25 23:15 Docusate Sodium 100 mg BIDPRN PRN PO 05/11/25 23:15 Acetaminophen 650 mg Q6HP PRN PO 05/11/25 23:15 05/13/25 20:23 650 MG Nitroglycerin 0.4 mg Q5MINP PRN SL 05/11/25 23:15 Morphine Sulfate 2 mg Q30M PRN IV 05/11/25 23:15 Calcium Acetate 667 mg TIDWMEALS PO 05/12/25 08:00 05/15/25 08:44 667 MG Carvedilol 6.25 mg Q12HR PO 05/12/25 10:00 05/15/25 08:46 6.25 MG Acetaminophen/ Hydrocodone Bitart 1 tab Q6HPRN PRN PO 05/14/25 09:00 05/15/25 08:43 1 TAB Sevelamer HCl 2,400 mg TIDWM PO 05/14/25 12:00 05/15/25 08:44 2,400 MG Epoetin Dante-epbx 10,000 unit MWF@2100 [place] 05/15/25 21:00 Examination Examination General Appearance: Alert, Oriented X3, Cooperative, No acute distress, on home oxygen 2 L HEENT: EOMI Respiratory: Clear to auscultation, Normal air movement Cardiovascular: Regular rate, Normal S1, Normal S2 Abdominal: Normal bowel sounds Extremities: Wound dressing over right foot No cyanosis, No edema, Normal pulses, No tenderness/swelling Skin: No rashes, No breakdown Neuro: Normal speech and tone laboratory and microbiology Laboratory Tests 05/15/25 04:54 Test 05/15/25 04:54 Range/Units Serum Glucose 80 74-106 mg/dL Microbiology Date/Time Source Procedure Growth Status 05/13/25 06:39 Nose MRSA Screen - Final Complete 05/11/25 18:41 Blood Blood Culture - Preliminary NO GROWTH AFTER 72 HOURS OF INCUBATION. Resulted Labs and/or images reviewed: Labs reviewed by me, Image(s) reviewed by me Problem List/Assessment/Plan Problem List/Assessment/Plan Assessment and Plan. # End-stage renal disease on dialysis, Tuesday, Wednesdays and Tuesday Patient mentioned she makes 25-50 cc of urine, getting dialysis for last two years Has tunneled catheter in the right subclavian # Hyperkalemia # Secondary Hyperparathyroidism due to ESRD # Anemia on chronic disease # Cellulitis right 2nd digit # questionable CHF # asthma # COPD # obstructive sleep apnea # type 2 diabetes mellitus # chronic respiratory failure on home oxygen # atrial flutter Plan Strict input output Renal diet Monitor kidney function and electrolytes Continue home medication including calcium acetate tablets, sevelamer We will arrange next dialysis on Tuesday if patient stays in the hospital labs including Hemoglobin, Hct, Iron panel, Transferrin, Ferritin, phosphate levels and PTH levels continue Sevelamer to 2400mg TID. recommend low potassium diet consider CT angio abd aorta before dialysis if not urgent Continue outpatient follow up with Nephrology after discharge Case discussion with Dr. Stubbs Plan discussed with: Patient, Other Dietary Evaluation Review Comments: 1. CCHO-60, 110 protein 2 g NA Diet (high protein for promoting wound healing) 2. lessened wt bearing on feet and lower extremities-Wt management Expected Outcomes/Goals: gradually healed wounds with gradual wt loss, HELADIO BURGOS RESIDENT May 15, 2025 09:56
--- NOTE | 2025-05-15 12:29 | MEDREC ---
[facility] Intervention Section I [facility] Intervention: Review courses of therapy (PLEASE CONSIDER FOR GRAM NEGATIVE RODS FOUND IN WOUND CULTURE) TALYA CRONIN PHARMACIST May 15, 2025 12:29
--- NOTE | 2025-05-15 14:12 | ECG ---
[facility] Test Date: 2025-05-11 Test Time: 23:41:41 Pat Name: ISABELLE ZEPEDA Department: ED Room: 0212T A Gender: F Analytical Lead: RITA : 1970 Requested By: SHARON MORAN Order Number: [id number] Reading MD: Contreras Wright Measurements Intervals [place] Rate: 99 P: 0 [place]: 0 QRS: 21 QRSD: 102 T: 62 QT: 403 QTc: 518 Interpretive Statements Atrial flutter Inferior infarct, acute (LCx) Lateral leads are also involved Prolonged QT interval Electronically Signed On 05-16-2025 14:51:33 PDT by Contreras Wright Please click the below link to view image of tracing.
[2025-05-15] MEDS: EPOETIN ALFA-EPBX 10,000 UNIT/1ML VIAL SC SCH (20:53)
[2025-05-16] VITALS (8 sets, daily range): BP systolic 90–135; BP diastolic 57–80; PULSE 92–112; RESP 17–20; TEMP 97.6–98.2; O2SAT 96–99
[2025-05-16 07:00] LABS: Alanine Aminotransferase 27 U/L (7-40); Albumin 3.8 g/dL (3.2-4.8); Alkaline Phosphatase 359 U/L (46-116); Anion Gap 9 (5-15); BUN/Creatinine Ratio 5.8 (10.0-20.0); Blood Urea Nitrogen 24 mg/dL (9-23); Calcium 8.6 mg/dL (8.7-10.4); Carbon Dioxide 29 mmol/L (20-31); Chloride 97 mmol/L (98-107); Glucose 89 mg/dL (74-106); Magnesium 2.3 mg/dL (1.6-2.6); Potassium 4.2 mmol/L (3.5-5.1); Sodium 135 mmol/L (136-145); Total Protein 7.2 g/dL (5.7-8.2)
[2025-05-16 07:02] LABS: Bilirubin, Total 0.3 mg/dL (0.2-1.0)
[2025-05-16 07:06] LABS: Hematocrit 27.6 % (36.0-46.0); Hemoglobin 8.8 g/dL (12.2-16.2); Mean Corpuscular Hemoglobin 31.1 pg (28.0-32.0); Mean Corpuscular Volume 97.5 fL (80.0-100.0); Nucleated Red Blood Cells % 0.3 %
--- NOTE | 2025-05-16 08:24 | DVHPN2 ---
Reviewed: Care Plan, H&P, Labs, Medications, Previous Orders, Radiology Changes from previous H/P or p: No Changes Eyes: No Pain, No Vision change, No Conjunctivae inflammation, No Eyelid inflammation, No Other, No Redness ENT: No Ear pain, No Ear discharge, No Nose pain, No Nose discharge, No Nose congestion, No Mouth pain, No Mouth swelling, No Throat pain, No Throat swelling, No Other Cardiovascular: No Chest Pain, No Palpitations, No Orthopnea, No Paroxysmal Noc. Dyspnea, No Edema, No Lt Headedness, No Other Respiratory: No Cough, No Dry; Shortness of breath; No SOB with excertion, No Wheezing, No Hemoptysis, No Pleuritic Pain, No Sputum; Other (SOB at rest) Gastrointestinal: No Nausea, No Vomiting, No Abdominal Pain, No Diarrhea, No Constipation, No Melena, No Hematochezia, No Other Genitourinary: No Dysuria, No Frequency, No Incontinence, No Hematuria, No Retention, No Other Musculoskeletal: other (Right 2nd digit right foot); No neck pain, No shoulder pain, No arm pain, No back pain, No hand pain, No leg pain, No foot pain Skin: No Rash, No Lesions, No Jaundice, No Bruising; Other (Right 2nd digit right foot wound) Objective Vitals Vital Signs Date Time Temp Pulse Resp B/P (MAP) Pulse Ox O2 Delivery O2 Flow Rate FiO2 05/16/25 08:13 98 102/69 05/16/25 05:00 98.2 20 98 98.2 05/15/25 20:00 Nasal Cannula* 3 32 Intake/Output Intake and Output 05/16/25 07:00 Intake Total 936 ml Balance 936 ml Intake Oral 936 ml # Voids 1 # Bowel Movements 1 Medications Current Medications Medications Dose Ordered Sig/Kiana Route Start Time Stop Time Status Last Admin Dose Admin Vancomycin HCl 0 ml @ 0 mls/hr UD IV 05/11/25 23:15 Multivit/Ca Carb/ B Cmplx/FA/Prenat 1 tab DAILY PO 05/12/25 10:00 05/16/25 08:08 1 TAB Atorvastatin Calcium 10 mg HS PO 05/12/25 22:00 05/15/25 20:59 10 MG Diagnostic Test (Pha) 1 strip ACHS 05/12/25 07:00 05/16/25 06:32 1 STRIP Insulin Human Regular HS SC 05/12/25 22:00 05/15/25 21:31 3 UNITS Insulin Human Regular AC SC 05/12/25 07:00 05/15/25 17:53 2 UNITS Dextrose 50 ml UD PRN IV 05/11/25 23:15 Apixaban 5 mg BID PO 05/12/25 10:00 05/16/25 08:07 5 MG Sodium Chloride 10 ml Q8HR IV 05/12/25 06:00 05/16/25 06:00 10 ML Ondansetron HCl 4 mg Q4HP PRN IV 05/11/25 23:15 Docusate Sodium 100 mg BIDPRN PRN PO 05/11/25 23:15 Acetaminophen 650 mg Q6HP PRN PO 05/11/25 23:15 05/13/25 20:23 650 MG Nitroglycerin 0.4 mg Q5MINP PRN SL 05/11/25 23:15 Morphine Sulfate 2 mg Q30M PRN IV 05/11/25 23:15 Calcium Acetate 667 mg TIDWMEALS PO 05/12/25 08:00 05/16/25 08:09 667 MG Carvedilol 6.25 mg Q12HR PO 05/12/25 10:00 05/16/25 08:13 6.25 MG Acetaminophen/ Hydrocodone Bitart 1 tab Q6HPRN PRN PO 05/14/25 09:00 05/16/25 06:47 1 TAB Sevelamer HCl 2,400 mg TIDWM PO 05/14/25 12:00 05/16/25 08:06 2,400 MG Epoetin Dante-epbx 10,000 unit MWF@2100 [place] 05/15/25 21:00 05/15/25 20:53 10,000 UNIT Laboratory Results Laboratory Tests 05/16/25 06:12 Chemistry Test 05/16/25 06:12 Albumin 3.8 g/dL (3.2-4.8) Calcium Level 8.6 mg/dL (8.7-10.4) L Magnesium Level 2.3 mg/dL (1.6-2.6) Total Protein 7.2 g/dL (5.7-8.2) LFT Test 05/16/25 06:12 Alanine Aminotransferase (ALT) 27 U/L (7-40) Alkaline Phosphatase 359 U/L (46-116) H Aspartate Amino Transferase (AST) 18 U/L (13-40) Total Bilirubin 0.3 mg/dL (0.2-1.0) Microbiology Microbiology Date/Time Source Procedure Growth Status 05/13/25 06:39 Nose MRSA Screen - Final Complete 05/11/25 18:41 Blood Blood Culture - Preliminary NO GROWTH AFTER 72 HOURS OF INCUBATION. Resulted Labs and/or images reviewed: Labs reviewed by me, Image(s) reviewed by me Assessment/Plan Assessment/Plan Nonhealing right foot wound with gangrene of the right 2nd and 3rd toe: MRI right foot shows no osteomyelitis, continue vancomycin add Levaquin for Gram- negative rods, consult for casualty claim adjuster Dr. Herrera pending, he is on vacation this week. Nobody covering. ESRD on hemodialysis consult for appreciated Morbid obesity Acute generalized weakness Acute on chronic respiratory failure Acute on chronic CHF exacerbation Acute COPD exacerbation Diabetes Hypertension History of [place] Diabetes type 2 Atrial flutter Obstructive sleep apnea Peripheral arterial disease right lower extremity consult for Dr. Restrepo appreciated, advised CT angiogram with contrast of the abdomen with the aorta runoff shows no flow in the right lower extremity Time spent 65 minutes Advanced care planning time 20 minutes Patient is full code Plan discussed with: Patient My Orders Orders - RENETTA VALENCIA MD Procedure Category Date Status Time Ct Angio Abd Aorta W CT 05/16/25 Logged Run Off 09:37 Date of Service: May 16, 2025 Billing Provider: RENETTA VALENCIA MD Common Visit Codes: [id number] INP/OBS CARE(HIGH) RENETTA VALENCIA MD May 16, 2025 08:24
[2025-05-16] MEDS ORDERED: VANCOMYCIN PER PHARMACY 0 MG IV SCH (08:30)
[2025-05-16] MEDS: IOHEXOL 350 MG/ML 100ML IJ ONE (08:40)
--- NOTE | 2025-05-16 10:11 | DVH ---
Indication: pad rle Technique: CT axial images of the abdominal aorta and lower extremities are obtained with contrast. C oronal and sagittal reformats were obtained. Radiation Dose Information: CTDI volume is 31.57 mGy. Dose-length product is 8.58 mGy*cm Comparison: None FINDINGS: Abdominal aorta demonstrates atherosclerotic calcification disease without high-grade stenosis/aneury smal dilatation. Moderate stenosis of the SMA proximally, approximately 60% stenosis. Moderate grade stenoses of the bilateral renal arteries, 60-70% stenoses. JOAQUIN patent. Common, external iliac arteri es demonstrate no high-grade stenosis. Right [employer] demonstrates calcification disease but no high-grade stenosis. Right SFA demonstrates mult ifocal moderate grade stenosis up to 70% most pronounced along the mid to distal aspect. Occlusion of the P2 segment of the right popliteal artery. Overall multifocal severe stenosis of the right popli teal artery. Very limited evaluation of the right tibial vasculature secondary to extensive atheroscl erotic calcification disease. The left common femoral artery demonstrates no high-grade stenosis. Left SFA demonstrates multifocal moderate high-grade stenosis. Focal severe stenosis of the mid to distal left SFA, 90% stenosis. Se brittney stenosis of the proximal left popliteal artery, 90% stenosis. Multifocal moderate to high-grade stenosis of the left popliteal artery with occlusion of the P2 segment. The tibial vasculature is ex tensively calcified and inadequately assessed. Likely single-vessel runoff through the left posterior tibial artery. Cholecystectomy. Hepatic steatosis. Cirrhotic morphology appearance liver. Nonobstructing left renal calculi up to 3 mm. Small bowel loops normal in caliber. Colonic diverticular disease. Bladder parti ally distended. Severe degenerative changes right knee. Old distal right femoral meta diaphyseal frac ture deformity with non healing changes in the femoral condylar region. Moderate degenerate changes left knee. Bilateral lower extremity fatty atrophy of the musculature. Right below the knee soft tis golden edema, skin thickening, stranding. Severe lumbar degenerative disc disease. Chronic L4 compressio n deformity with 50% loss height. IMPRESSION: Severe peripheral arterial disease. The bilateral SFA demonstrate multifocal moderate to high-grade s tenoses more pronounced within the left SFA. There is occlusion of the bilateral popliteal arteries. The bilateral infrapopliteal and tibial vasculature are extensively calcified, suboptimally charact erized. Likely single-vessel runoff to the left foot from the left posterior tibial artery. In the right infrapopliteal vasculature, there may be occlusion of all 3 vessels. Recommend vascular surger y/ IR consultation for further evaluation and management. Moderate stenoses of the SMA and bilateral renal arteries. Right [id number] soft tissue edema, skin thickening and soft tissue stranding. Recommend MRI of t he affected region if there is concern for osteomyelitis. Cirrhotic morphology liver hepatic steatosis. Nonobstructing left renal calculi colonic diverticula. Other findings as described above.
--- NOTE | 2025-05-16 10:28 | DVHPN2 ---
Progress Note Date Seen: May 16, 2025 Resident Creating Document: HELADIO BURGOS RESIDENT Medical Necessity Reason Pt with a Central, PICC or Fol: No The following are medically ne: Central Line (HD catheter) Subjective Review of Systems 54-year-old female with past medical history of questionable CHF, end-stage renal disease on dialysis, Tuesday, asthma, COPD, obstructive sleep apnea, type 2 diabetes mellitus, chronic respiratory failure on home oxygen and atrial flutter presented with complaints of right foot nonhealing wound on the 2nd digit with foul-smell. Nephrology was consulted as patient has end-stage renal disease on hemodialysis Patient goes on dialysis on Tuesday Past medical history questionable CHF, end-stage renal disease on dialysis, Tuesday, asthma, COPD, obstructive sleep apnea, type 2 diabetes mellitus, chronic respiratory failure on home oxygen and atrial flutter Past surgical history No recent surgery Medication history Acetaminophen Eliquis Atorvastatin Buspirone Calcium carbonate Diphenhydramine Escitalopram iron sulfate Lasix 80 mg daily [place] Insulin Ipratropium Metoprolol Sevelamer Family History Family History: Unknown Social History Smoker: Cigarettes, Less Than 1 Pack/Day Alcohol: Denies ETOH Use Drugs: Denies Drug Use Lives In: Assisted Care 05/14/25 Pt seen and examined at bedside mentions mild pain in the right foot had HD yesterday currently on o2 at 2l NC mentions generalized itching 05/15/25 pt seen and examined at bedside mentions mild pain in the right foot had HD today in the morning on O2 at 2L NC 05/16/25 pt seen and examined at bedside mentions mild pain in the right foot had HD done in the morning on o2 at 2l Nasal Canula Objective vital signs Vital Sign Date Time Temp Pulse Resp B/P (MAP) Pulse Ox O2 Delivery O2 Flow Rate FiO2 05/16/25 09:04 97.6 112 20 90/63 (72) 98 97.6 05/15/25 20:00 Nasal Cannula* 3 32 Total Intake and Output 05/15/25 05/15/25 05/16/25 15:00 23:00 07:00 Intake Total 436 ml 500 ml Balance 436 ml 500 ml medications Current Medications Medications Dose Ordered Sig/Kiana Route Start Time Stop Time Status Last Admin Dose Admin Multivit/Ca Carb/ B Cmplx/FA/Prenat 1 tab DAILY PO 05/12/25 10:00 05/16/25 08:08 1 TAB Atorvastatin Calcium 10 mg HS PO 05/12/25 22:00 05/15/25 20:59 10 MG Diagnostic Test (Pha) 1 strip ACHS 05/12/25 07:00 05/16/25 06:32 1 STRIP Insulin Human Regular HS SC 05/12/25 22:00 05/15/25 21:31 3 UNITS Insulin Human Regular AC SC 05/12/25 07:00 05/15/25 17:53 2 UNITS Dextrose 50 ml UD PRN IV 05/11/25 23:15 Apixaban 5 mg BID PO 05/12/25 10:00 05/16/25 08:07 5 MG Sodium Chloride 10 ml Q8HR IV 05/12/25 06:00 05/16/25 06:00 10 ML Ondansetron HCl 4 mg Q4HP PRN IV 05/11/25 23:15 Docusate Sodium 100 mg BIDPRN PRN PO 05/11/25 23:15 Acetaminophen 650 mg Q6HP PRN PO 05/11/25 23:15 05/13/25 20:23 650 MG Nitroglycerin 0.4 mg Q5MINP PRN SL 05/11/25 23:15 Morphine Sulfate 2 mg Q30M PRN IV 05/11/25 23:15 Calcium Acetate 667 mg TIDWMEALS PO 05/12/25 08:00 05/16/25 08:09 667 MG Carvedilol 6.25 mg Q12HR PO 05/12/25 10:00 05/16/25 08:13 6.25 MG Acetaminophen/ Hydrocodone Bitart 1 tab Q6HPRN PRN PO 05/14/25 09:00 05/16/25 06:47 1 TAB Sevelamer HCl 2,400 mg TIDWM PO 05/14/25 12:00 05/16/25 08:06 2,400 MG Epoetin Dante-epbx 10,000 unit MWF@2100 SC 05/15/25 21:00 05/15/25 20:53 10,000 UNIT Vancomycin HCl 0 ml @ 0 mls/hr UD IV 05/16/25 08:30 Levofloxacin 50 ml @ 50 mls/hr Q48H IV 05/18/25 22:00 Examination Examination General Appearance: Alert, Oriented X3, Cooperative, No acute distress, on home oxygen 2 L HEENT: EOMI Respiratory: Clear to auscultation, Normal air movement Cardiovascular: Regular rate, Normal S1, Normal S2 Abdominal: Normal bowel sounds Extremities: Wound dressing over right foot No cyanosis, No edema, Normal pulses, No tenderness/swelling Skin: No rashes, No breakdown Neuro: Normal speech and tone laboratory and microbiology Laboratory Tests 05/16/25 06:12 Test 05/16/25 06:12 Range/Units Serum Glucose 89 74-106 mg/dL Microbiology Date/Time Source Procedure Growth Status 05/13/25 06:39 Nose MRSA Screen - Final Complete 05/11/25 18:41 Blood Blood Culture - Preliminary NO GROWTH AFTER 72 HOURS OF INCUBATION. Resulted Labs and/or images reviewed: Labs reviewed by me, Image(s) reviewed by me Problem List/Assessment/Plan Problem List/Assessment/Plan Assessment and Plan. 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 recommend low potassium diet pt had CT angio done had HD done today because of risk of contrast induced nephropathy will reevaluate tomorrow for need for HD will schedule after that on MWF schedule in the hospital Continue outpatient follow up with Nephrology after discharge Case discussion with Dr. Robles Plan discussed with: Patient, Other Dietary Evaluation Review Comments: 1. CCHO-60, 110 protein 2 g NA Diet (high protein for promoting wound healing) 2. lessened wt bearing on feet and lower extremities-Wt management Expected Outcomes/Goals: gradually healed wounds with gradual wt loss, Total Time (mins): 33 ADDENDUM ADDENDUM CTA shows b/l PAD severe in SFA vascular surgery f/u s/p HD today recommend repeat HD tomorrow agree with resident plan above HELADIO BURGOS May 16, 2025 10:28 YANIQUE ROBLES MD May 16, 2025 21:53
--- NOTE | 2025-05-16 12:31 | MEDREC ---
[facility] Intervention Section I [facility] Intervention: Review courses of therapy (MDRO PSEUDOMONAS RESISTANT TO LEVOFLOXACIN. RECOMMEND ID CONSULT.) LM GRAVES PHARMACIST May 16, 2025 12:31
[2025-05-17] VITALS (8 sets, daily range): BP systolic 102–126; BP diastolic 54–80; PULSE 81–107; RESP 16–20; TEMP 97.4–98.8; O2SAT 97–100
[2025-05-17 09:13] LABS: Hematocrit 28.2 % (36.0-46.0); Hemoglobin 9.0 g/dL (12.2-16.2); Mean Corpuscular Hemoglobin 30.8 pg (28.0-32.0); Mean Corpuscular Volume 96.1 fL (80.0-100.0); Nucleated Red Blood Cells % 0.0 %
[2025-05-17 09:38] LABS: Alanine Aminotransferase 26 U/L (7-40); Albumin 3.8 g/dL (3.2-4.8); Anion Gap 10 (5-15); BUN/Creatinine Ratio 4.8 (10.0-20.0); Blood Urea Nitrogen 14 mg/dL (9-23); Calcium 8.8 mg/dL (8.7-10.4); Glucose 82 mg/dL (74-106); Magnesium 2.1 mg/dL (1.6-2.6); Potassium 3.5 mmol/L (3.5-5.1); Sodium 139 mmol/L (136-145); Total Protein 7.4 g/dL (5.7-8.2)
[2025-05-17 09:39] LABS: Alkaline Phosphatase 331 U/L (46-116); Bilirubin, Total 0.3 mg/dL (0.2-1.0); Carbon Dioxide 32 mmol/L (20-31); Chloride 97 mmol/L (98-107)
--- NOTE | 2025-05-17 09:43 | DVHPN2 ---
Reviewed: Care Plan, H&P, Labs, Medications, Previous Orders, Radiology Changes from previous H/P or p: No Changes Eyes: No Pain, No Vision change, No Conjunctivae inflammation, No Eyelid inflammation, No Other, No Redness ENT: No Ear pain, No Ear discharge, No Nose pain, No Nose discharge, No Nose congestion, No Mouth pain, No Mouth swelling, No Throat pain, No Throat swelling, No Other Cardiovascular: No Chest Pain, No Palpitations, No Orthopnea, No Paroxysmal Noc. Dyspnea, No Edema, No Lt Headedness, No Other Respiratory: No Cough, No Dry; Shortness of breath; No SOB with excertion, No Wheezing, No Hemoptysis, No Pleuritic Pain, No Sputum; Other (SOB at rest) Gastrointestinal: No Nausea, No Vomiting, No Abdominal Pain, No Diarrhea, No Constipation, No Melena, No Hematochezia, No Other Genitourinary: No Dysuria, No Frequency, No Incontinence, No Hematuria, No Retention, No Other Musculoskeletal: other (Right 2nd digit right foot); No neck pain, No shoulder pain, No arm pain, No back pain, No hand pain, No leg pain, No foot pain Skin: No Rash, No Lesions, No Jaundice, No Bruising; Other (Right 2nd digit right foot wound) Objective Vitals Vital Signs Date Time Temp Pulse Resp B/P (MAP) Pulse Ox O2 Delivery O2 Flow Rate FiO2 05/17/25 05:38 98.4 100 20 107/54 (71) 99 98.4 05/16/25 20:00 Nasal Cannula* 3 32 Intake/Output Intake and Output 05/17/25 07:00 Intake Total 650 ml Output Total 0 ml Balance 650 ml Intake Oral 550 ml IV Total 100 ml Output Urine Total 0 ml # Voids 1 Medications Current Medications Medications Dose Ordered Sig/Kiana Route Start Time Stop Time Status Last Admin Dose Admin Multivit/Ca Carb/ B Cmplx/FA/Prenat 1 tab DAILY PO 05/12/25 10:00 05/17/25 08:12 1 TAB Atorvastatin Calcium 10 mg HS PO 05/12/25 22:00 05/16/25 22:29 10 MG Diagnostic Test (Pha) 1 strip ACHS 05/12/25 07:00 05/17/25 05:56 1 STRIP Insulin Human Regular HS SC 05/12/25 22:00 05/16/25 22:31 2 UNITS Insulin Human Regular AC SC 05/12/25 07:00 05/15/25 17:53 2 UNITS Dextrose 50 ml UD PRN IV 05/11/25 23:15 Apixaban 5 mg BID PO 05/12/25 10:00 05/16/25 22:29 5 MG Sodium Chloride 10 ml Q8HR IV 05/12/25 06:00 05/17/25 05:57 10 ML Ondansetron HCl 4 mg Q4HP PRN IV 05/11/25 23:15 Docusate Sodium 100 mg BIDPRN PRN PO 05/11/25 23:15 Acetaminophen 650 mg Q6HP PRN PO 05/11/25 23:15 05/13/25 20:23 650 MG Nitroglycerin 0.4 mg Q5MINP PRN SL 05/11/25 23:15 Morphine Sulfate 2 mg Q30M PRN IV 05/11/25 23:15 Calcium Acetate 667 mg TIDWMEALS PO 05/12/25 08:00 05/17/25 08:12 667 MG Carvedilol 6.25 mg Q12HR PO 05/12/25 10:00 05/16/25 22:30 6.25 MG Acetaminophen/ Hydrocodone Bitart 1 tab Q6HPRN PRN PO 05/14/25 09:00 05/17/25 01:55 1 TAB Sevelamer HCl 2,400 mg TIDWM PO 05/14/25 12:00 05/17/25 08:12 2,400 MG Epoetin Dante-epbx 10,000 unit MWF@2100 NE 05/15/25 21:00 05/15/25 20:53 10,000 UNIT Vancomycin HCl 0 ml @ 0 mls/hr UD IV 05/16/25 08:30 Levofloxacin 50 ml @ 50 mls/hr Q48H IV 05/18/25 22:00 Laboratory Results Laboratory Tests 05/17/25 08:30 Chemistry Test 05/17/25 08:30 Albumin Pending Calcium Level Pending Magnesium Level Pending Total Protein Pending LFT Test 05/17/25 08:30 Alanine Aminotransferase (ALT) Pending Alkaline Phosphatase Pending Aspartate Amino Transferase (AST) Pending Total Bilirubin Pending Microbiology Microbiology Date/Time Source Procedure Growth Status 05/13/25 06:39 Nose MRSA Screen - Final Complete 05/11/25 18:41 Blood Blood Culture - Final NO GROWTH AFTER 5 DAYS OF INCUBATION. Complete Labs and/or images reviewed: Labs reviewed by me, Image(s) reviewed by me Assessment/Plan Assessment/Plan Nonhealing right foot wound with gangrene of the right 2nd and 3rd toe: MRI right foot shows no osteomyelitis, continue vancomycin add Levaquin for Gram- negative rods, consult for acquisition manager Dr. Herrera pending, he is on vacation this week. Nobody covering. MDRO wound infection consult for ID Dr. Casillas ESRD on hemodialysis consult for appreciated Morbid obesity Acute generalized weakness Acute on chronic respiratory failure Acute on chronic CHF exacerbation Acute COPD exacerbation Acute Hyperkalemia Secondary hyperparathyroidism due to ESRD Diabetes Hypertension History of [place] Diabetes type 2 Atrial flutter Obstructive sleep apnea Peripheral arterial disease right lower extremity consult for Dr. Restrepo appreciated, advised CT angiogram with contrast of the abdomen with the aorta runoff shows no flow in the right lower extremity Time spent 65 minutes Advanced care planning time 20 minutes Patient is full code Patient came from [facility] [facility]. Plan discussed with: Patient My Orders Orders - RENETTA VALENCIA MD Procedure Category Date Status Time Magnesium LAB 05/17/25 In Process 04:00 Date of Service: May 17, 2025 Billing Provider: RENETTA VALENCIA MD Common Visit Codes: [id number] INP/OBS CARE(HIGH) RENETTA VALENCIA MD May 17, 2025 09:43
--- NOTE | 2025-05-17 12:41 | DVHPN2 ---
Progress Note Date Seen: May 17, 2025 Resident Creating Document: HELADIO BURGOS RESIDENT Medical Necessity Reason Pt with a Central, PICC or Fol: No The following are medically ne: Central Line (HD catheter) Subjective Review of Systems 54-year-old female with past medical history of questionable CHF, end-stage renal disease on dialysis, Tuesday, asthma, COPD, obstructive sleep apnea, type 2 diabetes mellitus, chronic respiratory failure on home oxygen and atrial flutter presented with complaints of right foot nonhealing wound on the 2nd digit with foul-smell. Nephrology was consulted as patient has end-stage renal disease on hemodialysis Patient goes on dialysis on Tuesday Past medical history questionable CHF, end-stage renal disease on dialysis, Tuesday, asthma, COPD, obstructive sleep apnea, type 2 diabetes mellitus, chronic respiratory failure on home oxygen and atrial flutter Past surgical history No recent surgery Medication history Acetaminophen Eliquis Atorvastatin Buspirone Calcium carbonate Diphenhydramine Escitalopram iron sulfate Lasix 80 mg daily [place] Insulin Ipratropium Metoprolol Sevelamer Family History Family History: Unknown Social History Smoker: Cigarettes, Less Than 1 Pack/Day Alcohol: Denies ETOH Use Drugs: Denies Drug Use Lives In: Assisted Care 05/14/25 Pt seen and examined at bedside mentions mild pain in the right foot had HD yesterday currently on o2 at 2l NC mentions generalized itching 05/15/25 pt seen and examined at bedside mentions mild pain in the right foot had HD today in the morning on O2 at 2L NC 05/16/25 pt seen and examined at bedside mentions mild pain in the right foot had HD done in the morning on o2 at 2l Nasal Canula 05/17/25 pt seen and examined at bedside on o2 at 2l Nasal Canula Objective vital signs Vital Sign Date Time Temp Pulse Resp B/P (MAP) Pulse Ox O2 Delivery O2 Flow Rate FiO2 05/17/25 10:00 100 108/70 05/17/25 09:00 97.9 18 100 97.9 05/16/25 20:00 Nasal Cannula* 3 32 Total Intake and Output 05/16/25 05/16/25 05/17/25 15:00 23:00 07:00 Intake Total 100 ml 150 ml 400 ml Output Total 0 ml Balance 100 ml 150 ml 400 ml medications Current Medications Medications Dose Ordered Sig/Kiana Route Start Time Stop Time Status Last Admin Dose Admin Multivit/Ca Carb/ B Cmplx/FA/Prenat 1 tab DAILY PO 05/12/25 10:00 05/17/25 08:12 1 TAB Atorvastatin Calcium 10 mg HS PO 05/12/25 22:00 05/16/25 22:29 10 MG Diagnostic Test (Pha) 1 strip ACHS 05/12/25 07:00 05/17/25 10:55 1 STRIP Insulin Human Regular HS SC 05/12/25 22:00 05/16/25 22:31 2 UNITS Insulin Human Regular AC SC 05/12/25 07:00 05/17/25 11:02 2 UNITS Dextrose 50 ml UD PRN IV 05/11/25 23:15 Apixaban 5 mg BID PO 05/12/25 10:00 05/17/25 11:09 5 MG Sodium Chloride 10 ml Q8HR IV 05/12/25 06:00 05/17/25 05:57 10 ML Ondansetron HCl 4 mg Q4HP PRN IV 05/11/25 23:15 Docusate Sodium 100 mg BIDPRN PRN PO 05/11/25 23:15 Acetaminophen 650 mg Q6HP PRN PO 05/11/25 23:15 05/13/25 20:23 650 MG Nitroglycerin 0.4 mg Q5MINP PRN SL 05/11/25 23:15 Morphine Sulfate 2 mg Q30M PRN IV 05/11/25 23:15 Calcium Acetate 667 mg TIDWMEALS PO 05/12/25 08:00 05/17/25 12:17 667 MG Carvedilol 6.25 mg Q12HR PO 05/12/25 10:00 05/16/25 22:30 6.25 MG Acetaminophen/ Hydrocodone Bitart 1 tab Q6HPRN PRN PO 05/14/25 09:00 05/17/25 11:09 1 TAB Sevelamer HCl 2,400 mg TIDWM PO 05/14/25 12:00 05/17/25 12:17 2,400 MG Epoetin Dante-epbx 10,000 unit MWF@2100 SC 05/15/25 21:00 05/15/25 20:53 10,000 UNIT Vancomycin HCl 0 ml @ 0 mls/hr UD IV 05/16/25 08:30 Levofloxacin 50 ml @ 50 mls/hr Q48H IV 05/18/25 22:00 Examination Examination General Appearance: Alert, Oriented X3, Cooperative, No acute distress, on home oxygen 2 L HEENT: EOMI Respiratory: Clear to auscultation, Normal air movement Cardiovascular: Regular rate, Normal S1, Normal S2 Abdominal: Normal bowel sounds Extremities: Wound dressing over right foot No cyanosis, No edema, Normal pulses, No tenderness/swelling Skin: No rashes, No breakdown Neuro: Normal speech and tone laboratory and microbiology Laboratory Tests 05/17/25 08:30 Test 05/17/25 08:30 Range/Units Serum Glucose 82 74-106 mg/dL Microbiology Date/Time Source Procedure Growth Status 05/13/25 06:39 Nose MRSA Screen - Final Complete 05/11/25 18:41 Blood Blood Culture - Final NO GROWTH AFTER 5 DAYS OF INCUBATION. Complete Labs and/or images reviewed: Labs reviewed by me, Image(s) reviewed by me Problem List/Assessment/Plan Problem List/Assessment/Plan Assessment and Plan. 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 recommend low potassium diet pt had CT angio done had HD done yesterday because of risk of contrast induced nephropathy will schedule for HD today will schedule HD on MWF schedule in the hospital Continue outpatient follow up with Nephrology after discharge Case discussion with Dr. Stubbs Plan discussed with: Patient, Other Dietary Evaluation Review Comments: 1. CCHO-60, 110 protein 2 g NA Diet (high protein for promoting wound healing) 2. lessened wt bearing on feet and lower extremities-Wt management Expected Outcomes/Goals: gradually healed wounds with gradual wt loss, GIRDHAR,HELADIO RESIDENT May 17, 2025 12:41
[2025-05-17] MEDS: VANCOMYCIN 1GM/250ML KIT 250 ML IV ONE (17:19)
[2025-05-18] VITALS (8 sets, daily range): BP systolic 98–120; BP diastolic 59–79; PULSE 79–107; RESP 17–19; TEMP 97.7–98.3; O2SAT 97–99
[2025-05-18 05:18] LABS: Hematocrit 26.9 % (36.0-46.0); Hemoglobin 8.8 g/dL (12.2-16.2); Mean Corpuscular Hemoglobin 31.3 pg (28.0-32.0); Mean Corpuscular Volume 95.5 fL (80.0-100.0); Nucleated Red Blood Cells % 0.0 %
[2025-05-18 05:40] LABS: Alanine Aminotransferase 22 U/L (7-40); Albumin 3.8 g/dL (3.2-4.8); Anion Gap 9 (5-15); BUN/Creatinine Ratio 3.6 (10.0-20.0); Blood Urea Nitrogen 12 mg/dL (9-23); Calcium 8.8 mg/dL (8.7-10.4); Chloride 98 mmol/L (98-107); Glucose 105 mg/dL (74-106); Potassium 3.5 mmol/L (3.5-5.1); Sodium 139 mmol/L (136-145); Total Protein 7.3 g/dL (5.7-8.2)
[2025-05-18 05:41] LABS: Carbon Dioxide 32 mmol/L (20-31)
[2025-05-18 05:42] LABS: Alkaline Phosphatase 316 U/L (46-116); Bilirubin, Total 0.3 mg/dL (0.2-1.0)
--- NOTE | 2025-05-18 09:49 | DVHPN2 ---
Reviewed: Care Plan, H&P, Labs, Medications, Previous Orders, Radiology Changes from previous H/P or p: No Changes Eyes: No Pain, No Vision change, No Conjunctivae inflammation, No Eyelid inflammation, No Other, No Redness ENT: No Ear pain, No Ear discharge, No Nose pain, No Nose discharge, No Nose congestion, No Mouth pain, No Mouth swelling, No Throat pain, No Throat swelling, No Other Cardiovascular: No Chest Pain, No Palpitations, No Orthopnea, No Paroxysmal Noc. Dyspnea, No Edema, No Lt Headedness, No Other Respiratory: No Cough, No Dry; Shortness of breath; No SOB with excertion, No Wheezing, No Hemoptysis, No Pleuritic Pain, No Sputum; Other (SOB at rest) Gastrointestinal: No Nausea, No Vomiting, No Abdominal Pain, No Diarrhea, No Constipation, No Melena, No Hematochezia, No Other Genitourinary: No Dysuria, No Frequency, No Incontinence, No Hematuria, No Retention, No Other Musculoskeletal: other (Right 2nd digit right foot); No neck pain, No shoulder pain, No arm pain, No back pain, No hand pain, No leg pain, No foot pain Skin: No Rash, No Lesions, No Jaundice, No Bruising; Other (Right 2nd digit right foot wound) Objective Vitals Vital Signs Date Time Temp Pulse Resp B/P (MAP) Pulse Ox O2 Delivery O2 Flow Rate FiO2 05/18/25 09:31 98.0 79 18 113/79 (90) 99 98.0 05/17/25 20:10 Nasal Cannula* 3 32 Intake/Output Intake and Output 05/18/25 07:00 Intake Total 1360 ml Balance 1360 ml Intake Oral 1360 ml # Voids 1 # Bowel Movements 1 Medications Current Medications Medications Dose Ordered Sig/Kiana Route Start Time Stop Time Status Last Admin Dose Admin Multivit/Ca Carb/ B Cmplx/FA/Prenat 1 tab DAILY PO 05/12/25 10:00 05/17/25 08:12 1 TAB Atorvastatin Calcium 10 mg HS PO 05/12/25 22:00 05/17/25 21:43 10 MG Diagnostic Test (Pha) 1 strip ACHS 05/12/25 07:00 05/18/25 06:11 1 STRIP Insulin Human Regular HS SC 05/12/25 22:00 05/17/25 21:44 2 UNITS Insulin Human Regular AC SC 05/12/25 07:00 05/17/25 11:02 2 UNITS Dextrose 50 ml UD PRN IV 05/11/25 23:15 Apixaban 5 mg BID PO 05/12/25 10:00 05/17/25 21:43 5 MG Sodium Chloride 10 ml Q8HR IV 05/12/25 06:00 05/18/25 06:11 10 ML Ondansetron HCl 4 mg Q4HP PRN IV 05/11/25 23:15 Docusate Sodium 100 mg BIDPRN PRN PO 05/11/25 23:15 Acetaminophen 650 mg Q6HP PRN PO 05/11/25 23:15 05/18/25 00:56 650 MG Nitroglycerin 0.4 mg Q5MINP PRN SL 05/11/25 23:15 Morphine Sulfate 2 mg Q30M PRN IV 05/11/25 23:15 Calcium Acetate 667 mg TIDWMEALS PO 05/12/25 08:00 05/18/25 08:20 667 MG Carvedilol 6.25 mg Q12HR PO 05/12/25 10:00 05/17/25 21:43 6.25 MG Acetaminophen/ Hydrocodone Bitart 1 tab Q6HPRN PRN PO 05/14/25 09:00 05/18/25 04:02 1 TAB Sevelamer HCl 2,400 mg TIDWM PO 05/14/25 12:00 05/18/25 08:20 2,400 MG Epoetin Dante-epbx 10,000 unit MWF@2100 SC 05/15/25 21:00 05/17/25 20:39 10,000 UNIT Vancomycin HCl 0 ml @ 0 mls/hr UD IV 05/16/25 08:30 Levofloxacin 50 ml @ 50 mls/hr Q48H IV 05/18/25 22:00 Laboratory Results Laboratory Tests 05/18/25 05:00 Chemistry Test 05/18/25 05:00 Albumin 3.8 g/dL (3.2-4.8) Calcium Level 8.8 mg/dL (8.7-10.4) Total Protein 7.3 g/dL (5.7-8.2) LFT Test 05/18/25 05:00 Alanine Aminotransferase (ALT) 22 U/L (7-40) Alkaline Phosphatase 316 U/L (46-116) H Aspartate Amino Transferase (AST) 16 U/L (13-40) Total Bilirubin 0.3 mg/dL (0.2-1.0) Microbiology Microbiology Date/Time Source Procedure Growth Status 05/13/25 06:39 Nose MRSA Screen - Final Complete 05/11/25 18:41 Blood Blood Culture - Final NO GROWTH AFTER 5 DAYS OF INCUBATION. 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 Herrera pending, he is on vacation this week. Nobody covering. MDRO wound infection consult for ID Dr. 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 Resterpo appreciated, CT angiogram with contrast of the abdomen with the aorta runoff shows no flow in the right lower extremity Time spent 66 minutes Advanced care planning time 20 minutes Patient is full code Patient came from [facility]. Plan discussed with: Patient My Orders Orders - RENETTA VALENCIA MD Procedure Category Date Status Time Vancomycin,Random LAB 05/19/25 Verified 05:00 Vancomycin Per JONATHAN 05/17/25 In Process Pharmacy [facility] 17:00 Creatinine LAB 05/19/25 Verified 05:00 Date of Service: May 18, 2025 Billing Provider: RENETTA VALENCIA MD Common Visit Codes: [id number] INP/OBS CARE(HIGH) RENETTA VALENCIA MD May 18, 2025 09:49
--- NOTE | 2025-05-18 16:48 | DVHPN2 ---
Progress Note Date Seen: May 18, 2025 Medical Necessity Reason Pt with a Central, PICC or Fol: No The following are medically ne: Central Line (HD catheter) Subjective Changes from previous H/P or p: No Changes Objective vital signs Vital Sign Date Time Temp Pulse Resp B/P (MAP) Pulse Ox O2 Delivery O2 Flow Rate FiO2 05/18/25 14:10 98.1 100 18 99/62 (74) 98 98.1 05/18/25 08:00 Nasal Cannula* 3 32 Total Intake and Output 05/17/25 05/17/25 05/18/25 15:00 23:00 07:00 Intake Total 320 ml 1040 ml Balance 320 ml 1040 ml medications Current Medications Medications Dose Ordered Sig/Kiana Route Start Time Stop Time Status Last Admin Dose Admin Multivit/Ca Carb/ B Cmplx/FA/Prenat 1 tab DAILY PO 05/12/25 10:00 05/18/25 10:50 1 TAB Atorvastatin Calcium 10 mg HS PO 05/12/25 22:00 05/17/25 21:43 10 MG Diagnostic Test (Pha) 1 strip ACHS 05/12/25 07:00 05/18/25 11:30 1 STRIP Insulin Human Regular HS SC 05/12/25 22:00 05/17/25 21:44 2 UNITS Insulin Human Regular AC SC 05/12/25 07:00 05/17/25 11:02 2 UNITS Dextrose 50 ml UD PRN IV 05/11/25 23:15 Apixaban 5 mg BID PO 05/12/25 10:00 05/18/25 10:50 5 MG Sodium Chloride 10 ml Q8HR IV 05/12/25 06:00 05/18/25 14:00 10 ML Ondansetron HCl 4 mg Q4HP PRN IV 05/11/25 23:15 Docusate Sodium 100 mg BIDPRN PRN PO 05/11/25 23:15 Acetaminophen 650 mg Q6HP PRN PO 05/11/25 23:15 05/18/25 00:56 650 MG Nitroglycerin 0.4 mg Q5MINP PRN SL 05/11/25 23:15 Morphine Sulfate 2 mg Q30M PRN IV 05/11/25 23:15 Calcium Acetate 667 mg TIDWMEALS PO 05/12/25 08:00 05/18/25 12:23 667 MG Carvedilol 6.25 mg Q12HR PO 05/12/25 10:00 05/18/25 11:50 6.25 MG Acetaminophen/ Hydrocodone Bitart 1 tab Q6HPRN PRN PO 05/14/25 09:00 05/18/25 12:14 1 TAB Sevelamer HCl 2,400 mg TIDWM PO 05/14/25 12:00 05/18/25 12:23 2,400 MG Epoetin Dante-epbx 10,000 unit MWF@2100 SC 05/15/25 21:00 05/17/25 20:39 10,000 UNIT Vancomycin HCl 0 ml @ 0 mls/hr UD IV 05/16/25 08:30 Levofloxacin 50 ml @ 50 mls/hr Q48H IV 05/18/25 22:00 Examination: GENERAL:Abnormal, CVS:Abnormal, SKIN:Abnormal, NEURO:Normal laboratory and microbiology Laboratory Tests 05/18/25 05:00 Test 05/18/25 05:00 Range/Units Serum Glucose 105 74-106 mg/dL Microbiology Date/Time Source Procedure Growth Status 05/13/25 06:39 Nose MRSA Screen - Final Complete 05/11/25 18:41 Blood Blood Culture - Final NO GROWTH AFTER 5 DAYS OF INCUBATION. Complete Problem List/Assessment/Plan Problem List/Assessment/Plan 54-year-old morbidly obese female with end-stage renal disease presented to the hospital with lower extremity wound End-stage renal disease on hemodialysis Hypertension Severe bilateral peripheral artery disease status post CTA showing severe lower extremity stenosis Anemia due to chronic kidney disease Morbid obesity afib on eliquis sepsis due to lower extremity wound Next hemodialysis treatment on Tuesday Pending vascular surgery evaluation IV antibiotics per infectious disease consult Continue Epogen 3 times a week Renal diet Blood pressure medications Plan discussed with: Patient Dietary Evaluation Review Comments: 1. CCHO-60, 110 protein 2 g NA Diet (high protein for promoting wound healing) 2. lessened wt bearing on feet and lower extremities-Wt management Expected Outcomes/Goals: gradually healed wounds with gradual wt loss, Total Time (mins): 33 YANIQUE ROBLES MD May 18, 2025 16:48
[2025-05-19] VITALS (7 sets, daily range): BP systolic 100–133; BP diastolic 53–78; PULSE 57–106; RESP 17–20; TEMP 97.3–98; O2SAT 97–99
[2025-05-19 05:45] LABS: Chloride 101 mmol/L (98-107); Potassium 3.8 mmol/L (3.5-5.1); Sodium 141 mmol/L (136-145)
[2025-05-19 05:46] LABS: Anion Gap 8 (5-15); Calcium 8.7 mg/dL (8.7-10.4); Carbon Dioxide 32 mmol/L (20-31)
[2025-05-19 05:50] LABS: Hematocrit 27.0 % (36.0-46.0); Hemoglobin 8.8 g/dL (12.2-16.2); Mean Corpuscular Hemoglobin 31.3 pg (28.0-32.0); Mean Corpuscular Volume 96.3 fL (80.0-100.0); Nucleated Red Blood Cells % 0.1 %
[2025-05-19 05:51] LABS: BUN/Creatinine Ratio 4.1 (10.0-20.0); Blood Urea Nitrogen 19 mg/dL (9-23); Glucose 91 mg/dL (74-106)
--- NOTE | 2025-05-19 09:04 | DVHPN2 ---
Progress Note Date Seen: May 19, 2025 Medical Necessity Reason Pt with a Central, PICC or Fol: No The following are medically ne: Central Line (HD catheter) Objective vital signs Vital Sign Date Time Temp Pulse Resp B/P (MAP) Pulse Ox O2 Delivery O2 Flow Rate FiO2 05/19/25 01:00 97.9 100 18 122/77 (92) 99 97.9 05/18/25 20:00 Nasal Cannula* 3 32 Total Intake and Output 05/18/25 05/18/25 05/19/25 15:00 23:00 07:00 Intake Total 475 ml 400 ml Balance 475 ml 400 ml medications Current Medications Medications Dose Ordered Sig/Kiana Route Start Time Stop Time Status Last Admin Dose Admin Multivit/Ca Carb/ B Cmplx/FA/Prenat 1 tab DAILY PO 05/12/25 10:00 05/18/25 10:50 1 TAB Atorvastatin Calcium 10 mg HS PO 05/12/25 22:00 05/18/25 21:48 10 MG Diagnostic Test (Pha) 1 strip ACHS 05/12/25 07:00 05/19/25 05:43 1 STRIP Insulin Human Regular HS SC 05/12/25 22:00 05/18/25 21:50 2 UNITS Insulin Human Regular AC SC 05/12/25 07:00 05/18/25 17:30 2 UNITS Dextrose 50 ml UD PRN IV 05/11/25 23:15 Apixaban 5 mg BID PO 05/12/25 10:00 05/18/25 21:48 5 MG Sodium Chloride 10 ml Q8HR IV 05/12/25 06:00 05/19/25 05:43 10 ML Ondansetron HCl 4 mg Q4HP PRN IV 05/11/25 23:15 Docusate Sodium 100 mg BIDPRN PRN PO 05/11/25 23:15 Acetaminophen 650 mg Q6HP PRN PO 05/11/25 23:15 05/18/25 00:56 650 MG Nitroglycerin 0.4 mg Q5MINP PRN SL 05/11/25 23:15 Morphine Sulfate 2 mg Q30M PRN IV 05/11/25 23:15 Calcium Acetate 667 mg TIDWMEALS PO 05/12/25 08:00 05/19/25 08:10 667 MG Carvedilol 6.25 mg Q12HR PO 05/12/25 10:00 05/18/25 11:50 6.25 MG Acetaminophen/ Hydrocodone Bitart 1 tab Q6HPRN PRN PO 05/14/25 09:00 05/19/25 05:43 1 TAB Sevelamer HCl 2,400 mg TIDWM PO 05/14/25 12:00 05/19/25 08:09 2,400 MG Epoetin Dante-epbx 10,000 unit MWF@2100 SC 05/15/25 21:00 05/17/25 20:39 10,000 UNIT Vancomycin HCl 0 ml @ 0 mls/hr UD IV 05/16/25 08:30 Levofloxacin 50 ml @ 50 mls/hr Q48H IV 05/18/25 22:00 05/18/25 21:48 50 MLS/HR Examination: GENERAL:Abnormal, CVS:Normal, SKIN:Abnormal laboratory and microbiology Laboratory Tests 05/19/25 04:54 Test 05/19/25 04:54 Range/Units Serum Glucose 91 74-106 mg/dL Microbiology Date/Time Source Procedure Growth Status 05/13/25 06:39 Nose MRSA Screen - Final Complete 05/11/25 18:41 Blood Blood Culture - Final NO GROWTH AFTER 5 DAYS OF INCUBATION. Complete Problem List/Assessment/Plan Problem List/Assessment/Plan 54-year-old morbidly obese female with end-stage renal disease presented to the hospital with lower extremity wound End-stage renal disease on hemodialysis Hypertension Severe bilateral peripheral artery disease status post CTA showing severe lower extremity stenosis Anemia due to chronic kidney disease Morbid obesity afib on eliquis sepsis due to lower extremity wound Next hemodialysis treatment today Pending vascular surgery evaluation due to severe PAD, IV antibiotics per infectious disease consult Continue Epogen 3 times a week Renal diet Blood pressure medications Plan discussed with: Patient Dietary Evaluation Review Comments: 1. CCHO-60, 110 protein 2 g NA Diet (high protein for promoting wound healing) 2. lessened wt bearing on feet and lower extremities-Wt management Expected Outcomes/Goals: gradually healed wounds with gradual wt loss, Total Time (mins): 33 YANIQUE ROBLES MD May 19, 2025 09:04
[2025-05-19] MEDS: SODIUM CHL 0.9% 1000 ML BAG XX ONE (09:15)
[2025-05-19] MEDS: HEPARIN SODIUM (PORCINE) 5000 UNITS/ML 1ML VIAL IV ONE (10:45)
--- NOTE | 2025-05-19 11:14 | DVHPN2 ---
Reviewed: Care Plan, H&P, Labs, Medications, Previous Orders, Radiology Changes from previous H/P or p: No Changes Eyes: No Pain, No Vision change, No Conjunctivae inflammation, No Eyelid inflammation, No Other, No Redness ENT: No Ear pain, No Ear discharge, No Nose pain, No Nose discharge, No Nose congestion, No Mouth pain, No Mouth swelling, No Throat pain, No Throat swelling, No Other Cardiovascular: No Chest Pain, No Palpitations, No Orthopnea, No Paroxysmal Noc. Dyspnea, No Edema, No Lt Headedness, No Other Respiratory: No Cough, No Dry; Shortness of breath; No SOB with excertion, No Wheezing, No Hemoptysis, No Pleuritic Pain, No Sputum; Other (SOB at rest) Gastrointestinal: No Nausea, No Vomiting, No Abdominal Pain, No Diarrhea, No Constipation, No Melena, No Hematochezia, No Other Genitourinary: No Dysuria, No Frequency, No Incontinence, No Hematuria, No Retention, No Other Musculoskeletal: other (Right 2nd digit right foot); No neck pain, No shoulder pain, No arm pain, No back pain, No hand pain, No leg pain, No foot pain Skin: No Rash, No Lesions, No Jaundice, No Bruising; Other (Right 2nd digit right foot wound) Objective Vitals Vital Signs Date Time Temp Pulse Resp B/P (MAP) Pulse Ox O2 Delivery O2 Flow Rate FiO2 05/19/25 09:51 97.4 57 18 133/72 (92) 97 97.4 05/18/25 20:00 Nasal Cannula* 3 32 Intake/Output Intake and Output 05/19/25 06:59 Intake Total 875 ml Balance 875 ml Intake Oral 825 ml IV Total 50 ml # Voids 2 # Bowel Movements 1 Medications Current Medications Medications Dose Ordered Sig/Kiana Route Start Time Stop Time Status Last Admin Dose Admin Multivit/Ca Carb/ B Cmplx/FA/Prenat 1 tab DAILY PO 05/12/25 10:00 05/18/25 10:50 1 TAB Atorvastatin Calcium 10 mg HS PO 05/12/25 22:00 05/18/25 21:48 10 MG Diagnostic Test (Pha) 1 strip ACHS 05/12/25 07:00 05/19/25 05:43 1 STRIP Insulin Human Regular HS SC 05/12/25 22:00 05/18/25 21:50 2 UNITS Insulin Human Regular AC SC 05/12/25 07:00 05/18/25 17:30 2 UNITS Dextrose 50 ml UD PRN IV 05/11/25 23:15 Apixaban 5 mg BID PO 05/12/25 10:00 05/18/25 21:48 5 MG Sodium Chloride 10 ml Q8HR IV 05/12/25 06:00 05/19/25 05:43 10 ML Ondansetron HCl 4 mg Q4HP PRN IV 05/11/25 23:15 Docusate Sodium 100 mg BIDPRN PRN PO 05/11/25 23:15 Acetaminophen 650 mg Q6HP PRN PO 05/11/25 23:15 05/18/25 00:56 650 MG Nitroglycerin 0.4 mg Q5MINP PRN SL 05/11/25 23:15 Morphine Sulfate 2 mg Q30M PRN IV 05/11/25 23:15 Calcium Acetate 667 mg TIDWMEALS PO 05/12/25 08:00 05/19/25 08:10 667 MG Carvedilol 6.25 mg Q12HR PO 05/12/25 10:00 05/18/25 11:50 6.25 MG Acetaminophen/ Hydrocodone Bitart 1 tab Q6HPRN PRN PO 05/14/25 09:00 05/19/25 05:43 1 TAB Sevelamer HCl 2,400 mg TIDWM PO 05/14/25 12:00 05/19/25 08:09 2,400 MG Epoetin Dante-epbx 10,000 unit MWF@2100 [place] 05/15/25 21:00 05/17/25 20:39 10,000 UNIT Vancomycin HCl 0 ml @ 0 mls/hr UD IV 05/16/25 08:30 Levofloxacin 50 ml @ 50 mls/hr Q48H IV 05/18/25 22:00 05/18/25 21:48 50 MLS/HR Laboratory Results Laboratory Tests 05/19/25 04:54 Chemistry Test 05/19/25 04:54 Calcium Level 8.7 mg/dL (8.7-10.4) Microbiology Microbiology Date/Time Source Procedure Growth Status 05/13/25 06:39 Nose MRSA Screen - Final Complete 05/11/25 18:41 Blood Blood Culture - Final NO GROWTH AFTER 5 DAYS OF INCUBATION. Complete Labs and/or images reviewed: Labs reviewed by me, Image(s) reviewed by me Assessment/Plan Assessment/Plan Nonhealing right foot wound with gangrene of the right 2nd and 3rd toe: MRI right foot shows no osteomyelitis, continue vancomycin add Levaquin for Gram- negative rods, consult for inspector canvas products Dr. Herrera pending, he is on vacation this week. Nobody covering. MDRO wound infection consult for ID Dr. Amadeo Casillas pending ESRD on hemodialysis consult for appreciated Morbid obesity Acute generalized weakness Acute on chronic respiratory failure Acute on chronic CHF exacerbation Acute COPD exacerbation Acute Hyperkalemia Secondary hyperparathyroidism due to ESRD Diabetes Hypertension History of [place] Diabetes type 2 Atrial flutter Obstructive sleep apnea Peripheral arterial disease right lower extremity consult for Dr. Restrepo appreciated, CT angiogram with contrast of the abdomen with the aorta runoff shows no flow in the right lower extremity Time spent 68 minutes Advanced care planning time 20 minutes Patient is full code Patient came from [facility]. Continue current management Plan discussed with: Patient My Orders Orders - RENETTA VALENCIA MD Procedure Category Date Status Time Pharmacy [facility] 05/19/25 In Process Clarification: 09:49 Date of Service: May 19, 2025 Billing Provider: RENETTA VALENCIA MD Common Visit Codes: [id number] INP/OBS CARE(HIGH) RENETTA VALENCIA MD May 19, 2025 11:14
[2025-05-20] VITALS (8 sets, daily range): BP systolic 96–135; BP diastolic 58–87; PULSE 89–103; RESP 17–18; TEMP 97.6–98.4; O2SAT 97–98
--- NOTE | 2025-05-20 11:35 | DVHPN2 ---
Reviewed: Care Plan, H&P, Labs, Medications, Previous Orders, Radiology Changes from previous H/P or p: No Changes Eyes: No Pain, No Vision change, No Conjunctivae inflammation, No Eyelid inflammation, No Other, No Redness ENT: No Ear pain, No Ear discharge, No Nose pain, No Nose discharge, No Nose congestion, No Mouth pain, No Mouth swelling, No Throat pain, No Throat swelling, No Other Cardiovascular: No Chest Pain, No Palpitations, No Orthopnea, No Paroxysmal Noc. Dyspnea, No Edema, No Lt Headedness, No Other Respiratory: No Cough, No Dry; Shortness of breath; No SOB with excertion, No Wheezing, No Hemoptysis, No Pleuritic Pain, No Sputum; Other (SOB at rest) Gastrointestinal: No Nausea, No Vomiting, No Abdominal Pain, No Diarrhea, No Constipation, No Melena, No Hematochezia, No Other Genitourinary: No Dysuria, No Frequency, No Incontinence, No Hematuria, No Retention, No Other Musculoskeletal: other (Right 2nd digit right foot); No neck pain, No shoulder pain, No arm pain, No back pain, No hand pain, No leg pain, No foot pain Skin: No Rash, No Lesions, No Jaundice, No Bruising; Other (Right 2nd digit right foot wound) Objective Vitals Vital Signs Date Time Temp Pulse Resp B/P (MAP) Pulse Ox O2 Delivery O2 Flow Rate FiO2 05/20/25 10:36 100 135/87 05/20/25 09:58 97.9 18 97 97.9 05/20/25 08:00 Nasal Cannula* 3 32 Intake/Output Intake and Output 05/20/25 07:00 Intake Total 840 ml Balance 840 ml Intake Oral 840 ml Medications Current Medications Medications Dose Ordered Sig/Kiana Route Start Time Stop Time Status Last Admin Dose Admin Multivit/Ca Carb/ B Cmplx/FA/Prenat 1 tab DAILY PO 05/12/25 10:00 05/20/25 10:36 1 TAB Atorvastatin Calcium 10 mg HS PO 05/12/25 22:00 05/19/25 21:35 10 MG Diagnostic Test (Pha) 1 strip ACHS 05/12/25 07:00 05/20/25 11:32 1 STRIP Insulin Human Regular HS SC 05/12/25 22:00 05/19/25 21:35 3 UNITS Insulin Human Regular AC SC 05/12/25 07:00 05/18/25 17:30 2 UNITS Dextrose 50 ml UD PRN IV 05/11/25 23:15 Apixaban 5 mg BID PO 05/12/25 10:00 05/20/25 10:36 5 MG Sodium Chloride 10 ml Q8HR IV 05/12/25 06:00 05/20/25 11:33 10 ML Ondansetron HCl 4 mg Q4HP PRN IV 05/11/25 23:15 Docusate Sodium 100 mg BIDPRN PRN PO 05/11/25 23:15 Acetaminophen 650 mg Q6HP PRN PO 05/11/25 23:15 05/18/25 00:56 650 MG Nitroglycerin 0.4 mg Q5MINP PRN SL 05/11/25 23:15 Morphine Sulfate 2 mg Q30M PRN IV 05/11/25 23:15 Calcium Acetate 667 mg TIDWMEALS PO 05/12/25 08:00 05/20/25 08:25 667 MG Carvedilol 6.25 mg Q12HR PO 05/12/25 10:00 05/20/25 10:36 6.25 MG Acetaminophen/ Hydrocodone Bitart 1 tab Q6HPRN PRN PO 05/14/25 09:00 05/20/25 10:37 1 TAB Sevelamer HCl 2,400 mg TIDWM PO 05/14/25 12:00 05/20/25 08:25 2,400 MG Epoetin Dante-epbx 10,000 unit MWF@2100 SC 05/15/25 21:00 Hold 05/17/25 20:39 10,000 UNIT Vancomycin HCl 0 ml @ 0 mls/hr UD IV 05/16/25 08:30 Levofloxacin 50 ml @ 50 mls/hr Q48H IV 05/18/25 22:00 05/18/25 21:48 50 MLS/HR Laboratory Results Laboratory Tests 05/19/25 04:54 05/20/25 05:32 Microbiology Microbiology Date/Time Source Procedure Growth Status 05/13/25 06:39 Nose MRSA Screen - Final Complete 05/11/25 18:41 Blood Blood Culture - Final NO GROWTH AFTER 5 DAYS OF INCUBATION. 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 Herrera pending, he is on vacation this week. Nobody covering. MDRO wound infection consult for ID Dr. 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 Restrepo appreciated, CT angiogram with contrast of the abdomen with the aorta runoff shows no flow in the right lower extremity Time spent 68 minutes Advanced care planning time 20 minutes Patient is full code Patient came from [facility]. Continue current management PATIENT GETTING DIALYSIS TOMORROW Plan discussed with: Patient My Orders Orders - RENETTA VALENCIA MD Procedure Category Date Status Time Vancomycin,Random LAB 05/21/25 Verified 04:00 Creatinine LAB 05/21/25 Verified 04:00 Date of Service: May 20, 2025 Billing Provider: RENETTA VALENCIA MD Common Visit Codes: [id number] INP/OBS CARE(HIGH) RENETTA VALENCIA MD May 20, 2025 11:35
--- NOTE | 2025-05-20 12:11 | DVHPN2 ---
Progress Note Date Seen: May 20, 2025 Medical Necessity Reason Pt with a Central, PICC or Fol: No The following are medically ne: Central Line (HD catheter) Subjective Patient reports: No new complaints Other Systems: Patient seen and examined by myself today in follow-up Objective vital signs Vital Sign Date Time Temp Pulse Resp B/P (MAP) Pulse Ox O2 Delivery O2 Flow Rate FiO2 05/20/25 10:36 100 135/87 05/20/25 09:58 97.9 18 97 97.9 05/20/25 08:00 Nasal Cannula* 3 32 Total Intake and Output 05/19/25 05/19/25 05/20/25 15:00 23:00 07:00 Intake Total 600 ml 240 ml Balance 600 ml 240 ml medications Current Medications Medications Dose Ordered Sig/Kiana Route Start Time Stop Time Status Last Admin Dose Admin Multivit/Ca Carb/ B Cmplx/FA/Prenat 1 tab DAILY PO 05/12/25 10:00 05/20/25 10:36 1 TAB Atorvastatin Calcium 10 mg HS PO 05/12/25 22:00 05/19/25 21:35 10 MG Diagnostic Test (Pha) 1 strip ACHS 05/12/25 07:00 05/20/25 11:32 1 STRIP Insulin Human Regular HS SC 05/12/25 22:00 05/19/25 21:35 3 UNITS Insulin Human Regular AC SC 05/12/25 07:00 05/18/25 17:30 2 UNITS Dextrose 50 ml UD PRN IV 05/11/25 23:15 Apixaban 5 mg BID PO 05/12/25 10:00 05/20/25 10:36 5 MG Sodium Chloride 10 ml Q8HR IV 05/12/25 06:00 05/20/25 11:33 10 ML Ondansetron HCl 4 mg Q4HP PRN IV 05/11/25 23:15 Docusate Sodium 100 mg BIDPRN PRN PO 05/11/25 23:15 Acetaminophen 650 mg Q6HP PRN PO 05/11/25 23:15 05/18/25 00:56 650 MG Nitroglycerin 0.4 mg Q5MINP PRN SL 05/11/25 23:15 Morphine Sulfate 2 mg Q30M PRN IV 05/11/25 23:15 Calcium Acetate 667 mg TIDWMEALS PO 05/12/25 08:00 05/20/25 12:01 667 MG Carvedilol 6.25 mg Q12HR PO 05/12/25 10:00 05/20/25 10:36 6.25 MG Acetaminophen/ Hydrocodone Bitart 1 tab Q6HPRN PRN PO 05/14/25 09:00 05/20/25 10:37 1 TAB Sevelamer HCl 2,400 mg TIDWM PO 05/14/25 12:00 05/20/25 12:02 2,400 MG Epoetin Dante-epbx 10,000 unit MWF@2100 SC 05/15/25 21:00 Hold 05/17/25 20:39 10,000 UNIT Vancomycin HCl 0 ml @ 0 mls/hr UD IV 05/16/25 08:30 Levofloxacin 50 ml @ 50 mls/hr Q48H IV 05/18/25 22:00 05/18/25 21:48 50 MLS/HR Examination: LUNGS:Normal, CVS:Normal, MSK:Abnormal laboratory and microbiology Laboratory Tests 05/20/25 05:32 05/19/25 04:54 Test 05/19/25 04:54 Range/Units Serum Glucose 91 74-106 mg/dL Microbiology Date/Time Source Procedure Growth Status 05/13/25 06:39 Nose MRSA Screen - Final Complete 05/11/25 18:41 Blood Blood Culture - Final NO GROWTH AFTER 5 DAYS OF INCUBATION. Complete Problem List/Assessment/Plan Problem List/Assessment/Plan End-stage renal disease on hemodialysis Hypertension Peripheral arterial disease Anemia due to chronic kidney disease Morbid obesity afib on eliquis Cellulitis bilateral lower extremity Recommendations Hemodialysis tomorrow Epogen 66908 subQ with hemodialysis Strict I&Os Renal diet IV antibiotics We will continue to follow up Plan discussed with: Patient My Orders My Orders Orders - MARISEL MCCONNELL MD Procedure Category Date Status Time Hemodialysis Orders ORDERS 05/21/25 Transmitted 07:00 Dialysis Nursing JONATHAN 05/21/25 In Process Message 07:00 Heparin Sodium PHA 05/21/25 In Process (Porcine) 07:00 Heparin Sodium PHA 05/21/25 In Process (Porcine) 07:00 Sodium Chloride 0.9% PHA 05/21/25 In Process 07:00 Document Fluid Input JONATHAN 05/21/25 In Process And Outpu 07:00 Epoetin Dante-Epbx PHA 05/21/25 In Process (Retacrit) 21:00 Dietary Evaluation Review Comments: 1. CCHO-60, 110 protein 2 g NA Diet (high protein for promoting wound healing) 2. lessened wt bearing on feet and lower extremities-Wt management Expected Outcomes/Goals: gradually healed wounds with gradual wt loss, MARISEL MCCONNELL MD May 20, 2025 12:11
--- NOTE | 2025-05-20 12:24 | DVHPN2 ---
Reviewed: Care Plan, H&P, Labs, Medications, Previous Orders, Radiology Changes from previous H/P or p: No Changes Eyes: No Pain, No Vision change, No Conjunctivae inflammation, No Eyelid inflammation, No Other, No Redness ENT: No Ear pain, No Ear discharge, No Nose pain, No Nose discharge, No Nose congestion, No Mouth pain, No Mouth swelling, No Throat pain, No Throat swelling, No Other Cardiovascular: No Chest Pain, No Palpitations, No Orthopnea, No Paroxysmal Noc. Dyspnea, No Edema, No Lt Headedness, No Other Respiratory: No Cough, No Dry; Shortness of breath; No SOB with excertion, No Wheezing, No Hemoptysis, No Pleuritic Pain, No Sputum; Other (SOB at rest) Gastrointestinal: No Nausea, No Vomiting, No Abdominal Pain, No Diarrhea, No Constipation, No Melena, No Hematochezia, No Other Genitourinary: No Dysuria, No Frequency, No Incontinence, No Hematuria, No Retention, No Other Musculoskeletal: other (Right 2nd digit right foot); No neck pain, No shoulder pain, No arm pain, No back pain, No hand pain, No leg pain, No foot pain Skin: No Rash, No Lesions, No Jaundice, No Bruising; Other (Right 2nd digit right foot wound) Objective Vitals Vital Signs Date Time Temp Pulse Resp B/P (MAP) Pulse Ox O2 Delivery O2 Flow Rate FiO2 05/20/25 10:36 100 135/87 05/20/25 09:58 97.9 18 97 97.9 05/19/25 20:00 Nasal Cannula* 3 32 Intake/Output Intake and Output 05/20/25 07:00 Intake Total 840 ml Balance 840 ml Intake Oral 840 ml Medications Current Medications Medications Dose Ordered Sig/Kiana Route Start Time Stop Time Status Last Admin Dose Admin Multivit/Ca Carb/ B Cmplx/FA/Prenat 1 tab DAILY PO 05/12/25 10:00 05/20/25 10:36 1 TAB Atorvastatin Calcium 10 mg HS PO 05/12/25 22:00 05/19/25 21:35 10 MG Diagnostic Test (Pha) 1 strip ACHS 05/12/25 07:00 05/20/25 06:02 1 STRIP Insulin Human Regular HS SC 05/12/25 22:00 05/19/25 21:35 3 UNITS Insulin Human Regular AC SC 05/12/25 07:00 05/18/25 17:30 2 UNITS Dextrose 50 ml UD PRN IV 05/11/25 23:15 Apixaban 5 mg BID PO 05/12/25 10:00 05/20/25 10:36 5 MG Sodium Chloride 10 ml Q8HR IV 05/12/25 06:00 05/20/25 05:30 10 ML Ondansetron HCl 4 mg Q4HP PRN IV 05/11/25 23:15 Docusate Sodium 100 mg BIDPRN PRN PO 05/11/25 23:15 Acetaminophen 650 mg Q6HP PRN PO 05/11/25 23:15 05/18/25 00:56 650 MG Nitroglycerin 0.4 mg Q5MINP PRN SL 05/11/25 23:15 Morphine Sulfate 2 mg Q30M PRN IV 05/11/25 23:15 Calcium Acetate 667 mg TIDWMEALS PO 05/12/25 08:00 05/20/25 08:25 667 MG Carvedilol 6.25 mg Q12HR PO 05/12/25 10:00 05/20/25 10:36 6.25 MG Acetaminophen/ Hydrocodone Bitart 1 tab Q6HPRN PRN PO 05/14/25 09:00 05/20/25 10:37 1 TAB Sevelamer HCl 2,400 mg TIDWM PO 05/14/25 12:00 05/20/25 08:25 2,400 MG Epoetin Dante-epbx 10,000 unit MWF@2100 SC 05/15/25 21:00 Hold 05/17/25 20:39 10,000 UNIT Vancomycin HCl 0 ml @ 0 mls/hr UD IV 05/16/25 08:30 Levofloxacin 50 ml @ 50 mls/hr Q48H IV 05/18/25 22:00 05/18/25 21:48 50 MLS/HR Laboratory Results Laboratory Tests 05/19/25 04:54 05/20/25 05:32 Microbiology Microbiology Date/Time Source Procedure Growth Status 05/13/25 06:39 Nose MRSA Screen - Final Complete 05/11/25 18:41 Blood Blood Culture - Final NO GROWTH AFTER 5 DAYS OF INCUBATION. Complete Labs and/or images reviewed: Labs reviewed by me, Image(s) reviewed by me Assessment/Plan Assessment/Plan Nonhealing right foot wound with gangrene of the right 2nd and 3rd toe: MRI right foot shows no osteomyelitis, continue vancomycin add Levaquin for Gram- negative rods, consult for laborer cheesemaking Dr. Herrera pending, he is on vacation this week. Nobody covering. MDRO wound infection consult for ID Dr. 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 Restrepo appreciated, CT angiogram with contrast of the abdomen with the aorta runoff shows no flow in the right lower extremity Time spent 68 minutes Advanced care planning time 20 minutes Patient is full code [facility]. Continue current management Plan discussed with: Patient My Orders Orders - RENETTA VALENCIA MD Procedure Category Date Status Time Vancomycin,Random LAB 05/21/25 Verified 04:00 Creatinine LAB 05/21/25 Verified 04:00 Date of Service: May 20, 2025 Billing Provider: RENETTA VALENCIA MD Common Visit Codes: [id number] INP/OBS CARE(HIGH) RENETTA VALENCIA MD May 20, 2025 12:24
--- NOTE | 2025-05-20 12:30 | DVHCONRES ---
Date Seen: May 20, 2025 Reason for Consultation Right foot wound History of Present Illness The patient is a 54-year-old female morbidly obese with past medical history of CHF, COPD, asthma, end-stage renal disease on hemodialysis -, CT, hypertension, and congestive heart failure who presented to [facility] ED with complaint of right foot nonhealing wound. Patient reports a foul- smelling non-healing wound on her right foot 2nd digit, was seen by wound care provider and was advised to come to the ER for further evaluation. Patient was seen and evaluated in the ED, laboratory data shows WBC 10.0, hemoglobin 9.6, hematocrit 30.0, platelets 379, sodium 138, potassium 4.3, BUN 25, creatinine 3.28, glucose 154, calcium 8.6, AST 33, ALT 44, alkaline phos 464, total bilirubin 0.2, blood pressure 133/77, heart rate 72, temperature 98.1 F, O2 saturation 93% on oxygen. Right foot x-ray revealing severe demineralization of the bones and overlying bandage material, no definite osseous erosion is identified. Patient was started on IV antibiotic regimen vancomycin, please see medication orders section in the computer. On my assessment, patient denied chest pain, no headache, no dizziness, no diaphoresis, currently on oxygen, no nausea, no vomiting, no fever, no chills. Patient was admitted for further evaluation and medical management. Past Medical History See H&P Past Surgical History See H&P Family History: Cardiovascular disease G8 MOTHER, Onset:60 years & older Allergies: Coded Allergies: Codeine (Verified Allergy, Unknown, 01/16/19) Penicillins (Verified Allergy, Unknown, 03/26/25) Home Meds Reported Medications Escitalopram Oxalate (ESCITALOPRAM OXALATE) 10 Mg Tab, 1 TAB PO DAILY for 30 Days, #30 05/14/25 Buspirone Hcl (Buspirone Hcl) 5 Mg Tab, 1 TAB PO BID for 30 Days, #60 05/14/25 Pantoprazole Sodium Sesquihydr (Pantoprazole Sodium) 40 Mg Tab, 1 TAB PO DAILY for 14 Days, #14 05/14/25 Diltiazem HCl (Diltiazem Hydrochloride) 60 Mg Tab, 2 PO BID for 14 Days, #56 05/14/25 Metoprolol Tartrate (LOPRESSOR TABLET) 50 Mg Tb, 1 TAB PO BID for 14 Days, #28 05/14/25 Amiodarone HCl (Amiodarone HCl) 200 Mg Tab, 1 TAB PO DAILY for 30 Days, #30 05/14/25 Acetaminophen (Acetaminophen Extra Stren) 500 Mg Tab, 500 MG PO 2 tabs Q6H for mild pain (1-4), TAB 03/27/25 Polyethylene Glycol 3350 (Miralax) 17 Gm Pow, 17 GM PO DAILY for constipation, POW 03/27/25 Insulin Lispro (Human) (Humalog) 100 Unit/Ml Inj, 100 UNIT SC, INJ 03/27/25 Ipratropium-Albuterol (Ipratropium [place]/Albut) 1 Marylou Marylou, 1 MARYLOU IN Q6HP PRN for SHORTNESS OF BREATH, ML 03/27/25 Sevelamer Hydrochloride (Sevelamer Hydrochloride) 800 Mg Tab, 2 TAB PO TID for hyperphospetemia r/t ESRD for 30 Days, #180 03/27/25 B-Complex W/ C & Folic Acid (Maddie-Lalo) Tab, 1 OR DAILY for supplement, TAB 03/27/25 Nutritional Supplements (Nepro) Liq, 1 OR for ESRD, LIQ 03/27/25 Furosemide (Lasix) 80 Mg Tab, 1 TAB PO DAILY, #30 TAB 5 Refills 03/27/25 Hydrocodone-Acetaminophen (Hydrocodone Bitartrate/AC 7.5-300 mg) 1 Tab Tab, 1 TAB PO Q8HP PRN for moderate-sevare pain (6-10), TAB 03/27/25 Ferrous Sulfate (Ferrous Sulfate) 325 Mg Tab, 325 MG PO DAILY for 30 Days, MG 03/27/25 Calcium Carbonate (Antacid) (Antacid) 750 Mg Chw, 750 MG PO Q8HP PRN for indigestion, TAB.CHEW 03/27/25 Diphenhydramine Hcl (Benadryl Allergy) 25 Mg Cap, 25 MG PO Q6HP PRN for FOR ITCHING, CAP 03/27/25 Ipratropium [place] Hfa (Atrovent Hfa) 17 Mcg Aer, 17 MCG IN 2 puffs Q4H PRN PRN for wheezing, AER 03/27/25 Atorvastatin Calcium (ATORVASTATIN CALCIUM) 40 Mg Tab, 1 TAB PO DAILY for hyperlipidemia for 14 Days 03/27/25 Apixaban Base (ELIQUIS) 5 Mg Tab, 1 TAB PO BID for 30 Days, #60 03/27/25 Vital Signs Vital Signs Date Time Temp Pulse Resp B/P (MAP) Pulse Ox O2 Delivery O2 Flow Rate FiO2 05/20/25 10:36 100 135/87 05/20/25 09:58 97.9 18 97 97.9 05/20/25 08:00 Nasal Cannula* 3 32 Physical Exam Dermatological: Skin is dry with mild erythema and some maceration around the wound site No gross deformities noted Mild non-pitting edema present bilaterally Necrosis to the distal tips of the right foot with severe maceration and edema Vascular: Dorsalis pedis and posterior tibial pulses are 1+ bilaterally Capillary refill is under 2 seconds Skin temperature is warm bilaterally Neurologic: Protective sensation is absent on the plantar forefoot bilaterally Monofilament testing reveals decreased sensation in multiple plantar sites Musculoskeletal: Range of motion at the ankle and MTP joints is within normal limits. Strength is 5/5 in all tested muscle groups. Gait is antalgic due to offloading of the affected limb. Labs/Diagnostic Data Labs Test 05/20/25 11:13 05/20/25 05:32 05/19/25 04:54 05/18/25 05:00 Range/Units POC Glucose 128 H 70-106 mg/dl Creatinine 4.67 H 0.550-1.02 mg/dL Glomerular Filtration Rate Calc 10 >90 mL/min Random Vancomycin Level 19.7 H 5-10 ug/mL White Blood Count 8.0 4.4-10.8 10^3/uL Red Blood Count 2.80 L 4.0-5.20 10^6/uL Hemoglobin 8.8 L 12.2-16.2 g/dL Hematocrit 27.0 L 36.0-46.0 % Mean Corpuscular Volume 96.3 80.0-100.0 fL Mean Corpuscular Hemoglobin 31.3 28.0-32.0 pg Mean Corpuscular Hemoglobin Concent 32.5 32.0-36.0 g/dL Red Cell Distribution Width 16.5 H 11.8-14.3 % Platelet Count 376 140-450 10^3/uL Mean Platelet Volume 6.8 L 6.9-10.8 fL Neutrophils (%) (Auto) 68.4 37.0-80.0 % Lymphocytes (%) (Auto) 15.9 10.0-50.0 % Monocytes (%) (Auto) 11.9 0.0-12.0 % Eosinophils (%) (Auto) 3.2 0.0-7.0 % Basophils (%) (Auto) 0.6 0.0-2.0 % Neutrophils # (Auto) 5.5 1.6-8.6 10 ^3/uL Lymphocytes # (Auto) 1.3 0.4-5.4 10 ^3/uL Monocytes # (Auto) 1.0 0-1.3 10 ^3/uL Eosinophils # (Auto) 0.3 0-0.8 10 ^3/uL Basophils # (Auto) 0.1 0-0.2 10 ^3/uL Nucleated Red Blood Cells 0.1 % Sodium Level 141 136-145 mmol/L Potassium Level 3.8 3.5-5.1 mmol/L Chloride Level 101 98-107 mmol/L Carbon Dioxide Level 32 H 20-31 mmol/L Anion Gap 8 5-15 Blood Urea Nitrogen 19 9-23 mg/dL BUN/Creatinine Ratio 4.1 L 10.0-20.0 Serum Glucose 91 74-106 mg/dL Calcium Level 8.7 8.7-10.4 mg/dL Total Bilirubin 0.3 0.2-1.0 mg/dL Aspartate Amino Transferase (AST) 16 13-40 U/L Alanine Aminotransferase (ALT) 22 7-40 U/L Alkaline Phosphatase 316 H 46-116 U/L Total Protein 7.3 5.7-8.2 g/dL Albumin 3.8 3.2-4.8 g/dL Test 05/17/25 08:30 05/15/25 04:54 05/14/25 05:34 05/13/25 05:19 Range/Units Magnesium Level 2.1 1.6-2.6 mg/dL Iron Level 31 L 50-170 ug/dL Total Iron Binding Capacity 227 L 250-425 ug/dL Percent Iron Saturation 13.7 L 15-50 % Ferritin 622.9 H 10-291 ng/mL Phosphorus Level 4.4 2.4-5.1 mg/dL Parathyroid Hormone (Intact) 969.2 H 18.4-80.1 pg/mL Hepatitis B Surface Antigen Negative Negative Hepatitis C Antibody Negative Negative Test 05/11/25 18:41 Range/Units Lactic Acid Level 1.0 0.4-2.0 mmol/L B-Type Natriuretic Peptide 147.71 0-100 pg/mL Microbiology Date/Time Source Procedure Growth Status 05/13/25 06:39 Nose MRSA Screen - Final Complete 05/11/25 18:41 Blood Blood Culture - Final NO GROWTH AFTER 5 DAYS OF INCUBATION. Complete Problems(with codes): (1) Hyperkalemia (2) Sepsis (3) Acute renal injury (4) Gangrene of right foot (5) Cellulitis of right lower extremity (6) Morbid obesity (7) End-stage renal disease on hemodialysis (8) Generalized weakness Plan/Recommendation ASSESSMENT: Patient is a _ year old seen on the floor for a worsening ulcer PLAN: - The patients chart was reviewed, clinical findings were discussed with the patient, the etiologies of the conditions were discussed in detail, and a treatment plan was agreed to at this time, with both oral and written instructions provided. - reviewed advanced imaging - recommendation is an I&D with possible amputation of the distal tips - patient would like to consider it - we will wait until she agrees to the surgery - we will get cultures - reconsult when she is willing to do the surgery All questions were answered and concerns addressed to the patient's satisfaction. The patient was given the phone number to the clinic and was told how to make contact with the clinic should any concerns or questions arise. Maggie leavitt understands that if any questions or concerns arise prior to the next appointment, we should be contacted immediately. FOLLOW-UP: Continue to follow while inpatient Plan discussed with: Patient Visit Coding Podiatry Date of Service if different f: May 20, 2025 Billing Provider: CARLA MONTEIRO DPM Podiatry Common Visit Codes: CONSULT ONLY Podiatry Consult Codes: [id number] NEW/EST HI 80 CARLA MONTEIRO DPM May 20, 2025 12:30
--- NOTE | 2025-05-20 20:36 | DVHCONRES ---
Date Seen: May 20, 2025 Resident Creating Document: MISSY CALLEJAS RESIDENT Referring Physician Dr. Wright Reason for Consultation ''MDRO wound infection consult for ID Dr. Amadeo Casillas pending'' History of Present Illness Ms. Potter, a 54-year-old morbidly obese female with a complex medical history including congestive heart failure, COPD, asthma, end-stage renal disease on hemodialysis (M-W-F), type 2 diabetes mellitus, chronic respiratory failure on home oxygen, obstructive sleep apnea, atrial flutter, and prior myocardial i nfarction presented to [facility] ED with a foul-smelling, non- healing wound on the right foot's second digit. She was referred by her wound care provider for further evaluation. ED assessment revealed stable vital signs and lab results notable for mild anemia and elevated alkaline phosphatase. Imaging showed severe bone demineralization without clear osseous erosion. She was started on IV vancomycin and admitted for further evaluation and medical management. She denied systemic symptoms such as chest pain, fever, nausea, or dizziness. Microbiology: blood Culture negative x 2, wound culture positive for sten otrophomonas maltophilia, Serratia marcescens, Pseudomonas aeruginosa MDRO, Enterococcus faecalis VRE , hepatitis panel negative Past Medical History questionable CHF, end-stage renal disease on dialysis, Tuesday, asthma, COPD, obstructive sleep apnea, type 2 diabetes mellitus, chronic respiratory failure on home oxygen and atrial flutter Past Surgical History No recent surgery, Cholecystectomy, Family History: Cardiovascular disease G8 MOTHER, Onset:60 years & older Family History Reviewed, noncontributory to the management of this case. Social History The patient lives at home, denies smoking, alcohol or illicit drugs abuse. Allergies: Coded Allergies: Codeine (Verified Allergy, Unknown, 01/16/19) Penicillins (Verified Allergy, Unknown, 03/26/25) Home Meds Reported Medications Escitalopram Oxalate (ESCITALOPRAM OXALATE) 10 Mg Tab, 1 TAB PO DAILY for 30 Days, #30 05/14/25 Buspirone Hcl (Buspirone Hcl) 5 Mg Tab, 1 TAB PO BID for 30 Days, #60 05/14/25 Pantoprazole Sodium Sesquihydr (Pantoprazole Sodium) 40 Mg Tab, 1 TAB PO DAILY for 14 Days, #14 05/14/25 Diltiazem HCl (Diltiazem Hydrochloride) 60 Mg Tab, 2 PO BID for 14 Days, #56 05/14/25 Metoprolol Tartrate (LOPRESSOR TABLET) 50 Mg Tb, 1 TAB PO BID for 14 Days, #28 05/14/25 Amiodarone HCl (Amiodarone HCl) 200 Mg Tab, 1 TAB PO DAILY for 30 Days, #30 05/14/25 Acetaminophen (Acetaminophen Extra Stren) 500 Mg Tab, 500 MG PO 2 tabs Q6H for mild pain (1-4), TAB 03/27/25 Polyethylene Glycol 3350 (Miralax) 17 Gm Pow, 17 GM PO DAILY for constipation, POW 03/27/25 Insulin Lispro (Human) (Humalog) 100 Unit/Ml Inj, 100 UNIT SC, INJ 03/27/25 Ipratropium-Albuterol (Ipratropium [place]/Albut) 1 Marylou Marylou, 1 MARYLOU IN Q6HP PRN for SHORTNESS OF BREATH, ML 03/27/25 Sevelamer Hydrochloride (Sevelamer Hydrochloride) 800 Mg Tab, 2 TAB PO TID for hyperphospetemia r/t ESRD for 30 Days, #180 03/27/25 B-Complex W/ C & Folic Acid (Amddie-Lalo) Tab, 1 OR DAILY for supplement, TAB 03/27/25 Nutritional Supplements (Nepro) Liq, 1 OR for ESRD, LIQ 03/27/25 Furosemide (Lasix) 80 Mg Tab, 1 TAB PO DAILY, #30 TAB 5 Refills 03/27/25 Hydrocodone-Acetaminophen (Hydrocodone Bitartrate/AC 7.5-300 mg) 1 Tab Tab, 1 TAB PO Q8HP PRN for moderate-sevare pain (6-10), TAB 03/27/25 Ferrous Sulfate (Ferrous Sulfate) 325 Mg Tab, 325 MG PO DAILY for 30 Days, MG 03/27/25 Calcium Carbonate (Antacid) (Antacid) 750 Mg Chw, 750 MG PO Q8HP PRN for indigestion, TAB.CHEW 03/27/25 Diphenhydramine Hcl (Benadryl Allergy) 25 Mg Cap, 25 MG PO Q6HP PRN for FOR ITCHING, CAP 03/27/25 Ipratropium [place] Hfa (Atrovent Hfa) 17 Mcg Aer, 17 MCG IN 2 puffs Q4H PRN PRN for wheezing, AER 03/27/25 Atorvastatin Calcium (ATORVASTATIN CALCIUM) 40 Mg Tab, 1 TAB PO DAILY for hyperlipidemia for 14 Days 03/27/25 Apixaban Base (ELIQUIS) 5 Mg Tab, 1 TAB PO BID for 30 Days, #60 03/27/25 Current Medications Current Medications Medications (Trade) Dose Ordered Sig/Kiana Route PRN Reason Start Time Stop Time Status Last Admin Ceftriaxone Sodium 50 ml @ 100 mls/hr DAILY@09 IV 05/21/25 09:00 UNV Review of Systems Constitutional: Yes: Weakness; No: Fever, Chills, Sweats, Malaise, Other Eyes: No: Pain, Vision change, Conjunctivae inflammation, Eyelid inflammation, Other, Redness ENT: No: Ear pain, Ear discharge, Nose pain, Nose discharge, Nose congestion, Mouth pain, Mouth swelling, Throat pain, Throat swelling, Other Respiratory: Shortness of breath, Other (SOB at rest); No: Cough, Dry, SOB with excertion, Wheezing, Hemoptysis, Pleuritic Pain, Sputum, Wheezing Cardiovascular: No: Chest Pain, Palpitations, Orthopnea, Paroxysmal Noc. Dyspnea, Edema, Lt Headedness, Other Gastrointestinal: No: Nausea, Vomiting, Abdominal Pain, Diarrhea, Constipation, Melena, Hematochezia, Other Genitourinary: No Dysuria, No Frequency, No Incontinence, No Hematuria, No Retention, No Other Musculoskeletal: other (Right 2nd digit right foot); No: neck pain, shoulder pain, arm pain, back pain, hand pain, leg pain, foot pain Skin: Other (Right 2nd digit right foot wound); No: Rash, Lesions, Jaundice, Bruising Neurological: No: Weakness, Numbness, Incoordination, Change in speech, Confusion, Seizures, Other Vital Signs Vital Signs Date Time Temp Pulse Resp B/P (MAP) Pulse Ox O2 Delivery O2 Flow Rate FiO2 05/20/25 17:03 97.6 103 18 103/60 (74) 98 97.6 05/20/25 08:00 Nasal Cannula* 3 32 Physical Exam General Appearance: Alert, Oriented X3, Cooperative, No acute distress HEENT: Atraumatic, PERRLA, EOMI, Mucous membr. moist/pink Respiratory: Normal air movement Cardiovascular: Regular rate, Normal S1, Normal S2, No murmurs Abdominal: Normal bowel sounds, Soft, No tenderness, No hepatospenomegaly, No masses Extremities: No clubbing, No cyanosis, No edema, Normal pulses, No tenderness/swelling Skin: No rashes, No significant lesion Neuro: Normal speech, Normal tone, Sensation intact, Cranial nerves 3-12 NL, Reflexes 2+, Other (Generalized weakness) Psych/Mental Status: Mental status NL, Mood NL Labs/Diagnostic Data Labs Test 05/20/25 17:12 05/20/25 05:32 05/19/25 04:54 05/18/25 05:00 Range/Units POC Glucose 181 H 70-106 mg/dl Creatinine 4.67 H 0.550-1.02 mg/dL Glomerular Filtration Rate Calc 10 >90 mL/min Random Vancomycin Level 19.7 H 5-10 ug/mL White Blood Count 8.0 4.4-10.8 10^3/uL Red Blood Count 2.80 L 4.0-5.20 10^6/uL Hemoglobin 8.8 L 12.2-16.2 g/dL Hematocrit 27.0 L 36.0-46.0 % Mean Corpuscular Volume 96.3 80.0-100.0 fL Mean Corpuscular Hemoglobin 31.3 28.0-32.0 pg Mean Corpuscular Hemoglobin Concent 32.5 32.0-36.0 g/dL Red Cell Distribution Width 16.5 H 11.8-14.3 % Platelet Count 376 140-450 10^3/uL Mean Platelet Volume 6.8 L 6.9-10.8 fL Neutrophils (%) (Auto) 68.4 37.0-80.0 % Lymphocytes (%) (Auto) 15.9 10.0-50.0 % Monocytes (%) (Auto) 11.9 0.0-12.0 % Eosinophils (%) (Auto) 3.2 0.0-7.0 % Basophils (%) (Auto) 0.6 0.0-2.0 % Neutrophils # (Auto) 5.5 1.6-8.6 10 ^3/uL Lymphocytes # (Auto) 1.3 0.4-5.4 10 ^3/uL Monocytes # (Auto) 1.0 0-1.3 10 ^3/uL Eosinophils # (Auto) 0.3 0-0.8 10 ^3/uL Basophils # (Auto) 0.1 0-0.2 10 ^3/uL Nucleated Red Blood Cells 0.1 % Sodium Level 141 136-145 mmol/L Potassium Level 3.8 3.5-5.1 mmol/L Chloride Level 101 98-107 mmol/L Carbon Dioxide Level 32 H 20-31 mmol/L Anion Gap 8 5-15 Blood Urea Nitrogen 19 9-23 mg/dL BUN/Creatinine Ratio 4.1 L 10.0-20.0 Serum Glucose 91 74-106 mg/dL Calcium Level 8.7 8.7-10.4 mg/dL Total Bilirubin 0.3 0.2-1.0 mg/dL Aspartate Amino Transferase (AST) 16 13-40 U/L Alanine Aminotransferase (ALT) 22 7-40 U/L Alkaline Phosphatase 316 H 46-116 U/L Total Protein 7.3 5.7-8.2 g/dL Albumin 3.8 3.2-4.8 g/dL Test 05/17/25 08:30 05/15/25 04:54 05/14/25 05:34 05/13/25 05:19 Range/Units Magnesium Level 2.1 1.6-2.6 mg/dL Iron Level 31 L 50-170 ug/dL Total Iron Binding Capacity 227 L 250-425 ug/dL Percent Iron Saturation 13.7 L 15-50 % Ferritin 622.9 H 10-291 ng/mL Phosphorus Level 4.4 2.4-5.1 mg/dL Parathyroid Hormone (Intact) 969.2 H 18.4-80.1 pg/mL Hepatitis B Surface Antigen Negative Negative Hepatitis C Antibody Negative Negative Test 05/11/25 18:41 Range/Units Lactic Acid Level 1.0 0.4-2.0 mmol/L B-Type Natriuretic Peptide 147.71 0-100 pg/mL Microbiology Date/Time Source Procedure Growth Status 05/13/25 06:39 Nose MRSA Screen - Final Complete 05/11/25 18:41 Blood Blood Culture - Final NO GROWTH AFTER 5 DAYS OF INCUBATION. Complete Assessment Assessment: # Cellulitis right 2nd digit progressed 2nd 3rd toe gangrene. # Podiatry evaluation recommendation is an I&D with possible amputation of the d istal tips # Cirrhotic morphology liver hepatic steatosis. # Nonobstructing left renal calculi colonic diverticula. # severe PAD Severe peripheral arterial disease. The bilateral SFA demonstrate multifocal moderate to high-grade stenoses more pronounced within the left SFA. There is occlusion of the bilateral popliteal arteries. The bilateral infrapopliteal and tibial vasculature are extensively calcified, suboptimally characterized. Likely single-vessel runoff to the left foot from the left posterior tibial artery. In the right infrapopliteal vasculature, there may be occlusion of all 3 vessels. Recommend vascular surgery/ IR consultation for further evaluation and management. total critical scale and board # prolonged QT # type 2 diabetes mellitus # chronic respiratory failure on home oxygen # End-stage renal disease on dialysis, Tuesday, Wednesdays and Tuesday via tunneled catheter in the right subclavian # Cirrhotic morphology liver hepatic steatosis. 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 # Continue IV vancomycin and ceftriaxone for polymicrobial tissue infection. # Follow Dr. Hale with a repeat CT angiography with runoff, possibly the patient will benefit most with revascularization for appropriate healing and facial penetration. Recommend vascular surgery/ IR consultation for further evaluation and management. # post revascularization possibly patient will benefit most from Podiatry, intraoperative culture can be taken, close follow up. Discussed with Dr. Casillas. Thank you for the opportunity to consult on your patient. Infectious disease we will follow the patient. Plan discussed with: Patient MISSY CALLEJAS RESIDENT May 20, 2025 20:36
[2025-05-21] VITALS (8 sets, daily range): BP systolic 101–120; BP diastolic 57–86; PULSE 85–110; RESP 16–19; TEMP 96.8–98.1; O2SAT 96–99
[2025-05-21] MEDS: SODIUM CHL 0.9% 1000 ML BAG XX ONE (07:00)
--- NOTE | 2025-05-21 08:17 | DVHPN2 ---
Progress Note Date Seen: May 21, 2025 Medical Necessity Reason Pt with a Central, PICC or Fol: No The following are medically ne: Central Line (HD catheter) Subjective Patient reports: Feels better Review of Systems: HEENT:Normal, CVS:Normal, RESPIRATORY:Normal, GI:Normal, :Normal, MSK:Normal, NEURO:Normal Objective vital signs Vital Sign Date Time Temp Pulse Resp B/P (MAP) Pulse Ox O2 Delivery O2 Flow Rate FiO2 05/21/25 05:00 97.7 92 19 113/77 (89) 98 97.7 05/20/25 20:00 Nasal Cannula* 3 32 Total Intake and Output 05/20/25 05/20/25 05/21/25 15:00 23:00 07:00 Intake Total 550 ml 700 ml Balance 550 ml 700 ml medications Current Medications Medications Dose Ordered Sig/Kiana Route Start Time Stop Time Status Last Admin Dose Admin Multivit/Ca Carb/ B Cmplx/FA/Prenat 1 tab DAILY PO 05/12/25 10:00 05/20/25 10:36 1 TAB Atorvastatin Calcium 10 mg HS PO 05/12/25 22:00 05/20/25 21:41 10 MG Diagnostic Test (Pha) 1 strip ACHS 05/12/25 07:00 05/21/25 06:43 1 STRIP Insulin Human Regular HS SC 05/12/25 22:00 05/20/25 21:46 2 UNITS Insulin Human Regular AC SC 05/12/25 07:00 05/20/25 18:26 3 UNITS Dextrose 50 ml UD PRN IV 05/11/25 23:15 Apixaban 5 mg BID PO 05/12/25 10:00 05/20/25 21:41 5 MG Sodium Chloride 10 ml Q8HR IV 05/12/25 06:00 05/21/25 06:43 10 ML Ondansetron HCl 4 mg Q4HP PRN IV 05/11/25 23:15 Docusate Sodium 100 mg BIDPRN PRN PO 05/11/25 23:15 Acetaminophen 650 mg Q6HP PRN PO 05/11/25 23:15 05/18/25 00:56 650 MG Nitroglycerin 0.4 mg Q5MINP PRN SL 05/11/25 23:15 Calcium Acetate 667 mg TIDWMEALS PO 05/12/25 08:00 05/20/25 18:25 667 MG Carvedilol 6.25 mg Q12HR PO 05/12/25 10:00 05/20/25 21:41 6.25 MG Acetaminophen/ Hydrocodone Bitart 1 tab Q6HPRN PRN PO 05/14/25 09:00 05/21/25 03:59 1 TAB Sevelamer HCl 2,400 mg TIDWM PO 05/14/25 12:00 05/20/25 18:25 2,400 MG Epoetin Dante-epbx 10,000 unit MWF@2100 SC 05/15/25 21:00 05/20/25 21:53 10,000 UNIT Vancomycin HCl 0 ml @ 0 mls/hr UD IV 05/16/25 08:30 Ceftriaxone Sodium 50 ml @ 100 mls/hr Q24H IV 05/21/25 21:00 Examination: GENERAL:Normal, HEENT:Normal, NECK:Normal, LUNGS:Normal, CVS:Normal, ABDOMEN:Normal, MSK:Abnormal laboratory and microbiology Laboratory Tests 05/21/25 05:17 05/19/25 04:54 Test 05/19/25 04:54 Range/Units Serum Glucose 91 74-106 mg/dL Microbiology Date/Time Source Procedure Growth Status 05/13/25 06:39 Nose MRSA Screen - Final Complete 05/11/25 18:41 Blood Blood Culture - Final NO GROWTH AFTER 5 DAYS OF INCUBATION. Complete Technique: CT axial images of the abdominal aorta and lower extremities are obtained with contrast. Coronal and sagittal reformats were obtained. Radiation Dose Information: CTDI volume is 31.57 mGy. Dose-length product is 8.58 mGy*cm Comparison: None FINDINGS: Abdominal aorta demonstrates atherosclerotic calcification disease without high- grade stenosis/aneurysmal dilatation. Moderate stenosis of the SMA proximally, approximately 60% stenosis. Moderate grade stenoses of the bilateral renal arteries, 60-70% stenoses. JOAQUIN patent. Common, external iliac arteries demonstrate no high-grade stenosis. Right WELDER FITTER demonstrates calcification disease but no high-grade stenosis. Right SFA demonstrates multifocal moderate grade stenosis up to 70% most pronounced along the mid to distal aspect. Occlusion of the P2 segment of the right popliteal artery. Overall multifocal severe stenosis of the right popliteal artery. Very limited evaluation of the right tibial vasculature secondary to extensive atherosclerotic calcification disease. The left common femoral artery demonstrates no high-grade stenosis. Left SFA demonstrates multifocal moderate high-grade stenosis. Focal severe stenosis of the mid to distal left SFA, 90% stenosis. Severe stenosis of the proximal left popliteal artery, 90% stenosis. Multifocal moderate to high-grade stenosis of the left popliteal artery with occlusion of the P2 segment. The tibial vasculature is extensively calcified and inadequately assessed. Likely single- vessel runoff through the left posterior tibial artery. Cholecystectomy. Hepatic steatosis. Cirrhotic morphology appearance liver. Nonobstructing left renal calculi up to 3 mm. Small bowel loops normal in caliber. Colonic diverticular disease. Bladder partially distended. Severe degenerative changes right knee. Old distal right femoral meta diaphyseal fracture deformity with non healing changes in the femoral condylar region. Moderate degenerate changes left knee. Bilateral lower extremity fatty atrophy of the musculature. Right below the knee soft tissue edema, skin thickening, stranding. Severe lumbar degenerative disc disease. Chronic L4 compression deformity with 50% loss height. IMPRESSION: Severe peripheral arterial disease. The bilateral SFA demonstrate multifocal moderate to high-grade stenoses more pronounced within the left SFA. There is occlusion of the bilateral popliteal arteries. The bilateral infrapopliteal and tibial vasculature are extensively calcified, suboptimally characterized. Likely single-vessel runoff to the left foot from the left posterior tibial artery. In the right infrapopliteal vasculature, there may be occlusion of all 3 vessels. Recommend vascular surgery/ IR consultation for further evaluation and management. Moderate stenoses of the SMA and bilateral renal arteries. Right [id number] soft tissue edema, skin thickening and soft tissue stranding. Recommend MRI of the affected region if there is concern for osteomyelitis. Cirrhotic morphology liver hepatic steatosis. Nonobstructing left renal calculi colonic diverticula. Other findings as described above. Problem List/Assessment/Plan Problem List/Assessment/Plan Severe peripheral vascular disease bilateral lower extremities right side worse than left. Bilateral popliteal artery occlusions with right tibial occlusions. Would recommend conservative management of the right foot wounds. No severe targets the right lower extremity for revascularization. Non operative management recommended at this time. Patient has refusing any amputation of the below-knee vaccine. Plan discussed with: Patient Dietary Evaluation Review Comments: 1. CCHO-60, 110 protein 2 g NA Diet (high protein for promoting wound healing) 2. lessened wt bearing on feet and lower extremities-Wt management Expected Outcomes/Goals: gradually healed wounds with gradual wt loss, CHARITY HERNANDEZ Jr., MD May 21, 2025 08:17
--- NOTE | 2025-05-21 08:59 | DVHPNRES ---
Progress Note Date Seen: May 21, 2025 Resident Creating Document: MISSY CALLEJAS RESIDENT Medical Necessity Reason Pt with a Central, PICC or Fol: No The following are medically ne: Central Line (HD catheter) Objective vital signs Vital Sign Date Time Temp Pulse Resp B/P (MAP) Pulse Ox O2 Delivery O2 Flow Rate FiO2 05/21/25 08:50 96.8 99 16 113/74 (87) 99 96.8 05/20/25 20:00 Nasal Cannula* 3 32 Total Intake and Output 05/20/25 05/20/25 05/21/25 15:00 23:00 07:00 Intake Total 550 ml 700 ml Balance 550 ml 700 ml medications Current Medications Medications Dose Ordered Sig/Kiana Route Start Time Stop Time Status Last Admin Dose Admin Multivit/Ca Carb/ B Cmplx/FA/Prenat 1 tab DAILY PO 05/12/25 10:00 05/20/25 10:36 1 TAB Atorvastatin Calcium 10 mg HS PO 05/12/25 22:00 05/20/25 21:41 10 MG Diagnostic Test (Pha) 1 strip ACHS 05/12/25 07:00 05/21/25 06:43 1 STRIP Insulin Human Regular HS SC 05/12/25 22:00 05/20/25 21:46 2 UNITS Insulin Human Regular AC SC 05/12/25 07:00 05/20/25 18:26 3 UNITS Dextrose 50 ml UD PRN IV 05/11/25 23:15 Apixaban 5 mg BID PO 05/12/25 10:00 05/20/25 21:41 5 MG Sodium Chloride 10 ml Q8HR IV 05/12/25 06:00 05/21/25 06:43 10 ML Ondansetron HCl 4 mg Q4HP PRN IV 05/11/25 23:15 Docusate Sodium 100 mg BIDPRN PRN PO 05/11/25 23:15 Acetaminophen 650 mg Q6HP PRN PO 05/11/25 23:15 05/18/25 00:56 650 MG Nitroglycerin 0.4 mg Q5MINP PRN SL 05/11/25 23:15 Calcium Acetate 667 mg TIDWMEALS PO 05/12/25 08:00 05/21/25 08:38 667 MG Carvedilol 6.25 mg Q12HR PO 05/12/25 10:00 05/20/25 21:41 6.25 MG Acetaminophen/ Hydrocodone Bitart 1 tab Q6HPRN PRN PO 05/14/25 09:00 05/21/25 03:59 1 TAB Sevelamer HCl 2,400 mg TIDWM PO 05/14/25 12:00 05/21/25 08:38 2,400 MG Epoetin Dante-epbx 10,000 unit MWF@2100 SC 05/15/25 21:00 05/20/25 21:53 10,000 UNIT Vancomycin HCl 0 ml @ 0 mls/hr UD IV 05/16/25 08:30 Ceftriaxone Sodium 50 ml @ 100 mls/hr Q24H IV 05/21/25 21:00 Examination General Appearance: Alert, Oriented X3, Cooperative, No acute distress, on home oxygen 2 L HEENT: EOMI Respiratory: Clear to auscultation, Normal air movement Cardiovascular: Regular rate, Normal S1, Normal S2 Abdominal: Normal bowel sounds Extremities: Wound dressing over right foot No cyanosis, No edema, Normal pulses, No tenderness/swelling Skin: No rashes, No breakdown Neuro: Normal speech and tone laboratory and microbiology Laboratory Tests 05/21/25 05:17 05/19/25 04:54 Test 05/19/25 04:54 Range/Units Serum Glucose 91 74-106 mg/dL Microbiology Date/Time Source Procedure Growth Status 05/13/25 06:39 Nose MRSA Screen - Final Complete 05/11/25 18:41 Blood Blood Culture - Final NO GROWTH AFTER 5 DAYS OF INCUBATION. Complete Labs and/or images reviewed: Labs reviewed by me, Image(s) reviewed by me Problem List/Assessment/Plan Problem List/Assessment/Plan Ms. Potter is a 54-year-old morbidly obese female with a complex medical history including congestive heart failure, COPD, asthma, end-stage renal disease on hemodialysis (M-W-F), type 2 diabetes mellitus, chronic respiratory failure on home oxygen, obstructive sleep apnea, atrial flutter, and prior myocardial infarction, who presented to [facility] ED with a foul-smelling, non-healing wound on the right second toe. She was referred by her wound care provider for further evaluation. ED assessment showed stable vital signs, mild anemia, and elevated alkaline phosphatase. Imaging revealed severe bone demineralization without clear osseous erosion. She was started on IV vancomycin and admitted for further management. Wound cultures grew multiple multidrug- resistant organisms including Stenotrophomonas maltophilia, Serratia marcescens, Pseudomonas aeruginosa (MDRO), and Enterococcus faecalis (VRE), while blood cultures were negative. Hepatitis panel was negative. The consultation was requested by Dr. Wright, with infectious disease evaluation by Dr. Amadeo Casillas pending. Assessment: # Cellulitis right 2nd digit progressed 2nd 3rd toe gangrene. # Podiatry evaluation recommendation is an I&D with possible amputation of the distal tips # Cirrhotic morphology liver hepatic steatosis. # Nonobstructing left renal calculi colonic diverticula. # severe PAD Severe peripheral arterial disease. The bilateral SFA demonstrate multifocal moderate to high-grade stenoses more pronounced within the left SFA. There is occlusion of the bilateral popliteal arteries. The bilateral infrapopliteal and tibial vasculature are extensively calcified, suboptimally characterized. Likely single-vessel runoff to the left foot from the left posterior tibial artery. In the right infrapopliteal vasculature, there may be occlusion of all 3 vessels. Recommend vascular surgery/ IR consultation for further evaluation and management. total critical scale and board # prolonged QT # type 2 diabetes mellitus # chronic respiratory failure on home oxygen # End-stage renal disease on dialysis, Tuesday, Wednesdays and Tuesday via tunneled catheter in the right subclavian # Cirrhotic morphology liver hepatic steatosis. 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 # Conservative treatment as per vascular surgery, likely not going to help with debridement, ongoing infection less likely. # post revascularization possibly patient will benefit most from Podiatry, intraoperative culture can be taken, close follow up. Discussed with Dr. Casillas. Infectious disease we will follow the patient. Plan discussed with: Patient My Orders My Orders Orders - MISSY CALLJEAS Procedure Category Date Status Time Ceftriaxone 1gm/50ml PHA 05/21/25 In Process (Rocephin) 21:00 Dietary Evaluation Review Comments: 1. CCHO-60, 110 protein 2 g NA Diet (high protein for promoting wound healing) 2. lessened wt bearing on feet and lower extremities-Wt management Expected Outcomes/Goals: gradually healed wounds with gradual wt loss, MISSY CALLEJAS May 21, 2025 08:59
--- NOTE | 2025-05-21 09:21 | DVHPN2 ---
Progress Note Date Seen: May 21, 2025 Medical Necessity Reason Pt with a Central, PICC or Fol: No The following are medically ne: Central Line (HD catheter) Subjective Patient reports: No new complaints Other Systems: Patient seen and examined by myself today in follow-up Patient examined hemodialysis, blood pressure stable Objective vital signs Vital Sign Date Time Temp Pulse Resp B/P (MAP) Pulse Ox O2 Delivery O2 Flow Rate FiO2 05/21/25 08:50 96.8 99 16 113/74 (87) 99 96.8 05/20/25 20:00 Nasal Cannula* 3 32 Total Intake and Output 05/20/25 05/20/25 05/21/25 15:00 23:00 07:00 Intake Total 550 ml 700 ml Balance 550 ml 700 ml medications Current Medications Medications Dose Ordered Sig/Kiana Route Start Time Stop Time Status Last Admin Dose Admin Multivit/Ca Carb/ B Cmplx/FA/Prenat 1 tab DAILY PO 05/12/25 10:00 05/20/25 10:36 1 TAB Atorvastatin Calcium 10 mg HS PO 05/12/25 22:00 05/20/25 21:41 10 MG Diagnostic Test (Pha) 1 strip ACHS 05/12/25 07:00 05/21/25 06:43 1 STRIP Insulin Human Regular HS SC 05/12/25 22:00 05/20/25 21:46 2 UNITS Insulin Human Regular AC SC 05/12/25 07:00 05/20/25 18:26 3 UNITS Dextrose 50 ml UD PRN IV 05/11/25 23:15 Apixaban 5 mg BID PO 05/12/25 10:00 05/20/25 21:41 5 MG Sodium Chloride 10 ml Q8HR IV 05/12/25 06:00 05/21/25 06:43 10 ML Ondansetron HCl 4 mg Q4HP PRN IV 05/11/25 23:15 Docusate Sodium 100 mg BIDPRN PRN PO 05/11/25 23:15 Acetaminophen 650 mg Q6HP PRN PO 05/11/25 23:15 05/18/25 00:56 650 MG Nitroglycerin 0.4 mg Q5MINP PRN SL 05/11/25 23:15 Calcium Acetate 667 mg TIDWMEALS PO 05/12/25 08:00 05/21/25 08:38 667 MG Carvedilol 6.25 mg Q12HR PO 05/12/25 10:00 05/20/25 21:41 6.25 MG Acetaminophen/ Hydrocodone Bitart 1 tab Q6HPRN PRN PO 05/14/25 09:00 05/21/25 03:59 1 TAB Sevelamer HCl 2,400 mg TIDWM PO 05/14/25 12:00 05/21/25 08:38 2,400 MG Epoetin Dante-epbx 10,000 unit MWF@2100 SC 05/15/25 21:00 05/20/25 21:53 10,000 UNIT Vancomycin HCl 0 ml @ 0 mls/hr UD IV 05/16/25 08:30 Ceftriaxone Sodium 50 ml @ 100 mls/hr Q24H IV 05/21/25 21:00 Examination: LUNGS:Normal, CVS:Normal, MSK:Abnormal laboratory and microbiology Laboratory Tests 05/21/25 05:17 05/19/25 04:54 Test 05/19/25 04:54 Range/Units Serum Glucose 91 74-106 mg/dL Microbiology Date/Time Source Procedure Growth Status 05/13/25 06:39 Nose MRSA Screen - Final Complete 05/11/25 18:41 Blood Blood Culture - Final NO GROWTH AFTER 5 DAYS OF INCUBATION. Complete Problem List/Assessment/Plan Problem List/Assessment/Plan End-stage renal disease on hemodialysis Hypertension Peripheral arterial disease Anemia due to chronic kidney disease Morbid obesity afib on eliquis Cellulitis bilateral lower extremity Recommendations Continue with UF 2-3 L as tolerated Epogen [id number] subQ with hemodialysis Strict I&Os Renal diet IV antibiotics Vascular on the case We will continue to follow up Plan discussed with: Patient My Orders My Orders Orders - MARISEL MCCONNELL MD Procedure Category Date Status Time Hemodialysis Orders ORDERS 05/21/25 Transmitted 07:00 Dialysis Nursing JONATHAN 05/21/25 In Process Message 07:00 Document Fluid Input JONATHAN 05/21/25 In Process And Outpu 07:00 Epoetin Dante-Epbx PHA 05/21/25 In Process (Retacrit) 21:00 Dietary Evaluation Review Comments: 1. CCHO-60, 110 protein 2 g NA Diet (high protein for promoting wound healing) 2. lessened wt bearing on feet and lower extremities-Wt management Expected Outcomes/Goals: gradually healed wounds with gradual wt loss, MARISEL MCCONNELL MD May 21, 2025 09:21
--- NOTE | 2025-05-21 09:28 | DVHPN2 ---
Reviewed: Care Plan, H&P, Labs, Medications, Previous Orders, Radiology Changes from previous H/P or p: No Changes Eyes: No Pain, No Vision change, No Conjunctivae inflammation, No Eyelid inflammation, No Other, No Redness ENT: No Ear pain, No Ear discharge, No Nose pain, No Nose discharge, No Nose congestion, No Mouth pain, No Mouth swelling, No Throat pain, No Throat swelling, No Other Cardiovascular: No Chest Pain, No Palpitations, No Orthopnea, No Paroxysmal Noc. Dyspnea, No Edema, No Lt Headedness, No Other Respiratory: No Cough, No Dry; Shortness of breath; No SOB with excertion, No Wheezing, No Hemoptysis, No Pleuritic Pain, No Sputum; Other (SOB at rest) Gastrointestinal: No Nausea, No Vomiting, No Abdominal Pain, No Diarrhea, No Constipation, No Melena, No Hematochezia, No Other Genitourinary: No Dysuria, No Frequency, No Incontinence, No Hematuria, No Retention, No Other Musculoskeletal: other (Right 2nd digit right foot); No neck pain, No shoulder pain, No arm pain, No back pain, No hand pain, No leg pain, No foot pain Skin: No Rash, No Lesions, No Jaundice, No Bruising; Other (Right 2nd digit right foot wound) Objective Vitals Vital Signs Date Time Temp Pulse Resp B/P (MAP) Pulse Ox O2 Delivery O2 Flow Rate FiO2 05/21/25 08:50 96.8 99 16 113/74 (87) 99 96.8 05/20/25 20:00 Nasal Cannula* 3 32 Intake/Output Intake and Output 05/21/25 07:00 Intake Total 1250 ml Balance 1250 ml Intake Oral 1200 ml IV Total 50 ml Medications Current Medications Medications Dose Ordered Sig/Kiana Route Start Time Stop Time Status Last Admin Dose Admin Multivit/Ca Carb/ B Cmplx/FA/Prenat 1 tab DAILY PO 05/12/25 10:00 05/20/25 10:36 1 TAB Atorvastatin Calcium 10 mg HS PO 05/12/25 22:00 05/20/25 21:41 10 MG Diagnostic Test (Pha) 1 strip ACHS 05/12/25 07:00 05/21/25 06:43 1 STRIP Insulin Human Regular HS SC 05/12/25 22:00 05/20/25 21:46 2 UNITS Insulin Human Regular AC SC 05/12/25 07:00 05/20/25 18:26 3 UNITS Dextrose 50 ml UD PRN IV 05/11/25 23:15 Apixaban 5 mg BID PO 05/12/25 10:00 05/20/25 21:41 5 MG Sodium Chloride 10 ml Q8HR IV 05/12/25 06:00 05/21/25 06:43 10 ML Ondansetron HCl 4 mg Q4HP PRN IV 05/11/25 23:15 Docusate Sodium 100 mg BIDPRN PRN PO 05/11/25 23:15 Acetaminophen 650 mg Q6HP PRN PO 05/11/25 23:15 05/18/25 00:56 650 MG Nitroglycerin 0.4 mg Q5MINP PRN SL 05/11/25 23:15 Calcium Acetate 667 mg TIDWMEALS PO 05/12/25 08:00 05/21/25 08:38 667 MG Carvedilol 6.25 mg Q12HR PO 05/12/25 10:00 05/20/25 21:41 6.25 MG Acetaminophen/ Hydrocodone Bitart 1 tab Q6HPRN PRN PO 05/14/25 09:00 05/21/25 03:59 1 TAB Sevelamer HCl 2,400 mg TIDWM PO 05/14/25 12:00 05/21/25 08:38 2,400 MG Epoetin Dante-epbx 10,000 unit MWF@2100 SC 05/15/25 21:00 05/20/25 21:53 10,000 UNIT Vancomycin HCl 0 ml @ 0 mls/hr UD IV 05/16/25 08:30 Ceftriaxone Sodium 50 ml @ 100 mls/hr Q24H IV 05/21/25 21:00 Laboratory Results Laboratory Tests 05/19/25 04:54 05/21/25 05:17 Microbiology Microbiology Date/Time Source Procedure Growth Status 05/13/25 06:39 Nose MRSA Screen - Final Complete 05/11/25 18:41 Blood Blood Culture - Final NO GROWTH AFTER 5 DAYS OF INCUBATION. Complete Labs and/or images reviewed: Labs reviewed by me, Image(s) reviewed by me Assessment/Plan Assessment/Plan Nonhealing right foot wound with gangrene of the right 2nd and 3rd toe: MRI right foot shows no osteomyelitis, continue vancomycin DC Levaquin and add Rocephin, ID consult by Dr. 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 Restrepo appreciated, CT angiogram with contrast of the abdomen with the aorta runoff shows no flow in the right lower extremity, severe peripheral artery disease bilateral lower extremities;Dr Restrepo advised conservative management Time spent 68 minutes Advanced care planning time 20 minutes Patient is full code Patient came [facility] [place] Continue current management Plan discussed with: Patient My Orders Orders - RENETTA VALENCIA MD Procedure Category Date Status Time Consistent DIET 05/20/25 Transmitted Carb(Ccho)Diabetes Dinner Renal DIET 05/20/25 Transmitted Standard(2gna,3gk,Lopho) Dinner Date of Service: May 21, 2025 Billing Provider: RENETTA VALENCIA MD Common Visit Codes: [id number] INP/OBS CARE(HIGH) RENETTA VALENCIA MD May 21, 2025 09:28
[2025-05-21] MEDS: EPOETIN ALFA-EPBX 10,000 UNIT/1ML VIAL SC ONE (20:21)
[2025-05-21] MEDS: ONDANSETRON HCL 4 MG/2 ML VIAL IV PRN (23:16)
[2025-05-22 01:00] VITALS: BP 106/68; PULSE 85; RESP 18; TEMP 98.1; O2SAT 100
[2025-05-22 05:00] VITALS: BP 113/63; PULSE 91; RESP 20; TEMP 98.3; O2SAT 98
[2025-05-22 08:00] VITALS: PULSE 93
[2025-05-22 09:00] VITALS: BP 122/70; PULSE 98; RESP 19; TEMP 97.8; O2SAT 98
[2025-05-22] MEDS ORDERED: SODIUM CHL 0.9% 1000 ML BAG XX ONE (09:00)
--- NOTE | 2025-05-22 10:20 | DVHPN2 ---
Reviewed: Care Plan, H&P, Labs, Medications, Previous Orders, Radiology Changes from previous H/P or p: No Changes Eyes: No Pain, No Vision change, No Conjunctivae inflammation, No Eyelid inflammation, No Other, No Redness ENT: No Ear pain, No Ear discharge, No Nose pain, No Nose discharge, No Nose congestion, No Mouth pain, No Mouth swelling, No Throat pain, No Throat swelling, No Other Cardiovascular: No Chest Pain, No Palpitations, No Orthopnea, No Paroxysmal Noc. Dyspnea, No Edema, No Lt Headedness, No Other Respiratory: No Cough, No Dry; Shortness of breath; No SOB with excertion, No Wheezing, No Hemoptysis, No Pleuritic Pain, No Sputum; Other (SOB at rest) Gastrointestinal: No Nausea, No Vomiting, No Abdominal Pain, No Diarrhea, No Constipation, No Melena, No Hematochezia, No Other Genitourinary: No Dysuria, No Frequency, No Incontinence, No Hematuria, No Retention, No Other Musculoskeletal: other (Right 2nd digit right foot); No neck pain, No shoulder pain, No arm pain, No back pain, No hand pain, No leg pain, No foot pain Skin: No Rash, No Lesions, No Jaundice, No Bruising; Other (Right 2nd digit right foot wound) Objective Vitals Vital Signs Date Time Temp Pulse Resp B/P (MAP) Pulse Ox O2 Delivery O2 Flow Rate FiO2 05/22/25 09:00 97.8 98 19 122/70 (87) 98 97.8 05/21/25 20:00 Nasal Cannula* 3 32 Intake/Output Intake and Output 05/22/25 07:00 Intake Total 800 ml Balance 800 ml Intake Oral 800 ml # Voids 3 # Bowel Movements 2 Medications Current Medications Medications Dose Ordered Sig/Kiana Route Start Time Stop Time Status Last Admin Dose Admin Multivit/Ca Carb/ B Cmplx/FA/Prenat 1 tab DAILY PO 05/12/25 10:00 05/21/25 11:05 1 TAB Atorvastatin Calcium 10 mg HS PO 05/12/25 22:00 05/21/25 20:25 10 MG Diagnostic Test (Pha) 1 strip ACHS 05/12/25 07:00 05/22/25 06:18 1 STRIP Insulin Human Regular HS SC 05/12/25 22:00 05/21/25 20:36 4 UNITS Insulin Human Regular AC SC 05/12/25 07:00 05/22/25 06:19 2 UNITS Dextrose 50 ml UD PRN IV 05/11/25 23:15 Apixaban 5 mg BID PO 05/12/25 10:00 05/21/25 20:25 5 MG Sodium Chloride 10 ml Q8HR IV 05/12/25 06:00 05/22/25 06:17 10 ML Ondansetron HCl 4 mg Q4HP PRN IV 05/11/25 23:15 05/21/25 23:16 4 MG Docusate Sodium 100 mg BIDPRN PRN PO 05/11/25 23:15 Acetaminophen 650 mg Q6HP PRN PO 05/11/25 23:15 05/18/25 00:56 650 MG Nitroglycerin 0.4 mg Q5MINP PRN SL 05/11/25 23:15 Calcium Acetate 667 mg TIDWMEALS PO 05/12/25 08:00 05/22/25 08:21 667 MG Carvedilol 6.25 mg Q12HR PO 05/12/25 10:00 05/21/25 20:26 6.25 MG Acetaminophen/ Hydrocodone Bitart 1 tab Q6HPRN PRN PO 05/14/25 09:00 05/22/25 05:15 1 TAB Sevelamer HCl 2,400 mg TIDWM PO 05/14/25 12:00 05/22/25 08:21 2,400 MG Epoetin Dante-epbx 10,000 unit MWF@2100 SC 05/15/25 21:00 05/20/25 21:53 10,000 UNIT Vancomycin HCl 0 ml @ 0 mls/hr UD IV 05/16/25 08:30 Ceftriaxone Sodium 50 ml @ 100 mls/hr Q24H IV 05/21/25 21:00 05/21/25 20:22 100 MLS/HR Laboratory Results Laboratory Tests 05/19/25 04:54 05/22/25 05:02 Microbiology Microbiology Date/Time Source Procedure Growth Status 05/13/25 06:39 Nose MRSA Screen - Final Complete 05/11/25 18:41 Blood Blood Culture - Final NO GROWTH AFTER 5 DAYS OF INCUBATION. Complete Labs and/or images reviewed: Labs reviewed by me, Image(s) reviewed by me Assessment/Plan Assessment/Plan Nonhealing right foot wound with gangrene of the right 2nd and 3rd toe: MRI right foot shows no osteomyelitis, continue vancomycin DC Levaquin and add Rocephin, ID consult by Dr. 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 Restrepo appreciated, CT angiogram with contrast of the abdomen with the aorta runoff shows no flow in the right lower extremity, severe peripheral artery disease bilateral lower extremities;Dr Restrepo advised conservative management Time spent 68 minutes Advanced care planning time 20 minutes Patient is full code [facility] [place] Continue current management Pt being [facility] Plan is acceptable with the patient and Sg at bedside Plan discussed with: Patient, Spouse Date of Service: May 22, 2025 Billing Provider: RENETTA VALENCIA MD Common Visit Codes: [id number] CARE 30-74 MIN RENETTA VALENCIA MD May 22, 2025 10:20
--- NOTE | 2025-05-22 10:36 | DVHDS2 ---
Discharge Summary Date of Admission May 11, 2025 at 23:09 Date of Discharge: May 22, 2025 Admitting Diagnosis Right foot wound infection Wounds: Right foot wound infection with the gangrene of the 2nd and 3rd toes Labs/Diagnostic Data: Laboratory Results Test 05/22/25 05:02 05/21/25 20:33 05/19/25 04:54 05/18/25 05:00 Creatinine 4.70 mg/dL (0.550-1.02) Glomerular Filtration Rate Calc 10 mL/min (>90) Random Vancomycin Level 15.1 ug/mL (5-10) POC Glucose 224 mg/dl (70-106) White Blood Count 8.0 10^3/uL (4.4-10.8) Red Blood Count 2.80 10^6/uL (4.0-5.20) Hemoglobin 8.8 g/dL (12.2-16.2) Hematocrit 27.0 % (36.0-46.0) Mean Corpuscular Volume 96.3 fL (80.0-100.0) Mean Corpuscular Hemoglobin 31.3 pg (28.0-32.0) Mean Corpuscular Hemoglobin Concent 32.5 g/dL (32.0-36.0) Red Cell Distribution Width 16.5 % (11.8-14.3) Platelet Count 376 10^3/uL (140-450) Mean Platelet Volume 6.8 fL (6.9-10.8) Neutrophils (%) (Auto) 68.4 % (37.0-80.0) Lymphocytes (%) (Auto) 15.9 % (10.0-50.0) Monocytes (%) (Auto) 11.9 % (0.0-12.0) Eosinophils (%) (Auto) 3.2 % (0.0-7.0) Basophils (%) (Auto) 0.6 % (0.0-2.0) Neutrophils # (Auto) 5.5 10 ^3/uL (1.6-8.6) Lymphocytes # (Auto) 1.3 10 ^3/uL (0.4-5.4) Monocytes # (Auto) 1.0 10 ^3/uL (0-1.3) Eosinophils # (Auto) 0.3 10 ^3/uL (0-0.8) Basophils # (Auto) 0.1 10 ^3/uL (0-0.2) Nucleated Red Blood Cells 0.1 % Sodium Level 141 mmol/L (136-145) Potassium Level 3.8 mmol/L (3.5-5.1) Chloride Level 101 mmol/L (98-107) Carbon Dioxide Level 32 mmol/L (20-31) Anion Gap 8 (5-15) Blood Urea Nitrogen 19 mg/dL (9-23) BUN/Creatinine Ratio 4.1 (10.0-20.0) Serum Glucose 91 mg/dL (74-106) Calcium Level 8.7 mg/dL (8.7-10.4) Total Bilirubin 0.3 mg/dL (0.2-1.0) Aspartate Amino Transferase (AST) 16 U/L (13-40) Alanine Aminotransferase (ALT) 22 U/L (7-40) Alkaline Phosphatase 316 U/L (46-116) Total Protein 7.3 g/dL (5.7-8.2) Albumin 3.8 g/dL (3.2-4.8) Test 05/17/25 08:30 05/15/25 04:54 05/14/25 05:34 05/13/25 05:19 Magnesium Level 2.1 mg/dL (1.6-2.6) Iron Level 31 ug/dL (50-170) Total Iron Binding Capacity 227 ug/dL (250-425) Percent Iron Saturation 13.7 % (15-50) Ferritin 622.9 ng/mL (10-291) Phosphorus Level 4.4 mg/dL (2.4-5.1) Parathyroid Hormone (Intact) 969.2 pg/mL (18.4-80.1) Hepatitis B Surface Antigen Negative (Negative) Hepatitis C Antibody Negative (Negative) Test 05/11/25 18:41 Lactic Acid Level 1.0 mmol/L (0.4-2.0) B-Type Natriuretic Peptide 147.71 pg/mL (0-100) Other Laboratory Tests 05/22/25 05:02 05/19/25 04:54 Brief Hx & Hospital Course: 54-year-old female morbidly obese COPD CHF ESRD on hemodialysis diabetes hypertension [place] type 2 diabetes history of atrial flutter obstructive sleep apnea burden from [facility] and admitted for nonhealing right foot infection found to have gangrene of the right 2nd and 3rd toes MRI showed no osteomyelitis patient was placed on vancomycin and Rocephin ID consult by Dr. Dobbins seen by podiatric advised amputation of the right 2nd and 3rd toes by the patient does not want to be done at the present time. Seen by vascular surgeon Dr Restrepo for severe peripheral arterial disease bilateral lower extremities advised conservative management as she is not a candidate for any intervention patient received hemodialysis while in the hospital Being discharged [facility]. She will receive vancomycin and Rocephin IV for one month for right foot infection. The plan is acceptable to the patient and who is at the bed side Consults/Reason for consult Podiatry Vascular surgeon Nephrology Operations or Procedures Peripheral arterial ultrasound Condition at Discharge: Fair Final Diagnosis/Problems List Nonhealing right foot wound with gangrene of the right 2nd and 3rd toe: MRI right foot shows no osteomyelitis, continue vancomycin DC Levaquin and add Rocephin, ID consult by Dr. Amadeo Casillas appreciated, seen by podiatric , planning for amputation of the right foot toes once stable ESRD on hemodialysis consult for appreciated Morbid obesity Acute generalized weakness Acute on chronic respiratory failure Acute on chronic CHF exacerbation Acute COPD exacerbation Acute Hyperkalemia Secondary hyperparathyroidism due to ESRD Diabetes Hypertension History of [place] Diabetes type 2 Atrial flutter Obstructive sleep apnea Peripheral arterial disease right lower extremity consult for Dr. Restrepo appreciated, CT angiogram with contrast of the abdomen with the aorta runoff shows no flow in the right lower extremity, severe peripheral artery disease bilateral lower extremities;Dr Restrepo advised conservative management Discharge Disposition: [facility] Discharge Instruct/Medications Diet: Renal Activity: Light activity Follow Up/Referral: Follow up with the Dr at the [facility] Medications: see list Scheduled Acetaminophen (Acetaminophen Extra Stren), 500 MG PO 2 tabs Q6H, (Reported) Amiodarone HCl (Amiodarone HCl), 1 TAB PO DAILY, (Reported) Apixaban Base (Eliquis), 1 TAB PO BID, (Reported) Atorvastatin Calcium (Atorvastatin Calcium), 1 TAB PO DAILY, (Reported) B-Complex W/ C & Folic Acid (Maddie-Lalo), 1 OR DAILY, (Reported) Buspirone Hcl (Buspirone Hcl), 1 TAB PO BID, (Reported) Diltiazem HCl (Diltiazem Hydrochloride), 2 PO BID, (Reported) Escitalopram Oxalate (Escitalopram Oxalate), 1 TAB PO DAILY, (Reported) Ferrous Sulfate (Ferrous Sulfate), 325 MG PO DAILY, (Reported) Furosemide (Lasix), 1 TAB PO DAILY, (Reported) Metoprolol Tartrate (Lopressor Tablet), 1 TAB PO BID, (Reported) Pantoprazole Sodium Sesquihydr (Pantoprazole Sodium), 1 TAB PO DAILY, (Reported) Polyethylene Glycol 3350 (Miralax), 17 GM PO DAILY, (Reported) Sevelamer Hydrochloride (Sevelamer Hydrochloride), 2 TAB PO TID, (Reported) Scheduled PRN Calcium Carbonate (Antacid) (Antacid), 750 MG PO Q8HP PRN for indigestion, (Reported) Diphenhydramine Hcl (Benadryl Allergy), 25 MG PO Q6HP PRN for FOR ITCHING, (Reported) Hydrocodone-Acetaminophen (Hydrocodone Bitartrate/AC 7.5-300 mg), 1 TAB PO Q8HP PRN for moderate-sevare pain (6-10), (Reported) Ipratropium [place] Hfa (Atrovent Hfa), 17 MCG IN 2 puffs Q4H PRN PRN for wheezing, (Reported) Ipratropium-Albuterol (Ipratropium [place]/Albut), 1 MARYLOU IN Q6HP PRN for SHORTNESS OF BREATH, (Reported) Miscellaneous Medications Insulin Lispro (Human) (Humalog), 100 UNIT SC, (Reported) Nutritional Supplements (Nepro), 1 OR, (Reported) 35 (Time Taken for discharge summary 35 minutes) Discharge Statement: "Patient was advised to return to the ER or call 911 if any headaches, dizziness, shortness of breath, chest pain, abdominal pain, bleeding, fevers, or worsening of medical condition. Patient was counseled about treatment plan, medications, possible side effects, patientverbalized understanding. All questions were answered to the best of my ability. This discharge took greater then 30 minutes in planning, reviewing documentation, counseling the patient, and discussing with other team members." ASSESSMENT ASSESSMENT Hospital Course Uneventful Assessment Nonhealing right foot wound with gangrene of the right 2nd and 3rd toe: MRI right foot shows no osteomyelitis, continue vancomycin DC Levaquin and add Rocephin, ID consult by Dr. Amadeo Casillas appreciated, seen by podiatric , planning for amputation of the right foot toes once stable ESRD on hemodialysis consult for appreciated Morbid obesity Acute generalized weakness Acute on chronic respiratory failure Acute on chronic CHF exacerbation Acute COPD exacerbation Acute Hyperkalemia Secondary hyperparathyroidism due to ESRD Diabetes Hypertension History of [place] Diabetes type 2 Atrial flutter Obstructive sleep apnea Peripheral arterial disease right lower extremity consult for Dr. Restrepo appreciated, CT angiogram with contrast of the abdomen with the aorta runoff shows no flow in the right lower extremity, severe peripheral artery disease bilateral lower extremities;Dr Restrepo advised conservative management Date of Service: May 22, 2025 Billing Provider: RENETTA VALENCIA MD Common Visit Codes: [id number] DISCH DAY >30min RENETTA VALENCIA MD May 22, 2025 10:36
[2025-05-22 12:31] VITALS: BP 112/69; PULSE 97; RESP 19; TEMP 98; O2SAT 99
--- NOTE | 2025-05-22 12:40 | DVHPN2 ---
Progress Note Date Seen: May 22, 2025 Medical Necessity Reason Pt with a Central, PICC or Fol: No The following are medically ne: Central Line (HD catheter) Subjective Patient reports: No new complaints Other Systems: Patient seen and examined by myself today in follow-up Patient examined hemodialysis, blood pressure stable Objective vital signs Vital Sign Date Time Temp Pulse Resp B/P (MAP) Pulse Ox O2 Delivery O2 Flow Rate FiO2 05/22/25 12:31 98.0 97 19 112/69 (83) 99 98.0 05/21/25 20:00 Nasal Cannula* 3 32 Total Intake and Output 05/21/25 05/21/25 05/22/25 15:00 23:00 07:00 Intake Total 700 ml 100 ml Balance 700 ml 100 ml medications Current Medications Medications Dose Ordered Sig/Kiana Route Start Time Stop Time Status Last Admin Dose Admin Multivit/Ca Carb/ B Cmplx/FA/Prenat 1 tab DAILY PO 05/12/25 10:00 05/21/25 11:05 1 TAB Atorvastatin Calcium 10 mg HS PO 05/12/25 22:00 05/21/25 20:25 10 MG Diagnostic Test (Pha) 1 strip ACHS 05/12/25 07:00 05/22/25 12:08 1 STRIP Insulin Human Regular HS SC 05/12/25 22:00 05/21/25 20:36 4 UNITS Insulin Human Regular AC SC 05/12/25 07:00 05/22/25 12:07 2 UNITS Dextrose 50 ml UD PRN IV 05/11/25 23:15 Apixaban 5 mg BID PO 05/12/25 10:00 05/21/25 20:25 5 MG Sodium Chloride 10 ml Q8HR IV 05/12/25 06:00 05/22/25 06:17 10 ML Ondansetron HCl 4 mg Q4HP PRN IV 05/11/25 23:15 05/21/25 23:16 4 MG Docusate Sodium 100 mg BIDPRN PRN PO 05/11/25 23:15 Acetaminophen 650 mg Q6HP PRN PO 05/11/25 23:15 05/18/25 00:56 650 MG Nitroglycerin 0.4 mg Q5MINP PRN SL 05/11/25 23:15 Calcium Acetate 667 mg TIDWMEALS PO 05/12/25 08:00 05/22/25 12:05 667 MG Carvedilol 6.25 mg Q12HR PO 05/12/25 10:00 05/21/25 20:26 6.25 MG Acetaminophen/ Hydrocodone Bitart 1 tab Q6HPRN PRN PO 05/14/25 09:00 05/22/25 05:15 1 TAB Sevelamer HCl 2,400 mg TIDWM PO 05/14/25 12:00 05/22/25 12:05 2,400 MG Epoetin Dante-epbx 10,000 unit MWF@2100 SC 05/15/25 21:00 05/20/25 21:53 10,000 UNIT Vancomycin HCl 0 ml @ 0 mls/hr UD IV 05/16/25 08:30 Ceftriaxone Sodium 50 ml @ 100 mls/hr Q24H IV 05/21/25 21:00 05/21/25 20:22 100 MLS/HR Examination: LUNGS:Normal, CVS:Normal, MSK:Abnormal laboratory and microbiology Laboratory Tests 05/22/25 05:02 05/19/25 04:54 Test 05/19/25 04:54 Range/Units Serum Glucose 91 74-106 mg/dL Microbiology Date/Time Source Procedure Growth Status 05/13/25 06:39 Nose MRSA Screen - Final Complete 05/11/25 18:41 Blood Blood Culture - Final NO GROWTH AFTER 5 DAYS OF INCUBATION. Complete Problem List/Assessment/Plan Problem List/Assessment/Plan End-stage renal disease on hemodialysis Hypertension Peripheral arterial disease Anemia due to chronic kidney disease Morbid obesity afib on eliquis Iron deficiency Cellulitis bilateral lower extremity Recommendations Continue with UF 2-3 L as tolerated Epogen 61799 subQ with hemodialysis Strict I&Os Renal diet IV antibiotics IV Venofer Vascular on the case We will continue to follow up Plan discussed with: Patient My Orders My Orders Orders - MARISEL MCCONNELL MD Procedure Category Date Status Time Hemodialysis Orders ORDERS 05/22/25 Transmitted 08:46 Dialysis Nursing JONATHAN 05/22/25 In Process Message 08:46 Document Fluid Input JONATHAN 05/22/25 In Process And Outpu 08:46 Epoetin Dante-Epbx PHA 05/22/25 In Process (Retacrit) 21:00 Dietary Evaluation Review Comments: 1. CCHO-60, 110 protein 2 g NA Diet (high protein for promoting wound healing) 2. lessened wt bearing on feet and lower extremities-Wt management Expected Outcomes/Goals: gradually healed wounds with gradual wt loss, MARISEL MCCONNELL MD May 22, 2025 12:40
[2025-05-22] MEDS: IRON SUCROSE COMPLEX 110 ML IV SCH (14:41)
[2025-05-22] MEDS: VANCOMYCIN 500mg/100mL 100 ML IV ONE (16:14)
[2025-05-22 16:39] VITALS: BP 107/73; PULSE 97; RESP 20; TEMP 97.7; O2SAT 100
[2025-05-22] MEDS ORDERED: EPOETIN ALFA-EPBX 10,000 UNIT/1ML VIAL SC ONE (21:00)
--- NOTE | 2025-05-27 12:31 | DVHPN2 ---
Consult Progress Note Objective laboratory and microbiology Laboratory Tests 05/22/25 05:02 05/19/25 04:54 Test 05/19/25 04:54 Range/Units Serum Glucose 91 74-106 mg/dL Dietary Evaluation Review Comments: 1. CCHO-60, 110 protein 2 g NA Diet (high protein for promoting wound healing) 2. lessened wt bearing on feet and lower extremities-Wt management Expected Outcomes/Goals: gradually healed wounds with gradual wt loss, TY GARIBAY MD May 27, 2025 12:31
== END 2025-05-22 19:50 | DRG 197 ==
LOC: ER 16:22 → OVERFLOW 23:09 → TELE-CENTR 05-12 23:33 → TELE-EAST 05-17 01:24
PROVIDERS: ADMIT Family Medicine; ATTEND Family Medicine
PROC: 5A1D70Z Performance of Urinary Filtration, Intermittent, Less than 6 Hours Per Day (ICD-10-PCS; principal; 2025-05-13)
PROC: 5A1D70Z Performance of Urinary Filtration, Intermittent, Less than 6 Hours Per Day (ICD-10-PCS; 2025-05-15)
PROC: 5A1D70Z Performance of Urinary Filtration, Intermittent, Less than 6 Hours Per Day (ICD-10-PCS; 2025-05-16)
PROC: 5A1D70Z Performance of Urinary Filtration, Intermittent, Less than 6 Hours Per Day (ICD-10-PCS; 2025-05-17)
PROC: 5A1D70Z Performance of Urinary Filtration, Intermittent, Less than 6 Hours Per Day (ICD-10-PCS; 2025-05-19)
PROC: 5A1D70Z Performance of Urinary Filtration, Intermittent, Less than 6 Hours Per Day (ICD-10-PCS; 2025-05-21)
PROC: 5A1D70Z Performance of Urinary Filtration, Intermittent, Less than 6 Hours Per Day (ICD-10-PCS; 2025-05-22)
DX: E11.52 Type 2 diabetes mellitus with diabetic peripheral angiopathy with gangrene (principal); I13.2 Hypertensive heart and chronic kidney disease with heart failure and with stage 5 chronic kidney disease, or end stage renal disease; J96.20 Acute and chronic respiratory failure, unspecified whether with hypoxia or hypercapnia; J44.1 Chronic obstructive pulmonary disease with (acute) exacerbation; I48.92 Unspecified atrial flutter; D63.1 Anemia in chronic kidney disease; N17.9 Acute kidney failure, unspecified; L03.115 Cellulitis of right lower limb; N18.6 End stage renal disease; N25.81 Secondary hyperparathyroidism of renal origin; S91.301A Unspecified open wound, right foot, initial encounter; I50.9 Heart failure, unspecified; Z99.2 Dependence on renal dialysis; E11.22 Type 2 diabetes mellitus with diabetic chronic kidney disease; E66.01 Morbid (severe) obesity due to excess calories; G47.33 Obstructive sleep apnea (adult) (pediatric); E87.5 Hyperkalemia; F17.210 Nicotine dependence, cigarettes, uncomplicated; Z88.5 Allergy status to narcotic agent; Z88.0 Allergy status to penicillin; Z68.42 Body mass index [BMI] 45.0-49.9, adult; I25.2 Old myocardial infarction; Z87.11 Personal history of peptic ulcer disease; I48.91 Unspecified atrial fibrillation; Z79.899 Other long term (current) drug therapy; Z79.4 Long term (current) use of insulin; Z79.01 Long term (current) use of anticoagulants; Z98.891 History of uterine scar from previous surgery; Z90.49 Acquired absence of other specified parts of digestive tract; X58.XXXA Exposure to other specified factors, initial encounter; Y93.89 Activity, other specified; Y92.89 Other specified places as the place of occurrence of the external cause; Y99.8 Other external cause status
CPT/HCPCS: 36415; 71045; 73630; 73718; 75635; 80048; 80053; 80202; 82565; 82728; 82962; 83540; 83550; 83605; 83735; 83880; 83970; 84100; 85025; 86803; 86850; 86900; 86901; 87040; 87077; 87081; 87186; 87340; 90935; 93005; 93925; 96365; 99291; G0378; J1642; J1756; J1815; J1956; J2405; J2543